=== PATIENT | male | born 1955 | race Caucasian/White ===

== ENCOUNTER 2021-06-07 10:30 | Emergency (ER) | payer MEDICARE, OTHER ==
[~2021-06-07] VITALS: Ht 162 cm; Wt 101.0 kg
--- NOTE | 2021-06-07 10:53 | ED Cough/URI ---
General Chief Complaint: COVID19 Suspect/Confirmed Stated Complaint: DIZZINESS; HEADACHE; NO SMELL/TASTE Nursing Triage Note: SHAKY AND NO TASTE OR SMELL. Source: patient Exam Limitations: no limitations History of Present Illness Date Seen by Provider: Jun 07, 2021 Time Seen by Provider: 10:51 Initial Comments 66-year-old male with past medical history of hypertension coming in due to 4 days of cough and loss of taste and smell. The cough is mild, intermittent, nothing seems to make it better or worse. He has some mild shortness of breath which is not bad. He has had the COVID vaccines as well as the booster. Has not had COVID that he knows of. Has not had any fever, nausea, vomiting, diarrhea, weakness, numbness, chest pain, abdominal pain, or any other concerns. Allergies and Home Medications Allergies Coded Allergies: No Known Drug Allergies (Unverified , 06/07/21) Patient Home Medication List Home Medication List Reviewed: Yes Review of Systems Review of Systems Constitutional: No chills, No fever EENTM: No blurred vision Respiratory: cough, short of breath Cardiovascular: No chest pain Gastrointestinal: No abdominal pain Genitourinary: No decreased output Musculoskeletal: no symptoms reported Skin: no symptoms reported Psychiatric/Neurological: No Symptoms Reported Hematologic/Lymphatic: No Symptoms Reported Immunological/Allergic: no symptoms reported All Other Systems Reviewed Negative Unless Noted: Yes Past Jqlsekk-Ktjbmz-Eeahtp Hx Patient Social History Tobacco Use?: No Use of E-Cig and/or Vaping dev: No Substance use?: No Alcohol Use?: No Immunizations Up To Date Influenza Vaccine Up-to-Date: Yes; Up-to-Date First/Initial COVID19 Vaccinat: 2020 Second COVID19 Vaccination Hai: 2020 COVID19 Vaccine Commissary Helper: moderna Past Medical History Surgery/Hospitalization HX: HTN Surgeries: No Physical Exam Vital Signs - First Documented 06/07/21 10:34 Temp 36.5 Pulse 92 Resp 18 B/P (MAP) 145/62 (89) Pulse Ox 97 O2 Delivery Room Air Capillary Refill : Less Than 3 Seconds Height: '" Weight: lbs. oz. kg; 38.00 BMI Method: General Appearance: no apparent distress Eyes: Bilateral Eye Normal Inspection HEENT: PERRL/EOMI, normal ENT inspection, pharynx normal Neck: non-tender, full range of motion, supple, normal inspection Respiratory: chest non-tender, lungs clear, normal breath sounds, no respiratory distress, no accessory muscle use Cardiovascular: regular rate, rhythm, no edema, no murmur Gastrointestinal: normal bowel sounds, non tender, soft; No distended, No guarding, No rebound Extremities: normal range of motion, non-tender, normal inspection, no pedal edema, no calf tenderness, normal capillary refill Neurologic/Psychiatric: no motor/sensory deficits, alert, normal mood/affect Skin: normal color, warm/dry Lymphatic: no adenopathy Progress/Results/Core Measures Suspected Sepsis SIRS Temperature: Pulse: 92 Respiratory Rate: 18 Blood Pressure 145 /62 Mean: 89 Results/Orders Lab Results Laboratory Tests Test 06/07/21 10:39 Range/Units Influenza Type A Antigen NEGATIVE NEGATIVE Influenza Type B Antigen NEGATIVE NEGATIVE My Orders Orders - JOSÉ RAM MD Covid 19 Inhouse Test (06/07/21 10:39) Chest 1 View Ap/Pa Only (06/07/21 10:47) Influenza A & B Antigens (06/07/21 10:47) Vital Signs/I&O 06/07/21 10:34 Temp 36.5 Pulse 92 Resp 18 B/P (MAP) 145/62 (89) Pulse Ox 97 O2 Delivery Room Air Capillary Refill : Less Than 3 Seconds Blood Pressure Mean: 89 Progress Note : Progress Note 66-year-old male with above history coming in due to URI type symptoms. ABCs were intact and vitals were stable on presentation. Physical exam reassuring with no focal abnormalities. Flu test negative, Covid test was sent and is pending. Chest x-ray on my interpretation without any focal pneumonia, pneumothorax, or obvious abnormality otherwise. He continues to be stable even with ambulation around the room his oxygen saturation remains normal. I believe he is stable for discharge with outpatient follow-up. He was sent home with strict return precautions. Departure Impression Primary Impression: Person under investigation for COVID-19 Additional Impression: URI (upper respiratory infection) Qualified Codes: J06.9 - Acute upper respiratory infection, unspecified Disposition: 01 HOME, SELF-CARE Condition: Stable Departure-Patient Inst. Decision time for Depature: 11:31 Referrals: ANGIE FRY (PCP) Primary Care Physician NO,LOCAL PHYSICIAN (Family) Primary Care Physician Patient Instructions: COVID-19 ED, Viral Upper Respiratory Infection, Adult (DC) Add. Discharge Instructions: Your flu test was negative, and your Covid test is pending. Your chest x-ray looked clear. I would recommend buying a pulse oximeter to have at home so he can check with your oxygen is. If you get into the 80s and are unable to get it to go back up to at least 90, that is when I recommend you come back to the ER. Take medq-knz-[id number] cold and flu medicine for any type of cough or fever. Work/School Note: Work Release Form Date Seen in the Emergency Department: Jun 07, 2021 Return to Work: Jun 09, 2021 Restrictions: Return-No Fever (24hrs) JOSÉ RAM MD Jun 07, 2021 10:53
[2021-06-07 11:33] VITALS: BP 145/62
--- NOTE | 2021-06-07 11:41 | Diagnostic Imaging Report ---
EXAMINATION: Portable chest, one view at 11:09 a.m. INDICATION: Shortness of breath. COMPARISON: None. FINDINGS: The heart size is within normal limits. The lungs are clear. There is no evidence for failure, pneumonia or for a pleural effusion. The mediastinum is not widened. The osseous structures are intact. IMPRESSION: There is no evidence for active disease. Dictated by: Dictated on workstation # [id number]
== END 2021-06-07 11:34 | disposition home or self-care (01) ==
LOC: EDBD → ER FS 10:33
DX: J06.9 Acute upper respiratory infection, unspecified (principal); I10 Essential (primary) hypertension; Z20.822 Contact with and (suspected) exposure to COVID-19
CPT/HCPCS: 71045; 87635; 87636; 87804

== ENCOUNTER 2021-06-08 12:44 | Inpatient (IN) | payer MEDICARE, OTHER ==
[~2021-06-08] VITALS: Ht 162.6 cm; Wt 104.5 kg
[2021-06-08] MEDS ORDERED: NS IV 1000 ML 1,000 ML IV SCH (13:00)
[2021-06-08] MEDS ORDERED: ACETAMINOPHEN 325 MG TABLET PO ONE (13:00)
--- NOTE | 2021-06-08 13:01 | ED General ---
General Chief Complaint: Altered Mental Status Stated Complaint: AMS Source of Information: Patient, EMS, Old Records History of Present Illness Date Seen by Provider: Jun 08, 2021 Time Seen by Provider: 12:44 Initial Comments 66-year-old male presenting by EMS with complaints of feeling unsteady on his feet and altered mental status. He states he has been having difficulty with walking and feeling off balance. He has had difficulty trying to control his urine over the last several days. He has been having generalized headache as well. He denies any numbness or weakness in his arms or legs. He denies any change in his vision. He was seen in the emergency department yesterday and had mainly been complaining of loss of taste and smell. At that time he was tested for Covid and influenza. He had negative influenza test and a rapid test was negative for Covid. He has elevated blood pressure here in the emergency department and had reportedly been unresponsive at home. He had lost control of his bladder at home as well. He denies having any chest pain, abdominal pain, nausea, vomiting, diarrhea. He had 101.5 temp for EMS. He follows with the local [place] clinic and states he usually goes to [place] if he needs [place] services. He also states he has Medicare and could be admitted locally if needed medical care. Associated Systoms: No Chest Pain; Cough; No Diaphoresis, No Fever/Chills; Headaches; No Loss of Appetite; Malaise; No Nausea/Vomiting, No Rash, No Seizure, No Shortness of Air, No Syncope; Weakness (generalized) Allergies and Home Medications Allergies Coded Allergies: No Known Drug Allergies (Unverified , 06/07/21) Patient Home Medication List Home Medication List Reviewed: Yes Review of Systems Review of Systems Constitutional: No chills; dizziness; No fever; malaise, weakness (general) EENTM: nose congestion; No epistaxis Respiratory: cough; No short of breath, No stridor, No wheezing Cardiovascular: No chest pain, No palpitations Gastrointestinal: No abdominal pain, No constipation, No diarrhea, No nausea, No vomiting Genitourinary: No dysuria; incontinence Musculoskeletal: no symptoms reported Skin: No rash Psychiatric/Neurological: Headache (generalized), Weakness (general), Other (Unsteady gait and feels off balance. He has been confused today.) Hematologic/Lymphatic: Denies Blood Clots Past Gprnfkr-Ulusyh-Babyka Hx Patient Social History Tobacco Use?: No Immunizations Up To Date First/Initial COVID19 Vaccinat: 2020 Second COVID19 Vaccination Hai: 2020 Past Medical History Surgery/Hospitalization HX: HTN Surgeries: No Physical Exam Vital Signs Vital Signs - First Documented 06/08/21 06/08/21 12:45 15:35 Temp 37.8 Pulse 93 Resp 17 B/P (MAP) 197/94 (128) Pulse Ox 98 O2 Delivery Room Air Capillary Refill : Height, Weight, BMI Height: '" Weight: lbs. oz. kg; 38.00 BMI Method: General Appearance: No Apparent Distress, Obese, Other (disheveled and poor personal hygiene) HEENT: PERRL/EOMI, Normal ENT Inspection, Pharynx Normal Neck: Full Range of Motion, Normal Inspection, Non Tender, Supple; No Carotid Bruit Respiratory: Chest Non Tender, Lungs Clear, Normal Breath Sounds, No Accessory Muscle Use, No Respiratory Distress Cardiovascular: Regular Rate, Rhythm, Normal Peripheral Pulses, Extra Beats Gastrointestinal: Normal Bowel Sounds, No Pulsatile Mass, Non Tender, Soft Rectal: Deferred Back: No CVA Tenderness Extremity: Normal Capillary Refill, Normal Inspection, No Pedal Edema Neurologic/Psychiatric: Alert, Oriented x3, genetic engineer II-XII Norm as Tested Skin: Normal Color, Warm/Dry Focused Exam Lactate Level 06/08/21 12:50: Lactic Acid Level 2.77*H 06/08/21 15:12: Lactic Acid Level 1.24 Lactic Acid Level Laboratory Tests Test 06/08/21 12:50 06/08/21 15:12 Lactic Acid Level 2.77 MMOL/L (0.50-2.00) *H 1.24 MMOL/L (0.50-2.00) Progress/Results/Core Measures Suspected Sepsis SIRS Temperature: Pulse: Respiratory Rate: Laboratory Tests 06/08/21 12:50: White Blood Count 5.1 Blood Pressure / Mean: 06/08/21 12:50: Lactic Acid Level 2.77*H 06/08/21 15:12: Lactic Acid Level 1.24 Laboratory Tests 06/08/21 12:50: Creatinine 1.25, INR Comment 1.0, Platelet Count 196, Total Bilirubin 0.5 Results/Orders Lab Results Laboratory Tests Test 06/08/21 12:50 06/08/21 14:03 06/08/21 15:12 Range/Units White Blood Count 5.1 4.3-11.0 10^3/uL Red Blood Count 5.01 4.30-5.52 10^6/uL Hemoglobin 14.1 13.3-17.7 g/dL Hematocrit 43 40-54 % Mean Corpuscular Volume 85 80-99 fL Mean Corpuscular Hemoglobin 28 25-34 pg Mean Corpuscular Hemoglobin Concent 33 32-36 g/dL Red Cell Distribution Width 13.2 10.0-14.5 % Platelet Count 196 130-400 10^3/uL Mean Platelet Volume 9.7 9.0-12.2 fL Immature Granulocyte % (Auto) 1 % Neutrophils (%) (Auto) 67 42-75 % Lymphocytes (%) (Auto) 23 12-44 % Monocytes (%) (Auto) 9 0-12 % Eosinophils (%) (Auto) 0 0-10 % Basophils (%) (Auto) 1 0-10 % Neutrophils # (Auto) 3.4 1.8-7.8 X 10^3 Lymphocytes # (Auto) 1.2 1.0-4.0 X 10^3 Monocytes # (Auto) 0.4 0.0-1.0 X 10^3 Eosinophils # (Auto) 0.0 0.0-0.3 10^3/uL Basophils # (Auto) 0.1 0.0-0.1 10^3/uL Immature Granulocyte # (Auto) 0.0 0.0-0.1 10^3/uL Prothrombin Time 13.6 12.2-14.7 SEC INR Comment 1.0 0.8-1.4 Activated Partial Thromboplast Time 24 24-35 SEC Sodium Level 138 135-145 MMOL/L Potassium Level 3.8 3.6-5.0 MMOL/L Chloride Level 103 98-107 MMOL/L Carbon Dioxide Level 23 21-32 MMOL/L Anion Gap 12 5-14 MMOL/L Blood Urea Nitrogen 26 H 7-18 MG/DL Creatinine 1.25 0.60-1.30 MG/DL Estimat Glomerular Filtration Rate 58 BUN/Creatinine Ratio 21 Glucose Level 177 H 70-105 MG/DL Lactic Acid Level 2.77 *H 1.24 0.50-2.00 MMOL/L Calcium Level 8.1 L 8.5-10.1 MG/DL Corrected Calcium 8.3 L 8.5-10.1 MG/DL Magnesium Level 2.0 1.6-2.4 MG/DL Total Bilirubin 0.5 0.1-1.0 MG/DL Aspartate Amino Transf (AST/SGOT) 37 H 5-34 U/L Alanine Aminotransferase (ALT/SGPT) 53 0-55 U/L Alkaline Phosphatase 87 40-136 U/L Troponin I 0.33 *H <0.30 NG/ML C-Reactive Protein 6.68 H <0.50 MG/DL Total Protein 6.7 6.4-8.2 GM/DL Albumin 3.8 3.2-4.5 GM/DL Urine Color YELLOW Urine Clarity CLEAR Urine pH 6.5 5-9 Urine Specific [place] 1.015 L 1.016-1.022 Urine Protein NEGATIVE NEGATIVE Urine Glucose (UA) NEGATIVE NEGATIVE Urine Ketones NEGATIVE NEGATIVE Urine Nitrite NEGATIVE NEGATIVE Urine Bilirubin NEGATIVE NEGATIVE Urine Urobilinogen 1.0 < = 1.0 MG/DL Urine Leukocyte Esterase NEGATIVE NEGATIVE Urine RBC (Auto) TRACE-I H NEGATIVE Urine RBC 2-5 H /HPF Urine WBC RARE /HPF Urine Crystals NONE /LPF Urine Bacteria NEGATIVE /HPF Urine Casts NONE /LPF Urine Mucus SMALL H /LPF Urine Culture Indicated NO My Orders Orders - ANNA MARIE VILLA MD Monitor-Rhythm Ecg Trace Only (06/08/21 12:53) Ed Iv/Invasive Line Start (06/08/21 12:53) Cbc With Automated Diff (06/08/21 12:53) Comprehensive Metabolic Panel (06/08/21 12:53) Crp Fs (06/08/21 12:53) Troponin I Fs (06/08/21 12:53) Protime With Inr (06/08/21 12:53) Partial Thromboplastin Time (06/08/21 12:53) Ekg Tracing (06/08/21 12:53) Ns Iv 1000 Ml (Sodium Chloride 0.9%) (06/08/21 13:00) Acetaminophen Tablet/Caplet (Tylenol T (06/08/21 13:00) Blood Culture (06/08/21 12:53) Ua Culture If Indicated (06/08/21 12:53) Ct Head Wo (06/08/21 12:53) Chest 1 View Ap/Pa Only (06/08/21 12:53) Lactic Acid Analyzer (06/08/21 12:53) Magnesium (06/08/21 12:57) Labetalol Injection (Normodyne Injection (06/08/21 13:33) Ekg Tracing (06/08/21 13:51) Ceftriaxone 1 Gm Pre-Mix (Rocephin 1 Gm (06/08/21 13:51) Medications Given in ED Current Medications Medications Dose Ordered Sig/Lisseth Route Start Time Stop Time Status Last Admin Dose Admin Acetaminophen 650 mg ONCE ONCE PO 06/08/21 13:00 06/08/21 13:01 DC 06/08/21 13:01 650 MG Vital Signs/I&O 06/08/21 06/08/21 06/08/21 06/08/21 12:45 12:45 13:01 15:35 Temp 37.8 37.6 Pulse 93 79 Resp 17 17 B/P (MAP) 197/94 (128) 136/72 Pulse Ox 98 O2 Delivery Room Air Room Air Room Air 06/08/21 06/08/21 06/08/21 16:20 16:20 16:20 Temp 36.7 Pulse 84 Resp 16 B/P (MAP) 167/116 (133) Pulse Ox 94 94 94 O2 Delivery Room Air Room Air Room Air Capillary Refill : Progress Note #1: Progress Note Obtain basic labs and blood cultures with cardiac enzymes. Urinalysis to look for signs of infection with his loss of control of the bladder. CT scan of his head to look for signs of stroke, sinusitis, tumor, bleeding that could explain his headache and altered mental status as well as feeling unsteady on his feet. Chest x-ray to look for signs of infection or change from yesterday. Give IV fluids for hydration with his reported fever from EMS. Obtain blood cultures and lactic acid. Differential diagnosis includes Covid PUI, sepsis, pneumonia, stroke, sinusitis, UTI, hypertensive urgency, acute renal failure, dehydration Progress Note #2: Progress Note Labs shows that his CBC is stable without acute elevation white blood cell count. His initial lactic acid was elevated to 2.77. He has mild elevation of the creatinine to 1.25. His initial electrocardiogram showed sinus tachycardia. He was given a dose of labetalol which helps with his heart rate and blood pressure but then his heart rate looks more regular so a repeat electrocardiogram was obtained which showed atrial fibrillation. His CT scan was did not show any acute process but did show some old lacunar infarcts. He had no acute process on his chest x-ray. His urinalysis was clear and did not show any signs of infection either. His initial troponin was slightly elevated at 0.33 with a cutoff of 0.3. With him having new onset atrial fibrillation and mild elevation of his lactic acid as well as troponin will discuss with the hospitalist and stem maker about admission for serial cardiac enzymes and monitoring. Progress Note #3: Progress Note Discussed with Dr. Monroe for the hospitalist service and Dr. Rodriguez for Cardiology. Will admit and do serial troponin tests ECG Initial ECG Impression Date: Jun 08, 2021 Initial ECG Impression Time: 12:56 Initial ECG Rate: 100 Initial ECG Rhythm: Normal Sinus Initial ECG Comparisson: No Previous ECG Available Comment Sinus tachycardia with heart rate of 100 bpm. TN interval [address] elevation. Findings for LVH with secondary repolarization abnormalities. QT interval 354 ms with a QTc interval 457 ms. There is no prior tracing available for comparison. EKG : EKG Time: 14:03 Rhythm: A Fib/Flutter ECG Comparisson: Changed Comment Atrial fibrillation with a heart rate of 118 bpm. Repolarization changes suggesting ischemia in anterolateral leads. Prolonged QT interval of 370 ms and QTc interval 519 ms. This is changed from his initial tracing 1256. Diagnostic Imaging Diagonstic Imaging: Xray Plain Films/CT/US/NM/MRI: chest Comments [facility] [place], [place] NAME: PORFIRIO RAMIREZ [facility] REC#: [id number] PT STATUS: REG ER : 1955 PHYSICIAN: ANNA MARIE VILLA MD ADMIT DATE: 06/08/21/ER FS Signed Date of Exam:06/08/21 CHEST 1 VIEW AP/PA ONLY INDICATION: Hypertension Portable chest 1:13 PM Heart and mediastinum are normal. Lungs are clear. There are no effusions or pneumothoraces. IMPRESSION: Negative chest Dictated by: Dictated on workstation # [id number] Dict: 06/08/21 1319 Trans: 06/08/21 1441 CV [id number] Interpreted by: JAYDA DAWSON MD Electronically signed by: JAYDA DAWSON MD 06/08/21 1441 Reviewed: Reviewed by Me Diagonstic Imaging: CT Plain Films/CT/US/NM/MRI: head Comments [facility] [place] [place] NAME: PORFIRIO RAMIREZ [facility] REC#: [id number] PT STATUS: REG ER : 1955 PHYSICIAN: ANNA MARIE VILLA MD ADMIT DATE: 06/08/21/ER FS Signed Date of Exam:06/08/21 CT HEAD WO INDICATION: Altered mental status and headache and hypertension. TECHNIQUE: Multiple contiguous axial images were obtained through the brain without the use of intravenous contrast. Auto Exposure Controls were utilized during the CT exam to meet ALARA standards for radiation dose reduction. There is no previous study for comparison There are no extra-axial fluid collections. No intracranial hemorrhage. There is no mass effect or midline shift. The ventricles are normal in size and position. There are moderate low-density changes throughout the deep white matter compatible with chronic ischemic change. There is an old lacunar infarct in the right thalamus as well as an old lacunar infarct in the right caudate nucleus. Calvarial windows appear unremarkable. IMPRESSION: There are chronic ischemic changes in the deep white matter. There is no acute hemorrhage or mass effect. There are old lacunar infarcts in the right thalamus and right caudate nucleus. Dictated by: Dictated on workstation # [id number] Dict: 06/08/21 1319 Trans: 06/08/21 1410 CVB [id number] Interpreted by: ROCHELLE CRUZ MD Electronically signed by: ROCHELLE CRUZ MD 06/08/21 1410 Reviewed: Reviewed by Me Departure Communication (Admissions) Time/Spoke to Admitting Phy: 14:[address] Monroe for the hospitalist service as the patient follows with [facility]. Will place on Cardiac Stepdown and trend troponin. Consult Dr. Rodriguez with cardiology for the new onset atrial fibrillation. Time/Spoke to Consulting Phy: 14:50 Dr. Rodriguez with cardiology was made aware of the consult for the patient being admitted to the hospitalist service with new onset atrial fibrillation and mild elevation of the troponin Impression Primary Impression: New onset atrial fibrillation Additional Impressions: Lactic acidosis Elevated troponin I level Disposition: 30 STILL A PATIENT Condition: Stable Admissions Decision to Admit Reason: Admit from ER (General) Decision to Admit/Date: Jun 08, 2021 Time/Decision to Admit Time: 14:40 Departure-Patient Inst. Referrals: ANGIE FRY (PCP) Primary Care Physician NO,LOCAL PHYSICIAN (Family) Primary Care Physician ANNA MARIE VILLA MD Jun 08, 2021 13:00
--- NOTE | 2021-06-08 13:21 | Diagnostic Imaging Report ---
INDICATION: Hypertension Portable chest 1:13 PM Heart and mediastinum are normal. Lungs are clear. There are no effusions or pneumothoraces. IMPRESSION: Negative chest Dictated by: Dictated on workstation # [id number]
--- NOTE | 2021-06-08 13:22 | Diagnostic Imaging Report ---
INDICATION: Altered mental status and headache and hypertension. TECHNIQUE: Multiple contiguous axial images were obtained through the brain without the use of intravenous contrast. Auto Exposure Controls were utilized during the CT exam to meet ALARA standards for radiation dose reduction. There is no previous study for comparison There are no extra-axial fluid collections. No intracranial hemorrhage. There is no mass effect or midline shift. The ventricles are normal in size and position. There are moderate low-density changes throughout the deep white matter compatible with chronic ischemic change. There is an old lacunar infarct in the right thalamus as well as an old lacunar infarct in the right caudate nucleus. Calvarial windows appear unremarkable. IMPRESSION: There are chronic ischemic changes in the deep white matter. There is no acute hemorrhage or mass effect. There are old lacunar infarcts in the right thalamus and right caudate nucleus. Dictated by: Dictated on workstation # [id number]
[2021-06-08 13:25] LABS: PROTHROMBIN TIME PATIENT 13.6 SEC (12.2-14.7)
[2021-06-08 13:27] LABS: BASOPHILS # (AUTO) 0.1 10^3/uL (0.0-0.1); BASOPHILS % (AUTO) 1 % (0-10); EOSINOPHILS % (AUTO) 0 % (0-10); HEMATOCRIT 43 % (40-54); HEMOGLOBIN 14.1 g/dL (13.3-17.7); LYMPHOCYTES # (AUTO) 1.2 X 10^3 (1.0-4.0); LYMPHOCYTES % (AUTO) 23 % (12-44); MEAN CORPUSCULAR HEMOGLOBIN 28 pg (25-34); MEAN CORPUSCULAR HGB CONC 33 g/dL (32-36); MEAN CORPUSCULAR VOLUME 85 fL (80-99); MEAN PLATELET VOLUME 9.7 fL (9.0-12.2); MONOCYTES # (AUTO) 0.4 X 10^3 (0.0-1.0); MONOCYTES % (AUTO) 9 % (0-12); NEUTROPHILS # (AUTO) 3.4 X 10^3 (1.8-7.8); NEUTROPHILS % (AUTO) 67 % (42-75); PLATELET COUNT 196 10^3/uL (130-400); WHITE BLOOD COUNT 5.1 10^3/uL (4.3-11.0)
[2021-06-08] MEDS ORDERED: LABETALOL HCL 20 MG/4 ML VIAL IV STA (13:33)
[2021-06-08 13:45] LABS: CREATININE SERUM 1.25 MG/DL (0.60-1.30); POTASSIUM 3.8 MMOL/L (3.6-5.0)
[2021-06-08 13:46] LABS: ALBUMIN 3.8 GM/DL (3.2-4.5); BILIRUBIN,TOTAL 0.5 MG/DL (0.1-1.0); CALCIUM 8.1 MG/DL (8.5-10.1); TOTAL PROTEIN 6.7 GM/DL (6.4-8.2)
[2021-06-08] MEDS ORDERED: cefTRIAXone 1 GM PRE-MIX 50 ML IV STA (13:51)
[2021-06-08 14:14] LABS: BILIRUBIN,URINE NEGATIVE (NEGATIVE); CLARITY,URINE CLEAR; COLOR,URINE YELLOW; GLUCOSE, URINE (UA) NEGATIVE (NEGATIVE); KETONES,URINE NEGATIVE (NEGATIVE); LEUKOCYTE ESTERASE ,URINE NEGATIVE (NEGATIVE); NITRITE,URINE NEGATIVE (NEGATIVE); PH,URINE 6.5 (5-9); PROTEIN,URINE NEGATIVE (NEGATIVE)
[2021-06-08 14:18] LABS: BACTERIA,URINE NEGATIVE /HPF; WBC,URINE RARE /HPF
[2021-06-08 16:20] VITALS: BP 167/116
[2021-06-08] MEDS ORDERED: meTOprolol TARTRATE 25 MG (LOPRESSOR) TABLET PO NR (17:30)
[2021-06-08] MEDS ORDERED: lisINopril 40 MG (PRINIVIL) TABLET PO NR (17:30)
[2021-06-08] MEDS: NS IV 1000 ML 1,000 ML IV SCH (17:43)
[2021-06-08] MEDS: ENOXAPARIN 100 MG/1 ML (LOVENOX) SYR SC SCH (17:43)
[2021-06-08] MEDS ORDERED: CATHETER FLUSH 10 ML SYR IV PRN (17:45)
[2021-06-08] MEDS ORDERED: diphenhydrAMINE 25 MG TAB (BENADRYL) PO PRN (17:45)
[2021-06-08] MEDS ORDERED: ONDANSETRON 4 MG (ZOFRAN) ORAL DISSOLVE TAB PO PRN (17:45)
[2021-06-08] MEDS ORDERED: MELATONIN 3 MG TABLET PO PRN (17:45)
[2021-06-08] MEDS ORDERED: polyethylene glycoL POWDER 17 GM (MIRALAX) PACK PO PRN (17:45)
[2021-06-08] MEDS ORDERED: ONDANSETRON 4 MG/2 ML (SDV) Z0FRAN IV PRN (17:45)
[2021-06-08] MEDS ORDERED: ENOXAPARIN 100 MG/1 ML (LOVENOX) SYR SC SCH (17:45)
[2021-06-08] MEDS ORDERED: ANTACID SUSP 30 ML UDC (MYLANTA) PO PRN (17:45)
[2021-06-08 19:40] VITALS: BP 141/100
[2021-06-08 20:00] VITALS: BP 147/79
[2021-06-08] MEDS: DOCUSATE SODIUM 100 MG (COLACE) CAP PO SCH (20:15)
[2021-06-08] MEDS: SENNOSIDES 8.6 MG (SENOKOT) TAB PO SCH (20:15)
[2021-06-08] MEDS: meTOprolol TARTRATE 25 MG (LOPRESSOR) TABLET PO SCH (20:15)
[2021-06-09] VITALS (8 sets, daily range): BP systolic 147–198; BP diastolic 75–101
[2021-06-09] MEDS: ACETAMINOPHEN 325 MG TABLET PO PRN ×2 (01:27→19:49)
[2021-06-09] MEDS: NS IV 1000 ML 1,000 ML IV SCH ×3 (03:05→15:03)
[2021-06-09 05:36] LABS: POTASSIUM 3.5 MMOL/L (3.6-5.0)
[2021-06-09 05:37] LABS: CALCIUM 7.5 MG/DL (8.5-10.1)
[2021-06-09 05:41] LABS: CREATININE SERUM 1.37 MG/DL (0.60-1.30)
[2021-06-09] MEDS: ENOXAPARIN 100 MG/1 ML (LOVENOX) SYR SC SCH ×2 (06:27→17:02)
[2021-06-09] MEDS: lisINopril 40 MG (PRINIVIL) TABLET PO SCH (08:23)
[2021-06-09] MEDS: meTOprolol TARTRATE 25 MG (LOPRESSOR) TABLET PO SCH (08:23)
[2021-06-09] MEDS: DOCUSATE SODIUM 100 MG (COLACE) CAP PO SCH ×2 (08:24→19:50)
[2021-06-09] MEDS: SENNOSIDES 8.6 MG (SENOKOT) TAB PO SCH ×2 (08:24→19:50)
--- NOTE | 2021-06-09 09:36 | Diagnostic Imaging Report ---
INDICATION: Fever. TECHNIQUE/COMPARISON: A frontal chest was obtained at 9:10 AM and compared to 06/08/2021. FINDINGS: The heart and mediastinal silhouette are normal in appearance. The lungs appear clear. There is no pneumothorax or pleural fluid. IMPRESSION: Negative chest. Dictated by: Dictated on workstation # [id number]
[2021-06-09] MEDS ORDERED: amLODIPine 10 MG (NORVASC) TAB PO ONE (14:30)
[2021-06-09] MEDS ORDERED: CLN.1T PO (15:36)
[2021-06-09] MEDS ORDERED: HYDR25TA4 PO (15:36)
[2021-06-09] MEDS ORDERED: FAMO40TA6 PO (15:36)
[2021-06-09] MEDS ORDERED: ROSU20TA32 PO (15:36)
[2021-06-09] MEDS ORDERED: AMLO-251 PO (15:36)
[2021-06-09] MEDS ORDERED: LISI40TA9 PO (15:36)
--- NOTE | 2021-06-09 16:40 | Consultation-Cardiology ---
HPI-Cardiology Cardiology Consultation: Date of Consultation 06/09/2021 Date of Admission 06/08/2021 Attending Physician Enma Monroe MD Admitting Physician Katina Bell Consulting Physician ELDON KENNEDY JR, MD HPI: Time Seen by a Provider: 17:30 Chief Complaint: Reason for consultation: Atrial fibrillation and elevated troponin level. I had the pleasure of reviewing the records on Jorge L who is on the cardiac stepdown unit at [facility] in [place], [place] this afternoon. I did not see the patient due to his PUI for Covid status. When I came up to the floor, he had just severely dropped his oxygen saturations when he was trying to use the bedside commode. The nurse was not able to get a facemask for oxygen and called a CODE BLUE. However, the patient did not lose his pulse or consciousness. He had actually presented to the hospital yesterday with increasing shortness of breath. He was also found to be in atrial fibrillation and a cardiology consultation was requested. Certain portions of this document may have been dictated utilizing voice recognition technology. Inherent to this technology, typographical and grammatical errors may exist. As much as I am diligent to identify and correct these mistakes, some errors may remain in the document. Review of Systems-Cardiology Review of Systems Other comments Not obtained due to the patient's PUI for Covid status. QZT-Odribi-Sisksn Hx Patient Social History Smoking Status: Never a Smoker Have you traveled recently?: No Alcohol Use?: No Substance type: Caffeine Pt feels they are or have been: No Past Medical History PMH As described under Assessment. Family Medical History Family Medical History: Not obtained as above. Allergies and Home Medications Allergies Coded Allergies: No Known Drug Allergies (Unverified , 06/07/21) Patient Home Medication List Home Medication List Reviewed: Yes Amlodipine Besylate (Amlodipine Besylate) 10 Mg Tablet, 10 MG PO DAILY, (Reported) Entered as Reported by: SHELLEY OWENS on 06/09/211535 Last Action: Reviewed Clonidine HCl (Clonidine HCl) 0.1 Mg Tablet, 0.1 MG PO BID, (Reported) Entered as Reported by: SHELLEY OWENS on 06/09/211535 Last Action: Reviewed Famotidine (Famotidine) 40 Mg Tablet, 40 MG PO DAILY, (Reported) Entered as Reported by: SHELLEY OWENS on 06/09/211535 Last Action: Reviewed Hydrochlorothiazide (Hydrochlorothiazide) 25 Mg Tablet, 25 MG PO DAILY, (Repo rted) Entered as Reported by: SHELLEY OWENS on 06/09/211535 Last Action: Reviewed Lisinopril (Lisinopril) 40 Mg Tablet, 40 MG PO DAILY, (Reported) Entered as Reported by: SHELLEY OWENS on 06/09/211535 Last Action: Reviewed Rosuvastatin Calcium (Rosuvastatin Calcium) 20 Mg Tablet, 10 MG PO HS, (Reported) Entered as Reported by: SHELLEY OWENS on 06/09/211535 Last Action: Reviewed Exam Vital Signs Vital Signs Date Time Temp Pulse Resp B/P (MAP) Pulse Ox O2 Delivery O2 Flow Rate FiO2 06/09/21 16:40 112 44 98 100.00 06/09/21 16:00 38.6 190/86 (120) 06/09/21 11:24 Room Air Physical Exam I did not examine the patient due to his PUI for Covid status. Labs Laboratory Tests Test 06/08/21 18:16 06/09/21 04:45 06/09/21 08:50 06/09/21 16:55 Range/Units Troponin I 0.275 H <0.028 NG/ML Sodium Level 138 135-145 MMOL/L Potassium Level 3.5 L 3.6-5.0 MMOL/L Chloride Level 106 98-107 MMOL/L Carbon Dioxide Level 22 21-32 MMOL/L Anion Gap 10 5-14 MMOL/L Blood Urea Nitrogen 26 H 7-18 MG/DL Creatinine 1.37 H 0.60-1.30 MG/DL Estimat Glomerular Filtration Rate 52 BUN/Creatinine Ratio 19 Glucose Level 159 H 70-105 MG/DL Calcium Level 7.5 L 8.5-10.1 MG/DL Procalcitonin 0.28 H <0.10 NG/ML D-Dimer 1.93 H 0.00-0.49 UG/ML Blood Gas Puncture Site LFT BRACH Blood Gas Patient Temperature 38.6 Arterial Blood pH 7.15 *L 7.37-7.43 Arterial Blood Partial Pressure CO2 69 H 35-45 MMHG Arterial Blood Partial Pressure O2 28 *L 79-93 MMHG Arterial Blood HCO3 22 L 23-27 MMOL/L Arterial Blood Total CO2 24.2 21.0-31.0 MMOL/L Arterial Blood Oxygen Saturation 40 L 94-100 % Arterial Blood Base Excess -5.1 L -2.5-2.5 MMOL/L Tree Test POS Blood Gas Ventilator Setting NO Blood Gas Inspired Oxygen 100% Radiology ECHOCARDIOGRAM (06/09/2021): 1. Left ventricle: The cavity size is normal. There is moderate concentric hypertrophy. Systolic function is normal. The estimated ejection fraction is 55- 60%. There were no regional wall motion abnormalities identified. 2. Right ventricle: The right ventricle is mildly dilated measuring 3.6 cm midcavity. Systolic function is normal. TAPSE 2.2 cm. 3. Left atrium: The left atrium is mildly dilated with a volume index ranging from 28-43 mL/m. 4. Aortic valve: There is mild aortic valve sclerosis. 5. Pulmonary arteries: The pulmonary artery pressure cannot be estimated on this study due to inadequate tricuspid regurgitant envelope. ECG Impression ECG Comment Electrocardiogram obtained on 06/08/2021 shows atrial fibrillation with possible old dayana-myocardial infarction and lateral ST-T wave changes, possibly due to ischemia. Diagnosis/Problems Diagnosis/Problems (1) Paroxysmal atrial fibrillation Assessment & Plan: It appears as though atrial fibrillation may be a new finding in this patient. He was not on any oral electrocoagulation at home. He has not been in our hospital in the past so I do not have old records for review from this institution. His echocardiogram from today only shows mild left atrial dilatation which suggests that the atrial fibrillation could be something relatively new. He has been started on carvedilol. He was placed on therapeutic dose enoxaparin. I will change this over to apixaban. We will titrate up the beta-agustín as needed to control his heart rate. If we can get his heart rate under control with oral medication, I do not see any urgent need for cardioversion during this hospitalization. (2) Elevated troponin I level Status: Acute Assessment & Plan: He does have an elevated troponin level with an abnormal electrocardiogram. However, his main symptom was shortness of breath. I suspect this could be due to a type II non-ST elevation myocardial infarction related to supply/demand mismatch due to his acute pulmonary disease and tachycardia from the atrial fibrillation. Once he is clinically improved, we may want to consider an ischemic evaluation with a nuclear stress test. I do not see any urgent need for cardiac catheterization at this time. (3) Primary hypertension Assessment & Plan: He has now been started on carvedilol due to the atrial fibrillation. He is also back on lisinopril and amlodipine. I would recommend we stop hydrochlorothiazide due to his chronic kidney disease. (4) Mixed hyperlipidemia Assessment & Plan: I will resume rosuvastatin that he was taking at home and or madai a lipid panel for tomorrow morning. (5) Stage 3 chronic kidney disease Assessment & Plan: I do not have previous labs to know whether or not this is a new finding in this patient. As above, I recommend we stop hydrochlorothiazide. (6) Obesity Assessment & Plan: He needs to work on weight loss. ELDON KENNEDY JR, MD Jun 09, 2021 16:40
[2021-06-09 17:02] LABS: ABG BASE EXCESS -5.1 MMOL/L (-2.5-2.5); ABG OXYGEN SATURATION 40 % (94-100); ABG PCO2 69 MMHG (35-45); ABG TCO2 24.2 MMOL/L (21.0-31.0)
[2021-06-09] MEDS: hydrALAZINE (APESOLINE) 20 MG/ML VIAL IV PRN ×2 (17:02→21:00)
[2021-06-09 17:05] LABS: ABG PH 7.15 (7.37-7.43); ABG PO2 28 MMHG (79-93)
[2021-06-09 17:06] LABS: ALLENS TEST POS; INSPIRED O2 100%; PATIENT TEMP 38.6; VENTILATOR NO
[2021-06-09] MEDS ORDERED: IOHEXOL 350 MG/ML 150 ML (OMNIPAQUE 350) VIAL IV ONE (17:45)
[2021-06-09] MEDS ORDERED: NS 100 ML (IVPB) BAG IV ONE (17:45)
[2021-06-09] MEDS ORDERED: HOLD METFORMIN - RECEIVED CONTRAST 20 ML VIAL IV SCH (17:45)
--- NOTE | 2021-06-09 18:45 | Diagnostic Imaging Report ---
PROCEDURE: CT angiography of the chest with contrast. TECHNIQUE: Multiple contiguous axial images were obtained through the chest after uneventful bolus administration of intravenous contrast. 3D reconstructed CTA MIP acquisitions were also performed. Auto Exposure Controls were utilized during the CT exam to meet ALARA standards for radiation dose reduction. DATE: June 09, 2021. COMPARISON: Chest radiographs June 09, 2021. INDICATION: 66-year-old male, shortness of breath. Status post code. FINDINGS: There is multifocal patchy alveolar consolidation in the lungs bilaterally. There is dependent confluent airspace consolidation in the left lower lobe and additional confluent airspace consolidation in the right lower lobe. There is a small right pleural effusion and a small left pleural effusion. There is no identified pneumothorax. The central airways are patent. There is no identified pulmonary embolus. The main pulmonary artery diameter is within normal limits. The heart is not enlarged. There is no pericardial effusion. There is no evidence of acute aortic injury or aortic dissection. There is a right hilar lymph node on axial image 62 measuring 8 mm in short axis. There is a right peritracheal lymph node with fatty internal hilum measuring 13 mm in short axis. The imaged portions of the upper abdomen are grossly unremarkable. There are multilevel degenerative changes of the spine. There is no identified acute bony abnormality. IMPRESSION: CT CHEST. 1. Nonspecific multifocal patchy bilateral lung consolidation with more confluent opacification in the right and left lower lobes. Differential diagnostic considerations include multifocal pneumonia including atypical infectious etiologies such as COVID 19. Pneumonitis and additional alveolar consolidative processes such as edema and hemorrhage could also be considered. 2. Small bilateral pleural effusions. 3. No identified pulmonary embolus. 4. No evidence of acute aortic injury or aortic dissection. Dictated by: Dictated on workstation # [id number]
[2021-06-09] MEDS ORDERED: FUROSEMIDE 40 MG/4 ML INJ (LASIX) IVP ONE (19:15)
[2021-06-09] MEDS ORDERED: LABETALOL HCL 20 MG/4 ML VIAL IV PRN (19:30)
[2021-06-09 19:38] LABS: BASOPHILS # (AUTO) 0.1 10^3/uL (0.0-0.1); BASOPHILS % (AUTO) 1 % (0-10); EOSINOPHILS % (AUTO) 0 % (0-10); HEMATOCRIT 44 % (40-54); HEMOGLOBIN 14.7 g/dL (13.3-17.7); LYMPHOCYTES % (AUTO) 9 % (12-44); MEAN CORPUSCULAR HEMOGLOBIN 28 pg (25-34); MEAN CORPUSCULAR HGB CONC 34 g/dL (32-36); MEAN CORPUSCULAR VOLUME 84 fL (80-99); MEAN PLATELET VOLUME 10.7 fL (9.0-12.2); MONOCYTES # (AUTO) 0.3 10^3/uL (0.0-1.0); MONOCYTES % (AUTO) 3 % (0-12); NEUTROPHILS # (AUTO) 9.4 10^3/uL (1.8-7.8); NEUTROPHILS % (AUTO) 87 % (42-75); PLATELET COUNT 215 10^3/uL (130-400); WHITE BLOOD COUNT 10.7 10^3/uL (4.3-11.0)
--- NOTE | 2021-06-09 19:39 | Tele-ICU Consult ---
History of Present Illness History of Present Illness Date Seen by Provider: Jun 09, 2021 Time Seen by Provider: 19:33 Date of Admission Mr Garcia is a 66 y old man PUI COVID admitted on the cardiac stepdown unit at [facility] in [place], [place] this afternoon. Patient had just severely dropped his oxygen saturations when he was trying to use the bedside commode. The nurse was not able to get a facemask for oxygen and called a CODE BLUE. However, the patient did not lose his pulse or consciousness. He had actually presented to the hospital yesterday with increasing shortness of breath. The ABG reveled severe resp acidosis; pt is on BIPAP; ABG will be repeated. Allergies and Home Medications Allergies Coded Allergies: No Known Drug Allergies (Unverified , 06/07/21) Home Medications Amlodipine Besylate 10 Mg Tablet, 10 MG PO DAILY, (Reported) Clonidine HCl 0.1 Mg Tablet, 0.1 MG PO BID, (Reported) Famotidine 40 Mg Tablet, 40 MG PO DAILY, (Reported) Hydrochlorothiazide 25 Mg Tablet, 25 MG PO DAILY, (Reported) Lisinopril 40 Mg Tablet, 40 MG PO DAILY, (Reported) Rosuvastatin Calcium 20 Mg Tablet, 10 MG PO HS, (Reported) TAKES OF A 20MG TAB Past Medical/Social/Family Hx Patient Social History Tobacco Use?: No Smoking Status: Never a Smoker Smokeless Tobacco Frequency: Never a User E-Cig and/or Vaping Freq: Never a User Substance use?: Yes Substance type: Caffeine Substance frequency: Daily Alcohol Use?: No Pt stated abuse/neglect: No Immunizations Up To Date Influenza Vaccine Up-to-Date: Yes; Up-to-Date First/Initial COVID19 Vaccinat: UNKNOWN DATE Second COVID19 Vaccination Hai: UNKNOWN DATE Current Status Advance Directives: No Communicates: Verbally Primary Language: [place] Citizen Preferred Spoken Language: [place] Citizen Is interpretation needed?: No Sensory deficits: Hearing impairment Implanted or Applied Medical D: None Past Medical History A fib COPD STEPAN Review of Systems Constitutional: see HPI Focused Exam Lactate Level 06/08/21 12:50: Lactic Acid Level 2.77*H 06/08/21 15:12: Lactic Acid Level 1.24 Height, Weight, BMI Height: '" Weight: lbs. oz. kg; 36.87 BMI Method: Exam Exam Patient acknowledged, consented, and participated in this virtual visit which was conducted using real time audio/video Vital Signs Date Time Temp Pulse Resp B/P (MAP) Pulse Ox O2 Delivery O2 Flow Rate FiO2 06/09/21 18:40 NIV Bilevel 50.00 06/09/21 18:24 112 32 99 60.00 06/09/21 18:00 107 27 180/101 (127) NIV Bilevel 60.00 06/09/21 18:00 NIV Bilevel 50 06/09/21 16:40 112 44 98 100.00 06/09/21 16:00 38.6 76 24 190/86 (120) 06/09/21 13:01 63 06/09/21 11:24 36.8 57 18 155/82 (106) 95 Room Air 06/09/21 08:31 Room Air 06/09/21 08:00 37.6 65 22 161/82 (108) 94 Room Air 06/09/21 07:00 59 06/09/21 04:00 38.2 71 21 147/75 (117) 97 06/09/21 01:27 38.5 06/09/21 01:00 70 06/09/21 00:00 38.5 67 12 158/87 (110) 94 Room Air 06/08/21 20:31 72 06/08/21 20:00 98 Room Air 06/08/21 20:00 99 147/79 (101) 91 Room Air 06/08/21 19:40 37.6 92 18 141/100 (114) 97 Room Air I & O 06/09/21 07:00 Intake Total 3600 ml Balance 3600 ml Height & Weight Height: '" Weight: lbs. oz. kg; 36.87 BMI Method: General Appearance: No Apparent Distress, Obese, Other (disheveled and poor personal hygiene) HEENT: PERRL/EOMI, Normal ENT Inspection, Pharynx Normal Neck: Full Range of Motion, Normal Inspection, Non Tender, Supple; No Carotid Bruit Respiratory: Chest Non Tender, Lungs Clear, Normal Breath Sounds, No Accessory Muscle Use, No Respiratory Distress Cardiovascular: Regular Rate, Rhythm, Normal Peripheral Pulses, Extra Beats Capillary Refill: Less Than 3 Seconds Extremity: Normal Capillary Refill, Normal Inspection, No Pedal Edema Neurologic/Psychiatric: Alert, Oriented x3, transportation officer II-XII Norm as Tested Skin: Normal Color, Warm/Dry Results Lab Laboratory Tests 06/08/21 12:50 06/09/21 04:45 Assessment/Plan Assessment/Plan Acute hypoxemic hypercarbic resp failure -STEPAN/COPD -repeat ABG/ cxray -continue BIPAP and adjust settings based on ABG A fib managment per cardio pt was visualized/ labs and diagnostics were reviewed. -rate control with bb -apixaban for anticoag ID covid to b eruled out -procal is high hence bacterial coinfection is possible. -check lactic acid; -due to possible vascular congestion/ fluid overload I will not give the fluid challenge. -empiric abx/ repeat blood cultures HUSSAIN WEBBER MD Jun 09, 2021 19:39
[2021-06-09] MEDS ORDERED: FUROSEMIDE 40 MG/4 ML INJ (LASIX) ONE (19:43)
[2021-06-09] MEDS: ROSUVASTATIN 10 MG (CRESTOR) TABLET PO SCH (19:50)
[2021-06-09] MEDS: cloNIDine 0.1 MG (CATAPRES) TAB PO SCH (19:50)
[2021-06-09 20:00] LABS: CALCIUM 7.7 MG/DL (8.5-10.1); CREATININE SERUM 1.57 MG/DL (0.60-1.30); POTASSIUM 3.7 MMOL/L (3.6-5.0)
[2021-06-09] MEDS ORDERED: VANCOMYCIN INJECTION 1,000 MG in NS (IVPB) 250 ML IV ONE (20:00)
[2021-06-09 20:08] LABS: LYMPHOCYTES % (MANUAL) 7 %; MONOCYTES % (MANUAL) 1 %; NEUTROPHILS % (MANUAL) 92 %; RBC MORPH NORMAL
[2021-06-09] MEDS ORDERED: NS (IVPB) 50 ML ONE (20:42)
[2021-06-09] MEDS ORDERED: CEFEPIME 1 GM/10 ML (MAXIPIME) VIAL ONE (20:42)
[2021-06-09] MEDS ORDERED: VANCOMYCIN 1000 MG/VIAL ONE (20:42)
[2021-06-09] MEDS ORDERED: NS IV 500 ML 500 ML ONE (20:43)
[2021-06-09] MEDS ORDERED: NS (IVPB) 250 ML ONE (20:43)
--- NOTE | 2021-06-09 20:55 | History & Physical-Hospitalist ---
History of Present Illness HPI/Chief Complaint Jorge L Garcia is a 66 year old male with PMH HTN, HLD, GERD, obesity, who presented with lightheadedness and dizziness. He reports having headache. He denies neck stiffness. He denies vision changes. He denies shortness of breath and cough. He denies fever and chills. He has had sore throat. He reports loss of taste and smell. He denies nausea and vomiting. He has no abdominal pain. He denies dysuria. He denies rash. He tested negative for COVID and flu a couple days ago. I visited with him again in the evening after he developed respiratory failure and was transferred to the ICU. He says he developed shortness of breath. He has had fevers. He remains awake and alert. He is on BiPAP. Source: patient Exam Limitations: no limitations Date Seen 06/09/21 Time Seen by a Provider: 09:50 Attending Physician Enma Barbosa MD PCP Katina Bell Referring Physician Date of Admission Jun 08, 2021 at 16:25 Home Medications & Allergies Home Medications Reviewed patient Home Medication Reconciliation performed by pharmacy medication reconciliations x ray service technician and/or nursing. Patients Allergies have been reviewed. Allergies Allergies Coded Allergies No Known Drug Allergies (Unverified06/07/21) Past Opvuylw-Jzbthv-Sevggd Hx Patient Social History Tobacco Use?: No Smoking Status: Never a Smoker Smokeless Tobacco Frequency: Never a User Use of E-Cig and/or Vaping Kuldeep: Never a User Substance use?: Yes Substance type: Caffeine Substance frequency: Daily Alcohol Use?: No Pt feels they are or have been: No Immunizations Up To Date First/Initial COVID19 Vaccinat: UNKNOWN DATE Second COVID19 Vaccination Hai: UNKNOWN DATE Current Status Advance Directives: No Communicates: Verbally Primary Language: Japanese Preferred Spoken Language: Japanese Is interpretation needed?: No Sensory deficits: Hearing impairment Implanted or Applied Medical D: None Past Medical History High Cholesterol, Hypertension Gastroesophageal Reflux A fib COPD STEPAN Family Medical History No Pertinent Family Hx Review of Systems Constitutional: dizziness, fever, malaise EENTM: nose congestion, throat pain Respiratory: short of breath Cardiovascular: no symptoms reported Gastrointestinal: no symptoms reported Genitourinary: no symptoms reported Musculoskeletal: no symptoms reported Skin: no symptoms reported Psychiatric/Neurological: No Symptoms Reported Physical Exam Physical Exam Vital Signs Vital Signs - First Documented 06/08/21 06/08/21 06/09/21 06/09/21 12:45 15:35 16:40 18:00 Temp 37.8 Pulse 93 Resp 17 B/P (MAP) 197/94 (128) Pulse Ox 98 O2 Delivery Room Air O2 Flow Rate 100.00 FiO2 50 Capillary Refill : Less Than 3 Seconds Height, Weight, BMI Height: '" Weight: lbs. oz. kg; 36.87 BMI Method: General Appearance: No Apparent Distress, Obese HEENT: PERRL/EOMI, Pharynx Normal Neck: Normal Inspection, Supple Respiratory: Crackles, Decreased Breath Sounds, Respiratory Distress (tachypnea) Cardiovascular: Regular Rate, Rhythm, No Edema, No Murmur Gastrointestinal: Normal Bowel Sounds, Non Tender, Soft Extremity: Normal Inspection, Non Tender, No Pedal Edema Skin: Normal Color, Warm/Dry Lymphatic: No Adenopathy Results Results/Procedures Labs Laboratory Tests 06/08/21 12:50 06/09/21 04:45 06/09/21 19:30 Patient resulted labs reviewed. Imaging: Reviewed Imaging Films, Reviewed Imaging Report Assessment/Plan Admission Diagnosis Severe sepsis due to multifocal pneumonia Admission Status: Inpatient Order (span 2 midnights) Reason for Inpatient Admission: Respiratory failure Assessment and Plan Severe sepsis Multifocal pneumonia Acute respiratory failure with hypoxia Lactic acidosis Acute kidney injury NSTEMI Person under investigation for COVID-[address] with multifocal pneumonia Procal trending up Started on Vancomycin and Cefepime s/p IV fluids Lasix ordered TeleICU consulted Cardiology consulted BiPAP New onset AFib Cardiology following HTN HLD GERD Obesity DVT prophylaxis: Lovenox Critical Care Critically Ill Patient Diagnosis/Problems Diagnosis/Problems (1) Severe sepsis Status: Acute (2) Multifocal pneumonia Status: Acute (3) RAMYA (acute kidney injury) Status: Acute (4) Acute respiratory failure with hypoxia Status: Acute (5) NSTEMI (non-ST elevation myocardial infarction) Status: Acute (6) HTN (hypertension) Status: Chronic (7) HLD (hyperlipidemia) Status: Chronic (8) GERD (gastroesophageal reflux disease) Status: Chronic (9) Obesity (10) Person under investigation for COVID-19 Status: Acute (11) New onset atrial fibrillation Status: Acute (12) Lactic acidosis Status: Acute ENMA BARBOSA MD Jun 09, 2021 20:55
[2021-06-09 20:58] LABS: ABG BASE EXCESS 1.8 MMOL/L (-2.5-2.5); ABG OXYGEN SATURATION 86 % (94-100); ABG PCO2 33 MMHG (35-45); ABG PO2 53 MMHG (79-93); ABG TCO2 25.4 MMOL/L (21.0-31.0)
[2021-06-09] MEDS ORDERED: CEFEPIME INJECTION 1,000 MG in NS (IVPB) 50 ML IV SCH (21:00)
[2021-06-09 21:01] LABS: ALLENS TEST POSITIVE
[2021-06-09 21:02] LABS: INSPIRED O2 50% BIPAP; PATIENT TEMP 38.9; VENTILATOR NO
[2021-06-09] MEDS ORDERED: VANCOMYCIN INJECTION 1,000 MG in NS (IVPB) 250 ML IV SCH (22:15)
[2021-06-09] MEDS: CEFEPIME INJECTION 1,000 MG in NS (IVPB) 50 ML IV SCH (22:15)
[2021-06-10] MEDS: ACETAMINOPHEN 325 MG TABLET PO PRN (00:08)
[2021-06-10 02:39] VITALS: BP 115/68
[2021-06-10 03:20] VITALS: BP 120/69
[2021-06-10 04:45] LABS: BASOPHILS # (AUTO) 0.1 10^3/uL (0.0-0.1); BASOPHILS % (AUTO) 0 % (0-10); EOSINOPHILS % (AUTO) 0 % (0-10); HEMATOCRIT 40 % (40-54); HEMOGLOBIN 13.4 g/dL (13.3-17.7); LYMPHOCYTES # (AUTO) 1.9 10^3/uL (1.0-4.0); LYMPHOCYTES % (AUTO) 13 % (12-44); MEAN CORPUSCULAR HEMOGLOBIN 28 pg (25-34); MEAN CORPUSCULAR HGB CONC 34 g/dL (32-36); MEAN CORPUSCULAR VOLUME 83 fL (80-99); MEAN PLATELET VOLUME 11.2 fL (9.0-12.2); MONOCYTES # (AUTO) 0.5 10^3/uL (0.0-1.0); MONOCYTES % (AUTO) 3 % (0-12); NEUTROPHILS # (AUTO) 12.1 10^3/uL (1.8-7.8); NEUTROPHILS % (AUTO) 83 % (42-75); PLATELET COUNT 196 10^3/uL (130-400); WHITE BLOOD COUNT 14.6 10^3/uL (4.3-11.0)
[2021-06-10 05:06] LABS: POTASSIUM 3.3 MMOL/L (3.6-5.0)
[2021-06-10 05:07] LABS: CALCIUM 7.4 MG/DL (8.5-10.1)
[2021-06-10 05:11] LABS: CREATININE SERUM 1.65 MG/DL (0.60-1.30)
[2021-06-10 05:14] LABS: MAGNESIUM 1.9 MG/DL (1.6-2.4)
[2021-06-10] MEDS: MAGNESIUM 1 GM/100 ML IVPB 100 ML IV SCH (05:19)
[2021-06-10] MEDS: KCL 20 MEQ TAB (K-DUR) PO SCH (05:19)
[2021-06-10] MEDS: POTASSIUM CL 10MEQ/50ML IVPB 50 ML IV SCH (05:19)
[2021-06-10] MEDS ORDERED: VANCOMYCIN INJECTION 1,000 MG in NS (IVPB) 250 ML IV ONE (05:30)
[2021-06-10] MEDS: APIXABAN 5 MG (ELIQUIS) TABLET PO SCH ×2 (05:46→16:30)
[2021-06-10] MEDS: CEFEPIME INJECTION 1,000 MG in NS (IVPB) 50 ML IV SCH ×3 (05:47→22:24)
[2021-06-10 06:32] VITALS: BP 115/60
[2021-06-10] MEDS: cloNIDine 0.1 MG (CATAPRES) TAB PO SCH ×2 (08:54→20:09)
[2021-06-10] MEDS: lisINopril 40 MG (PRINIVIL) TABLET PO SCH (08:54)
[2021-06-10] MEDS: DOCUSATE SODIUM 100 MG (COLACE) CAP PO SCH ×2 (08:54→20:10)
[2021-06-10] MEDS: amLODIPine 10 MG (NORVASC) TAB PO SCH (08:54)
[2021-06-10] MEDS: SENNOSIDES 8.6 MG (SENOKOT) TAB PO SCH ×2 (08:55→20:10)
--- NOTE | 2021-06-10 09:26 | Cardiology Progress Note ---
Progress Note-Cardiology Events since last exam Date Seen by Provider: Jun 10, 2021 Time Seen by Provider: 09:25 Events since last exam I am following him due to atrial fibrillation and abnormal troponin level. He remains in the intensive care unit. He was transferred from cardiac stepdown to the intensive care unit yesterday due to decreased oxygen saturations. His follow-up Covid test is still pending. He has not been reporting chest discomfort or palpitations. I did not see the patient due to his Covid status. I did speak with his nurse of today. Certain portions of this document may have been dictated utilizing voice recognition technology. Inherent to this technology, typographical and gramm atical errors may exist. As much as I am diligent to identify and correct these mistakes, some errors may remain in the document. Vitals Last set of Vitals Signs Vital Signs 06/10/21 06/10/21 06/10/21 06/10/21 09:00 11:00 11:49 13:00 Temp 37.1 Pulse 56 Resp 19 B/P (MAP) 117/60 Pulse Ox 94 O2 Delivery High Flow N/C O2 Flow Rate 8.00 FiO2 4 Labs Labs Laboratory Tests 06/09/21 19:30 06/10/21 03:51 Exam Vital Signs Vital Signs Date Time Temp Pulse Resp B/P (MAP) Pulse Ox O2 Delivery O2 Flow Rate FiO2 06/10/21 13:00 56 06/10/21 13:00 94 High Flow N/C 8.00 06/10/21 11:49 37.1 06/10/21 11:00 19 117/60 06/10/21 09:00 4 Physical Exam I did not examine the patient due to his Covid status. Labs Laboratory Tests Test 06/09/21 16:55 06/09/21 19:20 06/09/21 19:30 06/09/21 20:15 Range/Units Blood Gas Puncture Site LFT BRACH Blood Gas Patient Temperature 38.6 Arterial Blood pH 7.15 *L 7.37-7.43 Arterial Blood Partial Pressure CO2 69 H 35-45 MMHG Arterial Blood Partial Pressure O2 28 *L 79-93 MMHG Arterial Blood HCO3 22 L 23-27 MMOL/L Arterial Blood Total CO2 24.2 21.0-31.0 MMOL/L Arterial Blood Oxygen Saturation 40 L 94-100 % Arterial Blood Base Excess -5.1 L -2.5-2.5 MMOL/L Tree Test POS Blood Gas Ventilator Setting NO Blood Gas Inspired Oxygen 100% B-Type Natriuretic Peptide 106.8 H <100.0 PG/ML White Blood Count 10.7 4.3-11.0 10^3/uL Red Blood Count 5.19 4.30-5.52 10^6/uL Hemoglobin 14.7 13.3-17.7 g/dL Hematocrit 44 40-54 % Mean Corpuscular Volume 84 80-99 fL Mean Corpuscular Hemoglobin 28 25-34 pg Mean Corpuscular Hemoglobin Concent 34 32-36 g/dL Red Cell Distribution Width 13.1 10.0-14.5 % Platelet Count 215 130-400 10^3/uL Mean Platelet Volume 10.7 9.0-12.2 fL Immature Granulocyte % (Auto) 0 % Neutrophils (%) (Auto) 87 H 42-75 % Lymphocytes (%) (Auto) 9 L 12-44 % Monocytes (%) (Auto) 3 0-12 % Eosinophils (%) (Auto) 0 0-10 % Basophils (%) (Auto) 1 0-10 % Neutrophils # (Auto) 9.4 H 1.8-7.8 10^3/uL Lymphocytes # (Auto) 1.0 1.0-4.0 10^3/uL Monocytes # (Auto) 0.3 0.0-1.0 10^3/uL Eosinophils # (Auto) 0.0 0.0-0.3 10^3/uL Basophils # (Auto) 0.1 0.0-0.1 10^3/uL Immature Granulocyte # (Auto) 0.0 0.0-0.1 10^3/uL Neutrophils % (Manual) 92 % Lymphocytes % (Manual) 7 % Monocytes % (Manual) 1 % Blood Morphology Comment NORMAL Sodium Level 138 135-145 MMOL/L Potassium Level 3.7 3.6-5.0 MMOL/L Chloride Level 106 98-107 MMOL/L Carbon Dioxide Level 21 21-32 MMOL/L Anion Gap 11 5-14 MMOL/L Blood Urea Nitrogen 27 H 7-18 MG/DL Creatinine 1.57 H 0.60-1.30 MG/DL Estimat Glomerular Filtration Rate 44 BUN/Creatinine Ratio 17 Glucose Level 193 H 70-105 MG/DL Calcium Level 7.7 L 8.5-10.1 MG/DL Troponin I 0.284 H <0.028 NG/ML Procalcitonin 1.86 H <0.10 NG/ML Thyroid Stimulating Hormone (TSH) 1.05 0.35-4.94 UIU/ML Lactic Acid Level 1.78 0.50-2.00 MMOL/L Test 06/09/21 20:49 06/10/21 03:51 06/10/21 08:50 Range/Units Blood Gas Puncture Site RIGHT RADIAL Blood Gas Patient Temperature 38.9 Arterial Blood pH 7.50 H 7.37-7.43 Arterial Blood Partial Pressure CO2 33 L 35-45 MMHG Arterial Blood Partial Pressure O2 53 L 79-93 MMHG Arterial Blood HCO3 25 23-27 MMOL/L Arterial Blood Total CO2 25.4 21.0-31.0 MMOL/L Arterial Blood Oxygen Saturation 86 L 94-100 % Arterial Blood Base Excess 1.8 -2.5-2.5 MMOL/L Tree Test POSITIVE Blood Gas Ventilator Setting NO Blood Gas Inspired Oxygen 50% BIPAP White Blood Count 14.6 H 4.3-11.0 10^3/uL Red Blood Count 4.75 4.30-5.52 10^6/uL Hemoglobin 13.4 13.3-17.7 g/dL Hematocrit 40 40-54 % Mean Corpuscular Volume 83 80-99 fL Mean Corpuscular Hemoglobin 28 25-34 pg Mean Corpuscular Hemoglobin Concent 34 32-36 g/dL Red Cell Distribution Width 13.0 10.0-14.5 % Platelet Count 196 130-400 10^3/uL Mean Platelet Volume 11.2 9.0-12.2 fL Immature Granulocyte % (Auto) 1 % Neutrophils (%) (Auto) 83 H 42-75 % Lymphocytes (%) (Auto) 13 12-44 % Monocytes (%) (Auto) 3 0-12 % Eosinophils (%) (Auto) 0 0-10 % Basophils (%) (Auto) 0 0-10 % Neutrophils # (Auto) 12.1 H 1.8-7.8 10^3/uL Lymphocytes # (Auto) 1.9 1.0-4.0 10^3/uL Monocytes # (Auto) 0.5 0.0-1.0 10^3/uL Eosinophils # (Auto) 0.0 0.0-0.3 10^3/uL Basophils # (Auto) 0.1 0.0-0.1 10^3/uL Immature Granulocyte # (Auto) 0.1 0.0-0.1 10^3/uL Sodium Level 139 135-145 MMOL/L Potassium Level 3.3 L 3.6-5.0 MMOL/L Chloride Level 106 98-107 MMOL/L Carbon Dioxide Level 21 21-32 MMOL/L Anion Gap 12 5-14 MMOL/L Blood Urea Nitrogen 32 H 7-18 MG/DL Creatinine 1.65 H 0.60-1.30 MG/DL Estimat Glomerular Filtration Rate 42 BUN/Creatinine Ratio 19 Glucose Level 257 H 70-105 MG/DL Calcium Level 7.4 L 8.5-10.1 MG/DL Magnesium Level 1.9 1.6-2.4 MG/DL SARS-CoV-2 RNA (RT-PCR) Negative Negative Diagnosis/Problems Diagnosis/Problems (1) Paroxysmal atrial fibrillation Assessment & Plan: It appears as though atrial fibrillation may be a new finding in this patient. He was not on any oral electrocoagulation at home. He has not been in our hospital in the past so I do not have old records for review from this institution. His echocardiogram from this admission only shows mild left atrial dilatation which suggests that the atrial fibrillation could be something relatively new. He has been started on carvedilol. He was initially placed on therapeutic dose enoxaparin. I have changed this over to apixaban. We will titrate up the beta-agustín as needed to control his heart rate. If we can get his heart rate under control with oral medication, I do not see any urgent need for cardioversion during this hospitalization. (2) Elevated troponin I level Status: Acute Assessment & Plan: He does have an elevated troponin level with an abnormal electrocardiogram. However, his main symptom was shortness of breath. I suspect this could be due to a type II non-ST elevation myocardial infarction related to supply/demand mismatch due to his acute pulmonary disease and tachycardia from the atrial fibrillation. Once he is clinically improved, we may want to consider an ischemic evaluation with a nuclear stress test. I do not see any urgent need for cardiac catheterization at this time. (3) Primary hypertension Assessment & Plan: He has been started on carvedilol due to the atrial fibrillation. He is back on lisinopril and amlodipine which he was taking at home. I would recommend we stop hydrochlorothiazide due to his chronic kidney disease. He has now also been ordered for clonidine twice daily. His blood p ressures are better. (4) Mixed hyperlipidemia Assessment & Plan: Continue rosuvastatin that he was taking at home. I ordered a lipid panel to be added to previous blood sample. (5) Stage 3 chronic kidney disease Assessment & Plan: I do not have previous labs to know whether or not this is a new finding in this patient. As above, I recommend we stop hydrochlorothiazide. (6) Obesity Assessment & Plan: He needs to work on weight loss. ELDON KENNEDY JR, MD Jun 10, 2021 09:26
[2021-06-10] MEDS ORDERED: KCL 20 MEQ TAB (K-DUR) PO NR (11:00)
--- NOTE | 2021-06-10 13:13 | Tele-ICU Progress Note ---
Subjective Time Seen by a Provider: 13:13 Sepsis Event Evaluation Height, Weight, BMI Height: '" Weight: lbs. oz. kg; 36.87 BMI Method: Focused Exam Lactate Level 06/08/21 12:50: Lactic Acid Level 2.77*H 06/08/21 15:12: Lactic Acid Level 1.24 06/09/21 20:15: Lactic Acid Level 1.78 Exam Exam Patient acknowledged, consented, and participated in this virtual visit which was conducted using real time audio/video Vital Signs Date Time Temp Pulse Resp B/P (MAP) Pulse Ox O2 Delivery O2 Flow Rate FiO2 06/10/21 11:49 37.1 06/10/21 11:08 High Flow N/C 8.00 06/10/21 11:00 57 19 117/60 95 High Flow N/C 10.00 06/10/21 10:50 95 High Flow N/C 8.00 06/10/21 10:00 65 23 124/67 96 High Flow N/C 10.00 06/10/21 09:00 96 High Flow N/C 10.00 4 06/10/21 09:00 67 18 124/67 96 High Flow N/C 10.00 06/10/21 09:00 High Flow N/C 10.00 06/10/21 08:00 37.4 06/10/21 08:00 60 18 123/65 96 NIV Bilevel 40.00 06/10/21 07:00 66 06/10/21 07:00 61 20 122/65 98 NIV Bilevel 40.00 06/10/21 06:32 64 23 97 40.00 06/10/21 06:00 61 20 115/60 95 NIV Bilevel 40.00 06/10/21 05:11 95 NIV Bilevel 40 06/10/21 05:00 61 20 100/63 95 NIV Bilevel 40.00 06/10/21 04:00 63 22 106/63 97 NIV Bilevel 40.00 06/10/21 03:33 36.5 NIV Bilevel 40.00 06/10/21 03:20 70 26 96 40.00 06/10/21 03:00 68 24 120/69 97 NIV Bilevel 40.00 06/10/21 02:39 66 21 97 40.00 06/10/21 02:00 69 24 112/68 99 NIV Bilevel 40.00 06/10/21 01:00 73 06/10/21 01:00 73 23 123/72 95 NIV Bilevel 40.00 06/10/21 00:51 38.2 NIV Bilevel 40.00 06/10/21 00:50 38.2 06/10/21 00:20 96 NIV Bilevel 50 06/10/21 00:12 39.0 NIV Bilevel 50.00 06/10/21 00:08 39.0 06/10/21 00:00 80 23 131/71 96 NIV Bilevel 60.00 06/09/21 23:12 38.9 NIV Bilevel 60.00 06/09/21 23:11 38.9 NIV Bilevel 60.00 06/09/21 23:00 93 23 158/87 97 NIV Bilevel 50.00 06/09/21 22:41 89 27 97 50.00 06/09/21 22:00 93 28 153/86 96 NIV Bilevel 50.00 06/09/21 21:30 104 33 140/92 94 NIV Bilevel 50.00 06/09/21 21:00 98 182/118 95 NIV Bilevel 50.00 06/09/21 20:58 38.0 06/09/21 20:00 94 NIV Bilevel 50 06/09/21 20:00 95 195/118 94 NIV Bilevel 50.00 06/09/21 20:00 38.6 06/09/21 19:49 38.6 06/09/21 19:15 96 190/100 91 NIV Bilevel 50.00 06/09/21 19:00 36.8 NIV Bilevel 50.00 06/09/21 19:00 38.6 NIV Bilevel 50.00 06/09/21 19:00 101 06/09/21 18:40 NIV Bilevel 50.00 06/09/21 18:24 112 32 99 60.00 06/09/21 18:00 107 27 180/101 (127) NIV Bilevel 60.00 06/09/21 18:00 NIV Bilevel 50 06/09/21 16:40 112 44 98 100.00 06/09/21 16:00 38.6 76 24 190/86 (120) I & O 06/10/21 07:00 Intake Total 740 ml Output Total 2775 ml Balance -2035 ml Height & Weight Height: '" Weight: lbs. oz. kg; 36.87 BMI Method: General Appearance: No Apparent Distress, Obese HEENT: PERRL/EOMI, Pharynx Normal Neck: Normal Inspection, Supple Respiratory: Crackles, Decreased Breath Sounds, Respiratory Distress (tachypnea) Cardiovascular: Regular Rate, Rhythm, No Edema, No Murmur Capillary Refill: Less Than 3 Seconds Extremity: Normal Inspection, Non Tender, No Pedal Edema Neurologic/Psychiatric: Alert, Oriented x3, data modeling architect II-XII Norm as Tested Skin: Normal Color, Warm/Dry Lymphatic: No Adenopathy Results Lab Laboratory Tests 06/09/21 04:45 06/09/21 19:30 06/10/21 03:51 Assessment/Plan Assessment/Plan (Tele-ICU Physician , Progress Note ) Available chart/ vitals / labs / Images reviewed Video assessment done using teleICU camera, rest of exam as per RN Discussed with RN , EXAM PER RN Events overnight : Afebrile FiO2 - I/O = Drips: Pressors: , hemodynamically stable Consultants: Hospital course: A/P Severe sepsis Multifocal pneumonia - by CT -on Vancomycin and Cefepime Acute respiratory failure with hypoxia - on BIPAP --> 8 L NC now RAMYA - improved NSTEMI - ECHO 06/09 - EF 55% Person under investigation for COVID-19 -COVID test pending New onset AFib =Cardiology following - AC with eliquis GERD Obesity Lines : (Central Line Necessity Reviewed) Stuart: OG: Nutrition: Analgesia: Anxiety/ delirium VTE Prophylaxis: NOAC Stress Ulcer Prophylaxis: po Glycemic Control: Plans in collaboration with bedside consultants and IM MDs. Discussed with RN to reach out if any questions or concerns A total of 33 minutes of critical care time was devoted to this patient today, required to treat and/or prevent further deterioration of critical care condition ( as above) . DEMETRIS CORONA MD Jun 10, 2021 13:13
[2021-06-10] MEDS ORDERED: NS (IVPB) 250 ML IV ONE ×2 (16:15→17:45)
[2021-06-10] MEDS ORDERED: PANTOPRAZOLE 40 MG (PROTONIX) TAB PO ONE (16:24)
[2021-06-10] MEDS ORDERED: NS (IVPB) 500 ML ONE (16:25)
[2021-06-10] MEDS: PANTOPRAZOLE 40 MG (PROTONIX) TAB PO SCH (16:30)
[2021-06-10 16:40] LABS: POTASSIUM 3.5 MMOL/L (3.6-5.0)
--- NOTE | 2021-06-10 16:40 | Progress Note - Hospitalist ---
Subjective HPI/CC On Admission Date Seen by Provider: Jun 10, 2021 Time Seen by Provider: 09:40 Jorge L Garcia is a 66 year old male with PMH HTN, HLD, GERD, obesity, who presented with lightheadedness and dizziness. He reports having headache. He denies neck stiffness. He denies vision changes. He denies shortness of breath and cough. He denies fever and chills. He has had sore throat. He reports loss of taste and smell. He denies nausea and vomiting. He has no abdominal pain. He denies dysuria. He denies rash. He tested negative for COVID and flu a couple days ago. I visited with him again in the evening after he developed respiratory failure and was transferred to the ICU. He says he developed shortness of breath. He has had fevers. He remains awake and alert. He is on BiPAP. Subjective/Events-last exam He denies shortness of breath and cough. He denies fevers. He denies pain. He does not remember moving to the ICU yesterday. Focused Exam Lactate Level 06/08/21 12:50: Lactic Acid Level 2.77*H 06/08/21 15:12: Lactic Acid Level 1.24 06/09/21 20:15: Lactic Acid Level 1.78 Objective Exam Vital Signs Vital Signs Date Time Temp Pulse Resp B/P (MAP) Pulse Ox O2 Delivery O2 Flow Rate FiO2 06/10/21 13:00 56 06/10/21 13:00 94 High Flow N/C 8.00 06/10/21 11:49 37.1 06/10/21 11:00 19 117/60 06/10/21 09:00 4 Capillary Refill : Less Than 3 Seconds General Appearance: No Apparent Distress, Obese Respiratory: No Respiratory Distress, Decreased Breath Sounds Cardiovascular: Regular Rate, Rhythm, No Murmur Gastrointestinal: Normal Bowel Sounds, Non Tender, Soft Extremity: Normal Inspection, Non Tender, No Pedal Edema Neurologic/Psychiatric: Alert, Disoriented, Other (flat affect) Skin: Normal Color, Warm/Dry Results/Procedures Lab Laboratory Tests 06/09/21 19:30 06/10/21 03:51 Patient resulted labs reviewed. Imaging: Reviewed Imaging Films, Reviewed Imaging Report Assessment/Plan Assessment and Plan Assess & Plan/Chief Complaint Severe sepsis Multifocal pneumonia Acute respiratory failure with hypoxia Lactic acidosis Acute kidney injury NSTEMI Person under investigation for COVID-19 COVID test negative x2 CT with multifocal pneumonia Procal trended up Continue Vancomycin and Cefepime TeleICU following Cardiology following Off BiPAP, nasal cannula as needed New onset AFib Cardiology following Eliquis HTN HLD GERD Obesity Critical Care Critically Ill Patient Diagnosis/Problems Diagnosis/Problems (1) Severe sepsis Status: Acute (2) Multifocal pneumonia Status: Acute (3) RAMYA (acute kidney injury) Status: Acute (4) Acute respiratory failure with hypoxia Status: Acute (5) NSTEMI (non-ST elevation myocardial infarction) Status: Acute (6) HTN (hypertension) Status: Chronic (7) HLD (hyperlipidemia) Status: Chronic (8) GERD (gastroesophageal reflux disease) Status: Chronic (9) Obesity (10) Person under investigation for COVID-19 Status: Acute (11) New onset atrial fibrillation Status: Acute (12) Lactic acidosis Status: Acute YURY BARBOSA MD Jun 10, 2021 16:40
[2021-06-10 16:41] LABS: CALCIUM 7.8 MG/DL (8.5-10.1)
[2021-06-10 16:43] LABS: TRIGLYCERIDES 253 MG/DL (<150); VLDL CHOLESTEROL 51 MG/DL (5-40)
[2021-06-10 16:46] LABS: CREATININE SERUM 1.72 MG/DL (0.60-1.30)
[2021-06-10 16:48] LABS: CHOLESTEROL 152 MG/DL (< 200); HDL CHOLESTEROL 17 MG/DL (40-60)
[2021-06-10] MEDS ORDERED: cloNIDine 0.1 MG (CATAPRES) TAB PO ONE (17:00)
[2021-06-10] MEDS ORDERED: NS IV 1000 ML 1,000 ML ONE (18:50)
[2021-06-10] MEDS: NS IV 1000 ML 1,000 ML IV SCH (18:53)
[2021-06-10] MEDS: VANCOMYCIN 1250 MG/NS 250 ML IVPB IV SCH ×2 (20:09)
[2021-06-10] MEDS: ROSUVASTATIN 10 MG (CRESTOR) TABLET PO SCH (20:09)
[2021-06-10 21:12] VITALS: BP 118/64
[2021-06-11 04:46] LABS: BASOPHILS # (AUTO) 0.1 10^3/uL (0.0-0.1); BASOPHILS % (AUTO) 1 % (0-10); EOSINOPHILS # (AUTO) 0.1 10^3/uL (0.0-0.3); EOSINOPHILS % (AUTO) 1 % (0-10); HEMATOCRIT 34 % (40-54); HEMOGLOBIN 11.5 g/dL (13.3-17.7); LYMPHOCYTES # (AUTO) 2.1 10^3/uL (1.0-4.0); LYMPHOCYTES % (AUTO) 22 % (12-44); MEAN CORPUSCULAR HEMOGLOBIN 29 pg (25-34); MEAN CORPUSCULAR HGB CONC 34 g/dL (32-36); MEAN CORPUSCULAR VOLUME 84 fL (80-99); MONOCYTES # (AUTO) 0.6 10^3/uL (0.0-1.0); MONOCYTES % (AUTO) 6 % (0-12); NEUTROPHILS # (AUTO) 6.5 10^3/uL (1.8-7.8); NEUTROPHILS % (AUTO) 69 % (42-75); PLATELET COUNT 207 10^3/uL (130-400); WHITE BLOOD COUNT 9.4 10^3/uL (4.3-11.0)
[2021-06-11 04:59] LABS: POTASSIUM 3.6 MMOL/L (3.6-5.0)
[2021-06-11 05:00] LABS: CALCIUM 7.4 MG/DL (8.5-10.1)
[2021-06-11 05:04] LABS: PHOSPHORUS 2.3 MG/DL (2.3-4.7)
[2021-06-11 05:05] LABS: CREATININE SERUM 1.43 MG/DL (0.60-1.30)
[2021-06-11] MEDS: MAGNESIUM 1 GM/100 ML IVPB 100 ML IV SCH (05:22)
[2021-06-11] MEDS: POTASSIUM CL 10MEQ/50ML IVPB 50 ML IV SCH (05:22)
[2021-06-11] MEDS: KCL 20 MEQ TAB (K-DUR) PO SCH (05:24)
[2021-06-11 06:05] LABS: ATYPICAL LYMPHOCYTES 4 %; EOSINOPHILS % (MANUAL) 3 %; LYMPHOCYTES % (MANUAL) 18 %; MONOCYTES % (MANUAL) 2 %; NEUTROPHILS % (MANUAL) 73 %
[2021-06-11 06:06] LABS: MICROCYTOSIS SLIGHT; POLYCHROMASIA SLIGHT
[2021-06-11] MEDS: NS IV 1000 ML 1,000 ML IV SCH (06:19)
[2021-06-11] MEDS: CEFEPIME INJECTION 1,000 MG in NS (IVPB) 50 ML IV SCH ×3 (06:19→22:17)
[2021-06-11] MEDS: APIXABAN 5 MG (ELIQUIS) TABLET PO SCH ×2 (06:19→17:40)
[2021-06-11] MEDS ORDERED: KCL 20 MEQ TAB (K-DUR) PO ONE (08:00)
[2021-06-11] MEDS: DOCUSATE SODIUM 100 MG (COLACE) CAP PO SCH ×2 (08:09→22:18)
[2021-06-11] MEDS: SENNOSIDES 8.6 MG (SENOKOT) TAB PO SCH ×2 (08:09→22:17)
[2021-06-11] MEDS: amLODIPine 10 MG (NORVASC) TAB PO SCH (08:09)
[2021-06-11] MEDS: cloNIDine 0.1 MG (CATAPRES) TAB PO SCH ×2 (08:09→22:18)
[2021-06-11] MEDS: PANTOPRAZOLE 40 MG (PROTONIX) TAB PO SCH (08:09)
[2021-06-11] MEDS: lisINopril 40 MG (PRINIVIL) TABLET PO SCH (08:09)
--- NOTE | 2021-06-11 09:50 | Physical Therapy Evaluation ---
PT Evaluation-General Medical Diagnosis Admission Date Jun 09, 2021 at 20:44 Medical Diagnosis: Shortness of breath, lightheadedness, dizziness Onset Date: Jun 08, 2021 Therapy Diagnosis Therapy Diagnosis: Gait deficit, strenght deficit Precautions Precautions/Isolations: Fall Prevention, Standard Precautions Referral Physician: Dr. Monroe Reason for Referral: Evaluation/Treatment Medical History Reviewed History: Yes Social History Home: Single Level Current Living Status: Spouse Entry Into Home: Stairs With Railing PT Steps Into Home: 5 PT Steps Inside Home: 0 Prior Prior Level of Function SCALE: Activities may be completed with or without assistive devices. 5-Axmmiwpfva-skiqtth completes the activity by him/herself with no assistance from a helper. 5-Set-up or Clean-up Assistance-helper sets up or cleans up; patient completes activity. [place] assists only prior to or following the activity. 4-Supervision or Touching Assistance-helper provides verbal cues and/or touching/steadying and/or contact guard assistance as patient completes activity. Assistance may be provided throughout the activity or intermittently. 3-Partial/Moderate Assistance-helper does LESS THAN HALF the effort. [place] lifts, holds or supports trunk or limbs, but provides less than half the effort. 2-Substantial/Maximal Assistance-helper does MORE THAN HALF the effort. [place] lifts or holds trunk or limbs and provides more than half the effort. 1-Jaeytqztm-kwdowz does ALL the effort. Patient does none of the effort to complete the activity. Or, the assistance of 2 or more helpers is required for the patient to complete the activity. If activity was not attempted, code reason: 7-Patient Refused. 9-Not Applicable-not attempted and the patient did not perform the activity before the current illness, exacerbation or injury. 10-Not Attempted due to Environmental Limitations-(lack of equipment, weather restraints, etc.). 88-Not Attempted due to Medical Conditions or Safety Concerns. Bed Mobility: 6 Transfers (B,C,W/C): 6 Gait: 6 Stairs: 6 Indoor Mobility (Ambulation): Independent Stairs: Independent Prior Devices Use: None PT Evaluation-Current Subjective Patient reports 0/10 pain. Lying supine in bed upon PT arrival, agreeable to treatment. Objective Patient Orientation: Person, Place, Time, Situation ROM/Strength ROM Lower Extremities WFLs bilaterally all planes Strength Lower Extremities 4-/5 bilaterally all hip, knee and ankle planes Sensory Vision: Functional Hearing: Functional Sensation Right Lower Extremit: Intact Sensation Left Lower Extremity: Intact Transfers Roll Left to Right (QC): 3 (Min) Sit to Lying (QC): 3 (Min) Lying to Sitting/Side of Bed(Q: 3 (Min) Sit to Stand (QC): 3 (mod) Chair/Cal-is-Tahke Xfer(QC): 3 (mod) Gait Does the Patient Walk?: Yes Mode of Locomotion: Walk Anticipated Mode of Locomotion: Walk Distance: 5 feet Gait Assistive Device: None Comments/Gait Description Patient would benefit from use of FWW until strength and balance improve Balance Sitting Static: Fair Sitting Dynamic: Poor Standing Static: Poor Standing Dynamic: Poor Assessment/Needs Patient requires min A for all bed mobility and mod A for all transfers. Upon sitting at the edge of the bed, patient tends to lean posteriorly and left. Initially he is unable to correct this, however after 2-3 minutes of sitting he is able to sit with SBA, using BUEs to help maintain core control. Patient requires mod A for sit to stand and ambulation to the chair. Initially does not feel that he needs a FWW because he has never used one, but patient would benefit from use of FWW until balance and LE strength have improved. Patient performs LE therapeutic exercise of AP x 20, LAQ's, Hamstring curls, Marching, Hip abd/adduction all x 10 reps each LE. Patient in chair post treatment with all needs met, nursing notified, call light in hand. Rehab Potential: Fair Equipment Needs FWW PT Carroting Machine Offbearer Goals Carroting Machine Offbearer Goals PT Senior Care Goals Time Frame: Jul 02, 2021 Roll Left & Right (QC): 6 Sit to Lying (QC): 6 Lying-Sitting on Side/Bed(QC): 6 Sit to Stand (QC): 5 Chair/Phs-ti-Qieth Xfer(QC): 5 Toilet Transfer (QC): 5 Does the Patient Walk: Yes Walk 10 feet (QC): 4 Walk 50ft with 2 Turns (QC): 4 Walk 150 ft (QC): 4 1 Step (curb) (QC): 4 4 Steps (QC): 4 PT Plan Problem List Problem List: Activity Tolerance, Functional Strength, Safety, Balance, Gait, Transfer, Bed Mobility, ROM Treatment/Plan Treatment Plan: Continue Plan of Care Treatment Plan: Bed Mobility, Education, Functional Activity Shauna, Functional Strength, Gait, Safety, Therapeutic Exercise, Transfers Treatment Duration: Jul 02, 2021 Frequency: 6 times per week Estimated Hrs Per Day: .25 hour per day Safety Risks/Education Patient Education: Gait Training, Transfer Techniques, Safety Issues Teaching Recipient: Patient Teaching Methods: Demonstration, Discussion Response to Teaching: Reinforcement Needed Time/GCodes Time In: 851 Time Out: 931 Total Billed Treatment Time: 40 Total Billed Treatment Visit, RYAN Chiu, DIANNE Garces PT Jun 11, 2021 09:50
--- NOTE | 2021-06-11 11:52 | Cardiology Progress Note ---
Progress Note-Cardiology Events since last exam Date Seen by Provider: Jun 11, 2021 Time Seen by Provider: 11:44 Events since last exam I am following him due to atrial fibrillation and abnormal troponin level. He remains in the intensive care unit but may be transferred to the medical floor later today. His follow-up Covid test came back negative. He denies chest discomfort, dyspnea at rest, palpitations, syncope, or ankle edema. Certain portions of this document may have been dictated utilizing voice r ecognition technology. Inherent to this technology, typographical and grammatical errors may exist. As much as I am diligent to identify and correct these mistakes, some errors may remain in the document. Vitals Last set of Vitals Signs Vital Signs 06/11/21 06/11/21 06/11/21 01:00 11:00 11:38 Temp 37.6 Pulse 73 Resp 26 B/P (MAP) 137/109 Pulse Ox 93 O2 Delivery High Flow N/C O2 Flow Rate 6.00 FiO2 40 Labs Labs Laboratory Tests 06/10/21 16:20 06/11/21 04:22 Exam Vital Signs Vital Signs Date Time Temp Pulse Resp B/P (MAP) Pulse Ox O2 Delivery O2 Flow Rate FiO2 06/11/21 11:38 37.6 06/11/21 11:00 73 26 137/109 93 High Flow N/C 6.00 06/11/21 01:00 40 Physical Exam General: Alert. No acute distress. He is obese. Eye: No xanthelasma. HENT: Normocephalic. Neck: Jugular venous pressure does not appear elevated. Respiratory: Lungs are clear to auscultation. Respirations are non-labored. Breath sounds are equal. Symmetrical chest wall expansion. Cardiovascular: Normal rate. Regular rhythm. No murmur. No gallop. No edema. Gastrointestinal: Soft. Normal bowel sounds. Skin: Warm. Dry. Neurologic: Alert and oriented to person, place, time. Cranial nerves 3-11 grossly intact. Psychiatric: Cooperative. Appropriate mood & affect. Labs Laboratory Tests Test 06/10/21 16:20 06/11/21 04:22 Range/Units Sodium Level 136 134 L 135-145 MMOL/L Potassium Level 3.5 L 3.6 3.6-5.0 MMOL/L Chloride Level 103 105 98-107 MMOL/L Carbon Dioxide Level 24 21 21-32 MMOL/L Anion Gap 9 8 5-14 MMOL/L Blood Urea Nitrogen 41 H 35 H 7-18 MG/DL Creatinine 1.72 H 1.43 H 0.60-1.30 MG/DL Estimat Glomerular Filtration Rate 40 49 BUN/Creatinine Ratio 24 24 Glucose Level 144 H 145 H 70-105 MG/DL Calcium Level 7.8 L 7.4 L 8.5-10.1 MG/DL Triglycerides Level 253 H <150 MG/DL Cholesterol Level 152 < 200 MG/DL LDL Cholesterol Direct 98 1-129 MG/DL VLDL Cholesterol 51 H 5-40 MG/DL HDL Cholesterol 17 L 40-60 MG/DL White Blood Count 9.4 4.3-11.0 10^3/uL Red Blood Count 4.04 L 4.30-5.52 10^6/uL Hemoglobin 11.5 L 13.3-17.7 g/dL Hematocrit 34 L 40-54 % Mean Corpuscular Volume 84 80-99 fL Mean Corpuscular Hemoglobin 29 25-34 pg Mean Corpuscular Hemoglobin Concent 34 32-36 g/dL Red Cell Distribution Width 13.3 10.0-14.5 % Platelet Count 207 130-400 10^3/uL Mean Platelet Volume 11.0 9.0-12.2 fL Immature Granulocyte % (Auto) 0 % Neutrophils (%) (Auto) 69 42-75 % Lymphocytes (%) (Auto) 22 12-44 % Monocytes (%) (Auto) 6 0-12 % Eosinophils (%) (Auto) 1 0-10 % Basophils (%) (Auto) 1 0-10 % Neutrophils # (Auto) 6.5 1.8-7.8 10^3/uL Lymphocytes # (Auto) 2.1 1.0-4.0 10^3/uL Monocytes # (Auto) 0.6 0.0-1.0 10^3/uL Eosinophils # (Auto) 0.1 0.0-0.3 10^3/uL Basophils # (Auto) 0.1 0.0-0.1 10^3/uL Immature Granulocyte # (Auto) 0.0 0.0-0.1 10^3/uL Neutrophils % (Manual) 73 % Lymphocytes % (Manual) 18 % Monocytes % (Manual) 2 % Eosinophils % (Manual) 3 % Atypical Lymphocytes 4 % Smudge Cells SLIGHT Polychromasia SLIGHT Microcytosis SLIGHT Phosphorus Level 2.3 2.3-4.7 MG/DL Magnesium Level 2.0 1.6-2.4 MG/DL Diagnosis/Problems Diagnosis/Problems (1) Paroxysmal atrial fibrillation Assessment & Plan: It appears as though atrial fibrillation may be a new findi ng in this patient. He was not on any oral electrocoagulation at home. He has not been in our hospital in the past so I do not have old records for review from this institution. His echocardiogram from this admission only shows mild left atrial dilatation which suggests that the atrial fibrillation could be something relatively new. He has been started on carvedilol. He was initially placed on therapeutic dose enoxaparin. I have changed this over to apixaban. He is now back in sinus rhythm. This may have all been brought on by pneumonia. He may not necessarily need long-term anticoagulation. I will plan to follow this after discharge. (2) Elevated troponin I level Status: Acute Assessment & Plan: He does have an elevated troponin level with an abnormal electrocardiogram. However, his main symptom was shortness of breath. I suspect this could be due to a type II non-ST elevation myocardial infarction related to supply/demand mismatch due to his acute pulmonary disease and tachycardia from the atrial fibrillation. Now that he is improving, I will have him undergo a pharmacological stress test tomorrow. (3) Primary hypertension Assessment & Plan: He has been started on carvedilol due to the atrial fibrillation. He is back on lisinopril and amlodipine which he was taking at home. I stopped hydrochlorothiazide due to his chronic kidney disease. He has now also been ordered for clonidine twice daily. His blood pressures are better but diastolic is elevated at times. If this persists, we could increase his carvedilol. (4) Mixed hyperlipidemia Assessment & Plan: Continue rosuvastatin that he was taking at home. (5) Stage 3 chronic kidney disease Assessment & Plan: I do not have previous labs to know whether or not this is a new finding in this patient. As above, I recommend we stop hydrochlorothiazide. His renal function seems to be improving. (6) Obesity Assessment & Plan: He needs to work on weight loss. ELDON KENNEDY JR, MD Jun 11, 2021 11:52
[2021-06-11] MEDS ORDERED: REGADENOSON 0.4 MG/5 ML SYR (LEXISCAN) IV ONE (12:00)
--- NOTE | 2021-06-11 12:46 | Tele-ICU Progress Note ---
Subjective Date Seen by a Provider: Jun 11, 2021 Time Seen by a Provider: 09:22 Sepsis Event Evaluation Height, Weight, BMI Height: '" Weight: lbs. oz. kg; 36.87 BMI Method: Focused Exam Lactate Level 06/08/21 12:50: Lactic Acid Level 2.77*H 06/08/21 15:12: Lactic Acid Level 1.24 06/09/21 20:15: Lactic Acid Level 1.78 Exam Exam Patient acknowledged, consented, and participated in this virtual visit which was conducted using real time audio/video Vital Signs Date Time Temp Pulse Resp B/P (MAP) Pulse Ox O2 Delivery O2 Flow Rate FiO2 06/11/21 12:38 67 06/11/21 11:38 37.6 06/11/21 11:00 73 26 137/109 93 High Flow N/C 6.00 06/11/21 10:00 67 19 104/94 94 High Flow N/C 6.00 06/11/21 09:00 71 15 133/94 91 High Flow N/C 6.00 06/11/21 08:35 96 High Flow N/C 6.00 06/11/21 08:00 64 20 146/76 92 High Flow N/C 6.00 06/11/21 07:54 37.5 06/11/21 07:54 90 High Flow N/C 6.00 06/11/21 07:00 66 06/11/21 07:00 64 22 141/77 90 High Flow N/C 6.00 06/11/21 06:00 63 17 139/73 93 High Flow N/C 6.00 06/11/21 05:00 58 21 134/77 93 High Flow N/C 6.00 06/11/21 05:00 96 High Flow N/C 6.00 06/11/21 04:00 62 22 132/73 93 High Flow N/C 6.00 06/11/21 04:00 37.2 High Flow N/C 6.00 06/11/21 03:00 65 26 130/77 91 High Flow N/C 6.00 06/11/21 02:00 58 20 126/65 95 NIV Bilevel 40.00 06/11/21 01:00 57 19 120/64 94 NIV Bilevel 40.00 06/11/21 01:00 60 06/11/21 01:00 96 NIV Bilevel 40 06/11/21 00:00 67 21 122/67 95 NIV Bilevel 40.00 06/11/21 00:00 37.0 06/10/21 23:00 59 21 117/61 96 NIV Bilevel 40.00 06/10/21 22:00 56 19 116/61 93 NIV Bilevel 40.00 06/10/21 21:20 NIV Bilevel 40.00 06/10/21 21:12 58 20 93 40.00 06/10/21 21:00 64 21 118/64 93 High Flow N/C 6.00 06/10/21 20:50 96 High Flow N/C 6.00 06/10/21 20:00 37.4 06/10/21 20:00 62 18 112/61 89 High Flow N/C 6.00 06/10/21 19:00 66 20 111/67 94 High Flow N/C 6.00 06/10/21 19:00 70 06/10/21 19:00 36.2 High Flow N/C 6.00 06/10/21 18:00 59 19 119/82 93 High Flow N/C 6.00 06/10/21 17:00 94 High Flow N/C 60.00 06/10/21 17:00 60 18 114/63 94 High Flow N/C 6.00 06/10/21 16:27 High Flow N/C 6.00 06/10/21 16:00 65 22 118/79 92 High Flow N/C 8.00 06/10/21 16:00 35.8 06/10/21 15:00 58 23 124/68 93 High Flow N/C 8.00 06/10/21 14:00 61 28 112/78 95 High Flow N/C 8.00 06/10/21 13:00 55 20 114/67 94 High Flow N/C 8.00 06/10/21 13:00 56 06/10/21 13:00 94 High Flow N/C 8.00 I & O 06/11/21 07:00 Intake Total 3000 ml Output Total 1250 ml Balance 1750 ml Height & Weight Height: '" Weight: lbs. oz. kg; 36.87 BMI Method: General Appearance: No Apparent Distress, Obese HEENT: PERRL/EOMI, Pharynx Normal Neck: Normal Inspection, Supple Respiratory: No Respiratory Distress, Decreased Breath Sounds Cardiovascular: Regular Rate, Rhythm, No Murmur Capillary Refill: Less Than 3 Seconds Extremity: Normal Inspection, Non Tender, No Pedal Edema Neurologic/Psychiatric: Alert, Disoriented, Other (flat affect) Skin: Normal Color, Warm/Dry Lymphatic: No Adenopathy Results Lab Laboratory Tests 06/09/21 19:30 06/10/21 03:51 06/10/21 16:20 06/11/21 04:22 Assessment/Plan Assessment/Plan (Tele-ICU Physician , Progress Note ) Available chart/ vitals / labs / Images reviewed Video assessment done using teleICU camera, rest of exam as per RN Discussed with RN , EXAM PER RN Events overnight : 17/01 overming Afebrile FiO2 - 6L I/O = Drips: 83ns Pressors: , hemodynamically stable Consultants: A/P Severe sepsis Multifocal pneumonia - by CT -on Vancomycin and Cefepime Acute respiratory failure imprived , 6 L NC now RAMYA - improved NSTEMI - ECHO 06/09 - EF 55% Person under investigation for COVID-19 -COVID neg New onset AFib =Cardiology following - AC with eliquis GERD Obesity Lines : (Central Line Necessity Reviewed) Stuart: + OG: Nutrition: Analgesia: Anxiety/ delirium VTE Prophylaxis: NOAC Stress Ulcer Prophylaxis: po Glycemic Control: Plans in collaboration with bedside consultants and IM MDs. Discussed with RN to reach out if any questions or concerns A total of 33 minutes of critical care time was devoted to this patient today, required to treat and/or prevent further deterioration of critical care condition ( as above) . DEMETRIS CORONA MD Jun 11, 2021 12:46
--- NOTE | 2021-06-11 14:08 | Occupational Therapy Eval ---
OT Evaluation-General/PLF Medical Diagnosis Admission Date Jun 09, 2021 at 20:44 Medical Diagnosis: Shortness of breath, lightheadedness, dizziness Onset Date: Jun 08, 2021 Therapy Diagnosis Therapy Diagnosis: decreased ADL status. Precautions Precautions/Isolations: Fall Prevention, Standard Precautions Referral Physician: Dr. Monroe Referral Reason: Evaluation/Treatment Medical History Additional Medical History HTN, HLD, GERD, obesity Social History Home: Single Level Current Living Status: Alone Entry Into Home: Stairs With Railing Steps Into Home: 5 Steps Inside Home: 0 ADL-Prior Level of Function SCALE: Activities may be completed with or without assistive devices. 2-Mapzolmjwj-klvshzr completes the activity by him/herself with no assistance from a helper. 5-Set-up or Clean-up Assistance-helper sets up or cleans up; patient completes activity. [place] assists only prior to or following the activity. 4-Supervision or Touching Assistance-helper provides verbal cues and/or touching/steadying and/or contact guard assistance as patient completes activity. Assistance may be provided throughout the activity or intermittently. 3-Partial/Moderate Assistance-helper does LESS THAN HALF the effort. [place] lifts, holds or supports trunk or limbs, but provides less than half the effort. 2-Substantial/Maximal Assistance-helper does MORE THAN HALF the effort. [place] lifts or holds trunk or limbs and provides more than half the effort. 0-Bdpevampp-gtjgcu does ALL the effort. Patient does none of the effort to complete the activity. Or, the assistance of 2 or more helpers is required for the patient to complete the activity. If activity was not attempted, code reason: 7-Patient Refused. 9-Not Applicable-not attempted and the patient did not perform the activity before the current illness, exacerbation or injury. 10-Not Attempted due to Environmental Limitations-(lack of equipment, weather restraints, etc.). 88-Not Attempted due to Medical Conditions or Safety Concerns. ADL PLOF Comments Pt reports IND with ADLs and functional mobility at PLOF, no AD. Self Care: Independent Functional Cognition: Independent DME/Equipment: Bath Chair, Shower OT Current Status Subjective Pt in bed, agreeable to OT tx. Pt declined all OOB activities. Mental Status/Objective Patient Orientation: Person, Place, Situation Attachments: [place] Catheter, Oxygen (HF NC) Current Hand Dominance: Right Upper Extremity ROM WFL, BUE shoulder flexion to approx 140 degrees Upper Extremity Coordination WFL Upper Extremity Strength grossly 3+/5 ADL-Treatment Eating (QC): 6 (Pt IND with lunch.) Oral Hygiene (QC): 4 (SBA, pt required 1 verbal cue for sequencing.) Other Treatments Pt in bed, declined all OOB activities. Pt agreeable to OT Tx with focus on grooming tasks. OT placed shower cap on pt's head, after instruction, pt used BUEs to scrub his hair. After cap was removed, OT handed pt a comb, pt refused to comb his hair, asking this therapist to do it for him. OT encouraged pt to complete himself, but continued to refuse. Total assist to comb hair due to pt refusal. Pt then washed his face with set up assistance, and brushed his teeth with 1 verbal cue for sequencing. Pt's lunch arrived, tray placed in front of pt. OT asked pt if he needed assistance with cutting his food, he replied "It might help". OT encouraged pt to attempt himself prior to assistance being provided, pt able to eat independently without any assistance. Post tx, pt in bed, HOB elevated, call light in reach and all needs met. Education OT Patient Education: Correct positioning, Energy conservation, Exercise program, Modified ADL techniques, Progress toward Goal/Update tx plan, Purpose of tx/functional activities, Rehab process, Safety issues, Transfer techniques Teaching Recipient: Patient Teaching Methods: Discussion Response to Teaching: Verbalize Understanding OT Windlace Machine Operator Goals Windlace Machine Operator Goals Time Frame: Jun 19, 2021 Eating (QC): 6 Oral Hygiene (QC): 6 Toileting Hygiene (QC): 4 Shower/Bathe Self (QC): 5 Upper Body Dressing (QC): 5 Lower Body Dressing (QC): 4 On/Off Footwear (QC): 4 Additional Goals: 1-Demonstrate ADL Tasks, 2-Verbalize Understanding, 3- ImproveStrength/Shauna 1=Demonstrate adherence to instructed precautions during ADL tasks. 2=Patient will verbalize/demonstrate understanding of assistive devices/modifications for ADL. 3=Patient will improve strength/tolerance for activity to enable patient to perform ADL's. OT Education/Plan Problem List/Assessment Assessment: Decreased Activ Tolerance, Decreased UE Strength, Impaired Funct Balance, Impaired I ADL's, Impaired Self-Care Skills Discharge Recommendations Plan/Recommendations: Continue POC Treatment Plan/Plan of Care Patient would benefit from OT for education, treatment and training to promote independence in ADL's, mobility, safety and/or upper extremity function for ADL's. Plan of Care: ADL Retraining, Functional Mobility, UE Funct Exercise/Act Treatment Duration: Jun 19, 2021 Frequency: 3 times per week (3-5 times per week) Rehab Potential: Fair Time/GCodes Start Time: 13:35 Stop Time: 13:55 Total Time Billed (hr/min): 20 Billed Treatment Time 1, TUTU JENSEN OT Jun 11, 2021 14:08
--- NOTE | 2021-06-11 16:51 | Progress Note - Hospitalist ---
Subjective HPI/CC On Admission Date Seen by Provider: Jun 11, 2021 Time Seen by Provider: 09:50 Jorge L Garcia is a 66 year old male with PMH HTN, HLD, GERD, obesity, who presented with lightheadedness and dizziness. He reports having headache. He denies neck stiffness. He denies vision changes. He denies shortness of breath and cough. He denies fever and chills. He has had sore throat. He reports loss of taste and smell. He denies nausea and vomiting. He has no abdominal pain. He denies dysuria. He denies rash. He tested negative for COVID and flu a couple days ago. I visited with him again in the evening after he developed respiratory failure and was transferred to the ICU. He says he developed shortness of breath. He has had fevers. He remains awake and alert. He is on BiPAP. Subjective/Events-last exam He is feeling better. He denies shortness of breath. His cough is better. He denies nausea and vomiting. He denies pain. Focused Exam Lactate Level 06/09/21 20:15: Lactic Acid Level 1.78 Objective Exam Vital Signs Vital Signs Date Time Temp Pulse Resp B/P (MAP) Pulse Ox O2 Delivery O2 Flow Rate FiO2 06/11/21 16:00 73 17 123/68 90 High Flow N/C 6.00 06/11/21 11:38 37.6 06/11/21 01:00 40 Capillary Refill : Less Than 3 Seconds General Appearance: No Apparent Distress, Obese Respiratory: Lungs Clear, Normal Breath Sounds, No Respiratory Distress Cardiovascular: Regular Rate, Rhythm, No Edema, No Murmur Gastrointestinal: Normal Bowel Sounds, Non Tender, Soft Extremity: Normal Inspection, Non Tender, Pedal Edema Neurologic/Psychiatric: Alert, No Motor/Sensory Deficits Skin: Normal Color, Warm/Dry Results/Procedures Lab Laboratory Tests 06/11/21 04:22 Patient resulted labs reviewed. Imaging: Reviewed Imaging Films, Reviewed Imaging Report Assessment/Plan Assessment and Plan Assess & Plan/Chief Complaint Severe sepsis Multifocal pneumonia Acute respiratory failure with hypoxia Lactic acidosis Acute kidney injury COVID test negative x2 CT with multifocal pneumonia Continue Vancomycin and Cefepime TeleICU following Cardiology following Supplemental oxygen via nasal cannula New onset AFib NSTEMI Cardiology following Eliquis Planning for stress test tomorrow HTN HLD GERD Obesity Diagnosis/Problems Diagnosis/Problems (1) Severe sepsis Status: Acute (2) Multifocal pneumonia Status: Acute (3) RAMYA (acute kidney injury) Status: Acute (4) Acute respiratory failure with hypoxia Status: Acute (5) NSTEMI (non-ST elevation myocardial infarction) Status: Acute (6) HTN (hypertension) Status: Chronic (7) HLD (hyperlipidemia) Status: Chronic (8) GERD (gastroesophageal reflux disease) Status: Chronic (9) Obesity (10) Person under investigation for COVID-19 Status: Acute (11) New onset atrial fibrillation Status: Acute (12) Lactic acidosis Status: Acute YURY BARBOSA MD Jun 11, 2021 16:51
[2021-06-11 17:40] VITALS: BP 141/78
[2021-06-11 20:20] VITALS: BP 159/76
[2021-06-11] MEDS ORDERED: TROUGH ORDER-PHARMACY XX NR (21:00)
[2021-06-11] MEDS ORDERED: NS (IVPB) 250 ML ONE (21:29)
[2021-06-11] MEDS: ROSUVASTATIN 10 MG (CRESTOR) TABLET PO SCH (22:25)
[2021-06-11] MEDS: VANCOMYCIN 1250 MG/NS 250 ML IVPB IV SCH ×2 (22:36)
[2021-06-12] VITALS (8 sets, daily range): BP systolic 129–161; BP diastolic 67–82
[2021-06-12 06:24] LABS: POTASSIUM 3.7 MMOL/L (3.6-5.0)
[2021-06-12 06:26] LABS: CALCIUM 7.6 MG/DL (8.5-10.1)
[2021-06-12 06:30] LABS: CREATININE SERUM 1.14 MG/DL (0.60-1.30)
[2021-06-12 06:57] LABS: NEUTROPHILS % (MANUAL) 68 %
[2021-06-12 06:58] LABS: EOSINOPHILS % (MANUAL) 2 %; LYMPHOCYTES % (MANUAL) 24 %; MONOCYTES % (MANUAL) 6 %; RBC MORPH NORMAL
[2021-06-12] MEDS: APIXABAN 5 MG (ELIQUIS) TABLET PO SCH ×2 (07:39→17:58)
[2021-06-12] MEDS: CEFEPIME INJECTION 1,000 MG in NS (IVPB) 50 ML IV SCH ×3 (07:39→23:05)
[2021-06-12] MEDS ORDERED: DOXYCYCLINE 100 MG (VIBRAMYCIN) TABLET PO ONE (08:00)
[2021-06-12 08:10] LABS: HEMATOCRIT 33 % (40-54); MEAN CORPUSCULAR HEMOGLOBIN 29 pg (25-34); MEAN CORPUSCULAR HGB CONC 34 g/dL (32-36); MEAN CORPUSCULAR VOLUME 85 fL (80-99); MEAN PLATELET VOLUME 11.1 fL (9.0-12.2); PLATELET COUNT 244 10^3/uL (130-400); WHITE BLOOD COUNT 6.9 10^3/uL (4.3-11.0)
[2021-06-12] MEDS ORDERED: REGADENOSON 0.4 MG/5 ML SYR (LEXISCAN) IV ONE (08:39)
--- NOTE | 2021-06-12 09:15 | Cardiology Progress Note ---
Progress Note-Cardiology Events since last exam Date Seen by Provider: Jun 12, 2021 Time Seen by Provider: 09:11 Events since last exam I am following him due to atrial fibrillation and abnormal troponin level. On 06/11 he was transferred from the ICU down to the medical floor. This morning I saw him in the stress lab. He feels as though his breathing is about the same. He denies chest discomfort, palpitations, syncope, or ankle edema. Certain portions of this document may have been dictated utilizing voice recognition technology. Inherent to this technology, typographical and grammatical errors may exist. As much as I am diligent to identify and correct these mistakes, some errors may remain in the document. Vitals Last set of Vitals Signs Vital Signs 06/11/21 06/12/21 06/12/21 01:00 08:00 08:58 Temp 36.1 Pulse 62 Resp 24 B/P (MAP) 141/82 (101) Pulse Ox 98 O2 Delivery High Flow N/C O2 Flow Rate 10.00 FiO2 40 Labs Labs Laboratory Tests 06/12/21 06:03 Exam Vital Signs Vital Signs Date Time Temp Pulse Resp B/P (MAP) Pulse Ox O2 Delivery O2 Flow Rate FiO2 06/12/21 08:58 62 141/82 (101) 06/12/21 08:00 36.1 24 98 High Flow N/C 10.00 06/11/21 01:00 40 Physical Exam General: Alert. No acute distress. He is obese. Eye: No xanthelasma. HENT: Normocephalic. Neck: Jugular venous pressure does not appear elevated. Respiratory: Lungs are clear to auscultation. Respirations are non-labored. [place] th sounds are equal. Symmetrical chest wall expansion. Cardiovascular: Normal rate. Regular rhythm. No murmur. No gallop. No edema. Gastrointestinal: Soft. Normal bowel sounds. Skin: Warm. Dry. Neurologic: Alert and oriented to person, place, time. Cranial nerves 3-11 grossly intact. Psychiatric: Cooperative. Appropriate mood & affect. Labs Laboratory Tests Test 06/11/21 20:51 06/12/21 06:03 Range/Units Vancomycin Level Trough 7.6 L 10.0-20.0 UG/ML White Blood Count 6.9 4.3-11.0 10^3/uL Red Blood Count 3.86 L 4.30-5.52 10^6/uL Hemoglobin 11.0 L 13.3-17.7 g/dL Hematocrit 33 L 40-54 % Mean Corpuscular Volume 85 80-99 fL Mean Corpuscular Hemoglobin 29 25-34 pg Mean Corpuscular Hemoglobin Concent 34 32-36 g/dL Red Cell Distribution Width 13.2 10.0-14.5 % Platelet Count 244 130-400 10^3/uL Mean Platelet Volume 11.1 9.0-12.2 fL Neutrophils % (Manual) 68 % Lymphocytes % (Manual) 24 % Monocytes % (Manual) 6 % Eosinophils % (Manual) 2 % Blood Morphology Comment NORMAL Sodium Level 135 135-145 MMOL/L Potassium Level 3.7 3.6-5.0 MMOL/L Chloride Level 107 98-107 MMOL/L Carbon Dioxide Level 19 L 21-32 MMOL/L Anion Gap 9 5-14 MMOL/L Blood Urea Nitrogen 26 H 7-18 MG/DL Creatinine 1.14 0.60-1.30 MG/DL Estimat Glomerular Filtration Rate 64 BUN/Creatinine Ratio 23 Glucose Level 168 H 70-105 MG/DL Calcium Level 7.6 L 8.5-10.1 MG/DL Procalcitonin 3.43 H <0.10 NG/ML Diagnosis/Problems Diagnosis/Problems (1) Paroxysmal atrial fibrillation Assessment & Plan: It appears as though atrial fibrillation may be a new finding in this patient. He was not on any oral anticoagulation at home. He has not been in our hospital in the past so I do not have old records for review from this institution. His echocardiogram from this admission only shows mild left atrial dilatation which suggests that the atrial fibrillation could be something relatively new. He has been started on carvedilol. He was initially placed on therapeutic dose enoxaparin. I have changed this over to apixaban. He is now back in sinus rhythm. This may have all been brought on by pneumonia. He may not necessarily need long-term anticoagulation. I will plan to follow this after discharge. (2) Elevated troponin I level Status: Acute Assessment & Plan: He does have an elevated troponin level with an abnormal electrocardiogram. However, his main symptom was shortness of breath. I suspect this could be due to a type II non-ST elevation myocardial infarction related to supply/demand mismatch due to his acute pulmonary disease and tachycardia from the atrial fibrillation. He underwent a stress test this morning. (3) Primary hypertension Assessment & Plan: He has been started on carvedilol due to the atrial fibrillation. He is back on lisinopril and amlodipine which he was taking at home. I stopped hydrochlorothiazide due to his chronic kidney disease. He has now also been ordered for clonidine twice daily. His blood pressures are better but diastolic is elevated at times. If this persists, we could increase his carvedilol. (4) Mixed hyperlipidemia Assessment & Plan: Continue rosuvastatin that he was taking at home. (5) Stage 3 chronic kidney disease Assessment & Plan: I do not have previous labs to know whether or not this is a new finding in this patient. As above, I recommend we stop hydrochlorothiazide. His renal function continues to improve. (6) Obesity Assessment & Plan: He needs to work on weight loss. ELDON KENNEDY JR, MD Jun 12, 2021 09:15
--- NOTE | 2021-06-12 09:35 | Physical Therapy Daily Note ---
PT Daily Note-Current Subjective Patient in bed. Getting ready for stress test. Mental Status Patient Orientation: Person, Time, Situation Attachments: Oxygen, Stuart Catheter, IV Transfers SCALE: Activities may be completed with or without assistive devices. 0-Rkwodlocvx-evlxmvp completes the activity by him/herself with no assistance from a helper. 5-Set-up or Clean-up Assistance-helper sets up or cleans up; patient completes activity. [place] assists only prior to or following the activity. 4-Supervision or Touching Assistance-helper provides verbal cues and/or touching/steadying and/or contact guard assistance as patient completes activity. Assistance may be provided throughout the activity or intermittently. 3-Partial/Moderate Assistance-helper does LESS THAN HALF the effort. [place] lifts, holds or supports trunk or limbs, but provides less than half the effort. 2-Substantial/Maximal Assistance-helper does MORE THAN HALF the effort. [place] lifts or holds trunk or limbs and provides more than half the effort. 4-Zlgrhoclt-mtcghz does ALL the effort. Patient does none of the effort to complete the activity. Or, the assistance of 2 or more helpers is required for the patient to complete the activity. If activity was not attempted, code reason: 7-Patient Refused. 9-Not Applicable-not attempted and the patient did not perform the activity before the current illness, exacerbation or injury. 10-Not Attempted due to Environmental Limitations-(lack of equipment, weather restraints, etc.). 88-Not Attempted due to Medical Conditions or Safety Concerns. Lying to Sitting/Side of Bed(Q: 2 Sit to Stand (QC): 2 Chair/Fpd-vr-Qgtrn Xfer(QC): 2 Gait Training Does the Patient Walk?: No and Walking Goal IS indicated Distance: 5 steps will utilize FWW for distance/PT assist on this date Exercises Seated Therapy Exercises: Ankle pumps, Long arc quads Seated Reps: 15 Assessment Patient has increase SOA with minimal activity. PT to increase activity as tolerated by patient. PT Microsoft Office Instructor Goals Microsoft Office Instructor Goals PT Microsoft Office Instructor Goals Time Frame: Jul 02, 2021 Roll Left & Right (QC): 6 Sit to Lying (QC): 6 Lying-Sitting on Side/Bed(QC): 6 Sit to Stand (QC): 5 Chair/Uoo-bw-Rpynv Xfer(QC): 5 Toilet Transfer (QC): 5 Does the Patient Walk: Yes Walk 10 feet (QC): 4 Walk 50ft with 2 Turns (QC): 4 Walk 150 ft (QC): 4 1 Step (curb) (QC): 4 4 Steps (QC): 4 PT Plan Treatment/Plan Treatment Plan: Continue Plan of Care Treatment Plan: Bed Mobility, Education, Functional Activity Shauna, Functional Strength, Gait, Safety, Therapeutic Exercise, Transfers Treatment Duration: Jul 02, 2021 Frequency: 6 times per week Estimated Hrs Per Day: .25 hour per day Time/GCodes Time In: 800 Time Out: 810 Total Billed Treatment Time: 10 Total Billed Treatment 1 visit FA 10min LUAN BOGGS PT Jun 12, 2021 09:35
[2021-06-12] MEDS: DOCUSATE SODIUM 100 MG (COLACE) CAP PO SCH ×2 (10:11→20:32)
[2021-06-12] MEDS: lisINopril 40 MG (PRINIVIL) TABLET PO SCH (10:11)
[2021-06-12] MEDS: cloNIDine 0.1 MG (CATAPRES) TAB PO SCH ×2 (10:11→20:31)
[2021-06-12] MEDS: SENNOSIDES 8.6 MG (SENOKOT) TAB PO SCH ×2 (10:12→20:32)
[2021-06-12] MEDS: PANTOPRAZOLE 40 MG (PROTONIX) TAB PO SCH (10:12)
[2021-06-12] MEDS: amLODIPine 10 MG (NORVASC) TAB PO SCH (10:12)
--- NOTE | 2021-06-12 10:13 | Diagnostic Imaging Report ---
INDICATION: Follow-up pneumonia. EXAMINATION: Chest 2 views 06/12/2021. COMPARISON: 06/09/2021 FINDINGS: The heart is stable. Pulmonary vasculature is congested. There is infiltrate in the right lung base medially. Infrahilar infiltrates noted on the left as well. There is a vague infiltrate in the right midlung. There are no effusions. There is no pneumothorax. Osseous structures intact. IMPRESSION: 1. Scattered bilateral infiltrates with pulmonary vascular congestion. Dictated by: Dictated on workstation # [id number]
--- NOTE | 2021-06-12 10:41 | NUCLEAR STRESS TEST ---
REGADENOSON NUCLEAR STRESS Date of procedure: 06/12/2021. Primary care provider: Katina Meraz APRN Admitting physician: Enma Monroe MD. INDICATION: Abnormal troponin level. BASELINE ELECTROCARDIOGRAM: Sinus rhythm with possible old septal myocardial infarction and lateral T wave inversion. STRESS TEST PROCEDURE: The patient was administered 0.4 mg of intravenous Regadenoson. The resting heart rate was 62 bpm and the peak heart rate was 86 bpm. The resting blood pressure was 141/82 mmHg and the minimum blood pressure was 126/71 mmHg. This represents a [] heart rate and a [] blood pressure response to Regadenoson. The test was stopped due to the protocol. There was no chest discomfort during the test. There were no arrhythmias during the test. There were no significant stress induced electrocardiogram changes. NUCLEAR PROCEDURE: The patient was administered 11 mCi of intravenous technetium 99m Tetrofosmin at rest for the rest images. The patient was subsequently administered 30.5 mCi of intravenous technetium 99m Tetrofosmin at peak stress for the stress images. Following an appropriate wait after each injection, imaging was obtained. The images were subsequently processed and reformatted in the usual views. Gated imaging was obtained. The image quality was adequate with a moderate degree of gastrointestinal attenuation artifact. CT attenuation correction was used as a adjunct to standard imaging. Both the corrected and uncorrected images were reviewed for interpretation. NUCLEAR RESULTS: There was normal myocardial perfusion in all segments without evidence of infarction or ischemia. There was normal left ventricular chamber size with an end-diastolic volume of 92 mL and an end-systolic volume of 34 mL. There was no evidence of transient ischemic dilatation. The TID ratio was 1.09. There was normal wall motion in all segments with a calculated ejection fraction of 63%. IMPRESSION: 1. Normal heart rate and blood pressure response to regadenoson. 2. There was no chest discomfort, arrhythmias, or electrocardiogram changes during the test. 3. There was normal myocardial perfusion in all segments without evidence of infarction or ischemia. 4. There was normal wall motion in all segments with a calculated ejection fra ction of 63%. Certain portions of this document may have been dictated utilizing voice recognition technology. Inherent to this technology, typographical and grammatical errors may exist. As much as I am diligent to identify and correct these mistakes, some errors may remain in the document. ELDON KENNEDY JR, MD Jun 12, 2021 10:41
--- NOTE | 2021-06-12 12:29 | Progress Note - Hospitalist ---
Subjective HPI/CC On Admission Date Seen by Provider: Jun 12, 2021 Time Seen by Provider: 10:25 Jorge L Garcia is a 66 year old male with PMH HTN, HLD, GERD, obesity, who presented with lightheadedness and dizziness. He reports having headache. He denies neck stiffness. He denies vision changes. He denies shortness of breath and cough. He denies fever and chills. He has had sore throat. He reports loss of taste and smell. He denies nausea and vomiting. He has no abdominal pain. He denies dysuria. He denies rash. He tested negative for COVID and flu a couple days ago. I visited with him again in the evening after he developed respiratory failure and was transferred to the ICU. He says he developed shortness of breath. He has had fevers. He remains awake and alert. He is on BiPAP. Subjective/Events-last exam He is feeling better. He denies fevers. He is not short of breath. He denies chest pain. Focused Exam Lactate Level 06/09/21 20:15: Lactic Acid Level 1.78 Objective Exam Vital Signs Vital Signs Date Time Temp Pulse Resp B/P (MAP) Pulse Ox O2 Delivery O2 Flow Rate FiO2 06/12/21 11:53 37.4 61 24 151/77 (101) 94 High Flow N/C 2.00 06/11/21 01:00 40 Capillary Refill : Less Than 3 Seconds General Appearance: No Apparent Distress, WD/WN Respiratory: Lungs Clear, Normal Breath Sounds, No Respiratory Distress Cardiovascular: Regular Rate, Rhythm, No Edema, No Murmur Gastrointestinal: Normal Bowel Sounds, Non Tender, Soft Extremity: Normal Inspection, Non Tender, No Pedal Edema Neurologic/Psychiatric: Alert, Oriented x3, No Motor/Sensory Deficits, Normal Mood/Affect Skin: Normal Color, Warm/Dry Results/Procedures Lab Laboratory Tests 06/12/21 06:03 Patient resulted labs reviewed. Imaging: Reviewed Imaging Films, Reviewed Imaging Report Assessment/Plan Assessment and Plan Assess & Plan/Chief Complaint Severe sepsis Multifocal pneumonia Acute respiratory failure with hypoxia Lactic acidosis Acute kidney injury COVID test negative x2 CT with multifocal pneumonia Continue Cefepime Add tick panel Begin Doxycycline Supplemental oxygen via nasal cannula, 2 L currently New onset AFib NSTEMI Cardiology following Eliquis Stress test today HTN HLD GERD Obesity Diagnosis/Problems Diagnosis/Problems (1) Severe sepsis Status: Acute (2) Multifocal pneumonia Status: Acute (3) RAMYA (acute kidney injury) Status: Acute (4) Acute respiratory failure with hypoxia Status: Acute (5) NSTEMI (non-ST elevation myocardial infarction) Status: Acute (6) HTN (hypertension) Status: Chronic (7) HLD (hyperlipidemia) Status: Chronic (8) GERD (gastroesophageal reflux disease) Status: Chronic (9) Obesity (10) Person under investigation for COVID-19 Status: Acute (11) New onset atrial fibrillation Status: Acute (12) Lactic acidosis Status: Acute YURY BARBOSA MD Jun 12, 2021 12:29
--- NOTE | 2021-06-12 13:57 | Occ Therapy Progress Note ---
Therapy Progress Note Pt laying in bed, OT attempted tx this afternoon. Pt politely requests OT to hold off on tx today as he is very tired from various tests and tasks he has done today. OT provided education on purpose and benefit of OT, but pt continued to refuse, requesting OT to attempt again another day. OT will attempt tx next available date. 1, refusal 1345 TUTU PRESSLEY OT Jun 12, 2021 13:57
[2021-06-12] MEDS ORDERED: ACETAMINOPHEN 325 MG TABLET PO ONE (17:00)
[2021-06-12] MEDS ORDERED: ACETAMINOPHEN 325 MG TABLET PO PRN (17:00)
[2021-06-12] MEDS: DOXYCYCLINE 100 MG (VIBRAMYCIN) TABLET PO SCH (17:58)
[2021-06-12] MEDS: ROSUVASTATIN 10 MG (CRESTOR) TABLET PO SCH (20:31)
[2021-06-12] MEDS ORDERED: RT-ALBUTEROL SULF 2.5 MG/3 ML PRE-MIX VIAL INH PRN (23:15)
[2021-06-13 03:49] VITALS: BP 165/80
[2021-06-13 06:06] LABS: POTASSIUM 3.9 MMOL/L (3.6-5.0)
[2021-06-13 06:12] LABS: CREATININE SERUM 1.01 MG/DL (0.60-1.30)
[2021-06-13] MEDS: DOXYCYCLINE 100 MG (VIBRAMYCIN) TABLET PO SCH (06:14)
[2021-06-13] MEDS: CEFEPIME INJECTION 1,000 MG in NS (IVPB) 50 ML IV SCH (06:14)
[2021-06-13] MEDS: APIXABAN 5 MG (ELIQUIS) TABLET PO SCH (06:14)
[2021-06-13] MEDS ORDERED: RT-ALBUTEROL SULF 2.5 MG/3 ML PRE-MIX VIAL INH SCH (07:00)
[2021-06-13] MEDS: amLODIPine 10 MG (NORVASC) TAB PO SCH (09:40)
[2021-06-13] MEDS: cloNIDine 0.1 MG (CATAPRES) TAB PO SCH (09:40)
[2021-06-13] MEDS: DOCUSATE SODIUM 100 MG (COLACE) CAP PO SCH (09:40)
[2021-06-13] MEDS: PANTOPRAZOLE 40 MG (PROTONIX) TAB PO SCH (09:40)
[2021-06-13] MEDS: lisINopril 40 MG (PRINIVIL) TABLET PO SCH (09:41)
[2021-06-13] MEDS: SENNOSIDES 8.6 MG (SENOKOT) TAB PO SCH (09:41)
== END 2021-06-13 10:48 | DRG 871 ==
LOC: EDUNIT# 12:44 → EDBD 12:46 → ER FS 12:46 → CSD 16:25 → ICU 06-09 17:35 → OBSVTOIN 06-09 20:44 → 4TH 06-11 16:30
PROVIDERS: ADMIT Internal Medicine; ATTEND Internal Medicine
PROC: 5A09357 Assistance with Respiratory Ventilation, Less than 24 Consecutive Hours, Continuous Positive Airway Pressure (ICD-10-PCS; principal; 2021-06-09)
DX: A41.9 Sepsis, unspecified organism (principal); J96.01 Acute respiratory failure with hypoxia; I21.4 Non-ST elevation (NSTEMI) myocardial infarction; J96.02 Acute respiratory failure with hypercapnia; J18.9 Pneumonia, unspecified organism; I21.A1 Myocardial infarction type 2; E87.2 Acidosis; J44.0 Chronic obstructive pulmonary disease with (acute) lower respiratory infection; R65.20 Severe sepsis without septic shock; G47.33 Obstructive sleep apnea (adult) (pediatric); Z20.822 Contact with and (suspected) exposure to COVID-19; N18.9 Chronic kidney disease, unspecified; K21.9 Gastro-esophageal reflux disease without esophagitis; E66.9 Obesity, unspecified; I48.0 Paroxysmal atrial fibrillation; N18.30 Chronic kidney disease, stage 3 unspecified; E78.2 Mixed hyperlipidemia; I12.9 Hypertensive chronic kidney disease with stage 1 through stage 4 chronic kidney disease, or unspecified chronic kidney disease; Z68.39 Body mass index [BMI] 39.0-39.9, adult
CPT/HCPCS: 36415; 36600; 70450; 71045; 71046; 71275; 78452; 80048; 80053; 80061; 80202; 81000; 82805; 83036; 83605; 83615; 83735; 83880; 84100; 84145; 84443; 84484; 85007; 85025; 85027; 85379; 85610; 85652; 85730; 86038; 86039; 86141; 86235; 86618; 86666; 86668; 86757; 87040; 87635; 87636; 93005; 93017; 93041; 93306; 94640; 94660; 94760; 96374; 96375

== ENCOUNTER 2021-06-13 10:52 | Inpatient (IN) | payer MEDICARE, OTHER ==
[~2021-06-13] VITALS: Ht 165.1 cm; Wt 101.9 kg
[~2021-06-13 10:52] MED LIST: ACETAMINOPHEN 325 MG TABLET PO PRN; ALPRAZolam 0.25 MG (XANAX) TAB PO PRN; AMLO-251 PO; BISACODYL 10 MG SUPP (DULCOLAX) PR PRN; CALCIUM CARBONATE 500 MG (TUMS) TAB.CHEW PO PRN; CLN.1T PO; DOCUSATE SODIUM 100 MG (COLACE) CAP PO PRN; DOCUSATE SODIUM 100 MG (COLACE) CAP PO SCH; FAMO40TA6 PO; FLEET ENEMA ADULT 1 EA BTL PR PRN; HYDR25TA4 PO; LACTULOSE SYRUP 10GM/15ML (ENULOSE) 30ML UDC PO PRN; LISI40TA9 PO; LOPERAMIDE 2 MG (IMODIUM) TABLET PO PRN; MELATONIN 3 MG TABLET PO PRN; ONDANSETRON 4 MG (ZOFRAN) ORAL DISSOLVE TAB PO PRN; ROSU20TA32 PO; diphenhydrAMINE 25 MG TAB (BENADRYL) PO PRN; guaiFENesin/CODEINE (ROBITUSSIN AC) 10ML UDC PO PRN
--- OUTSIDE RECORDS SUMMARY | 2021-06-13 11:02 | XMS REPORT | Clinical Summary ---
Author Author [facility] Organization [facility] Address Unknown Phone Unavailable Care Team Providers Care Dumping Machine Operator Name Role Phone No Pcp, Na PCP Unavailable Source Comments Some departments are not documenting in the electronic medical record. If you d o not see the information that you expected, contact Release of Information in [facility] Information Management department at [phone] for further assistan ce in locating additional records.[facility] Allergies Not on File Medications Not on file Active Problems Not on file Social History Date Tobacco Use Types Packs/Day Years Used Never Assessed Sex Assigned at Date Recorded Not on file Last Filed Vital Signs Not on file Plan of Treatment Health Maintenance Due Date Last Done Comments DTAP/TDAP VACCINES (1 - 1972 Tdap) HEPATITIS C SCREENING 1972 PHYSICAL (COMPREHENSIVE) 1972 EXAM COLORECTAL CANCER 2004 SCREENING SHINGLES RECOMBINANT 2004 VACCINE (1 of 2) PNEUMONIA (PPSV23) 2019 VACCINE (1 of 1 - PPSV23) INFLUENZA VACCINE 01/04/2021 Results Not on filefrom Last 3 Months Insurance Type Payer Benefit Subscriber ID Effective Phone Address Plan / Dates Group Medicare [place] [id number] 2017- [phone] [facility] Present OF (RAYA/CAITLIN DURAN) CARE [address] [address] [place] [address] [phone] [facility] [place], [place] [phone] Advance Directives Patient Optical Dispenser Explanation Type Date Recorded Advance 08/26/2017 9:33 AM Directive/DPOA Care Teams Start Date End Date Dumping Machine Operator Relationship Specialty 08/26/17 No Pcp, Na PCP - General
[2021-06-13 11:06] VITALS: BP 159/76
[2021-06-13] MEDS: SENNA W/DOCUSATE (SENOKOT S) TABLET PO SCH ×2 (11:25→20:24)
[2021-06-13] MEDS: polyethylene glycoL POWDER 17 GM (MIRALAX) PACK PO SCH ×2 (11:25→20:42)
--- NOTE | 2021-06-13 11:35 | Occupational Therapy Eval ---
OT Evaluation-General/PLF Medical Diagnosis Admission Date Jun 13, 2021 at 10:52 Medical Diagnosis: Sepsis/Resp failure Onset Date: Jun 08, 2021 Therapy Diagnosis Therapy Diagnosis: Weakness, Decreased ADL skills Precautions Precautions/Isolations: Fall Prevention, Standard Precautions Weight Bear Status Weight Bearing Restriction: Weight Bearing/Tolerated Referral Physician: Dr. Mackey Referral Reason: Activity Tolerance, Self Care, Evaluation/Treatment, Strengthening/ROM Medical History Pertinent Medical History: GERD, HTN Additional Medical History HLD, NSTEMI Reviewed History: Yes Social History Home: Single Level Current Living Status: Alone Entry Into Home: Stairs With Railing Steps Into Home: 5 When pt. gets out of rehab, he will go to live with his S.O. in [place]. ADL-Prior Level of Function SCALE: Activities may be completed with or without assistive devices. 5-Forndkgsui-uzzlmud completes the activity by him/herself with no assistance from a helper. 5-Set-up or Clean-up Assistance-helper sets up or cleans up; patient completes activity. [place] assists only prior to or following the activity. 4-Supervision or Touching Assistance-helper provides verbal cues and/or touching/steadying and/or contact guard assistance as patient completes activity. Assistance may be provided throughout the activity or intermittently. 3-Partial/Moderate Assistance-helper does LESS THAN HALF the effort. [place] lifts, holds or supports trunk or limbs, but provides less than half the effort. 2-Substantial/Maximal Assistance-helper does MORE THAN HALF the effort. [place] lifts or holds trunk or limbs and provides more than half the effort. 5-Umrmjqvhn-zishuu does ALL the effort. Patient does none of the effort to complete the activity. Or, the assistance of 2 or more helpers is required for the patient to complete the activity. If activity was not attempted, code reason: 7-Patient Refused. 9-Not Applicable-not attempted and the patient did not perform the activity before the current illness, exacerbation or injury. 10-Not Attempted due to Environmental Limitations-(lack of equipment, weather restraints, etc.). 88-Not Attempted due to Medical Conditions or Safety Concerns. ADL PLOF Comments Pt. was fully independent with daily skills prior to hospitalization. Self Care: Independent Functional Cognition: Independent DME/Equipment: Bath Chair, Shower Drive Self: Yes OT Current Status Subjective No pain reported. Mental Status/Objective Patient Orientation: Person Attachments: Oxygen, Telemetry Current Upper Extremity ROM WFL ADL-Treatment Eating (QC): 4 Oral Hygiene (QC): 88 Shower/Bathe Self (QC): 10 Upper Body Dressing (QC): 88 Lower Body Dressing (QC): 88 On/Off Footwear (QC): 2 Toileting Hygiene (QC): 2 Other Treatments Pt. seen this date for Occupational therapy evaluation. Pt. in bed when OT entered room. He agrees to transfer supine-sit to get into wheelchair, but has difficulty initiating the movement. He is concerned about his things, and keeps asking his significant other if she has everything. She gently encourages him to participate, and he says he is. Max cues provided at first to "walk" feet to side of bed. Once they were to the side, pt. requires mod assist for supine- sit, and mod assist to scoot to EOB. Min assist to stand at bedside with walker and take several steps toward wheelchair. Pt. taken to rehab and both him and S.O. educated about therapy goals, rehab goals, and asked questions. Noted pt's gown soiled from sweat and some slight incontinence. OT assisted with changing gown. Pt. stood again from wheelchair with min assist, and transferred to bed with effort. Min assist for sit-supine. All needs met. Education OT Patient Education: Correct positioning, Modified ADL techniques, Progress toward Goal/Update tx plan, Purpose of tx/functional activities, Reviewed precautions, Rehab process, Transfer techniques Teaching Recipient: Patient, Significant Other Teaching Methods: Demonstration, Discussion Response to Teaching: Verbalize Understanding, Return Demonstration OT Short Term Goals Short Term Goals Time Frame: Jun 20, 2021 Eatin Oral hygiene: 5 Toileting hygiene: 4 Shower/bathe self: 4 Upper body dressin Lower body dressin Putting on/taking off footwear: 4 OT Warp Dresser Goals Assisted Goals Time Frame: Jul 04, 2021 Eating (QC): 6 Oral Hygiene (QC): 6 Toileting Hygiene (QC): 6 Shower/Bathe Self (QC): 5 Upper Body Dressing (QC): 6 Lower Body Dressing (QC): 6 On/Off Footwear (QC): 6 Additional Goals: 1-Demonstrate ADL Tasks, 2-Verbalize Understanding, 3- ImproveStrength/Shauna 1=Demonstrate adherence to instructed precautions during ADL tasks. 2=Patient will verbalize/demonstrate understanding of assistive devices/mod ifications for ADL. 3=Patient will improve strength/tolerance for activity to enable patient to perform ADL's. OT Education/Plan Problem List/Assessment Assessment: Decreased Activ Tolerance, Dependent Transfers, Impaired Bed Mobility, Impaired Cognition, Impaired I ADL's, Impaired Self-Care Skills Discharge Recommendations Plan/Recommendations: Continue POC Therapy Discharge Recommendati: Home & Family, Post Acute OT Comment Equipment needs to be determined. Treatment Plan/Plan of Care Treatment,Training & Education: Yes Patient would benefit from OT for education, treatment and training to promote independence in ADL's, mobility, safety and/or upper extremity function for ADL's. Plan of Care: ADL Retraining, Functional Mobility, UE Funct Exercise/Act Treatment Duration: Jul 04, 2021 Frequency: At least 5 of 7 days/Wk (IRF) Estimated Hrs Per Day: 1.5 hours per day Agreement: Yes Rehab Potential: Good Time/GCodes Start Time: 10:40 Stop Time: 11:10 Total Time Billed (hr/min): 30 Billed Treatment Time 1, EVM x 15minutes, ADL x 15minutes GIO CALLEJAS OT Jun 13, 2021 11:35
--- NOTE | 2021-06-13 12:01 | Physical Therapy Evaluation ---
PT Evaluation-General Medical Diagnosis Admission Date Jun 13, 2021 at 10:52 Medical Diagnosis: Sepsis/Resp failure Onset Date: Jun 08, 2021 Therapy Diagnosis Therapy Diagnosis: difficulty walking Precautions Precautions/Isolations: Fall Prevention, Standard Precautions Weight Bear Status Right Lower Extremity: Right Left Lower Extremity: Left Referral Physician: Dr. Mackey Reason for Referral: Evaluation/Treatment Medical History Pertinent Medical History: GERD, HTN Reviewed History: Yes Social History Home: Single Level Current Living Status: Alone Entry Into Home: Stairs With Railing PT Steps Into Home: 5 Prior Prior Level of Function SCALE: Activities may be completed with or without assistive devices. 5-Gdjihddzvc-pshoadb completes the activity by him/herself with no assistance from a helper. 5-Set-up or Clean-up Assistance-helper sets up or cleans up; patient completes activity. [place] assists only prior to or following the activity. 4-Supervision or Touching Assistance-helper provides verbal cues and/or touching/steadying and/or contact guard assistance as patient completes activity. Assistance may be provided throughout the activity or intermittently. 3-Partial/Moderate Assistance-helper does LESS THAN HALF the effort. [place] lifts, holds or supports trunk or limbs, but provides less than half the effort. 2-Substantial/Maximal Assistance-helper does MORE THAN HALF the effort. [place] lifts or holds trunk or limbs and provides more than half the effort. 7-Enltvpryz-brkchd does ALL the effort. Patient does none of the effort to complete the activity. Or, the assistance of 2 or more helpers is required for the patient to complete the activity. If activity was not attempted, code reason: 7-Patient Refused. 9-Not Applicable-not attempted and the patient did not perform the activity be fore the current illness, exacerbation or injury. 10-Not Attempted due to Environmental Limitations-(lack of equipment, weather restraints, etc.). 88-Not Attempted due to Medical Conditions or Safety Concerns. Bed Mobility: 6 Transfers (B,C,W/C): 6 Gait: 6 Stairs: 6 Indoor Mobility (Ambulation): Independent Stairs: Independent Prior Devices Use: None PT Evaluation-Current Subjective States that he is feeling okay today. Pain Numeric Pain Scale: 0-No Pain ROM/Strength ROM Upper Extremities WFL ROM Lower Extremities WFL Strength Lower Extremities 4/5 in (B) hips Transfers Roll Left & Right (QC): 4 Sit to Lying (QC): 4 Lying to Sitting/Side of Bed(Q: 4 Sit to Stand (QC): 5 Chair/Tjn-ja-Ovcoz Xfer(QC): 4 Toilet Transfer (QC): 88 Car Transfer (QC): 88 Gait Walk 10 feet (QC): 5 Walk 50 ft with 2 Turns(QC): 88 Walk 150 ft (QC): 88 Walking 10ft/uneven surface-QC: 88 Distance: 10' Gait Assistive Device: FWW Wheelchair Training Does the Pt Use a Wheelchair?: No Wheel 50 ft with 2 turns (QC): 9 Wheel 150 ft (QC): 9 Stairs 1 Step (curb) (QC): 88 4 Steps (QC): 88 12 Steps (QC): 88 Balance Sitting Static: Fair Sitting Dynamic: Poor Standing Static: Poor Standing Dynamic: Poor Picking up an Object (QC): 88 Assessment/Needs 66 y.o. male admitted for skilled rehab on the IRF. The patient has balance limitations and gait abnormalities. He should do well with skilled therapy. Rehab Potential: Good PT Short Term Goals Short Term Goals Time Frame: Jun 20, 2021 Roll Left & Right: 5 Sit to lyin Lying to sitting on side of be: 5 Sit to stand: 5 Chair/bbk-op-bcdxx transfer: 5 Toilet transfer: 5 Car transfer: 5 Walk 10 feet: 5 Walk 50 feet with two turns: 5 Walk 150 feet: 5 Walking 10ft on uneven surface: 5 1 step (curb): 5 4 steps: 5 12 steps: 5 Picking up objects: 5 Does pt use a wc or scooter: No PT Prison Goals Prison Goals PT Outside Medical Sales Representative Goals Time Frame: Jun 27, 2021 Roll Left & Right (QC): 6 Sit to Lying (QC): 6 Lying-Sitting on Side/Bed(QC): 6 Sit to Stand (QC): 6 Chair/Jbh-fq-Lhjlk Xfer(QC): 6 Toilet Transfer (QC): 6 Car Transfer (QC): 6 Does the Patient Walk: Yes Walk 10 feet (QC): 6 Walk 50ft with 2 Turns (QC): 6 Walk 150 ft (QC): 6 Walking 10ft on Uneven Surface: 6 1 Step (curb) (QC): 6 4 Steps (QC): 6 12 Steps (QC): 6 Picking up an Object (QC): 6 Does the Pt use WC or Scooter?: No Wheel 50 feet with 2 turns (QC: 9 Type: N/A Wheel 150 feet: 9 Type: N/A PT Plan Problem List Problem List: Activity Tolerance, Functional Strength, Safety, Balance, Gait, Transfer, Bed Mobility, ROM Treatment/Plan Treatment Plan: Continue Plan of Care Treatment Plan: Bed Mobility, Functional Activity Shauna, Functional Strength, Group Therapy, Gait, Safety, Therapeutic Exercise, Transfers Treatment Duration: Jun 27, 2021 Frequency: 11 times per week Estimated Hrs Per Day: 1.5 hours per day Time/GCodes Time In: 1125 Time Out: 1145 Total Billed Treatment Time: 20 Total Billed Treatment 1, EV Low Complexity x 20' ROSINA MENEZES PT Jun 13, 2021 12:01
--- NOTE | 2021-06-13 12:55 | PM&R Post Admission Assessment ---
PM&R HP Date of Visit: Jun 13, 2021 Time of Visit: 14:00 History of Present Illness CC: COPD myopathy HPI: Prior HPI from H&P Dr Monroe: Jorge L Garcia is a 66 year old male with PMH HTN, HLD, GERD, obesity, who presented with lightheadedness and dizziness. He reports having headache. He denies neck stiffness. He denies vision changes. He denies shortness of breath and cough. He denies fever and chills. He has had sore throat. He reports loss of taste and smell. He denies nausea and vomiting. He has no abdominal pain. He denies dysuria. He denies rash. He tested negative for COVID and flu a couple days ago. I visited with him again in the evening after he developed respiratory failure and was transferred to the ICU. He says he developed shortness of breath. He has had fevers. He remains awake and alert. He is on BiPAP. Today he presents to the IR[facility] in need of aggressive therapy in order to regain enough function to return home versus JAIL. Patient will ask his to bring in his CPAP machine but will have RT maintain biPAP until that is received. Cheek cath will be DC and will monitor closely for urinary retention. BM+ per patient. Cognition is decreased so hopefully this will resolve with time. Checked meds and labs. Past Msvmwtc-Ziveql-Ksoiau Hx Past Med/Social Hx: Reviewed Nursing Past Med/Soc Hx, Reviewed and Corrections made Patient Social History Marrital Status: Employed/Student: retired Alcohol Use: Denies Use Smoking Status: Former Smoker Immunizations Up To Date Date of Influenza Vaccine: Mar 06, 2021 Past Medical History Respiratory: Sleep Apnea Currently Using CPAP: Yes Currently Using BIPAP: No Cardiac: Atrial Fibrillation, Coronary Artery Disease, High Cholesterol, Hypertension Neurological: Dementia, Neuropathy Genitourinary: Benign Prostatic Hyperpl Gastrointestinal: Gastroesophageal Reflux Musculoskeletal: Chronic Back Pain Family History No Pertinent Family Hx Prior Level of Function Bed Mobility: 6 Transfers: 6 Gait: 6 Stairs: 6 Indoor Mobility (Ambulation): Independent Stairs: Independent Prior Devices Use: None Self Care: Independent Functional Cognition: Independent Drive Self: Yes Current Level of Fuctioning Roll Left to Right: 4 Sit to Lyin Lying to Sitting/Side of Bed: 4 Sit to Stand: 5 Chair/Gne-uv-Qfwhi Xfer: 4 Car Transfer: 88 Walk 10 feet: 5 Walk 50 ft with 2 Turns: 88 Walk 150 ft: 88 Walking 10ft on uneven surface: 88 Gait Assistive Device: FWW Does the Pt Use a Wheelchair: No Wheel 50 ft with 2 turns: 9 Wheel 150 ft: 9 1 Step (curb): 88 4 Steps: 88 12 Steps: 88 Picking up an Object: 88 Eatin Oral Hygiene: 88 Shower/Bathe Self: 10 Upper Body Dressin Lower Body Dressin On/Off Footwear: 2 Toileting Hygiene: 2 PM&R Allergy/Meds/Data Review Allergies Coded Allergies: No Known Drug Allergies (Unverified , 06/07/21) Home Medications Scheduled Amlodipine Besylate (Amlodipine Besylate), 10 MG PO DAILY, (Reported) Clonidine HCl (Clonidine HCl), 0.1 MG PO BID, (Reported) Famotidine (Famotidine), 40 MG PO DAILY, (Reported) Hydrochlorothiazide (Hydrochlorothiazide), 25 MG PO DAILY, (Reported) Lisinopril (Lisinopril), 40 MG PO DAILY, (Reported) Rosuvastatin Calcium (Rosuvastatin Calcium), 10 MG PO HS, (Reported) Current Medications Current Medications Reviewed Review of Systems ROS-Unable to Obtain: lethargy Constitutional: see HPI, malaise, weakness EENTM: no symptoms reported Respiratory: dyspnea on exertion Cardiovascular: no symptoms reported Gastrointestinal: no symptoms reported Genitourinary: other (cheek to be DC) Musculoskeletal: back pain, joint pain Skin: no symptoms reported Psychiatric/Neurological: Weakness All Other Systems Reviewed Negative Unless Noted: Yes Physical Exam Physical Exam Vital Signs Vital Signs - First Documented 06/13/21 11:06 Temp 37.6 Pulse 72 Resp 20 B/P (MAP) 159/76 (103) Pulse Ox 94 O2 Delivery Nasal Cannula O2 Flow Rate 2.00 Capillary Refill : Height, Weight, BMI Height: '" Weight: lbs. oz. kg; 38.88 BMI Method: General Appearance: No Apparent Distress, WD/WN, Chronically ill, Obese Eyes: Bilateral Eye Normal Inspection, Bilateral Eye PERRL HEENT: PERRL/EOMI, Normal ENT Inspection, Pharynx Normal Neck: Full Range of Motion, Normal Inspection, Non Tender, Supple, Carotid Bruit Respiratory: Chest Non Tender, No Accessory Muscle Use, No Respiratory Distress, Crackles, Decreased Breath Sounds Cardiovascular: No Edema, No Gallop, No JVD, No Murmur, Normal Peripheral Pulses, Irregularly Irregular Gastrointestinal: Normal Bowel Sounds, No Organomegaly, No Pulsatile Mass, Non Tender, Soft Back: Normal Inspection, No CVA Tenderness, No Vertebral Tenderness Extremity: Normal Capillary Refill, Normal Inspection, Normal Range of Motion, Non Tender, No Calf Tenderness, No Pedal Edema Neurologic/Psychiatric: Alert, Oriented x3, it desktop support specialist II-XII Norm as Tested, Abnormal Gait, Depressed Affect, Motor Weakness Skin: Normal Color, Warm/Dry Lymphatic: No Adenopathy PM&R Medical Assessment & Plan REHAB/MEDICAL ASSESSMENT AND PLAN: 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 The comorbidities that impact the patients function and/or functional outcome by: advanced age, obesity BMI 39, acute on chronic respiratory failure, STEPAN on CPAP REHAB PLAN: The patient is being admitted to our comprehensive inpatient rehabilitation facility and can tolerate the intensity of service consisting of at least: 180 minutes of therapy a day, 5 out of 7 days a week Rehab treatment will consist of: PT OT will focus on regaining function with aggressive therapy with use of AD and monitoring use of AD in order to return to independent living The patient/family has a good understanding of our discharge process and will benefit from an interdisciplinary inpatient rehabilitation program. The patient has potential to make improvement and is in need of at least two of the following multidisciplinary therapies including but not limited to physical, occupational, speech, and prosthetics and orthotics. Additionally the patient will need services from respiratory, nutritional services, wound care, psychology, etc. (Customize this to each patient). Given the patients complex condition and risk of further medical complications, rehabilitation services cannot be safely or effectively provided at a lower level of care such as a fpc facility. BARRIERS TO DISCHARGE: Cognitive deficit ESTIMATED LOS: 10 days DISPOSITION: Home versus JAIL RELEVANT CHANGES SINCE PREADMISSION SCREENING: I have compared the patients medical and functional status at the time of the preadmission screening and there are: no changes PROGNOSIS: Guarded REHABILITATION GOALS: 1.PT OT will focus on regaining function with aggressive therapy with use of AD and monitoring use of AD in order to return to independent living All the above goals were reviewed with the patient and he/she is in agreement. By signing this document, I acknowledge that I have personally performed a full physical examination on this patient within 24 hours of admission to this inpatient rehabilitation facility and have determined the patient to be able to tolerate the above course of treatment at an intensive level for a reasonable period of time. I will be completing a detailed individualized Plan of Care for this patient by day #4 of the patients stay based upon the Preadmission Screen, the Post-Admission Evaluation, and the therapy evaluations. Admission Dx/Comorbidities: (1) Myopathy ICD Codes: G72.9 - Myopathy, unspecified (2) STEPAN on CPAP ICD Codes: G47.33 - Obstructive sleep apnea (adult) (pediatric); Z99.89 - Dependence on other enabling machines and devices (3) Cognitive deficits ICD Codes: R41.89 - Other symptoms and signs involving cognitive functions and awareness (4) Cheek catheter in place ICD Codes: Z97.8 - Presence of other specified devices (5) Elevated troponin I level Status: Acute ICD Codes: R77.8 - Other specified abnormalities of plasma proteins (6) New onset atrial fibrillation Status: Acute ICD Codes: I48.91 - Unspecified atrial fibrillation (7) Multifocal pneumonia Status: Acute ICD Codes: J18.9 - Pneumonia, unspecified organism (8) Acute respiratory failure with hypoxia Status: Acute ICD Codes: J96.01 - Acute respiratory failure with hypoxia (9) RAMYA (acute kidney injury) Status: Acute ICD Codes: N17.9 - Acute kidney failure, unspecified (10) NSTEMI (non-ST elevation myocardial infarction) Status: Acute ICD Codes: I21.4 - Non-ST elevation (NSTEMI) myocardial infarction (11) HLD (hyperlipidemia) Status: Chronic ICD Codes: E78.5 - Hyperlipidemia, unspecified (12) HTN (hypertension) Status: Chronic ICD Codes: I10 - Essential (primary) hypertension (13) GERD (gastroesophageal reflux disease) Status: Chronic ICD Codes: K21.9 - Gastro-esophageal reflux disease without esophagitis (14) Stage 3 chronic kidney disease ICD Codes: N18.30 - Chronic kidney disease, stage 3 unspecified (15) Primary hypertension ICD Codes: I10 - Essential (primary) hypertension (16) Obesity ICD Codes: E66.9 - Obesity, unspecified (17) Mixed hyperlipidemia ICD Codes: E78.2 - Mixed hyperlipidemia Assessment/Plan Assessment and Plan Assess & Plan/Chief Complaint Assessment: COPD myopathy s/p severe sepsis Multifocal pneumonia on abx Acute respiratory failure with hypoxia Lactic acidosis Acute kidney injury COVID test negative x2 CT with multifocal pneumonia Continue Cefepime Add tick panel Begin Doxycycline Supplemental oxygen via nasal cannula, 2 L currently New onset AFib NSTEMI Cardiology following Eliquis maintained Stress test performed HTN HLD GERD Obesity STEPAN on CPAP Cheek cath-DC today Cognitive deficit Plan: Home CPAP machine DC cheek Home meds Cardiology appreciated TARI AUGUSTIN DO Jun 13, 2021 12:55
[2021-06-13] MEDS ORDERED: polyethylene glycoL POWDER 17 GM (MIRALAX) PACK PO PRN (13:00)
[2021-06-13] MEDS ORDERED: diphenhydrAMINE 25 MG TAB (BENADRYL) PO PRN (13:00)
[2021-06-13] MEDS ORDERED: ONDANSETRON 4 MG/2 ML (SDV) Z0FRAN IV PRN (13:00)
[2021-06-13] MEDS ORDERED: ONDANSETRON 4 MG (ZOFRAN) ORAL DISSOLVE TAB PO PRN (13:00)
[2021-06-13] MEDS ORDERED: CATHETER FLUSH 10 ML SYR IV PRN (13:00)
[2021-06-13] MEDS ORDERED: ANTACID SUSP 30 ML UDC (MYLANTA) PO PRN (13:00)
[2021-06-13] MEDS ORDERED: RT-ALBUTEROL SULF 2.5 MG/3 ML PRE-MIX VIAL INH PRN (13:00)
[2021-06-13] MEDS ORDERED: MELATONIN 3 MG TABLET PO PRN (13:00)
[2021-06-13] MEDS: CEFEPIME INJECTION 1,000 MG in NS (IVPB) 50 ML IV SCH ×2 (14:34→20:06)
[2021-06-13] MEDS: DOXYCYCLINE 100 MG (VIBRAMYCIN) TABLET PO SCH (17:01)
[2021-06-13] MEDS: APIXABAN 5 MG (ELIQUIS) TABLET PO SCH (17:01)
[2021-06-13] MEDS: RT-ALBUTEROL SULF 2.5 MG/3 ML PRE-MIX VIAL INH SCH (18:58)
[2021-06-13] MEDS: cloNIDine 0.1 MG (CATAPRES) TAB PO SCH (19:58)
[2021-06-13] MEDS: ROSUVASTATIN 10 MG (CRESTOR) TABLET PO SCH (19:58)
[2021-06-13 20:03] VITALS: BP 195/91
[2021-06-13] MEDS: ACETAMINOPHEN 325 MG TABLET PO PRN (20:05)
[2021-06-13 20:11] VITALS: BP 182/88
[2021-06-13] MEDS ORDERED: cloNIDine 0.1 MG (CATAPRES) TAB PO PRN (20:15)
[2021-06-13] MEDS ORDERED: MEROPENEM 1,000 MG in NS (IVPB) 100 ML IV SCH (20:15)
[2021-06-13] MEDS ORDERED: MEROPENEM 1000 MG (MERREM) VIAL IV ONE (20:17)
[2021-06-13] MEDS ORDERED: NS (IVPB) 100 ML ONE (20:17)
[2021-06-13] MEDS: DOCUSATE SODIUM 100 MG (COLACE) CAP PO SCH (20:25)
[2021-06-13] MEDS: SENNOSIDES 8.6 MG (SENOKOT) TAB PO SCH (20:27)
--- NOTE | 2021-06-13 20:32 | Diagnostic Imaging Report ---
INDICATION: Cough, pneumonia. COMPARISON: 06/09/2021. EXAMINATION: Single view of the chest. FINDINGS: New moderate bilateral pulmonary infiltrates. The heart is prominent. There is no pneumothorax or effusion. Osseous structures are normal. IMPRESSION: New moderate bilateral pulmonary infiltrates. Dictated by: Dictated on workstation # [id number]
[2021-06-13 20:38] LABS: BASOPHILS # (AUTO) 0.1 10^3/uL (0.0-0.1); BASOPHILS % (AUTO) 1 % (0-10); EOSINOPHILS # (AUTO) 0.2 10^3/uL (0.0-0.3); EOSINOPHILS % (AUTO) 2 % (0-10); HEMATOCRIT 36 % (40-54); HEMOGLOBIN 12.1 g/dL (13.3-17.7); LYMPHOCYTES # (AUTO) 2.9 10^3/uL (1.0-4.0); LYMPHOCYTES % (AUTO) 28 % (12-44); MEAN CORPUSCULAR HEMOGLOBIN 28 pg (25-34); MEAN CORPUSCULAR HGB CONC 34 g/dL (32-36); MEAN CORPUSCULAR VOLUME 84 fL (80-99); MEAN PLATELET VOLUME 10.3 fL (9.0-12.2); MONOCYTES # (AUTO) 0.6 10^3/uL (0.0-1.0); MONOCYTES % (AUTO) 5 % (0-12); NEUTROPHILS # (AUTO) 6.5 10^3/uL (1.8-7.8); NEUTROPHILS % (AUTO) 62 % (42-75); PLATELET COUNT 353 10^3/uL (130-400); WHITE BLOOD COUNT 10.4 10^3/uL (4.3-11.0)
[2021-06-13 21:03] LABS: ALBUMIN 3.1 GM/DL (3.2-4.5); BILIRUBIN,TOTAL 0.5 MG/DL (0.1-1.0); CREATININE SERUM 1.11 MG/DL (0.60-1.30); POTASSIUM 3.8 MMOL/L (3.6-5.0); TOTAL PROTEIN 6.1 GM/DL (6.4-8.2)
[2021-06-13 21:10] LABS: ABG BASE EXCESS -0.8 MMOL/L (-2.5-2.5); ABG OXYGEN SATURATION 95 % (94-100); ABG PCO2 34 MMHG (35-45); ABG PH 7.45 (7.37-7.43); ABG PO2 74 MMHG (79-93); ABG TCO2 23.9 MMOL/L (21.0-31.0); ALLENS TEST YES-POS; INSPIRED O2 4L; PATIENT TEMP 36.6; VENTILATOR NO
[2021-06-13] MEDS ORDERED: NS (IVPB) 250 ML ONE (21:10)
[2021-06-13 21:18] LABS: BILIRUBIN,URINE NEGATIVE (NEGATIVE); CLARITY,URINE CLEAR; COLOR,URINE YELLOW; GLUCOSE, URINE (UA) NEGATIVE (NEGATIVE); KETONES,URINE NEGATIVE (NEGATIVE); LEUKOCYTE ESTERASE ,URINE NEGATIVE (NEGATIVE); NITRITE,URINE NEGATIVE (NEGATIVE); PROTEIN,URINE TRACE (NEGATIVE)
[2021-06-13] MEDS: VANCOMYCIN INJECTION 1,000 MG in NS (IVPB) 250 ML IV SCH (21:19)
[2021-06-13 21:25] LABS: BACTERIA,URINE NEGATIVE /HPF; RBC,URINE 0-2 /HPF; WBC,URINE 0-2 /HPF
[2021-06-13 21:36] VITALS: BP 130/69
[2021-06-13] MEDS: MEROPENEM 500 MG/NS 100 ML IVPB IV SCH ×4 (21:58→22:00)
[2021-06-14] MEDS ORDERED: CATHETER FLUSH 10 ML SYR IV PRN (00:15)
[2021-06-14 00:45] VITALS: BP 154/80
[2021-06-14] MEDS: MEROPENEM 500 MG/NS 100 ML IVPB IV SCH ×8 (03:24→22:27)
[2021-06-14] MEDS: CATHETER FLUSH 10 ML SYR IV SCH ×3 (05:18→22:34)
[2021-06-14 06:10] LABS: BASOPHILS # (AUTO) 0.1 10^3/uL (0.0-0.1); BASOPHILS % (AUTO) 1 % (0-10); EOSINOPHILS # (AUTO) 0.3 10^3/uL (0.0-0.3); EOSINOPHILS % (AUTO) 2 % (0-10); HEMATOCRIT 38 % (40-54); HEMOGLOBIN 12.7 g/dL (13.3-17.7); LYMPHOCYTES # (AUTO) 2.9 10^3/uL (1.0-4.0); LYMPHOCYTES % (AUTO) 27 % (12-44); MEAN CORPUSCULAR HEMOGLOBIN 28 pg (25-34); MEAN CORPUSCULAR HGB CONC 34 g/dL (32-36); MEAN CORPUSCULAR VOLUME 84 fL (80-99); MEAN PLATELET VOLUME 9.9 fL (9.0-12.2); MONOCYTES # (AUTO) 0.6 10^3/uL (0.0-1.0); MONOCYTES % (AUTO) 6 % (0-12); NEUTROPHILS # (AUTO) 6.9 10^3/uL (1.8-7.8); NEUTROPHILS % (AUTO) 62 % (42-75); PLATELET COUNT 366 10^3/uL (130-400)
[2021-06-14] MEDS: DOXYCYCLINE 100 MG (VIBRAMYCIN) TABLET PO SCH ×2 (06:28→17:58)
[2021-06-14] MEDS: APIXABAN 5 MG (ELIQUIS) TABLET PO SCH ×2 (06:28→17:59)
[2021-06-14 06:35] LABS: POTASSIUM 3.9 MMOL/L (3.6-5.0)
[2021-06-14 06:37] LABS: CALCIUM 8.1 MG/DL (8.5-10.1)
[2021-06-14 06:38] LABS: TOTAL PROTEIN 6.1 GM/DL (6.4-8.2)
[2021-06-14 06:40] LABS: BILIRUBIN,TOTAL 0.5 MG/DL (0.1-1.0)
[2021-06-14 06:41] LABS: CREATININE SERUM 1.09 MG/DL (0.60-1.30)
[2021-06-14] MEDS: RT-ALBUTEROL SULF 2.5 MG/3 ML PRE-MIX VIAL INH SCH ×4 (07:39→19:45)
[2021-06-14 08:00] VITALS: BP 150/74
--- NOTE | 2021-06-14 08:40 | Individualized Plan of Care ---
Individualized Plan of Care Rehab Nursing IPOC Order Admission Date Jun 13, 2021 at 10:52 Current Orders Orders Admission Order(Inpt,Obs,Sdc) (06/13/21 07:40) Vital Signs: Per Unit Policy ( 08,16,00 (06/13/21 07:40) Luther Pichardo 09,21 (06/13/21 07:40) Sequential Compression Device (06/13/21 07:40) Shower Attendant-Inpt Rehab Con (06/13/21 07:40) Rehab Nursing Orders-Ipoc (06/13/21 07:40) Physical Therapy Rehab Orders (06/13/21 07:40) Occupational Therapy Rehab Ord (06/13/21 07:40) Speech Therapy Rehab Orders (06/13/21 07:40) Cbc With Automated Diff (06/14/21 06:00) Comprehensive Metabolic Panel (06/14/21 06:00) Precautions (Aru) (06/13/21 07:40) Weekly Weight WEEK (06/13/21 07:40) Rehab-Intensity Of Therapy (06/13/21 07:40) Initiate Admission Nursing Pro .admission (06/13/21 07:40) Alprazolam Tablet (Xanax Tablet) (06/13/21 07:45) Calcium Carbonate Chew Tablet (Antacid C (06/13/21 07:45) Diphenhydramine Tablet (Benadryl Tablet) (06/13/21 07:45) Docusate Sodium Capsule (Colace Capsule) (06/13/21 09:00) Docusate Sodium Capsule (Colace Capsule) (06/13/21 07:45) Bisacodyl Suppository (Dulcolax Supposit (06/13/21 07:45) Lactulose Oral Solution (Enulose Oral So (06/13/21 07:45) Na Phos/Na Biphos Enema (Fleet Enema Chidi (06/13/21 07:45) Guaifenesin/Codeine Syrup (Robitussin Ac (06/13/21 07:45) Loperamide Tablet (Imodium Tablet) (06/13/21 07:45) Melatonin Tablet (Melatonin Tablet) (06/13/21 07:45) Polyethylene Glycol Powder Pkt (Miralax (06/13/21 09:00) Ondansetron Oral Dissolve Tab (Zofran (06/13/21 07:45) Senna S Tablet (Senokot S Tablet) (06/13/21 09:00) Acetaminophen Tablet/Caplet (Tylenol T (06/13/21 07:45) Code/Resuscitation (06/13/21 07:40) Sequential Compression Device ONCE (06/13/21 07:40) Initiate Admission Nursing Pro .admission (06/13/21 07:40) Admission Arrival Bed Request (06/13/21 10:52) Patient Visit (06/13/21 ) Pt Eval Low Complexity (06/13/21 ) Heart Healthy (06/13/21 Lunch) Code/Resuscitation (06/13/21 12:48) Acetaminophen Tablet/Caplet (Tylenol T (06/13/21 13:00) Albuterol Pre-Mix Nebs (Rt) (Proventil (06/13/21 13:00) Apixaban Tablet (Eliquis Tablet) (06/13/21 18:00) Diphenhydramine Tablet (Benadryl Tablet) (06/13/21 13:00) Cefepime Injection (Maxipime Injection) (06/13/21 13:00) Docusate Sodium Capsule (Colace Capsule) (06/13/21 21:00) Doxycycline Hyclate Tablet (Vibramycin T (06/13/21 17:00) Melatonin Tablet (Melatonin Tablet) (06/13/21 13:00) Polyethylene Glycol Powder Pkt (Miralax (06/13/21 13:00) Antacid Suspension (Mylanta Suspension (06/13/21 13:00) Pantoprazole Tablet (Protonix Tablet) (06/14/21 09:00) Rosuvastatin Tablet (Crestor Tablet) (06/13/21 21:00) Sennosides Tablet (Senokot Tablet) (06/13/21 21:00) Sodium Chloride Flush (Catheter Flush Sy (06/13/21 13:00) Ondansetron Injection (Zofran Injectio (06/13/21 13:00) Ondansetron Oral Dissolve Tab (Zofran (06/13/21 13:00) Amlodipine Tablet (Norvasc Tablet) (06/14/21 09:00) Carvedilol Tablet (Coreg Tablet) (06/13/21 21:00) Clonidine Tablet (Catapres Tablet) (06/13/21 21:00) Lisinopril Tablet (Zestril Tablet) (06/14/21 09:00) Oxycodone Immediate Rel Tablet (Oxyir Ta (06/13/21 13:00) Bipap (Bilevel) Set Up (06/13/21 12:48) Consult Cardiology (06/13/21 12:48) Mat Initiate Protocol (06/13/21 12:48) Svn Small Volume Nebulizer (06/13/21 12:48) Svn Small Volume Nebulizer (06/13/21 12:48) Catheter(Urinary) Discontinue (06/13/21 13:36) Albuterol Pre-Mix Nebs (Rt) (Proventil (06/13/21 15:00) Svn Small Volume Nebulizer (06/13/21 14:59) Incentive Spirometry Initial (06/13/21 14:59) Communication For Respiratory (06/13/21 14:59) Incentive Spirometry (Nursing) Q2H (06/13/21 14:59) Bipap (Bilevel) Set Up (06/13/21 17:55) Cbc With Automated Diff (06/13/21 20:05) Comprehensive Metabolic Panel (06/13/21 20:05) Procalcitonin (Pct) (06/13/21 20:05) Lactic Acid Analyzer (06/13/21 20:05) Blood Culture (06/13/21 20:05) Mrsa Screen Physician Request (06/13/21 20:06) Mrsa Nursing Screening/Treatme .admit (06/13/21 20:06) Meropenem (Merrem 1000 Mg) (06/13/21 20:15) Vancomycin Injection (Vancomycin Injecti (06/13/21 20:15) Clonidine Tablet (Catapres Tablet) (06/13/21 20:15) Arterial Blood Gas (06/13/21 20:06) Arterial Blood Draw - Obtain (06/13/21 20:06) Chest 1 View, Ap/Pa Only (06/13/21 20:06) Meropenem (Merrem 1000 Mg) (06/13/21 20:17) Ns (Ivpb) (Sodium Chloride 0.9% Ivpb Bag (06/13/21 20:17) Covid 19 Inhouse Test (06/13/21 20:21) Influenza A And B By Pcr (06/13/21 20:21) Urinalysis (06/13/21 21:10) Straight Cath (Urinary) (06/13/21 20:42) Ns (Ivpb) (Sodium Chloride 0.9%) (06/13/21 21:10) Meropenem (Merrem 500 Mg) (06/13/21 22:00) Sodium Chloride Flush (Catheter Flush Sy (06/14/21 00:15) Sodium Chloride Flush (Catheter Flush Sy (06/14/21 06:00) Bisacodyl Suppository (Dulcolax Supposit (06/14/21 14:15) Soap Suds Enema Until Clear (06/14/21 14:04) Cbc With Automated Diff (06/15/21 05:01) Comprehensive Metabolic Panel (06/15/21 05:01) Rehab Nursing Orders: Ongoing Assess. of Cognitive Status, Ongoing Assess. of Function Status, Bladder Management, Bladder Scan, Bladder Training, Bowel Management, Bowel Training, Disease Management & Educaiton, DVT Prophylaxis, Fall Prevention, Fluid/Electrolyte/Nutrition Mgmt, Infection Prevention, Medication Management & Education, Management of Risks & Complications, Management of Skin Intergrity, Nutrition Management, Pain Management, Patient/Family Support, Safety Management Intensity of Therapy to be met Patient to be seen: Min.3h per day/5 of 7d PT IPOC Problem List: Activity Tolerance, Functional Strength, Safety, Balance, Gait, Transfer, Bed Mobility, ROM Treatment Plan: Continue Plan of Care Bed Mobility, Functional Activity Shauna, Functional Strength, Group Therapy, Gait, Safety, Therapeutic Exercise, Transfers Treatment Duration: Jun 27, 2021 Frequency: 11 times per week Estimated Hrs Per Day: 1.5 hours per day OT IPOC Problems: Decreased Activ Tolerance, Dependent Transfers, Impaired Bed Mobility, Impaired Cognition, Impaired I ADL's, Impaired Self-Care Skills OT Treatment, Training and Edu: Yes Plan of Care: ADL Retraining, Functional Mobility, UE Funct Exercise/Act Treatment Duration: Jul 04, 2021 Frequency: At least 5 of 7 days/Wk (IRF) Estimated Hrs Per Day: 1.5 hours per day [facility] Speech Therapy Treatment Plan: Continue Plan of Care Treatment Duration: Jun 15, 2021 Frequency: 3 times per week Estimated Hrs Per Day: .5 hour per day Shower Attendant/Case Mgmt Shower Attendant/Case Managemen: Discharge Planning Dietitian/Solar Installation Helper Dietitian/Solar Installation Helper to monitor nutritional status and make changes and/or recommendations as needed and work with speech pathology on dietary upgrades as the occur. Physician [facility] Medical Issues being managed closely and that require the 24 hour availability of a physician: Recent critical illness with now cognitive deficit will require close monitoring for decompensation Medical Issues: Bowel/Bladder Function, DVT Prophylaxis, Falls Precautions, Fluid/Electrolyte/Nutrition Balance, Infection Protection, Pain Management Brief Synthesis of Preadmission Screen, Post-Admission Evaluation, and Therapy Evaluations: PT and OT will focus on regaining function with ambulatory devices to increase independence in ADLs in order to return back to independent living Medical Prognosis: Guarded Anticipated Length of Stay: 10 days TARI AUGUSTIN DO Jun 14, 2021 08:40
--- NOTE | 2021-06-14 08:40 | PM&R Progress Note ---
Subjective HPI/CC On Admission Date Seen by Provider: Jun 14, 2021 Time Seen by Provider: 14:00 Subjective/Events-last exam 06/14/2021: Patient doing well Flat affect Voiding well Labs good No more fever IV antibiotics maintained Using CPAP brought in from home Review of Systems General: Fatigue, Malaise Pulmonary: Dyspnea Focused Exam Lactate Level 06/13/21 20:20: Lactic Acid Level 0.83 Objective Exam Vital Signs Vital Signs Date Time Temp Pulse Resp B/P (MAP) Pulse Ox O2 Delivery O2 Flow Rate FiO2 06/14/21 21:00 High Flow N/C 4.00 06/14/21 20:29 37.5 72 20 147/87 (107) 89 Capillary Refill : General Appearance: No Apparent Distress, WD/WN, Chronically ill, Obese HEENT: PERRL/EOMI, Normal ENT Inspection, Pharynx Normal Neck: Full Range of Motion, Normal Inspection, Non Tender, Supple, Carotid Bruit Respiratory: Chest Non Tender, No Accessory Muscle Use, No Respiratory Distress, Crackles, Decreased Breath Sounds Cardiovascular: No Edema, No Gallop, No JVD, No Murmur, Normal Peripheral Pulses, Irregularly Irregular Gastrointestinal: Normal Bowel Sounds, No Organomegaly, No Pulsatile Mass, Non Tender, Soft Back: Normal Inspection, No CVA Tenderness, No Vertebral Tenderness Extremity: Normal Capillary Refill, Normal Inspection, Normal Range of Motion, Non Tender, No Calf Tenderness, No Pedal Edema Neurologic/Psychiatric: Alert, Oriented x3, stock supervisor II-XII Norm as Tested, Abnormal Gait, Depressed Affect, Motor Weakness Skin: Normal Color, Warm/Dry Lymphatic: No Adenopathy Results/Procedures Lab Laboratory Tests 06/14/21 05:55 Patient resulted labs reviewed. FIM Transfers Therapy Code Descriptions/Definitions Functional [place] Measure: 0=Not Assessed/NA 4=Minimal Assistance 1=Total Assistance 5=Supervision or Setup 2=Maximal Assistance 6=Modified [place] 3=Moderate Assistance 7=Complete IndependenceSCALE: Activities may be completed with or without assistive devices. 5-Prghtwjekt-zlyzpgz completes the activity by him/herself with no assistance from a helper. 5-Set-up or Clean-up Assistance-helper sets up or cleans up; patient completes activity. [place] assists only prior to or following the activity. 4-Supervision or Touching Assistance-helper provides verbal cues and/or touching/steadying and/or contact guard assistance as patient completes activity. Assistance may be provided throughout the activity or intermittently. 3-Partial/Moderate Assistance-helper does LESS THAN HALF the effort. [place] lifts, holds or supports trunk or limbs, but provides less than half the effort. 2-Substantial/Maximal Assistance-helper does MORE THAN HALF the effort. [place] lifts or holds trunk or limbs and provides more than half the effort. 8-Vhtctpvuu-pcwfwg does ALL the effort. Patient does none of the effort to complete the activity. Or, the assistance of 2 or more helpers is required for the patient to complete the activity. If activity was not attempted, code reason: 7-Patient Refused. 9-Not Applicable-not attempted and the patient did not perform the activity before the current illness, exacerbation or injury. 10-Not Attempted due to Environmental Limitations-(lack of equipment, weather restraints, etc.). 88-Not Attempted due to Medical Conditions or Safety Concerns. Roll Left to Right (QC): 4 Sit to Lying (QC): 4 Sit to Stand (QC): 5 Chair/Kmg-pt-Mwwpn Xfer(QC): 4 Car Transfer (QC): 88 Gait Training Walk 10 feet (QC): 5 Walk 50 ft with 2 Turns(QC): 88 Walk 150 ft (QC): 88 Walking 10ft/uneven surface-QC: 88 Gait Assistive Device: FWW Wheelchair Training Does the Pt Use a Wheelchair?: No Wheel 50 ft with 2 turns (QC): 9 Wheel 150 ft (QC): 9 Stair Training 1 Step (curb) (QC): 88 4 Steps (QC): 88 12 Steps (QC): 88 Balance Picking up an Object (QC): 88 ADL-Treatment Eating (QC): 4 Oral Hygiene (QC): 88 Shower/Bathe Self (QC): 10 Upper Body Dressing (QC): 88 Lower Body Dressing (QC): 88 On/Off Footwear (QC): 2 Toileting Hygiene (QC): 2 Assessment/Plan Assessment and Plan Assess & Plan/Chief Complaint Assessment: COPD myopathy s/p severe sepsis Multifocal pneumonia on abx Acute respiratory failure with hypoxia Lactic acidosis Acute kidney injury COVID test negative x2 CT with multifocal pneumonia Continue Cefepime Add tick panel Begin Doxycycline Supplemental oxygen via nasal cannula, 2 L currently New onset AFib NSTEMI Cardiology following Eliquis maintained Stress test performed HTN HLD GERD Obesity STEPAN on CPAP Cheek cath-DC today Cognitive deficit Plan: Home CPAP machine DC cheek Home meds Cardiology appreciated 06/14/2021: Use home CPAP IV antibiotics Monitor closely High risk for decompensation (1) Myopathy (2) STEPAN on CPAP (3) Cognitive deficits (4) Cheek catheter in place (5) Elevated troponin I level Status: Acute (6) New onset atrial fibrillation Status: Acute (7) Multifocal pneumonia Status: Acute (8) Acute respiratory failure with hypoxia Status: Acute (9) RAMYA (acute kidney injury) Status: Acute (10) NSTEMI (non-ST elevation myocardial infarction) Status: Acute (11) HLD (hyperlipidemia) Status: Chronic (12) HTN (hypertension) Status: Chronic (13) GERD (gastroesophageal reflux disease) Status: Chronic (14) Stage 3 chronic kidney disease (15) Primary hypertension (16) Obesity (17) Mixed hyperlipidemia TARI AUGUSTIN DO Jun 14, 2021 08:40
[2021-06-14] MEDS: DOCUSATE SODIUM 100 MG (COLACE) CAP PO SCH ×2 (09:15→20:23)
[2021-06-14] MEDS: cloNIDine 0.1 MG (CATAPRES) TAB PO SCH ×2 (09:15→20:24)
[2021-06-14] MEDS: SENNA W/DOCUSATE (SENOKOT S) TABLET PO SCH ×2 (09:15→20:24)
[2021-06-14] MEDS: PANTOPRAZOLE 40 MG (PROTONIX) TAB PO SCH (09:15)
[2021-06-14] MEDS: lisINopril 40 MG (PRINIVIL) TABLET PO SCH (09:15)
[2021-06-14] MEDS: amLODIPine 10 MG (NORVASC) TAB PO SCH (09:16)
[2021-06-14] MEDS: VANCOMYCIN INJECTION 1,000 MG in NS (IVPB) 250 ML IV SCH ×2 (09:39→20:15)
[2021-06-14] MEDS: polyethylene glycoL POWDER 17 GM (MIRALAX) PACK PO SCH ×2 (09:54→21:00)
[2021-06-14] MEDS: SENNOSIDES 8.6 MG (SENOKOT) TAB PO SCH ×2 (10:14→21:00)
[2021-06-14] MEDS: ACETAMINOPHEN 325 MG TABLET PO PRN ×2 (12:48→22:27)
[2021-06-14] MEDS ORDERED: BISACODYL 10 MG SUPP (DULCOLAX) PR ONE (14:15)
[2021-06-14] MEDS: ROSUVASTATIN 10 MG (CRESTOR) TABLET PO SCH (20:24)
[2021-06-14 20:29] VITALS: BP 147/87
[2021-06-15] MEDS: MEROPENEM 500 MG/NS 100 ML IVPB IV SCH ×8 (04:23→21:49)
[2021-06-15] MEDS: CATHETER FLUSH 10 ML SYR IV SCH ×3 (06:57→21:49)
[2021-06-15] MEDS: APIXABAN 5 MG (ELIQUIS) TABLET PO SCH ×2 (06:57→17:43)
[2021-06-15] MEDS: DOXYCYCLINE 100 MG (VIBRAMYCIN) TABLET PO SCH ×2 (06:57→17:27)
[2021-06-15 07:17] LABS: BASOPHILS # (AUTO) 0.1 10^3/uL (0.0-0.1); BASOPHILS % (AUTO) 1 % (0-10); EOSINOPHILS # (AUTO) 0.3 10^3/uL (0.0-0.3); EOSINOPHILS % (AUTO) 3 % (0-10); HEMATOCRIT 35 % (40-54); HEMOGLOBIN 11.8 g/dL (13.3-17.7); LYMPHOCYTES # (AUTO) 2.7 10^3/uL (1.0-4.0); LYMPHOCYTES % (AUTO) 28 % (12-44); MEAN CORPUSCULAR HEMOGLOBIN 28 pg (25-34); MEAN CORPUSCULAR HGB CONC 34 g/dL (32-36); MEAN CORPUSCULAR VOLUME 83 fL (80-99); MEAN PLATELET VOLUME 9.9 fL (9.0-12.2); MONOCYTES # (AUTO) 0.6 10^3/uL (0.0-1.0); MONOCYTES % (AUTO) 6 % (0-12); NEUTROPHILS # (AUTO) 5.8 10^3/uL (1.8-7.8); NEUTROPHILS % (AUTO) 61 % (42-75); PLATELET COUNT 407 10^3/uL (130-400); WHITE BLOOD COUNT 9.6 10^3/uL (4.3-11.0)
[2021-06-15] MEDS: RT-ALBUTEROL SULF 2.5 MG/3 ML PRE-MIX VIAL INH SCH ×2 (07:23→21:06)
[2021-06-15 07:39] LABS: ALBUMIN 2.9 GM/DL (3.2-4.5)
[2021-06-15 07:41] LABS: CALCIUM 7.9 MG/DL (8.5-10.1)
[2021-06-15 07:42] LABS: TOTAL PROTEIN 5.9 GM/DL (6.4-8.2)
[2021-06-15 07:44] LABS: BILIRUBIN,TOTAL 0.5 MG/DL (0.1-1.0)
[2021-06-15 07:46] LABS: CREATININE SERUM 0.92 MG/DL (0.60-1.30)
[2021-06-15 07:56] LABS: ATYPICAL LYMPHOCYTES 2 %; EOSINOPHILS % (MANUAL) 3 %; LYMPHOCYTES % (MANUAL) 27 %; MONOCYTES % (MANUAL) 3 %; NEUTROPHILS % (MANUAL) 65 %
[2021-06-15 07:57] LABS: MICROCYTOSIS SLIGHT; POLYCHROMASIA SLIGHT
[2021-06-15 08:00] VITALS: BP 168/76
[2021-06-15] MEDS: VANCOMYCIN INJECTION 1,000 MG in NS (IVPB) 250 ML IV SCH ×2 (08:27→20:23)
--- NOTE | 2021-06-15 08:39 | PM&R Progress Note ---
Subjective HPI/CC On Admission Date Seen by Provider: Jun 15, 2021 Time Seen by Provider: 09:00 Subjective/Events-last exam 06/15/21: Pt is doing much better Pt is using CPAP at night Oxygen at 3.5 L Shallow breathing overall Still on broad spectrum antibiotics 06/14/2021: Patient doing well Flat affect Voiding well Labs good No more fever IV antibiotics maintained Using CPAP brought in from home Review of Systems General: Fatigue, Malaise Pulmonary: Dyspnea Focused Exam Lactate Level 06/13/21 20:20: Lactic Acid Level 0.83 Objective Exam Vital Signs Vital Signs Date Time Temp Pulse Resp B/P (MAP) Pulse Ox O2 Delivery O2 Flow Rate FiO2 06/15/21 21:10 37.8 06/15/21 21:07 93 Nasal Cannula 2.00 06/15/21 20:00 80 20 166/80 (108) 06/15/21 07:24 3 Capillary Refill : General Appearance: No Apparent Distress, WD/WN, Chronically ill, Obese HEENT: PERRL/EOMI, Normal ENT Inspection, Pharynx Normal Neck: Full Range of Motion, Normal Inspection, Non Tender, Supple, Carotid Bruit Respiratory: Chest Non Tender, No Accessory Muscle Use, No Respiratory Distress, Crackles, Decreased Breath Sounds Cardiovascular: No Edema, No Gallop, No JVD, No Murmur, Normal Peripheral Pulses, Irregularly Irregular Gastrointestinal: Normal Bowel Sounds, No Organomegaly, No Pulsatile Mass, Non Tender, Soft Back: Normal Inspection, No CVA Tenderness, No Vertebral Tenderness Extremity: Normal Capillary Refill, Normal Inspection, Normal Range of Motion, Non Tender, No Calf Tenderness, No Pedal Edema Neurologic/Psychiatric: Alert, Oriented x3, veneer matcher II-XII Norm as Tested, Abnormal Gait, Depressed Affect, Motor Weakness Skin: Normal Color, Warm/Dry Lymphatic: No Adenopathy Results/Procedures Lab Laboratory Tests 06/15/21 06:50 Patient resulted labs reviewed. FIM Transfers Therapy Code Descriptions/Definitions Functional [place] Measure: 0=Not Assessed/NA 4=Minimal Assistance 1=Total Assistance 5=Supervision or Setup 2=Maximal Assistance 6=Modified [place] 3=Moderate Assistance 7=Complete IndependenceSCALE: Activities may be completed with or without assistive devices. 2-Zpxdsqkzbx-rtbgqwm completes the activity by him/herself with no assistance from a helper. 5-Set-up or Clean-up Assistance-helper sets up or cleans up; patient completes activity. [place] assists only prior to or following the activity. 4-Supervision or Touching Assistance-helper provides verbal cues and/or touching/steadying and/or contact guard assistance as patient completes activity. Assistance may be provided throughout the activity or intermittently. 3-Partial/Moderate Assistance-helper does LESS THAN HALF the effort. [place] lif ts, holds or supports trunk or limbs, but provides less than half the effort. 2-Substantial/Maximal Assistance-helper does MORE THAN HALF the effort. [place] lifts or holds trunk or limbs and provides more than half the effort. 9-Ndwyrjqyb-qwkzvx does ALL the effort. Patient does none of the effort to complete the activity. Or, the assistance of 2 or more helpers is required for the patient to complete the activity. If activity was not attempted, code reason: 7-Patient Refused. 9-Not Applicable-not attempted and the patient did not perform the activity before the current illness, exacerbation or injury. 10-Not Attempted due to Environmental Limitations-(lack of equipment, weather restraints, etc.). 88-Not Attempted due to Medical Conditions or Safety Concerns. Roll Left to Right (QC): 4 Sit to Lying (QC): 4 Sit to Stand (QC): 5 Chair/Zbj-qv-Bqxke Xfer(QC): 4 Car Transfer (QC): 88 Gait Training Walk 10 feet (QC): 5 Walk 50 ft with 2 Turns(QC): 88 Walk 150 ft (QC): 88 Walking 10ft/uneven surface-QC: 88 Gait Assistive Device: FWW Wheelchair Training Does the Pt Use a Wheelchair?: No Wheel 50 ft with 2 turns (QC): 9 Wheel 150 ft (QC): 9 Stair Training 1 Step (curb) (QC): 88 4 Steps (QC): 88 12 Steps (QC): 88 Balance Picking up an Object (QC): 88 ADL-Treatment Eating (QC): 4 Oral Hygiene (QC): 88 Shower/Bathe Self (QC): 10 Upper Body Dressing (QC): 88 Lower Body Dressing (QC): 88 On/Off Footwear (QC): 2 Toileting Hygiene (QC): 2 Assessment/Plan Assessment and Plan Assess & Plan/Chief Complaint Assessment: COPD myopathy s/p severe sepsis Multifocal pneumonia on abx Acute respiratory failure with hypoxia Lactic acidosis Acute kidney injury COVID test negative x2 CT with multifocal pneumonia Continue Meropenem after failed Cefepime Added tick panel s/p Doxycycline Supplemental oxygen via nasal cannula, 2 L currently New onset AFib NSTEMI Cardiology following Eliquis maintained Stress test performed HTN HLD GERD Obesity STEPAN on CPAP Cheek cath-DC Cognitive deficit Plan: Home CPAP machine DC cheek Home meds Cardiology appreciated 06/14/2021: Use home CPAP IV antibiotics Monitor closely High risk for decompensation 06/15/21: Monitor oxygen status CPAP at night Abx DC Vanc (1) Myopathy (2) STEPAN on CPAP (3) Cognitive deficits (4) Cheek catheter in place (5) Elevated troponin I level Status: Acute (6) New onset atrial fibrillation Status: Acute (7) Multifocal pneumonia Status: Acute (8) Acute respiratory failure with hypoxia Status: Acute (9) RAMYA (acute kidney injury) Status: Acute (10) NSTEMI (non-ST elevation myocardial infarction) Status: Acute (11) HLD (hyperlipidemia) Status: Chronic (12) HTN (hypertension) Status: Chronic (13) GERD (gastroesophageal reflux disease) Status: Chronic (14) Stage 3 chronic kidney disease (15) Primary hypertension (16) Obesity (17) Mixed hyperlipidemia TARI AUGUSTIN DO Jun 15, 2021 08:39
[2021-06-15] MEDS: polyethylene glycoL POWDER 17 GM (MIRALAX) PACK PO SCH ×2 (08:42→20:14)
[2021-06-15] MEDS: SENNA W/DOCUSATE (SENOKOT S) TABLET PO SCH ×2 (08:43→20:31)
[2021-06-15] MEDS: DOCUSATE SODIUM 100 MG (COLACE) CAP PO SCH ×2 (08:43→20:13)
[2021-06-15] MEDS: PANTOPRAZOLE 40 MG (PROTONIX) TAB PO SCH (08:44)
[2021-06-15] MEDS: cloNIDine 0.1 MG (CATAPRES) TAB PO SCH ×2 (08:44→20:12)
[2021-06-15] MEDS: amLODIPine 10 MG (NORVASC) TAB PO SCH (08:44)
[2021-06-15] MEDS: lisINopril 40 MG (PRINIVIL) TABLET PO SCH (08:44)
[2021-06-15] MEDS: SENNOSIDES 8.6 MG (SENOKOT) TAB PO SCH ×2 (08:44→20:13)
--- NOTE | 2021-06-15 09:38 | Occupational Ther Daily Note ---
OT Current Status-Daily Note Subjective Pt alert, lying in bed. Pt agrees to therapy. Pt takes increased time to complete all tasks due to slow moving and impaired activity tolerance. No c/o pain only dizziness, nrsg aware. Mental Status/Objective Patient Orientation: Person, Place, Time, Situation Attachments: IV ADL-Treatment Pt agrees to shower. Min A for supine to EOB due to fatigue and dizziness. CGA for SPT from EOB to w/c then w/c <--> shower bench. Pt able to complete all areas except feet, leans side to side to wash buttocks. Due to time constraints, assist given thread clothing over feet then pt able to hike over hips. Max A for donning socks. Using clinical judgment for upper body dressing due to IV, pt would be min A to don/doff shirt due to decreased activity tolerance. Using clinical judgment, pt able to complete oral care sitting at sink by self. Therapy Code Descriptions/Definitions Functional [place] Measure: 0=Not Assessed/NA 4=Minimal Assistance 1=Total Assistance 5=Supervision or Setup 2=Maximal Assistance 6=Modified [place] 3=Moderate Assistance 7=Complete IndependenceSCALE: Activities may be completed with or without assistive devices. 8-Yqpggidsqy-jkcvuxh completes the activity by him/herself with no assistance from a helper. 5-Set-up or Clean-up Assistance-helper sets up or cleans up; patient completes activity. [place] assists only prior to or following the activity. 4-Supervision or Touching Assistance-helper provides verbal cues and/or touching/steadying and/or contact guard assistance as patient completes activity. Assistance may be provided throughout the activity or intermittently. 3-Partial/Moderate Assistance-helper does LESS THAN HALF the effort. [place] lifts, holds or supports trunk or limbs, but provides less than half the effort. 2-Substantial/Maximal Assistance-helper does MORE THAN HALF the effort. [place] lifts or holds trunk or limbs and provides more than half the effort. 9-Bjtnedjiq-taghel does ALL the effort. Patient does none of the effort to complete the activity. Or, the assistance of 2 or more helpers is required for the patient to complete the activity. If activity was not attempted, code reason: 7-Patient Refused. 9-Not Applicable-not attempted and the patient did not perform the activity before the current illness, exacerbation or injury. 10-Not Attempted due to Environmental Limitations-(lack of equipment, weather restraints, etc.). 88-Not Attempted due to Medical Conditions or Safety Concerns. Eating (QC): 5 Oral Hygiene (QC): 6 Shower/Bathe Self (QC): 3 (mod A) Upper Body Dressing (QC): 3 (min A) Lower Body Dressing (QC): 3 (mod A) On/Off Footwear: 2 Co-treat with PT ([id number]), skills of 2 clinicians required due to impaired activity tolerance and increased time for pt to recover. PT focusing on ambulation and transfers while OT focusing on ADLs and functional mobility. OT Short Term Goals Short Term Goals Time Frame: Jun 20, 2021 Eatin Oral hygiene: 5 Toileting hygiene: 4 Shower/bathe self: 4 Upper body dressin Lower body dressin Putting on/taking off footwear: 4 OT Television Actor Goals Prison Goals Time Frame: Jul 04, 2021 Eating (QC): 6 Oral Hygiene (QC): 6 Toileting Hygiene (QC): 6 Shower/Bathe Self (QC): 5 Upper Body Dressing (QC): 6 Lower Body Dressing (QC): 6 On/Off Footwear (QC): 6 Additional Goals: 1-Demonstrate ADL Tasks, 2-Verbalize Understanding, 3- ImproveStrength/Shauna 1=Demonstrate adherence to instructed precautions during ADL tasks. 2=Patient will verbalize/demonstrate understanding of assistive devices/mo difications for ADL. 3=Patient will improve strength/tolerance for activity to enable patient to perform ADL's. OT Education/Plan Problem List/Assessment Assessment: Decreased Activ Tolerance, Impaired Bed Mobility, Impaired Self- Care Skills Discharge Recommendations Plan/Recommendations: Continue POC Treatment Plan/Plan of Care Patient would benefit from OT for education, treatment and training to promote independence in ADL's, mobility, safety and/or upper extremity function for ADL's. Plan of Care: ADL Retraining, Functional Mobility, UE Funct Exercise/Act Treatment Duration: Jul 04, 2021 Frequency: At least 5 of 7 days/Wk (IRF) Estimated Hrs Per Day: 1.5 hours per day Agreement: Yes Rehab Potential: Good Time/GCodes Start Time: 08:30 Stop Time: 09:30 Total Time Billed (hr/min): 60 Billed Treatment Time 1 visit-ADL 3 (40 min) FA 1 (20 min) co-treat with PT [id number], individual [id number] CAMERON ANG Jun 15, 2021 09:38
--- NOTE | 2021-06-15 09:59 | Physical Therapy Daily Note ---
PT Daily Note-Current Subjective Patient in shower pre tx, agrees to PT, voices no complaints of pain. Will be co-treating with OT for part of tx due to poor patient mobility, strength, endurance, severe debility, coordinate UE and LE during activity, safety and reduce risk of falls. Appearance Patient in recliner post tx with nurse call, phone, tray, all needs met. Mental Status Patient Orientation: Person, Place, Situation Attachments: Oxygen, IV Transfers SCALE: Activities may be completed with or without assistive devices. 7-Zjqsznnwzr-qcaodhz completes the activity by him/herself with no assistance from a helper. 5-Set-up or Clean-up Assistance-helper sets up or cleans up; patient completes activity. [place] assists only prior to or following the activity. 4-Supervision or Touching Assistance-helper provides verbal cues and/or touching/steadying and/or contact guard assistance as patient completes activity. Assistance may be provided throughout the activity or intermittently. 3-Partial/Moderate Assistance-helper does LESS THAN HALF the effort. [place] lifts, holds or supports trunk or limbs, but provides less than half the effort. 2-Substantial/Maximal Assistance-helper does MORE THAN HALF the effort. [place] lifts or holds trunk or limbs and provides more than half the effort. 7-Lssyfsblm-ofevea does ALL the effort. Patient does none of the effort to c omplete the activity. Or, the assistance of 2 or more helpers is required for the patient to complete the activity. If activity was not attempted, code reason: 7-Patient Refused. 9-Not Applicable-not attempted and the patient did not perform the activity before the current illness, exacerbation or injury. 10-Not Attempted due to Environmental Limitations-(lack of equipment, weather restraints, etc.). 88-Not Attempted due to Medical Conditions or Safety Concerns. Sit to Stand (QC): 4 Chair/Dij-nl-Jfelj Xfer(QC): 4 Patient in shower at the beginning of tx, he finishes up quickly and PT assists with standing and transfers for dressing. After getting back to his room from the therapy gym patient states he needs to urinate, ambulates to the restroom and stands to urinate but he cannot, he tries to back up out of the restroom, very unsteady, cued to turn around and ambulate. Weight Bearing Right Lower Extremity: Right Left Lower Extremity: Left Gait Training Distance: 20', 15' Walk 10 feet (QC): 4 Gait Persons Needed: 1 Gait Assistive Device: FWW WC follow, very slow Wheelchair Training Does the Pt Use a Wheelchair?: Yes Wheel 50 ft with 2 turns (QC): 3 Type of Wheelchair: Manual very, very slow, needs constant cues to stay on task Exercises NuStep Minutes: 10 NuStep Workload: 5 Treatments PT performed transfers, ambulation, functional strengthening, standing and positioning during dressing, OT performed dressing, ADL's, UE positioning and safety during activity. Assessment Current Status: Fair Progress Patient seems to have some slow processing, needs constant cues to stay on task, gets distracted easily PT Short Term Goals Short Term Goals Time Frame: Jun 20, 2021 Roll Left & Right: 5 Sit to lyin Lying to sitting on side of be: 5 Sit to stand: 5 Chair/but-bq-irtcv transfer: 5 Toilet transfer: 5 Car transfer: 5 Walk 10 feet: 5 Walk 50 feet with two turns: 5 Walk 150 feet: 5 Walking 10ft on uneven surface: 5 1 step (curb): 5 4 steps: 5 12 steps: 5 Picking up objects: 5 Does pt use a wc or scooter: No PT Skilled Nursing Goals Light Cleaner Goals PT Light Cleaner Goals Time Frame: Jun 27, 2021 Roll Left & Right (QC): 6 Sit to Lying (QC): 6 Lying-Sitting on Side/Bed(QC): 6 Sit to Stand (QC): 6 Chair/Ybu-hv-Oozub Xfer(QC): 6 Toilet Transfer (QC): 6 Car Transfer (QC): 6 Does the Patient Walk: Yes Walk 10 feet (QC): 6 Walk 50ft with 2 Turns (QC): 6 Walk 150 ft (QC): 6 Walking 10ft on Uneven Surface: 6 1 Step (curb) (QC): 6 4 Steps (QC): 6 12 Steps (QC): 6 Picking up an Object (QC): 6 Does the Pt use WC or Scooter?: No Wheel 50 feet with 2 turns (QC: 9 Type: N/A Wheel 150 feet: 9 Type: N/A PT Plan Problem List Problem List: Activity Tolerance, Functional Strength, Safety, Balance, Gait, Transfer, Bed Mobility, ROM Treatment/Plan Treatment Plan: Continue Plan of Care Treatment Plan: Bed Mobility, Functional Activity Shauna, Functional Strength, Group Therapy, Gait, Safety, Therapeutic Exercise, Transfers Treatment Duration: Jun 27, 2021 Frequency: 11 times per week Estimated Hrs Per Day: 1.5 hours per day Safety Risks/Education Patient Education: Gait Training, Transfer Techniques, Correct Positioning, W/C Management, Safety Issues Teaching Recipient: Patient Teaching Methods: Demonstration, Discussion Response to Teaching: Reinforcement Needed Time/GCodes Time In: 899 Time Out: 1000 Total Billed Treatment Time: 60 Total Billed Treatment 1 visit EX 10' FA 50' co-treated with OT from [id number] HARVEY CLEMENTS PT Jun 15, 2021 09:59
--- NOTE | 2021-06-15 14:32 | Therapy Group Daily Note ---
Therapy Daily Group Note Patient Education Topic Other List Below (memory, ARU description/expectations) Exercises LE Seated Exercise, UE Exercise Session Ratio (pt:therapist): 3:1 Goal of Session: Education on ARU Expectations, Memory Strategies, UE/LE Strengthing Goal Met for this Session: Yes Pt Benefit of Group: Contributions to Others, F/U Use of Strategies @Home, Increased Functional Safety, Increased Functional Strength, Improved Cognition, Recognition of Peers, Socialization Other/Notes [facility]. Group consisted introductions (name, place living, coldest remembered winter), socialization, B UE/LE seated exercises, educational topics ARU description/expectations and memory (strategies, exercises and activity). Pt introduced self appropriately and actively listened to peers. Pt able to complete B UE/LE exercises. Pt acknowledged understanding of educational topics by verbalizing own strategies and nodding head affirmatively. Pt participated in memory activity. After therapy, pt lying in bed with call light/phone in reach. All needs met in room. Start Time: 13:00 Stop Time: 14:00 Total Billed Treatment Time: 60 Total Billed Treatment 1 visit-GRP CAMERON ANG Jun 15, 2021 14:32
[2021-06-15] MEDS ORDERED: TROUGH ORDER-PHARMACY XX ONE (19:00)
[2021-06-15 20:00] VITALS: BP 166/80
[2021-06-15] MEDS: ROSUVASTATIN 10 MG (CRESTOR) TABLET PO SCH (20:13)
[2021-06-15] MEDS: ACETAMINOPHEN 325 MG TABLET PO PRN (20:14)
[2021-06-16] MEDS: MEROPENEM 500 MG/NS 100 ML IVPB IV SCH ×8 (04:14→22:11)
[2021-06-16] MEDS: CATHETER FLUSH 10 ML SYR IV SCH ×3 (04:15→22:11)
--- NOTE | 2021-06-16 05:47 | PM&R Progress Note ---
Subjective HPI/CC On Admission Date Seen by Provider: Jun 16, 2021 Time Seen by Provider: 09:00 Subjective/Events-last exam 06/16/21: Pt doing really well MRSA was negative so we will d/c Vanc Maintain on Meropenem Fever of 101 was isolated Off CPAP a lot at night Checking Ammonia level 06/15/21: Pt is doing much better Pt is using CPAP at night Oxygen at 3.5 L Shallow breathing overall Still on broad spectrum antibiotics 06/14/2021: Patient doing well Flat affect Voiding well Labs good No more fever IV antibiotics maintained Using CPAP brought in from home Review of Systems General: Fatigue, Malaise Focused Exam Lactate Level Objective Exam Vital Signs Vital Signs Date Time Temp Pulse Resp B/P (MAP) Pulse Ox O2 Delivery O2 Flow Rate FiO2 06/16/21 21:23 93 High Flow N/C 3.50 06/16/21 20:22 36.4 06/16/21 20:00 84 18 165/91 (115) 06/15/21 07:24 3 Capillary Refill : General Appearance: No Apparent Distress, WD/WN, Chronically ill, Obese HEENT: PERRL/EOMI, Normal ENT Inspection, Pharynx Normal Neck: Full Range of Motion, Normal Inspection, Non Tender, Supple, Carotid Bruit Respiratory: Chest Non Tender, No Accessory Muscle Use, No Respiratory Distress, Crackles, Decreased Breath Sounds Cardiovascular: No Edema, No Gallop, No JVD, No Murmur, Normal Peripheral Pulses, Irregularly Irregular Gastrointestinal: Normal Bowel Sounds, No Organomegaly, No Pulsatile Mass, Non Tender, Soft Back: Normal Inspection, No CVA Tenderness, No Vertebral Tenderness Extremity: Normal Capillary Refill, Normal Inspection, Normal Range of Motion, Non Tender, No Calf Tenderness, No Pedal Edema Neurologic/Psychiatric: Alert, Oriented x3, book canvasser II-XII Norm as Tested, Abnormal Gait, Depressed Affect, Motor Weakness Skin: Normal Color, Warm/Dry Lymphatic: No Adenopathy Results/Procedures Lab Laboratory Tests 06/16/21 05:58 Patient resulted labs reviewed. FIM Transfers Therapy Code Descriptions/Definitions Functional [place] Measure: 0=Not Assessed/NA 4=Minimal Assistance 1=Total Assistance 5=Supervision or Setup 2=Maximal Assistance 6=Modified [place] 3=Moderate Assistance 7=Complete IndependenceSCALE: Activities may be completed with or without assistive devices. 1-Vgryogylwe-eakjrdb completes the activity by him/herself with no assistance from a helper. 5-Set-up or Clean-up Assistance-helper sets up or cleans up; patient completes activity. [place] assists only prior to or following the activity. 4-Supervision or Touching Assistance-helper provides verbal cues and/or touching/steadying and/or contact guard assistance as patient completes activity. Assistance may be provided throughout the activity or intermittently. 3-Partial/Moderate Assistance-helper does LESS THAN HALF the effort. [place] lifts, holds or supports trunk or limbs, but provides less than half the effort. 2-Substantial/Maximal Assistance-helper does MORE THAN HALF the effort. [place] lifts or holds trunk or limbs and provides more than half the effort. 2-Mefiktsdu-jhmtjv does ALL the effort. Patient does none of the effort to complete the activity. Or, the assistance of 2 or more helpers is required for the patient to complete the activity. If activity was not attempted, code reason: 7-Patient Refused. 9-Not Applicable-not attempted and the patient did not perform the activity before the current illness, exacerbation or injury. 10-Not Attempted due to Environmental Limitations-(lack of equipment, weather restraints, etc.). 88-Not Attempted due to Medical Conditions or Safety Concerns. Roll Left to Right (QC): 4 Sit to Lying (QC): 4 Sit to Stand (QC): 4 Chair/Pfg-ir-Bznqy Xfer(QC): 4 Car Transfer (QC): 88 Gait Training Distance: 20', 15' Walk 10 feet (QC): 4 Walk 50 ft with 2 Turns(QC): 88 Walk 150 ft (QC): 88 Walking 10ft/uneven surface-QC: 88 Gait Persons Needed: 1 Gait Assistive Device: FWW Wheelchair Training Does the Pt Use a Wheelchair?: Yes Wheel 50 ft with 2 turns (QC): 3 Wheel 150 ft (QC): 9 Type of Wheelchair: Manual Stair Training 1 Step (curb) (QC): 88 4 Steps (QC): 88 12 Steps (QC): 88 Balance Picking up an Object (QC): 88 ADL-Treatment Eating (QC): 5 Oral Hygiene (QC): 6 Shower/Bathe Self (QC): 3 (mod A) Upper Body Dressing (QC): 3 (min A) Lower Body Dressing (QC): 3 (mod A) On/Off Footwear (QC): 2 Toileting Hygiene (QC): 2 Assessment/Plan Assessment and Plan Assess & Plan/Chief Complaint Assessment: COPD myopathy s/p severe sepsis Multifocal pneumonia on abx Acute respiratory failure with hypoxia Lactic acidosis Acute kidney injury COVID test negative x2 CT with multifocal pneumonia Continue Meropenem after failed Cefepime Added tick panel s/p Doxycycline Supplemental oxygen via nasal cannula, 2 L currently New onset AFib NSTEMI Cardiology following Eliquis maintained Stress test performed HTN HLD GERD Obesity STEPAN on CPAP Cheek cath-DC Cognitive deficit Plan: Home CPAP machine DC cheek Home meds Cardiology appreciated 06/14/2021: Use home CPAP IV antibiotics Monitor closely High risk for decompensation 06/15/21: Monitor oxygen status CPAP at night Abx DC Vanc 06/16/21: Monitor fever Aggressive PT OT (1) Myopathy (2) STEPAN on CPAP (3) Cognitive deficits (4) Cheek catheter in place (5) Elevated troponin I level Status: Acute (6) New onset atrial fibrillation Status: Acute (7) Multifocal pneumonia Status: Acute (8) Acute respiratory failure with hypoxia Status: Acute (9) RAMYA (acute kidney injury) Status: Acute (10) NSTEMI (non-ST elevation myocardial infarction) Status: Acute (11) HLD (hyperlipidemia) Status: Chronic (12) HTN (hypertension) Status: Chronic (13) GERD (gastroesophageal reflux disease) Status: Chronic (14) Stage 3 chronic kidney disease (15) Primary hypertension (16) Obesity (17) Mixed hyperlipidemia TARI AUGUSTIN DO Jun 16, 2021 05:47
[2021-06-16 06:09] LABS: BASOPHILS # (AUTO) 0.1 10^3/uL (0.0-0.1); BASOPHILS % (AUTO) 1 % (0-10); EOSINOPHILS # (AUTO) 0.2 10^3/uL (0.0-0.3); EOSINOPHILS % (AUTO) 2 % (0-10); HEMATOCRIT 37 % (40-54); HEMOGLOBIN 12.5 g/dL (13.3-17.7); LYMPHOCYTES # (AUTO) 3.2 10^3/uL (1.0-4.0); LYMPHOCYTES % (AUTO) 29 % (12-44); MEAN CORPUSCULAR HEMOGLOBIN 28 pg (25-34); MEAN CORPUSCULAR HGB CONC 34 g/dL (32-36); MEAN CORPUSCULAR VOLUME 84 fL (80-99); MEAN PLATELET VOLUME 9.6 fL (9.0-12.2); MONOCYTES # (AUTO) 0.6 10^3/uL (0.0-1.0); MONOCYTES % (AUTO) 6 % (0-12); NEUTROPHILS # (AUTO) 6.7 10^3/uL (1.8-7.8); NEUTROPHILS % (AUTO) 61 % (42-75); PLATELET COUNT 432 10^3/uL (130-400); WHITE BLOOD COUNT 10.9 10^3/uL (4.3-11.0)
[2021-06-16 06:24] LABS: POTASSIUM 4.1 MMOL/L (3.6-5.0)
[2021-06-16] MEDS: DOXYCYCLINE 100 MG (VIBRAMYCIN) TABLET PO SCH ×2 (06:24→16:11)
[2021-06-16] MEDS: APIXABAN 5 MG (ELIQUIS) TABLET PO SCH ×2 (06:24→17:25)
[2021-06-16 06:27] LABS: TOTAL PROTEIN 6.1 GM/DL (6.4-8.2)
[2021-06-16 06:28] LABS: BILIRUBIN,TOTAL 0.5 MG/DL (0.1-1.0)
[2021-06-16 06:30] LABS: CREATININE SERUM 0.98 MG/DL (0.60-1.30)
[2021-06-16] MEDS: RT-ALBUTEROL SULF 2.5 MG/3 ML PRE-MIX VIAL INH SCH ×2 (07:17→21:00)
[2021-06-16 07:35] VITALS: BP 165/79
[2021-06-16] MEDS: amLODIPine 10 MG (NORVASC) TAB PO SCH (07:47)
[2021-06-16] MEDS: polyethylene glycoL POWDER 17 GM (MIRALAX) PACK PO SCH ×2 (07:47→20:22)
[2021-06-16] MEDS: lisINopril 40 MG (PRINIVIL) TABLET PO SCH (07:47)
[2021-06-16] MEDS: SENNA W/DOCUSATE (SENOKOT S) TABLET PO SCH ×2 (07:47→20:22)
[2021-06-16] MEDS: PANTOPRAZOLE 40 MG (PROTONIX) TAB PO SCH (07:47)
[2021-06-16] MEDS: DOCUSATE SODIUM 100 MG (COLACE) CAP PO SCH ×2 (07:47→20:22)
[2021-06-16] MEDS: cloNIDine 0.1 MG (CATAPRES) TAB PO SCH ×2 (07:47→20:22)
[2021-06-16] MEDS: SENNOSIDES 8.6 MG (SENOKOT) TAB PO SCH ×2 (07:47→20:22)
--- NOTE | 2021-06-16 10:04 | Occupational Ther Daily Note ---
OT Current Status-Daily Note Subjective Pt dozing, sitting in recliner woke easily to name. Pt agrees to therapy. No c/o pain. Pt states that he did not sleep well last night and that he had a slight fever. Pt also states that he feels that his thinking is more foggy today. Reported to nrsg and physician. Mental Status/Objective Patient Orientation: Person, Place, Time, Situation Attachments: IV, Oxygen (3L) ADL-Treatment Pt declines shower. Pt educated on using sock aide to don socks, after sock is placed on sock aide pt requires assistance to thread foot into sock aide, pt pulls sock onto foot then assist to pull sock aide out of sock. Pt ambulates to toilet with min A due to LOB 3x's. Assist to manipulate clothing and to cleanse buttocks, pt able to cleanse jose miguel area. Sitting at sink, pt completes upper body bathing with verbal cues to initiate and to turn on water. Pt able to complete oral care independently. Pt is having difficulty with most motoric tasks requiring one step directions and cues to stay focused on task. Assist to thread feet into briefs. Therapy Code Descriptions/Definitions Functional [place] Measure: 0=Not Assessed/NA 4=Minimal Assistance 1=Total Assistance 5=Supervision or Setup 2=Maximal Assistance 6=Modified [place] 3=Moderate Assistance 7=Complete IndependenceSCALE: Activities may be completed with or without assistive devices. 7-Vwxnpiwrkl-mrbzqns completes the activity by him/herself with no assistance from a helper. 5-Set-up or Clean-up Assistance-helper sets up or cleans up; patient completes activity. [place] assists only prior to or following the activity. 4-Supervision or Touching Assistance-helper provides verbal cues and/or touching/steadying and/or contact guard assistance as patient completes activity. Assistance may be provided throughout the activity or intermittently. 3-Partial/Moderate Assistance-helper does LESS THAN HALF the effort. [place] lifts, holds or supports trunk or limbs, but provides less than half the effort. 2-Substantial/Maximal Assistance-helper does MORE THAN HALF the effort. [place] lifts or holds trunk or limbs and provides more than half the effort. 1-Jmrogfmwb-gyvmsj does ALL the effort. Patient does none of the effort to complete the activity. Or, the assistance of 2 or more helpers is required for the patient to complete the activity. If activity was not attempted, code reason: 7-Patient Refused. 9-Not Applicable-not attempted and the patient did not perform the activity before the current illness, exacerbation or injury. 10-Not Attempted due to Environmental Limitations-(lack of equipment, weather restraints, etc.). 88-Not Attempted due to Medical Conditions or Safety Concerns. Oral Hygiene (QC): 6 On/Off Footwear: 3 Toileting Hygiene (QC): 2 Toilet Transfer (QC): 4 Other Treatment Working on w/c mobility. Pt is able to grasp and slowly propel w/c, assist to steer and cues to stay focused on task. After therapy, pt sitting in recliner with call light/phone in reach. OT Short Term Goals Short Term Goals Time Frame: Jun 20, 2021 Eatin Oral hygiene: 5 Toileting hygiene: 4 Shower/bathe self: 4 Upper body dressin Lower body dressin Putting on/taking off footwear: 4 OT Bindery Machine Setter/Set Up Operator Goals Bindery Machine Setter/Set Up Operator Goals Time Frame: Jul 04, 2021 Eating (QC): 6 Oral Hygiene (QC): 6 Toileting Hygiene (QC): 6 Shower/Bathe Self (QC): 5 Upper Body Dressing (QC): 6 Lower Body Dressing (QC): 6 On/Off Footwear (QC): 6 Additional Goals: 1-Demonstrate ADL Tasks, 2-Verbalize Understanding, 3- ImproveStrength/Shauna 1=Demonstrate adherence to instructed precautions during ADL tasks. 2=Patient will verbalize/demonstrate understanding of assistive devices/modifications for ADL. 3=Patient will improve strength/tolerance for activity to enable patient to perform ADL's. OT Education/Plan Problem List/Assessment Assessment: Decreased Activ Tolerance, Decreased Safety Aware, Impaired Cognition, Impaired Funct Balance, Impaired Self-Care Skills Discharge Recommendations Plan/Recommendations: Continue POC Treatment Plan/Plan of Care Patient would benefit from OT for education, treatment and training to promote independence in ADL's, mobility, safety and/or upper extremity function for ADL's. Plan of Care: ADL Retraining, Functional Mobility, UE Funct Exercise/Act Treatment Duration: Jul 04, 2021 Frequency: At least 5 of 7 days/Wk (IRF) Estimated Hrs Per Day: 1.5 hours per day Agreement: Yes Rehab Potential: Good Time/GCodes Start Time: 08:30 Stop Time: 08:45 Total Time Billed (hr/min): 75 Billed Treatment Time 1 visit-ADL 4 (55 min) FA 1 (20 min) CAMERON ANG Jun 16, 2021 10:04
--- NOTE | 2021-06-16 11:11 | Physical Therapy Daily Note ---
PT Daily Note-Current Subjective Patient in recliner pre tx, agrees to PT, has no complaints of pain. Appearance Patient in bed post tx, has to stop tx short because healthcare workers are here to give him a midline. Mental Status Patient Orientation: Person, Confused, Mumbles Attachments: Oxygen, IV Transfers SCALE: Activities may be completed with or without assistive devices. 6-Qvybatxizf-npzgmkt completes the activity by him/herself with no assistance from a helper. 5-Set-up or Clean-up Assistance-helper sets up or cleans up; patient completes activity. [place] assists only prior to or following the activity. 4-Supervision or Touching Assistance-helper provides verbal cues and/or touching/steadying and/or contact guard assistance as patient completes activity. Assistance may be provided throughout the activity or intermittently. 3-Partial/Moderate Assistance-helper does LESS THAN HALF the effort. [place] lifts, holds or supports trunk or limbs, but provides less than half the effort. 2-Substantial/Maximal Assistance-helper does MORE THAN HALF the effort. [place] lifts or holds trunk or limbs and provides more than half the effort. 1-Oxohzinnt-npurrs does ALL the effort. Patient does none of the effort to complete the activity. Or, the assistance of 2 or more helpers is required for the patient to complete the activity. If activity was not attempted, code reason: 7-Patient Refused. 9-Not Applicable-not attempted and the patient did not perform the activity before the current illness, exacerbation or injury. 10-Not Attempted due to Environmental Limitations-(lack of equipment, weather restraints, etc.). 88-Not Attempted due to Medical Conditions or Safety Concerns. Roll Left & Right (QC): 4 Sit to Lying (QC): 4 Sit to Stand (QC): 4 Chair/Eye-kl-Esmdy Xfer(QC): 4 Weight Bearing Right Lower Extremity: Right Left Lower Extremity: Left Gait Training Distance: 20', 100', 80' Walk 10 feet (QC): 4 Walk 50 ft with 2 Turns(QC): 4 Gait Persons Needed: 1 Gait Assistive Device: FWW slow but steady ambulation, needs cues for direction, has a wandering path, WC follow Wheelchair Training Does the Pt Use a Wheelchair?: Yes Wheel 50 ft with 2 turns (QC): 3 Wheel 150 ft (QC): 3 Type of Wheelchair: Manual very slow, needs cues to stay on task Treatments bed mobility and transfers, ambulation, WC mobillity Assessment Current Status: Fair Progress improving endurance PT Short Term Goals Short Term Goals Time Frame: Jun 20, 2021 Roll Left & Right: 5 Sit to lyin Lying to sitting on side of be: 5 Sit to stand: 5 Chair/tvd-mx-loqzh transfer: 5 Toilet transfer: 5 Car transfer: 5 Walk 10 feet: 5 Walk 50 feet with two turns: 5 Walk 150 feet: 5 Walking 10ft on uneven surface: 5 1 step (curb): 5 4 steps: 5 12 steps: 5 Picking up objects: 5 Does pt use a wc or scooter: No PT News Copy Editor Goals Residential Goals PT Residential Goals Time Frame: Jun 27, 2021 Roll Left & Right (QC): 6 Sit to Lying (QC): 6 Lying-Sitting on Side/Bed(QC): 6 Sit to Stand (QC): 6 Chair/Pma-dj-Oyedw Xfer(QC): 6 Toilet Transfer (QC): 6 Car Transfer (QC): 6 Does the Patient Walk: Yes Walk 10 feet (QC): 6 Walk 50ft with 2 Turns (QC): 6 Walk 150 ft (QC): 6 Walking 10ft on Uneven Surface: 6 1 Step (curb) (QC): 6 4 Steps (QC): 6 12 Steps (QC): 6 Picking up an Object (QC): 6 Does the Pt use WC or Scooter?: No Wheel 50 feet with 2 turns (QC: 9 Type: N/A Wheel 150 feet: 9 Type: N/A PT Plan Problem List Problem List: Activity Tolerance, Functional Strength, Safety, Balance, Gait, Transfer, Bed Mobility, ROM Treatment/Plan Treatment Plan: Continue Plan of Care Treatment Plan: Bed Mobility, Functional Activity Shauna, Functional Strength, Group Therapy, Gait, Safety, Therapeutic Exercise, Transfers Treatment Duration: Jun 27, 2021 Frequency: 11 times per week Estimated Hrs Per Day: 1.5 hours per day Safety Risks/Education Patient Education: Gait Training, Transfer Techniques, Correct Positioning, W/C Management, Safety Issues Teaching Recipient: Patient Teaching Methods: Demonstration, Discussion Response to Teaching: Reinforcement Needed Time/GCodes Time In: 1030 Time Out: 1100 Total Billed Treatment Time: 30 Total Billed Treatment 1 visit FA 30' KRTEK,HARVEY PT Jun 16, 2021 11:11
--- NOTE | 2021-06-16 12:57 | ST Cognitive Linguistic Eval ---
Speech Evaluation-General Medical Diagnosis Sepsis/Resp failure Onset Date: Jun 08, 2021 Medical History Pertinent Medical History: GERD, HTN Reviewed History: Yes Social History Current Living Status: Alone Speech PLF-Current Status Subjective The pt was sitting up in chair. Cooperative for evaluation. Pt states he feels "foggy" and "takes more to concentrate". He denies any swallowing difficulty. Language Eval: Auditory Comprehends Simple Yes/No Ques: Functional Indent/Objects Multiple [place]: Functional Ident/Pics in Multiple [place]: Functional Language Eval: Verbal Language Completes Spontaneous Greeting: Functional Produces Auto, Serial Info: Functional Imitates Simple Words/Phrases: Functional Word Finding: Functional Requests Basic Needs: Functional States Basic Personal Info: Functional Language Evaluation: Reading Comprehends Single Nouns: Functional Objective Formal/Standardized Tests [facility] Mental Status Examination ([facility]) completed. Oral Motor/Speech Production No dysarthria observed. Normal oral [facility]. Impression SLUMS assessment results are 18/30 indicating a severe cognitive deficit. The pt demonstrated difficulties in the areas of delayed recall, problem solving and executive functioning. Speech Patient Assess Expression of Ideas/Wants: Expression (4) (Expresses complex messages) Understanding Verbal Content: Understands (4) (Clear comprehension without) Brief Interview-Mental Status: Yes Repetition of Three Words: Three (3) Temporal Orientation: Year: Correct (3) Temporal Orientation: Month: Accurate within 5 days(2) Temporal Orientation: Day: Correct (1) Recall : Wear to say "Sock": Yes, no cue required (2) Recall : Color: Yes, after cueing (1) Recall : Bed: Yes,after cueing (1) Memory/Recall Ability: Current season, That he or she is in a hsp/hsp unit Speech Short Term Goals Short Term Goals Short Term Goals 1. The patient will demonstrate 80% accy with memory exercises. 2. The patient will demonstrate 80% accy with problem solving exercises. 3. The pt will demonstrate 80% accy with attention tasks. Speech Senior Care Goals Senior Care Goals 1. The patient will demonstrate increased cognitive function for daily tasks. Speech-Plan Treatment Plan Speech Therapy Treatment Plan: Continue Plan of Care Treatment Duration: Jun 15, 2021 Frequency: 4 times per week Estimated Hrs Per Day: .5 hour per day Rehab Potential: Good Pt/Family Agrees to Plan: Yes Time Speech Therapy Time In: 09:45 Speech Therapy Time Out: 10:15 Billed Treatment Time 30 mins, 1, COGN TEST RAVI MACHADO Jun 16, 2021 12:57
--- NOTE | 2021-06-16 13:49 | Physical Therapy Daily Note ---
PT Daily Note-Current Subjective Patient in bed pre tx, agrees to PT, has no complaints of pain Appearance Patient in bed post tx with nurse call, phone, tray, all needs met. Mental Status Patient Orientation: Person, Place, Situation Attachments: Oxygen Transfers SCALE: Activities may be completed with or without assistive devices. 7-Lgoyjzmvdj-himphnc completes the activity by him/herself with no assistance from a helper. 5-Set-up or Clean-up Assistance-helper sets up or cleans up; patient completes activity. [place] assists only prior to or following the activity. 4-Supervision or Touching Assistance-helper provides verbal cues and/or touching/steadying and/or contact guard assistance as patient completes activity. Assistance may be provided throughout the activity or intermittently. 3-Partial/Moderate Assistance-helper does LESS THAN HALF the effort. [place] lifts, holds or supports trunk or limbs, but provides less than half the effort. 2-Substantial/Maximal Assistance-helper does MORE THAN HALF the effort. [place] lifts or holds trunk or limbs and provides more than half the effort. 1-Ywvhobhnb-pngiin does ALL the effort. Patient does none of the effort to complete the activity. Or, the assistance of 2 or more helpers is required for the patient to complete the activity. If activity was not attempted, code reason: 7-Patient Refused. 9-Not Applicable-not attempted and the patient did not perform the activity before the current illness, exacerbation or injury. 10-Not Attempted due to Environmental Limitations-(lack of equipment, weather restraints, etc.). 88-Not Attempted due to Medical Conditions or Safety Concerns. Roll Left & Right (QC): 6 Sit to Lying (QC): 3 Lying to Sitting/Side of Bed(Q: 3 Sit to Stand (QC): 4 Chair/Jub-ag-Nlpka Xfer(QC): 4 Weight Bearing Right Lower Extremity: Right Left Lower Extremity: Left Wheelchair Training Does the Pt Use a Wheelchair?: Yes Wheel 50 ft with 2 turns (QC): 3 Type of Wheelchair: Manual 120'x2, min assist, constant cues to stay on task, very slow Exercises NuStep Minutes: 15 NuStep Workload: 5 Treatments bed mobility and transfers, WC mobility, functional strengthening Assessment Current Status: Fair Progress patient needs frequent rest breaks due to fatigue and slight SOB PT Short Term Goals Short Term Goals Time Frame: Jun 20, 2021 Roll Left & Right: 5 Sit to lyin Lying to sitting on side of be: 5 Sit to stand: 5 Chair/ark-do-uvely transfer: 5 Toilet transfer: 5 Car transfer: 5 Walk 10 feet: 5 Walk 50 feet with two turns: 5 Walk 150 feet: 5 Walking 10ft on uneven surface: 5 1 step (curb): 5 4 steps: 5 12 steps: 5 Picking up objects: 5 Does pt use a wc or scooter: No PT Bounty Trapper Goals Care Home Goals PT Bounty Trapper Goals Time Frame: Jun 27, 2021 Roll Left & Right (QC): 6 Sit to Lying (QC): 6 Lying-Sitting on Side/Bed(QC): 6 Sit to Stand (QC): 6 Chair/Vds-en-Fuerd Xfer(QC): 6 Toilet Transfer (QC): 6 Car Transfer (QC): 6 Does the Patient Walk: Yes Walk 10 feet (QC): 6 Walk 50ft with 2 Turns (QC): 6 Walk 150 ft (QC): 6 Walking 10ft on Uneven Surface: 6 1 Step (curb) (QC): 6 4 Steps (QC): 6 12 Steps (QC): 6 Picking up an Object (QC): 6 Does the Pt use WC or Scooter?: No Wheel 50 feet with 2 turns (QC: 9 Type: N/A Wheel 150 feet: 9 Type: N/A PT Plan Problem List Problem List: Activity Tolerance, Functional Strength, Safety, Balance, Gait, Transfer, Bed Mobility, ROM Treatment/Plan Treatment Plan: Continue Plan of Care Treatment Plan: Bed Mobility, Functional Activity Shauna, Functional Strength, Group Therapy, Gait, Safety, Therapeutic Exercise, Transfers Treatment Duration: Jun 27, 2021 Frequency: 11 times per week Estimated Hrs Per Day: 1.5 hours per day Patient and/or Family Agrees t: Yes Safety Risks/Education Patient Education: Transfer Techniques, Correct Positioning, Safety Issues Teaching Recipient: Patient Teaching Methods: Demonstration, Discussion Response to Teaching: Reinforcement Needed Time/GCodes Time In: 1305 Time Out: 1350 Total Billed Treatment Time: 45 Total Billed Treatment 1 visit EX 15' FA 30' HARVEY CLEMENTS PT Jun 16, 2021 13:49
--- NOTE | 2021-06-16 14:17 | CONSULTATION REPORT ---
DATE OF SERVICE: 06/16/2021 ATTENDING PHYSICIAN: Dr. Mackey. SUMMARY: After reviewing the patient's record and interviewing him, this is a 66-year-old patient admitted for rehabilitation, was found to have some urinary retention. The patient admits to have an enlarged prostate who was told to him by the [facility] who are those doing his annual prostate check and PSA and told that there was all normal except for the size. He apparently had a previous cystoscopy by them confirming the enlarged prostate. He just wants to get better and able to void better and then follow up with the [facility]. IMPRESSION: Urinary retention, benign prostatic hyperplasia. PLAN: 1. Continue the Flomax, it was started today. 2. Avoid Urecholine because of his COPD. 3. Bladder scan, postvoid residual b.i.d. and p.r.n. and straight cath if over 300 mL and manage accordingly. 4. Future followup again with the [facility]. Job ID: [id number] DocumentID: [id number] Dictated Date: 06/16/2021 11:39:39 Microbiology Quality Control Technician Date: 06/16/2021 14:17:32 Dictated By: CAM GUTIERREZ MD
[2021-06-16] MEDS: TAMSULOSIN 0.4 MG (FLOMAX) CAP PO SCH (17:25)
[2021-06-16] MEDS: ACETAMINOPHEN 325 MG TABLET PO PRN (19:30)
[2021-06-16 20:00] VITALS: BP 165/91
[2021-06-16] MEDS: ROSUVASTATIN 10 MG (CRESTOR) TABLET PO SCH (20:22)
[2021-06-17] MEDS: MEROPENEM 500 MG/NS 100 ML IVPB IV SCH ×8 (03:23→22:08)
[2021-06-17] MEDS: CATHETER FLUSH 10 ML SYR IV SCH ×3 (03:24→22:08)
[2021-06-17] MEDS: APIXABAN 5 MG (ELIQUIS) TABLET PO SCH ×2 (06:17→17:16)
[2021-06-17] MEDS: DOXYCYCLINE 100 MG (VIBRAMYCIN) TABLET PO SCH ×2 (06:17→17:16)
--- NOTE | 2021-06-17 07:05 | PM&R Progress Note ---
Subjective HPI/CC On Admission Date Seen by Provider: Jun 17, 2021 Time Seen by Provider: 12:00 Subjective/Events-last exam 06/17/21: Pt had a midline placed Bladder scanning and doing pretty well More alert today and less confused Checked meds and labs Maintain on IV antibiotics 06/16/21: Pt doing really well MRSA was negative so we will d/c Vanc Maintain on Meropenem Fever of 101 was isolated Off CPAP a lot at night Checking Ammonia level 06/15/21: Pt is doing much better Pt is using CPAP at night Oxygen at 3.5 L Shallow breathing overall Still on broad spectrum antibiotics 06/14/2021: Patient doing well Flat affect Voiding well Labs good No more fever IV antibiotics maintained Using CPAP brought in from home Review of Systems General: Fatigue, Malaise Objective Exam Vital Signs Vital Signs Date Time Temp Pulse Resp B/P (MAP) Pulse Ox O2 Delivery O2 Flow Rate FiO2 06/17/21 21:30 93 High Flow N/C 3.00 06/17/21 20:15 37.7 75 21 150/79 (102) 06/15/21 07:24 3 Capillary Refill : General Appearance: No Apparent Distress, WD/WN, Chronically ill, Obese HEENT: PERRL/EOMI, Normal ENT Inspection, Pharynx Normal Neck: Full Range of Motion, Normal Inspection, Non Tender, Supple, Carotid Bruit Respiratory: Chest Non Tender, No Accessory Muscle Use, No Respiratory Distress, Crackles, Decreased Breath Sounds Cardiovascular: No Edema, No Gallop, No JVD, No Murmur, Normal Peripheral Pulses, Irregularly Irregular Gastrointestinal: Normal Bowel Sounds, No Organomegaly, No Pulsatile Mass, Non Tender, Soft Back: Normal Inspection, No CVA Tenderness, No Vertebral Tenderness Extremity: Normal Capillary Refill, Normal Inspection, Normal Range of Motion, Non Tender, No Calf Tenderness, No Pedal Edema Neurologic/Psychiatric: Alert, Oriented x3, bolt threader II-XII Norm as Tested, Abnormal Gait, Depressed Affect, Motor Weakness Skin: Normal Color, Warm/Dry Lymphatic: No Adenopathy Results/Procedures Lab Patient resulted labs reviewed. FIM Transfers Therapy Code Descriptions/Definitions Functional [place] Measure: 0=Not Assessed/NA 4=Minimal Assistance 1=Total Assistance 5=Supervision or Setup 2=Maximal Assistance 6=Modified [place] 3=Moderate Assistance 7=Complete IndependenceSCALE: Activities may be completed with or without assistive devices. 1-Srstcwyibj-arpjuko completes the activity by him/herself with no assistance from a helper. 5-Set-up or Clean-up Assistance-helper sets up or cleans up; patient completes activity. [place] assists only prior to or following the activity. 4-Supervision or Touching Assistance-helper provides verbal cues and/or touching /steadying and/or contact guard assistance as patient completes activity. Assistance may be provided throughout the activity or intermittently. 3-Partial/Moderate Assistance-helper does LESS THAN HALF the effort. [place] lifts, holds or supports trunk or limbs, but provides less than half the effort. 2-Substantial/Maximal Assistance-helper does MORE THAN HALF the effort. [place] lifts or holds trunk or limbs and provides more than half the effort. 2-Rtptxofan-asuwat does ALL the effort. Patient does none of the effort to complete the activity. Or, the assistance of 2 or more helpers is required for the patient to complete the activity. If activity was not attempted, code reason: 7-Patient Refused. 9-Not Applicable-not attempted and the patient did not perform the activity before the current illness, exacerbation or injury. 10-Not Attempted due to Environmental Limitations-(lack of equipment, weather restraints, etc.). 88-Not Attempted due to Medical Conditions or Safety Concerns. Roll Left to Right (QC): 6 Sit to Lying (QC): 3 Sit to Stand (QC): 4 Chair/Ifl-vy-Yhkce Xfer(QC): 4 Car Transfer (QC): 88 Gait Training Does the Patient Walk?: Yes Distance: 20', 100', 80' Walk 10 feet (QC): 4 Walk 50 ft with 2 Turns(QC): 4 Walk 150 ft (QC): 88 Walking 10ft/uneven surface-QC: 88 Gait Persons Needed: 1 Gait Assistive Device: FWW Wheelchair Training Does the Pt Use a Wheelchair?: Yes Wheel 50 ft with 2 turns (QC): 3 Wheel 150 ft (QC): 3 Type of Wheelchair: Manual Stair Training 1 Step (curb) (QC): 88 4 Steps (QC): 88 12 Steps (QC): 88 Balance Picking up an Object (QC): 88 ADL-Treatment Eating (QC): 5 Oral Hygiene (QC): 6 Shower/Bathe Self (QC): 3 (mod A) Upper Body Dressing (QC): 3 (min A) Lower Body Dressing (QC): 3 (mod A) On/Off Footwear (QC): 3 Toileting Hygiene (QC): 2 Toilet Transfer (QC): 4 Assessment/Plan Assessment and Plan Assess & Plan/Chief Complaint Assessment: COPD myopathy s/p severe sepsis Multifocal pneumonia on abx Acute respiratory failure with hypoxia Lactic acidosis Acute kidney injury COVID test negative x2 CT with multifocal pneumonia Continue Meropenem after failed Cefepime Added tick panel s/p Doxycycline Supplemental oxygen via nasal cannula, 2 L currently New onset AFib NSTEMI Cardiology following Eliquis maintained Stress test performed HTN HLD GERD Obesity STEPAN on CPAP Cheek cath-DC Cognitive deficit Plan: Home CPAP machine DC cheek Home meds Cardiology appreciated 06/14/2021: Use home CPAP IV antibiotics Monitor closely High risk for decompensation 06/15/21: Monitor oxygen status CPAP at night Abx DC Vanc 06/16/21: Monitor fever Aggressive PT OT 06/17/21: Complete abx tomorrow (1) Myopathy (2) STEPAN on CPAP (3) Cognitive deficits (4) Cheek catheter in place (5) Elevated troponin I level Status: Acute (6) New onset atrial fibrillation Status: Acute (7) Multifocal pneumonia Status: Acute (8) Acute respiratory failure with hypoxia Status: Acute (9) RAMYA (acute kidney injury) Status: Acute (10) NSTEMI (non-ST elevation myocardial infarction) Status: Acute (11) HLD (hyperlipidemia) Status: Chronic (12) HTN (hypertension) Status: Chronic (13) GERD (gastroesophageal reflux disease) Status: Chronic (14) Stage 3 chronic kidney disease (15) Primary hypertension (16) Obesity (17) Mixed hyperlipidemia TARI AUGUSTIN DO Jun 17, 2021 07:05
[2021-06-17 07:53] VITALS: BP 152/74
[2021-06-17] MEDS: RT-ALBUTEROL SULF 2.5 MG/3 ML PRE-MIX VIAL INH SCH ×2 (08:10→20:11)
--- NOTE | 2021-06-17 09:11 | Progress Note - Urology ---
Progress Note-Urology Progress Notes/Assess & Plan Progress/Assessment & Plan VOIDING ON OWN, NO PVR DOCUMENTED BY NURSES Final Diagnosis RETENTION CAM GUTIERREZ MD Jun 17, 2021 09:11
--- NOTE | 2021-06-17 09:58 | Occupational Ther Daily Note ---
OT Current Status-Daily Note Subjective Pt alert, lying in bed. Pt agrees to therapy. No c/o pain. Pt states that he is less foggy today and pt appears more alert. Mental Status/Objective Patient Orientation: Person, Place, Time, Situation Attachments: IV (PICC), Oxygen (3L) ADL-Treatment Pt agrees to shower today. Min A for supine to EOB. Ambulated to bathroom using FWW, CGA. Sitting on shower bench, pt cleansed all areas except buttocks then stood with CGA while pt cleansed jose miguel area/buttocks. After set up, pt siobhan ed/doff upper body clothing. Pt able to thread brief over feet then CGA to hike over hips. Educated pt on sock aide then pt able to place sock on sock aide and don socks, pt used dressing stick to doff socks. Sitting at sink, pt completed grooming and oral care independently. CGA for toileting and transfer. After session, pt sitting in recliner with call light/phone in reach. All needs met in room. Therapy Code Descriptions/Definitions Functional [place] Measure: 0=Not Assessed/NA 4=Minimal Assistance 1=Total Assistance 5=Supervision or Setup 2=Maximal Assistance 6=Modified [place] 3=Moderate Assistance 7=Complete IndependenceSCALE: Activities may be completed with or without assistive devices. 6-Bwdwjodnbb-ffqlinr completes the activity by him/herself with no assistance from a helper. 5-Set-up or Clean-up Assistance-helper sets up or cleans up; patient completes activity. [place] assists only prior to or following the activity. 4-Supervision or Touching Assistance-helper provides verbal cues and/or touching/steadying and/or contact guard assistance as patient completes activity. Assistance may be provided throughout the activity or intermittently. 3-Partial/Moderate Assistance-helper does LESS THAN HALF the effort. [place] lifts, holds or supports trunk or limbs, but provides less than half the effort. 2-Substantial/Maximal Assistance-helper does MORE THAN HALF the effort. [place] lifts or holds trunk or limbs and provides more than half the effort. 1-Ipfxolwmk-psmqwx does ALL the effort. Patient does none of the effort to complete the activity. Or, the assistance of 2 or more helpers is required for the patient to complete the activity. If activity was not attempted, code reason: 7-Patient Refused. 9-Not Applicable-not attempted and the patient did not perform the activity before the current illness, exacerbation or injury. 10-Not Attempted due to Environmental Limitations-(lack of equipment, weather restraints, etc.). 88-Not Attempted due to Medical Conditions or Safety Concerns. Eating (QC): 6 Oral Hygiene (QC): 6 Shower/Bathe Self (QC): 4 Upper Body Dressing (QC): 5 Lower Body Dressing (QC): 4 On/Off Footwear: 5 Toileting Hygiene (QC): 4 Toilet Transfer (QC): 4 Pt is able to process information and complete task after set up and 1 verbal cue. Still completes tasks slowly. OT Short Term Goals Short Term Goals Time Frame: Jun 20, 2021 Eatin Oral hygiene: 5 Toileting hygiene: 4 Shower/bathe self: 4 Upper body dressin Lower body dressin Putting on/taking off footwear: 4 OT [facility] Goals Cat Sitter Goals Time Frame: Jul 04, 2021 Eating (QC): 6 Oral Hygiene (QC): 6 Toileting Hygiene (QC): 6 Shower/Bathe Self (QC): 5 Upper Body Dressing (QC): 6 Lower Body Dressing (QC): 6 On/Off Footwear (QC): 6 Additional Goals: 1-Demonstrate ADL Tasks, 2-Verbalize Understanding, 3- ImproveStrength/Shauna 1=Demonstrate adherence to instructed precautions during ADL tasks. 2=Patient will verbalize/demonstrate understanding of assistive devices/modifications for ADL. 3=Patient will improve strength/tolerance for activity to enable patient to perform ADL's. OT Education/Plan Problem List/Assessment Assessment: Decreased Activ Tolerance, Impaired Self-Care Skills Discharge Recommendations Plan/Recommendations: Continue POC Treatment Plan/Plan of Care Patient would benefit from OT for education, treatment and training to promote independence in ADL's, mobility, safety and/or upper extremity function for ADL's. Plan of Care: ADL Retraining, Functional Mobility, UE Funct Exercise/Act Treatment Duration: Jul 04, 2021 Frequency: At least 5 of 7 days/Wk (IRF) Estimated Hrs Per Day: 1.5 hours per day Agreement: Yes Rehab Potential: Good Time/GCodes Start Time: 08:15 Stop Time: 09:45 Total Time Billed (hr/min): 90 Billed Treatment Time 1 visit-ADL 6 (90 min) CAMERON ANG Jun 17, 2021 09:58
[2021-06-17] MEDS: DOCUSATE SODIUM 100 MG (COLACE) CAP PO SCH ×2 (09:59→21:32)
[2021-06-17] MEDS: lisINopril 40 MG (PRINIVIL) TABLET PO SCH (09:59)
[2021-06-17] MEDS: amLODIPine 10 MG (NORVASC) TAB PO SCH (09:59)
[2021-06-17] MEDS: PANTOPRAZOLE 40 MG (PROTONIX) TAB PO SCH (09:59)
[2021-06-17] MEDS: SENNOSIDES 8.6 MG (SENOKOT) TAB PO SCH ×2 (09:59→21:33)
[2021-06-17] MEDS: SENNA W/DOCUSATE (SENOKOT S) TABLET PO SCH ×2 (09:59→21:32)
[2021-06-17] MEDS: cloNIDine 0.1 MG (CATAPRES) TAB PO SCH ×2 (09:59→21:27)
[2021-06-17] MEDS: polyethylene glycoL POWDER 17 GM (MIRALAX) PACK PO SCH ×2 (10:00→21:32)
--- NOTE | 2021-06-17 11:07 | Physical Therapy Daily Note ---
PT Daily Note-Current Subjective Pt sitting in recliner upon arrival. Pt agrees to PT. Pain Location: No Pain Reported Mental Status Patient Orientation: Person, Place, Time, Situation Attachments: Oxygen (3L) Transfers SCALE: Activities may be completed with or without assistive devices. 1-Jmawlbovce-ttleyjt completes the activity by him/herself with no assistance from a helper. 5-Set-up or Clean-up Assistance-helper sets up or cleans up; patient completes activity. [place] assists only prior to or following the activity. 4-Supervision or Touching Assistance-helper provides verbal cues and/or touching/steadying and/or contact guard assistance as patient completes activity. Assistance may be provided throughout the activity or intermittently. 3-Partial/Moderate Assistance-helper does LESS THAN HALF the effort. [place] lifts, holds or supports trunk or limbs, but provides less than half the effort. 2-Substantial/Maximal Assistance-helper does MORE THAN HALF the effort. [place] lifts or holds trunk or limbs and provides more than half the effort. 0-Jrgtfozon-psdiks does ALL the effort. Patient does none of the effort to complete the activity. Or, the assistance of 2 or more helpers is required for the patient to complete the activity. If activity was not attempted, code reason: 7-Patient Refused. 9-Not Applicable-not attempted and the patient did not perform the activity before the current illness, exacerbation or injury. 10-Not Attempted due to Environmental Limitations-(lack of equipment, weather restraints, etc.). 88-Not Attempted due to Medical Conditions or Safety Concerns. Sit to Stand (QC): 4 Weight Bearing Right Lower Extremity: Right Left Lower Extremity: Left Gait Training Does the Patient Walk?: Yes Distance: 125' x2 Walk 10 feet (QC): 5 Walk 50 ft with 2 Turns(QC): 5 Walk 150 ft (QC): 5 Gait Persons Needed: 1 Gait Assistive Device: FWW Exercises Seated Therapy Exercises: Ankle pumps, Long arc quads, Hip flexion, Glut set Seated Reps: 15 NuStep Minutes: 15 NuStep Workload: 5 Treatments Pt finishes taking morning medications. TF to standing and amb. in hallway. Pt uses NuStep for 15m at WL 5, taking a couple RB. Pt completes Seated Ex. Pt amb. in hallway returning to room. Pt declines need for BR and rests in recliner, all needs met & call light in hand. Assessment Current Status: Good Progress Pt gets distracted a times and needs VC to stay on task. PT Short Term Goals Short Term Goals Time Frame: Jun 20, 2021 Roll Left & Right: 5 Sit to lyin Lying to sitting on side of be: 5 Sit to stand: 5 Chair/nca-ex-jvkdw transfer: 5 Toilet transfer: 5 Car transfer: 5 Walk 10 feet: 5 Walk 50 feet with two turns: 5 Walk 150 feet: 5 Walking 10ft on uneven surface: 5 1 step (curb): 5 4 steps: 5 12 steps: 5 Picking up objects: 5 Does pt use a wc or scooter: No PT Cancer Registry Manager Goals Cancer Registry Manager Goals PT Intermediate Goals Time Frame: Jun 27, 2021 Roll Left & Right (QC): 6 Sit to Lying (QC): 6 Lying-Sitting on Side/Bed(QC): 6 Sit to Stand (QC): 6 Chair/Szp-co-Ezcyj Xfer(QC): 6 Toilet Transfer (QC): 6 Car Transfer (QC): 6 Does the Patient Walk: Yes Walk 10 feet (QC): 6 Walk 50ft with 2 Turns (QC): 6 Walk 150 ft (QC): 6 Walking 10ft on Uneven Surface: 6 1 Step (curb) (QC): 6 4 Steps (QC): 6 12 Steps (QC): 6 Picking up an Object (QC): 6 Does the Pt use WC or Scooter?: No Wheel 50 feet with 2 turns (QC: 9 Type: N/A Wheel 150 feet: 9 Type: N/A PT Plan Problem List Problem List: Activity Tolerance Treatment/Plan Treatment Plan: Continue Plan of Care Treatment Plan: Bed Mobility, Functional Activity Shauna, Functional Strength, Group Therapy, Gait, Safety, Therapeutic Exercise, Transfers Treatment Duration: Jun 27, 2021 Frequency: 11 times per week Estimated Hrs Per Day: 1.5 hours per day Patient and/or Family Agrees t: Yes Safety Risks/Education Patient Education: Gait Training, Transfer Techniques, Correct Positioning, Safety Issues Teaching Recipient: Patient Teaching Methods: Discussion Response to Teaching: Verbalize Understanding Time/GCodes Time In: 1000 Time Out: 1100 Total Billed Treatment Time: 60 Total Billed Treatment 1, GT (15m), EX x2 (30m) & FA (15m) TREIBER,SHANDA WELDING MACHINE OPERATOR [employer] Jun 17, 2021 11:06
--- NOTE | 2021-06-17 13:25 | Physical Therapy Daily Note ---
PT Daily Note-Current Subjective Pt sitting in recliner upon arrival. Pt agrees to PT. Pain Location: No Pain Reported Mental Status Patient Orientation: Person, Place, Situation Transfers SCALE: Activities may be completed with or without assistive devices. 6-Bbnxdrkjfi-wszshwt completes the activity by him/herself with no assistance from a helper. 5-Set-up or Clean-up Assistance-helper sets up or cleans up; patient completes activity. [place] assists only prior to or following the activity. 4-Supervision or Touching Assistance-helper provides verbal cues and/or touching/steadying and/or contact guard assistance as patient completes activity. Assistance may be provided throughout the activity or intermittently. 3-Partial/Moderate Assistance-helper does LESS THAN HALF the effort. [place] lifts, holds or supports trunk or limbs, but provides less than half the effort. 2-Substantial/Maximal Assistance-helper does MORE THAN HALF the effort. [place] lifts or holds trunk or limbs and provides more than half the effort. 4-Iylcfxwxw-zzphoz does ALL the effort. Patient does none of the effort to complete the activity. Or, the assistance of 2 or more helpers is required for the patient to complete the activity. If activity was not attempted, code reason: 7-Patient Refused. 9-Not Applicable-not attempted and the patient did not perform the activity before the current illness, exacerbation or injury. 10-Not Attempted due to Environmental Limitations-(lack of equipment, weather restraints, etc.). 88-Not Attempted due to Medical Conditions or Safety Concerns. Weight Bearing Right Lower Extremity: Right Left Lower Extremity: Left Exercises Supine Ex: Ankle pumps, Quad Set, Heel Slides, Short Arc Quads, Straight leg raise, Hip abd/add Supine Reps: 15 Seated Therapy Exercises: Ankle pumps, Long arc quads, Hip flexion, Glut set Seated Reps: 15 Treatments [employer] issues and reviews written HEP for Supine & Seated Ex. Pt resting in recliner at end of tx with all needs met, call light in hand. Assessment Current Status: Good Progress Pt tolerates Ex well. PT Short Term Goals Short Term Goals Time Frame: Jun 20, 2021 Roll Left & Right: 5 Sit to lyin Lying to sitting on side of be: 5 Sit to stand: 5 Chair/cgw-aw-iwexm transfer: 5 Toilet transfer: 5 Car transfer: 5 Walk 10 feet: 5 Walk 50 feet with two turns: 5 Walk 150 feet: 5 Walking 10ft on uneven surface: 5 1 step (curb): 5 4 steps: 5 12 steps: 5 Picking up objects: 5 Does pt use a wc or scooter: No PT Malted Milk Masher Goals Malted Milk Masher Goals PT Malted Milk Masher Goals Time Frame: Jun 27, 2021 Roll Left & Right (QC): 6 Sit to Lying (QC): 6 Lying-Sitting on Side/Bed(QC): 6 Sit to Stand (QC): 6 Chair/Kfe-al-Kafbg Xfer(QC): 6 Toilet Transfer (QC): 6 Car Transfer (QC): 6 Does the Patient Walk: Yes Walk 10 feet (QC): 6 Walk 50ft with 2 Turns (QC): 6 Walk 150 ft (QC): 6 Walking 10ft on Uneven Surface: 6 1 Step (curb) (QC): 6 4 Steps (QC): 6 12 Steps (QC): 6 Picking up an Object (QC): 6 Does the Pt use WC or Scooter?: No Wheel 50 feet with 2 turns (QC: 9 Type: N/A Wheel 150 feet: 9 Type: N/A PT Plan Problem List Problem List: Activity Tolerance, Functional Strength Treatment/Plan Treatment Plan: Continue Plan of Care Treatment Plan: Bed Mobility, Functional Activity Shauna, Functional Strength, Group Therapy, Gait, Safety, Therapeutic Exercise, Transfers Treatment Duration: Jun 27, 2021 Frequency: 11 times per week Estimated Hrs Per Day: 1.5 hours per day Patient and/or Family Agrees t: Yes Safety Risks/Education Patient Education: Issued Written HEP Teaching Recipient: Patient Teaching Methods: Demonstration, Discussion Response to Teaching: Verbalize Understanding, Return Demonstration Time/GCodes Time In: 1130 Time Out: 1200 Total Billed Treatment Time: 30 Total Billed Treatment 1, Ex (30m) SHANDA BABB PTA Jun 17, 2021 13:25
--- NOTE | 2021-06-17 13:59 | Diagnostic Imaging Report ---
INDICATION: Shortness of breath. Comparison made with prior examination of 06/12/2021. FINDINGS: The heart size is normal. There are bibasilar infiltrates. There appears to be a small left pleural effusion. No pneumothorax. Mild venous congestion. The mediastinum is unremarkable. IMPRESSION: Bibasilar infiltrates and small left pleural effusion with some mild central pulmonary venous congestion. Dictated by: Dictated on workstation # [id number]
[2021-06-17] MEDS: TAMSULOSIN 0.4 MG (FLOMAX) CAP PO SCH (17:16)
[2021-06-17 20:15] VITALS: BP 150/79
[2021-06-17] MEDS: ROSUVASTATIN 10 MG (CRESTOR) TABLET PO SCH (21:28)
[2021-06-18] MEDS: CATHETER FLUSH 10 ML SYR IV SCH ×3 (04:16→21:42)
[2021-06-18] MEDS: MEROPENEM 500 MG/NS 100 ML IVPB IV SCH ×2 (04:17)
--- NOTE | 2021-06-18 06:12 | PM&R Progress Note ---
Subjective HPI/CC On Admission Date Seen by Provider: Jun 18, 2021 Time Seen by Provider: 10:00 Subjective/Events-last exam 06/18/21: Pt off antibiotics Pt doing very well More lucid Bowels are moving 06/17/21: Pt had a midline placed Bladder scanning and doing pretty well More alert today and less confused Checked meds and labs Maintain on IV antibiotics 06/16/21: Pt doing really well MRSA was negative so we will d/c Vanc Maintain on Meropenem Fever of 101 was isolated Off CPAP a lot at night Checking Ammonia level 06/15/21: Pt is doing much better Pt is using CPAP at night Oxygen at 3.5 L Shallow breathing overall Still on broad spectrum antibiotics 06/14/2021: Patient doing well Flat affect Voiding well Labs good No more fever IV antibiotics maintained Using CPAP brought in from home Review of Systems General: Fatigue, Malaise Objective Exam Vital Signs Vital Signs Date Time Temp Pulse Resp B/P (MAP) Pulse Ox O2 Delivery O2 Flow Rate FiO2 06/18/21 21:42 94 High Flow N/C 3.00 06/18/21 20:39 36.4 71 20 159/83 (108) 06/15/21 07:24 3 Capillary Refill : General Appearance: No Apparent Distress, WD/WN, Chronically ill, Obese HEENT: PERRL/EOMI, Normal ENT Inspection, Pharynx Normal Neck: Full Range of Motion, Normal Inspection, Non Tender, Supple, Carotid Bruit Respiratory: Chest Non Tender, No Accessory Muscle Use, No Respiratory Distress, Crackles, Decreased Breath Sounds Cardiovascular: No Edema, No Gallop, No JVD, No Murmur, Normal Peripheral Pulses, Irregularly Irregular Gastrointestinal: Normal Bowel Sounds, No Organomegaly, No Pulsatile Mass, Non Tender, Soft Back: Normal Inspection, No CVA Tenderness, No Vertebral Tenderness Extremity: Normal Capillary Refill, Normal Inspection, Normal Range of Motion, Non Tender, No Calf Tenderness, No Pedal Edema Neurologic/Psychiatric: Alert, Oriented x3, edging supervisor II-XII Norm as Tested, Abnormal Gait, Depressed Affect, Motor Weakness Skin: Normal Color, Warm/Dry Lymphatic: No Adenopathy Results/Procedures Lab Patient resulted labs reviewed. FIM Transfers Therapy Code Descriptions/Definitions Functional [place] Measure: 0=Not Assessed/NA 4=Minimal Assistance 1=Total Assistance 5=Supervision or Setup 2=Maximal Assistance 6=Modified [place] 3=Moderate Assistance 7=Complete IndependenceSCALE: Activities may be completed with or without assistive devices. 6-Ltzankwuxc-xozvbed completes the activity by him/herself with no assistance from a helper. 5-Set-up or Clean-up Assistance-helper sets up or cleans up; patient completes activity. [place] assists only prior to or following the activity. 4-Supervision or Touching Assistance-helper provides verbal cues and/or touching/steadying and/or contact guard assistance as patient completes activity. Assistance may be provided throughout the activity or intermittently. 3-Partial/Moderate Assistance-helper does LESS THAN HALF the effort. [place] lifts, holds or supports trunk or limbs, but provides less than half the effort. 2-Substantial/Maximal Assistance-helper does MORE THAN HALF the effort. [place] lifts or holds trunk or limbs and provides more than half the effort. 3-Fvsrdafna-apdfdl does ALL the effort. Patient does none of the effort to complete the activity. Or, the assistance of 2 or more helpers is required for the patient to complete the activity. If activity was not attempted, code reason: 7-Patient Refused. 9-Not Applicable-not attempted and the patient did not perform the activity before the current illness, exacerbation or injury. 10-Not Attempted due to Environmental Limitations-(lack of equipment, weather restraints, etc.). 88-Not Attempted due to Medical Conditions or Safety Concerns. Roll Left to Right (QC): 6 Sit to Lying (QC): 3 Sit to Stand (QC): 4 Chair/Lqz-my-Sigbq Xfer(QC): 4 Car Transfer (QC): 88 Gait Training Does the Patient Walk?: Yes Distance: 125' x2 Walk 10 feet (QC): 5 Walk 50 ft with 2 Turns(QC): 5 Walk 150 ft (QC): 5 Walking 10ft/uneven surface-QC: 88 Gait Persons Needed: 1 Gait Assistive Device: FWW Wheelchair Training Does the Pt Use a Wheelchair?: Yes Wheel 50 ft with 2 turns (QC): 3 Wheel 150 ft (QC): 3 Type of Wheelchair: Manual Stair Training 1 Step (curb) (QC): 88 4 Steps (QC): 88 12 Steps (QC): 88 Balance Picking up an Object (QC): 88 ADL-Treatment Eating (QC): 6 Oral Hygiene (QC): 6 Shower/Bathe Self (QC): 4 Upper Body Dressing (QC): 5 Lower Body Dressing (QC): 4 On/Off Footwear (QC): 5 Toileting Hygiene (QC): 4 Toilet Transfer (QC): 4 Assessment/Plan Assessment and Plan Assess & Plan/Chief Complaint Assessment: COPD myopathy s/p severe sepsis Multifocal pneumonia on abx Acute respiratory failure with hypoxia Lactic acidosis Acute kidney injury COVID test negative x2 CT with multifocal pneumonia Continue Meropenem after failed Cefepime Added tick panel s/p Doxycycline Supplemental oxygen via nasal cannula, 2 L currently New onset AFib NSTEMI Cardiology following Eliquis maintained Stress test performed HTN HLD GERD Obesity STEPAN on CPAP Cheek cath-DC Cognitive deficit Plan: Home CPAP machine DC cheek Home meds Cardiology appreciated 06/14/2021: Use home CPAP IV antibiotics Monitor closely High risk for decompensation 06/15/21: Monitor oxygen status CPAP at night Abx DC Vanc 06/16/21: Monitor fever Aggressive PT OT 06/17/21: Complete abx tomorrow 06/18/21: Monitor closely (1) Myopathy (2) STEPAN on CPAP (3) Cognitive deficits (4) Cheek catheter in place (5) Elevated troponin I level Status: Acute (6) New onset atrial fibrillation Status: Acute (7) Multifocal pneumonia Status: Acute (8) Acute respiratory failure with hypoxia Status: Acute (9) RAMYA (acute kidney injury) Status: Acute (10) NSTEMI (non-ST elevation myocardial infarction) Status: Acute (11) HLD (hyperlipidemia) Status: Chronic (12) HTN (hypertension) Status: Chronic (13) GERD (gastroesophageal reflux disease) Status: Chronic (14) Stage 3 chronic kidney disease (15) Primary hypertension (16) Obesity (17) Mixed hyperlipidemia TARI AUGUSTIN DO Jun 18, 2021 06:12
[2021-06-18] MEDS: DOXYCYCLINE 100 MG (VIBRAMYCIN) TABLET PO SCH ×2 (06:26→17:27)
[2021-06-18] MEDS: APIXABAN 5 MG (ELIQUIS) TABLET PO SCH ×2 (06:26→17:27)
[2021-06-18 07:16] VITALS: BP 147/98
[2021-06-18] MEDS: lisINopril 40 MG (PRINIVIL) TABLET PO SCH (07:26)
[2021-06-18] MEDS: amLODIPine 10 MG (NORVASC) TAB PO SCH (07:27)
[2021-06-18] MEDS: cloNIDine 0.1 MG (CATAPRES) TAB PO SCH ×2 (07:27→20:27)
[2021-06-18] MEDS: SENNOSIDES 8.6 MG (SENOKOT) TAB PO SCH ×3 (07:27→20:36)
[2021-06-18] MEDS: PANTOPRAZOLE 40 MG (PROTONIX) TAB PO SCH (07:27)
[2021-06-18] MEDS: SENNA W/DOCUSATE (SENOKOT S) TABLET PO SCH ×3 (07:51→20:36)
[2021-06-18] MEDS: DOCUSATE SODIUM 100 MG (COLACE) CAP PO SCH ×3 (07:51→20:36)
[2021-06-18] MEDS: polyethylene glycoL POWDER 17 GM (MIRALAX) PACK PO SCH ×2 (07:51→20:36)
[2021-06-18] MEDS: RT-ALBUTEROL SULF 2.5 MG/3 ML PRE-MIX VIAL INH SCH ×2 (09:16→21:41)
--- NOTE | 2021-06-18 10:22 | Occupational Ther Daily Note ---
OT Current Status-Daily Note Subjective Pt drowsy sitting in recliner. Pt states that he did not sleep well last night. Pt c/o lower back pain, reported to nrsg, nrsg brought pain meds. Pt agrees to therapy. Pt states that he does feel a bit foggy today. Mental Status/Objective Patient Orientation: Person, Place, Time, Situation Attachments: IV (PICC) ADL-Treatment Pt declines shower, sponge bath, toileting or oral care. Pt takes increased time to complete all tasks, unsure if pt is procrastinating tasks or is too leo y to quickly progress steps of tasks. Pt able to complete all dressing by self after set with verbal cues to focus on task and to continue to complete tasks. Pt used dressing stick to thread feet into pant legs, doff socks and used sock aide to don socks. After therapy, pt sitting in recliner with call light/phone in reach. All needs met in room. Therapy Code Descriptions/Definitions Functional [place] Measure: 0=Not Assessed/NA 4=Minimal Assistance 1=Total Assistance 5=Supervision or Setup 2=Maximal Assistance 6=Modified [place] 3=Moderate Assistance 7=Complete IndependenceSCALE: Activities may be completed with or without assistive devices. 4-Elnhzrotyu-xcungkg completes the activity by him/herself with no assistance from a helper. 5-Set-up or Clean-up Assistance-helper sets up or cleans up; patient completes activity. [place] assists only prior to or following the activity. 4-Supervision or Touching Assistance-helper provides verbal cues and/or touching/steadying and/or contact guard assistance as patient completes activity. Assistance may be provided throughout the activity or intermittently. 3-Partial/Moderate Assistance-helper does LESS THAN HALF the effort. [place] lifts, holds or supports trunk or limbs, but provides less than half the effort. 2-Substantial/Maximal Assistance-helper does MORE THAN HALF the effort. [place] lifts or holds trunk or limbs and provides more than half the effort. 9-Butbtkzex-vcaafb does ALL the effort. Patient does none of the effort to complete the activity. Or, the assistance of 2 or more helpers is required for the patient to complete the activity. If activity was not attempted, code reason: 7-Patient Refused. 9-Not Applicable-not attempted and the patient did not perform the activity before the current illness, exacerbation or injury. 10-Not Attempted due to Environmental Limitations-(lack of equipment, weather restraints, etc.). 88-Not Attempted due to Medical Conditions or Safety Concerns. Upper Body Dressing (QC): 4 (vc to stay on task) Lower Body Dressing (QC): 4 (vc to stay on task) On/Off Footwear: 4 (vc to stay on task) OT Short Term Goals Short Term Goals Time Frame: Jun 20, 2021 Eatin Oral hygiene: 5 Toileting hygiene: 4 Shower/bathe self: 4 Upper body dressin Lower body dressin Putting on/taking off footwear: 4 OT Fish Hatchery Supervisor Goals Fish Hatchery Supervisor Goals Time Frame: Jul 04, 2021 Eating (QC): 6 Oral Hygiene (QC): 6 Toileting Hygiene (QC): 6 Shower/Bathe Self (QC): 5 Upper Body Dressing (QC): 6 Lower Body Dressing (QC): 6 On/Off Footwear (QC): 6 Additional Goals: 1-Demonstrate ADL Tasks, 2-Verbalize Understanding, 3- ImproveStrength/Shauna 1=Demonstrate adherence to instructed precautions during ADL tasks. 2=Patient will verbalize/demonstrate understanding of assistive devices/modifications for ADL. 3=Patient will improve strength/tolerance for activity to enable patient to perform ADL's. OT Education/Plan Problem List/Assessment Assessment: Decreased Activ Tolerance, Impaired Cognition, Impaired Self-Care Skills Discharge Recommendations Plan/Recommendations: Continue POC Treatment Plan/Plan of Care Patient would benefit from OT for education, treatment and training to promote independence in ADL's, mobility, safety and/or upper extremity function for ADL's. Plan of Care: ADL Retraining, Functional Mobility, UE Funct Exercise/Act Treatment Duration: Jul 04, 2021 Frequency: At least 5 of 7 days/Wk (IRF) Estimated Hrs Per Day: 1.5 hours per day Agreement: Yes Rehab Potential: Good Time/GCodes Start Time: 10:00 Stop Time: 11:30 Total Time Billed (hr/min): 90 Billed Treatment Time 1 visit-ADL 6 (90 min) CAMERON ANG Jun 18, 2021 10:22
--- NOTE | 2021-06-18 12:08 | Physical Therapy Daily Note ---
PT Daily Note-Current Subjective Pt sitting in recliner upon arrival. Pt agrees to PT. Mental Status Patient Orientation: Person, Place, Situation Attachments: Oxygen Transfers SCALE: Activities may be completed with or without assistive devices. 0-Pbvvshmjvw-ibyjsfk completes the activity by him/herself with no assistance from a helper. 5-Set-up or Clean-up Assistance-helper sets up or cleans up; patient completes activity. [place] assists only prior to or following the activity. 4-Supervision or Touching Assistance-helper provides verbal cues and/or touching/steadying and/or contact guard assistance as patient completes activity. Assistance may be provided throughout the activity or intermittently. 3-Partial/Moderate Assistance-helper does LESS THAN HALF the effort. [place] lifts, holds or supports trunk or limbs, but provides less than half the effort. 2-Substantial/Maximal Assistance-helper does MORE THAN HALF the effort. [place] lifts or holds trunk or limbs and provides more than half the effort. 2-Elfckbtbi-dsefch does ALL the effort. Patient does none of the effort to complete the activity. Or, the assistance of 2 or more helpers is required for the patient to complete the activity. If activity was not attempted, code reason: 7-Patient Refused. 9-Not Applicable-not attempted and the patient did not perform the activity before the current illness, exacerbation or injury. 10-Not Attempted due to Environmental Limitations-(lack of equipment, weather restraints, etc.). 88-Not Attempted due to Medical Conditions or Safety Concerns. Sit to Lying (QC): 4 Lying to Sitting/Side of Bed(Q: 4 Sit to Stand (QC): 4 Chair/Ifu-lw-Uiwji Xfer(QC): 4 Toilet Transfer (QC): 4 Weight Bearing Right Lower Extremity: Right Left Lower Extremity: Left Gait Training Does the Patient Walk?: Yes Distance: 125' x2 Walk 10 feet (QC): 5 Walk 50 ft with 2 Turns(QC): 4 Walk 150 ft (QC): 4 Gait Persons Needed: 1 Gait Assistive Device: FWW Exercises Supine Ex: Ankle pumps, Quad Set, Glut sets, Heel Slides, Straight leg raise, Hip abd/add Supine Reps: 15 NuStep Minutes: 8 NuStep Workload: 5 Treatments (800-900) Pt completes Supine EX then TF to standing. Pt amb to BR, needing assist for pericare. Pt amb in hallway resting in Therapy Gym. Pt uses NuStep for 8m at WL 5 but needs VC to stay on task as pt gets easily distracted. Pt amb. in hallway and returns to room to rest in recliner at end of tx. All needs met, call light in hand. ([id number]) Pt attempts using urinal w/ZOOLOGY TECHNICAL OFFICER assistance then transfers to bed. Pt's lunch arrives and pt transfers back to recliner. All needs met, call light in hand. Assessment Current Status: Fair Progress Pt gets easily distracted and needs VC to stay on task. PT Short Term Goals Short Term Goals Time Frame: Jun 20, 2021 Roll Left & Right: 5 Sit to lyin Lying to sitting on side of be: 5 Sit to stand: 5 Chair/znz-zl-xfpqt transfer: 5 Toilet transfer: 5 Car transfer: 5 Walk 10 feet: 5 Walk 50 feet with two turns: 5 Walk 150 feet: 5 Walking 10ft on uneven surface: 5 1 step (curb): 5 4 steps: 5 12 steps: 5 Picking up objects: 5 Does pt use a wc or scooter: No PT Mcc Goals Mcc Goals PT Personnel Security Assistant Goals Time Frame: Jun 27, 2021 Roll Left & Right (QC): 6 Sit to Lying (QC): 6 Lying-Sitting on Side/Bed(QC): 6 Sit to Stand (QC): 6 Chair/Exn-zf-Urzpk Xfer(QC): 6 Toilet Transfer (QC): 6 Car Transfer (QC): 6 Does the Patient Walk: Yes Walk 10 feet (QC): 6 Walk 50ft with 2 Turns (QC): 6 Walk 150 ft (QC): 6 Walking 10ft on Uneven Surface: 6 1 Step (curb) (QC): 6 4 Steps (QC): 6 12 Steps (QC): 6 Picking up an Object (QC): 6 Does the Pt use WC or Scooter?: No Wheel 50 feet with 2 turns (QC: 9 Type: N/A Wheel 150 feet: 9 Type: N/A PT Plan Problem List Problem List: Activity Tolerance, Functional Strength Treatment/Plan Treatment Plan: Continue Plan of Care Treatment Plan: Bed Mobility, Functional Activity Shauna, Functional Strength, Group Therapy, Gait, Safety, Therapeutic Exercise, Transfers Treatment Duration: Jun 27, 2021 Frequency: 11 times per week Estimated Hrs Per Day: 1.5 hours per day Patient and/or Family Agrees t: Yes Safety Risks/Education Patient Education: Correct Positioning Teaching Recipient: Patient Teaching Methods: Discussion Response to Teaching: Verbalize Understanding Time/GCodes Time In: 800 Time Out: 900 Total Billed Treatment Time: 60 Total Billed Treatment (800-900) 1, FA x2 (25m), GT (15m) & EX (20m) ([id number]) 1, FA x2 (30m) SHANDA BABB ZOOLOGY TECHNICAL OFFICER Jun 18, 2021 12:08
--- NOTE | 2021-06-18 12:46 | Progress Note - Urology ---
Progress Note-Urology Progress Notes/Assess & Plan Progress/Assessment & Plan VOIDING WITHOUT STRAIGHT CATH Final Diagnosis RETENTION CAM GUTIERREZ MD Jun 18, 2021 12:46
--- NOTE | 2021-06-18 13:09 | Cardiology Progress Note ---
Progress Note-Cardiology Events since last exam Date Seen by Provider: Jun 18, 2021 Time Seen by Provider: 13:06 Events since last exam I am following him due to atrial fibrillation and abnormal troponin level as well as probable mild degree of heart failure. He has been on inpatient rehab for about the past week. This morning I saw him in the stress lab. He feels as though his breathing is gradually improving. He denies chest discomfort, palpitations, syncope, or ankle edema. Plans are in the works for possible discharge to home next week. He has a home in [place] and will plan to move there permanently once he is discharged. Certain portions of this document may have been dictated utilizing voice recognition technology. Inherent to this technology, typographical and grammatical errors may exist. As much as I am diligent to identify and correct these mistakes, some errors may remain in the document. Vitals Last set of Vitals Signs Vital Signs 06/15/21 06/18/21 06/18/21 07:24 07:16 09:16 Temp 36.4 Pulse 66 Resp 22 B/P (MAP) 147/98 (114) Pulse Ox 94 O2 Delivery High Flow N/C O2 Flow Rate 3.00 FiO2 3 Exam Vital Signs Vital Signs Date Time Temp Pulse Resp B/P (MAP) Pulse Ox O2 Delivery O2 Flow Rate FiO2 06/18/21 09:16 94 High Flow N/C 3.00 06/18/21 07:16 36.4 66 22 147/98 (114) 06/15/21 07:24 3 Physical Exam General: Alert. No acute distress. He is obese. Eye: No xanthelasma. HENT: Normocephalic. Neck: Jugular venous pressure does not appear elevated. Respiratory: Lungs are clear to auscultation but with decreased breath sounds at the bases bilaterally. Respirations are non-labored. Breath sounds are equal. Symmetrical chest wall expansion. Cardiovascular: Normal rate. Regular rhythm. No murmur. No gallop. Trace bilateral pretibial edema. Gastrointestinal: Soft. Normal bowel sounds. Skin: Warm. Dry. Neurologic: Alert and oriented to person, place, time. Cranial nerves 3-11 g rossly intact. Psychiatric: Cooperative. Appropriate mood & affect. Diagnosis/Problems Diagnosis/Problems (1) Paroxysmal atrial fibrillation Assessment & Plan: His electrocardiogram from 06/10 showed sinus rhythm. He has been on apixaban for stroke prophylaxis. This will need to be followed up after discharge. As above, he tells me he plans to move to [place] and will find a java sql developer in [place] when he makes his final move after being discharged. (2) Elevated troponin I level Status: Acute Assessment & Plan: He had borderline elevation of the troponin levels at the time of admission. However, he was not having any overt angina. I had him undergo a nuclear stress test and this was normal. As such, I do not see any indication for cardiac catheterization. He is on beta-agustín, IRAIS inhibitor, and statin medication. Since he is taking apixaban for atrial fibrillation, I do not have him on aspirin. (3) Acute on chronic heart failure with preserved ejection fraction (HFpEF) Assessment & Plan: He does appear to have some degree heart failure. His ejection fraction was normal on his stress test. His chest x-rays have shown some degree of pulmonary congestion. He received intermittent diuretic. I will obtain a follow up chest x-ray tomorrow. (4) Primary hypertension Assessment & Plan: Blood pressures are intermittently elevated. His antihypertensive medication has been adjusted. (5) Mixed hyperlipidemia Assessment & Plan: Continue statin. ELDON KENNEDY JR, MD Jun 18, 2021 13:09
[2021-06-18] MEDS: TAMSULOSIN 0.4 MG (FLOMAX) CAP PO SCH (17:27)
[2021-06-18] MEDS: ROSUVASTATIN 10 MG (CRESTOR) TABLET PO SCH (20:27)
[2021-06-18 20:39] VITALS: BP 159/83
--- NOTE | 2021-06-19 05:50 | PM&R Progress Note ---
Subjective HPI/CC On Admission Date Seen by Provider: Jun 19, 2021 Time Seen by Provider: 10:00 Subjective/Events-last exam 06/19/2021: Patient doing very well Clearance of delirium noted Visitors today with his brother and his No pain reported Checked meds and labs 06/18/21: Pt off antibiotics Pt doing very well More lucid Bowels are moving 06/17/21: Pt had a midline placed Bladder scanning and doing pretty well More alert today and less confused Checked meds and labs Maintain on IV antibiotics 06/16/21: Pt doing really well MRSA was negative so we will d/c Vanc Maintain on Meropenem Fever of 101 was isolated Off CPAP a lot at night Checking Ammonia level 06/15/21: Pt is doing much better Pt is using CPAP at night Oxygen at 3.5 L Shallow breathing overall Still on broad spectrum antibiotics 06/14/2021: Patient doing well Flat affect Voiding well Labs good No more fever IV antibiotics maintained Using CPAP brought in from home Review of Systems General: Fatigue, Malaise Objective Exam Vital Signs Vital Signs Date Time Temp Pulse Resp B/P (MAP) Pulse Ox O2 Delivery O2 Flow Rate FiO2 06/19/21 21:00 High Flow N/C 3.00 06/19/21 20:00 36.8 67 20 158/81 (106) 97 06/15/21 07:24 3 Capillary Refill : General Appearance: No Apparent Distress, WD/WN, Chronically ill, Obese HEENT: PERRL/EOMI, Normal ENT Inspection, Pharynx Normal Neck: Full Range of Motion, Normal Inspection, Non Tender, Supple, Carotid Bruit Respiratory: Chest Non Tender, No Accessory Muscle Use, No Respiratory Distress, Crackles, Decreased Breath Sounds Cardiovascular: No Edema, No Gallop, No JVD, No Murmur, Normal Peripheral Pulses, Irregularly Irregular Gastrointestinal: Normal Bowel Sounds, No Organomegaly, No Pulsatile Mass, Non Tender, Soft Back: Normal Inspection, No CVA Tenderness, No Vertebral Tenderness Extremity: Normal Capillary Refill, Normal Inspection, Normal Range of Motion, Non Tender, No Calf Tenderness, No Pedal Edema Neurologic/Psychiatric: Alert, Oriented x3, jigmaker II-XII Norm as Tested, Abnormal Gait, Depressed Affect, Motor Weakness Skin: Normal Color, Warm/Dry Lymphatic: No Adenopathy Results/Procedures Lab Patient resulted labs reviewed. FIM Transfers Therapy Code Descriptions/Definitions Functional [place] Measure: 0=Not Assessed/NA 4=Minimal Assistance 1=Total Assistance 5=Supervision or Setup 2=Maximal Assistance 6=Modified [place] 3=Moderate Assistance 7=Complete IndependenceSCALE: Activities may be completed with or without assistive devices. 4-Wjzmnanduu-vupuwam completes the activity by him/herself with no assistance from a helper. 5-Set-up or Clean-up Assistance-helper sets up or cleans up; patient completes activity. [place] assists only prior to or following the activity. 4-Supervision or Touching Assistance-helper provides verbal cues and/or touching/steadying and/or contact guard assistance as patient completes activity. Assistance may be provided throughout the activity or intermittently. 3-Partial/Moderate Assistance-helper does LESS THAN HALF the effort. [place] lifts, holds or supports trunk or limbs, but provides less than half the effort. 2-Substantial/Maximal Assistance-helper does MORE THAN HALF the effort. [place] lifts or holds trunk or limbs and provides more than half the effort. 8-Gleosznox-kstzwe does ALL the effort. Patient does none of the effort to complete the activity. Or, the assistance of 2 or more helpers is required for the patient to complete the activity. If activity was not attempted, code reason: 7-Patient Refused. 9-Not Applicable-not attempted and the patient did not perform the activity b efore the current illness, exacerbation or injury. 10-Not Attempted due to Environmental Limitations-(lack of equipment, weather restraints, etc.). 88-Not Attempted due to Medical Conditions or Safety Concerns. Roll Left to Right (QC): 6 Sit to Lying (QC): 4 Sit to Stand (QC): 4 Chair/Otn-wd-Nuzvs Xfer(QC): 4 Car Transfer (QC): 88 Gait Training Does the Patient Walk?: Yes Distance: 125' x2 Walk 10 feet (QC): 5 Walk 50 ft with 2 Turns(QC): 4 Walk 150 ft (QC): 4 Walking 10ft/uneven surface-QC: 88 Gait Persons Needed: 1 Gait Assistive Device: FWW Wheelchair Training Does the Pt Use a Wheelchair?: Yes Wheel 50 ft with 2 turns (QC): 3 Wheel 150 ft (QC): 3 Type of Wheelchair: Manual Stair Training 1 Step (curb) (QC): 88 4 Steps (QC): 88 12 Steps (QC): 88 Balance Picking up an Object (QC): 88 ADL-Treatment Eating (QC): 6 Oral Hygiene (QC): 6 Shower/Bathe Self (QC): 4 Upper Body Dressing (QC): 4 (vc to stay on task) Lower Body Dressing (QC): 4 (vc to stay on task) On/Off Footwear (QC): 4 (vc to stay on task) Toileting Hygiene (QC): 4 Toilet Transfer (QC): 4 Assessment/Plan Assessment and Plan Assess & Plan/Chief Complaint Assessment: COPD myopathy s/p severe sepsis Multifocal pneumonia on abx Acute respiratory failure with hypoxia Lactic acidosis Acute kidney injury COVID test negative x2 CT with multifocal pneumonia Continue Meropenem after failed Cefepime Added tick panel s/p Doxycycline Supplemental oxygen via nasal cannula, 2 L currently New onset AFib NSTEMI Cardiology following Eliquis maintained Stress test performed HTN HLD GERD Obesity STEPAN on CPAP Cheek cath-DC Cognitive deficit Plan: Home CPAP machine DC cheek Home meds Cardiology appreciated 06/14/2021: Use home CPAP IV antibiotics Monitor closely High risk for decompensation 06/15/21: Monitor oxygen status CPAP at night Abx DC Vanc 06/16/21: Monitor fever Aggressive PT OT 06/17/21: Complete abx tomorrow 06/18/21: Monitor closely 06/19/2021: Dramatic improvement Supportive care will continue (1) Paroxysmal atrial fibrillation Assessment & Plan: His electrocardiogram from 06/10 showed sinus rhythm. He has been on apixaban for stroke prophylaxis. This will need to be followed up after discharge. As above, he tells me he plans to move to [place] and will find a waste reduction coordinator in [place] when he makes his final move after being discharged. (2) Elevated troponin I level Status: Acute Assessment & Plan: He had borderline elevation of the troponin levels at the time of admission. However, he was not having any overt angina. I had him undergo a nuclear stress test and this was normal. As such, I do not see any indication for cardiac catheterization. He is on beta-agustín, IRAIS inhibitor, and statin medication. Since he is taking apixaban for atrial fibrillation, I do not have him on aspirin. (3) Acute on chronic heart failure with preserved ejection fraction (HFpEF) Assessment & Plan: He does appear to have some degree heart failure. His ejection fraction was normal on his stress test. His chest x-rays have shown some degree of pulmonary congestion. He received intermittent diuretic. I will obtain a follow up chest x-ray tomorrow. (4) Primary hypertension Assessment & Plan: Blood pressures are intermittently elevated. His antihypertensive medication has been adjusted. (5) Mixed hyperlipidemia Assessment & Plan: Continue statin. TARI AUGUSTIN DO Jun 19, 2021 05:50
[2021-06-19] MEDS: CATHETER FLUSH 10 ML SYR IV SCH ×3 (06:31→21:37)
[2021-06-19] MEDS: DOXYCYCLINE 100 MG (VIBRAMYCIN) TABLET PO SCH ×2 (06:31→18:09)
[2021-06-19] MEDS: APIXABAN 5 MG (ELIQUIS) TABLET PO SCH ×2 (06:31→18:08)
[2021-06-19 07:27] VITALS: BP 143/71
[2021-06-19] MEDS: cloNIDine 0.1 MG (CATAPRES) TAB PO SCH ×2 (07:49→21:35)
[2021-06-19] MEDS: lisINopril 40 MG (PRINIVIL) TABLET PO SCH (07:49)
[2021-06-19] MEDS: amLODIPine 10 MG (NORVASC) TAB PO SCH (07:49)
[2021-06-19] MEDS: PANTOPRAZOLE 40 MG (PROTONIX) TAB PO SCH (07:50)
--- NOTE | 2021-06-19 08:37 | Progress Note - Urology ---
Progress Note-Urology Progress Notes/Assess & Plan Progress/Assessment & Plan VOIDING WELL WITH MINIMAL RESIDUAL. FOLLOW UP WITH [facility] (PATIENT WISH). KEEP ON MEDICINES. WE WILL SEE HIM PRN Final Diagnosis RETENTION CAM GUTIERREZ MD Jun 19, 2021 08:37
--- NOTE | 2021-06-19 10:26 | Physical Therapy Daily Note ---
PT Daily Note-Current Subjective Pt in recliner upon arrival and agrees to PT. Pt had just been up and going to the BR. Pain Numeric Pain Scale: 3 Location Body Site: Back Mental Status Patient Orientation: Person, Place, Situation Attachments: Oxygen Transfers SCALE: Activities may be completed with or without assistive devices. 5-Lgehzzdcay-wgnemhn completes the activity by him/herself with no assistance from a helper. 5-Set-up or Clean-up Assistance-helper sets up or cleans up; patient completes activity. [place] assists only prior to or following the activity. 4-Supervision or Touching Assistance-helper provides verbal cues and/or touching/steadying and/or contact guard assistance as patient completes activity. Assistance may be provided throughout the activity or intermittently. 3-Partial/Moderate Assistance-helper does LESS THAN HALF the effort. [place] lifts, holds or supports trunk or limbs, but provides less than half the effort. 2-Substantial/Maximal Assistance-helper does MORE THAN HALF the effort. [place] lifts or holds trunk or limbs and provides more than half the effort. 6-Yrtnseydq-yvqldb does ALL the effort. Patient does none of the effort to complete the activity. Or, the assistance of 2 or more helpers is required for the patient to complete the activity. If activity was not attempted, code reason: 7-Patient Refused. 9-Not Applicable-not attempted and the patient did not perform the activity before the current illness, exacerbation or injury. 10-Not Attempted due to Environmental Limitations-(lack of equipment, weather restraints, etc.). 88-Not Attempted due to Medical Conditions or Safety Concerns. Sit to Stand (QC): 4 Weight Bearing Right Lower Extremity: Right Left Lower Extremity: Left Gait Training Does the Patient Walk?: Yes Distance: 200' x 1, 100' x 1 Walk 10 feet (QC): 5 Walk 50 ft with 2 Turns(QC): 4 Walk 150 ft (QC): 4 Gait Persons Needed: 1 Gait Assistive Device: FWW Exercises Seated Therapy Exercises: Ankle pumps, Long arc quads Seated Reps: 30 Standing: Heel/toe raises, 3 way Ex=Flex, Abd, Ext, Mini squats, Sit to Stand, Side steps Standing Reps: 15 NuStep Minutes: 10 NuStep Workload: 5 Treatments Pt in recliner upon arrival then pt performs sit to stand TF and amb 100' to therapy gym. Pt TFs to nustep. Pt then performs sit to stand TF and amb to // bars and performs standing exs. Requires rest breaks between exs. Pt then rest in chair and then performs sit to stand TF and amb 200' back to room. Pt in recliner upon departure w/ all needs met and call light nearby. Assessment Current Status: Good Progress Pt requires skilled verbal cues about hand and foot placement while performing TFs. Requires frequent cues in order to stay on task. Requires CGA/SBA w/ all TFs. PT Short Term Goals Short Term Goals Time Frame: Jun 20, 2021 Roll Left & Right: 5 Sit to lyin Lying to sitting on side of be: 5 Sit to stand: 5 Chair/qdh-wb-lfomw transfer: 5 Toilet transfer: 5 Car transfer: 5 Walk 10 feet: 5 Walk 50 feet with two turns: 5 Walk 150 feet: 5 Walking 10ft on uneven surface: 5 1 step (curb): 5 4 steps: 5 12 steps: 5 Picking up objects: 5 Does pt use a wc or scooter: No PT Help Desk Support Goals [facility] Goals PT [facility] Goals Time Frame: Jun 27, 2021 Roll Left & Right (QC): 6 Sit to Lying (QC): 6 Lying-Sitting on Side/Bed(QC): 6 Sit to Stand (QC): 6 Chair/Kyq-rh-Xwksc Xfer(QC): 6 Toilet Transfer (QC): 6 Car Transfer (QC): 6 Does the Patient Walk: Yes Walk 10 feet (QC): 6 Walk 50ft with 2 Turns (QC): 6 Walk 150 ft (QC): 6 Walking 10ft on Uneven Surface: 6 1 Step (curb) (QC): 6 4 Steps (QC): 6 12 Steps (QC): 6 Picking up an Object (QC): 6 Does the Pt use WC or Scooter?: No Wheel 50 feet with 2 turns (QC: 9 Type: N/A Wheel 150 feet: 9 Type: N/A PT Plan Problem List Problem List: Activity Tolerance, Functional Strength Treatment/Plan Treatment Plan: Continue Plan of Care Treatment Plan: Bed Mobility, Functional Activity Shauna, Functional Strength, Group Therapy, Gait, Safety, Therapeutic Exercise, Transfers Treatment Duration: Jun 27, 2021 Frequency: 11 times per week Estimated Hrs Per Day: 1.5 hours per day Patient and/or Family Agrees t: Yes Safety Risks/Education Patient Education: Transfer Techniques, Correct Positioning Teaching Recipient: Patient Teaching Methods: Discussion Response to Teaching: Return Demonstration Time/GCodes Time In: 920 Time Out: 1020 Total Billed Treatment Time: 60 Total Billed Treatment 1, EX x 2 (40 min), GT x 2 (20 min) LENA VARGAS PROPELLANT CHARGE LOADER Jun 19, 2021 10:26
[2021-06-19] MEDS: RT-ALBUTEROL SULF 2.5 MG/3 ML PRE-MIX VIAL INH SCH ×2 (10:31→19:07)
[2021-06-19] MEDS: SENNOSIDES 8.6 MG (SENOKOT) TAB PO SCH ×2 (11:08→21:35)
[2021-06-19] MEDS: SENNA W/DOCUSATE (SENOKOT S) TABLET PO SCH ×2 (11:08→21:35)
[2021-06-19] MEDS: polyethylene glycoL POWDER 17 GM (MIRALAX) PACK PO SCH ×2 (11:08→21:35)
[2021-06-19] MEDS: DOCUSATE SODIUM 100 MG (COLACE) CAP PO SCH ×2 (11:08→21:35)
--- NOTE | 2021-06-19 11:49 | Occupational Ther Daily Note ---
OT Current Status-Daily Note Subjective Pt alert, sitting in recliner. Pt just finished up with PT. Pt c/o fatigue, no pain. Agrees to therapy. Mental Status/Objective Patient Orientation: Person, Place, Time, Situation Attachments: IV, Oxygen (2L) ADL-Treatment Pt declines bathing, grooming/oral care or dressing. Pt is able to stand at toilet to urinate with supervision for safety. After therapy, pt sitting in recliner with call light/phone in reach. All needs met in room. Therapy Code Descriptions/Definitions Functional [place] Measure: 0=Not Assessed/NA 4=Minimal Assistance 1=Total Assistance 5=Supervision or Setup 2=Maximal Assistance 6=Modified [place] 3=Moderate Assistance 7=Complete IndependenceSCALE: Activities may be completed with or without assistive devices. 4-Xjvrkgsruj-yxqybdw completes the activity by him/herself with no assistance from a helper. 5-Set-up or Clean-up Assistance-helper sets up or cleans up; patient completes activity. [place] assists only prior to or following the activity. 4-Supervision or Touching Assistance-helper provides verbal cues and/or touching/steadying and/or contact guard assistance as patient completes activity. Assistance may be provided throughout the activity or intermittently. 3-Partial/Moderate Assistance-helper does LESS THAN HALF the effort. [place] lifts, holds or supports trunk or limbs, but provides less than half the effort. 2-Substantial/Maximal Assistance-helper does MORE THAN HALF the effort. [place] lifts or holds trunk or limbs and provides more than half the effort. 6-Aklsnkowh-yrxoai does ALL the effort. Patient does none of the effort to complete the activity. Or, the assistance of 2 or more helpers is required for the patient to complete the activity. If activity was not attempted, code reason: 7-Patient Refused. 9-Not Applicable-not attempted and the patient did not perform the activity before the current illness, exacerbation or injury. 10-Not Attempted due to Environmental Limitations-(lack of equipment, weather restraints, etc.). 88-Not Attempted due to Medical Conditions or Safety Concerns. Toileting Hygiene (QC): 4 Other Treatment Pt working on B UE strengthening and cognition (multiple step directions) while propelling w/c to first floor (gift shop, cafeteria, chapel). Pt was able to propel w/c for short distances then fatigues quickly requiring lengthy recovery break. Pt able to follow 2-3 step directions to get to certain destination. Pt was able to find room from 1st floor without difficulty. Pt takes increased time completing any tasks due to slow movements, slow processing task and lengthy recovery breaks. Pt is SBA for transfers and ambulation with FWW. After session, pt sitting in recliner with call light/phone in reach. All needs met in room. OT Short Term Goals Short Term Goals Time Frame: Jun 20, 2021 Eatin Oral hygiene: 5 Toileting hygiene: 4 Shower/bathe self: 4 Upper body dressin Lower body dressin Putting on/taking off footwear: 4 OT Supervisor [employer] Goals Care Home Goals Time Frame: Jul 04, 2021 Eating (QC): 6 Oral Hygiene (QC): 6 Toileting Hygiene (QC): 6 Shower/Bathe Self (QC): 5 Upper Body Dressing (QC): 6 Lower Body Dressing (QC): 6 On/Off Footwear (QC): 6 Additional Goals: 1-Demonstrate ADL Tasks, 2-Verbalize Understanding, 3- ImproveStrength/Shauna 1=Demonstrate adherence to instructed precautions during ADL tasks. 2=Patient will verbalize/demonstrate understanding of assistive devices/modifications for ADL. 3=Patient will improve strength/tolerance for activity to enable patient to perform ADL's. OT Education/Plan Problem List/Assessment Assessment: Decreased Activ Tolerance, Impaired Cognition, Impaired Self-Care Skills Discharge Recommendations Plan/Recommendations: Continue POC Treatment Plan/Plan of Care Patient would benefit from OT for education, treatment and training to promote independence in ADL's, mobility, safety and/or upper extremity function for ADL's. Plan of Care: ADL Retraining, Functional Mobility, UE Funct Exercise/Act Treatment Duration: Jul 04, 2021 Frequency: At least 5 of 7 days/Wk (IRF) Estimated Hrs Per Day: 1.5 hours per day Agreement: Yes Rehab Potential: Good Time/GCodes Start Time: 10:15 Stop Time: 11:45 Total Time Billed (hr/min): 90 Billed Treatment Time 1 visit-ADL 2 (30 min) EX 4 (60 min) CAMERON ANG Jun 19, 2021 11:49
--- NOTE | 2021-06-19 12:41 | Cardiology Progress Note ---
Progress Note-Cardiology Events since last exam Date Seen by Provider: Jun 19, 2021 Time Seen by Provider: 11:35 Events since last exam I am following him due to atrial fibrillation and abnormal troponin level. His breathing and peripheral edema continue to improve. Once he is ready for discha [facility], he plans to move to his home in [place]. He denies chest discomfort, palpitations, or syncope. Certain portions of this document may have been dictated utilizing voice recognition technology. Inherent to this technology, typographical and grammatical errors may exist. As much as I am diligent to identify and correct these mistakes, some errors may remain in the document. Vitals Last set of Vitals Signs Vital Signs 06/15/21 06/19/21 06/19/21 07:24 07:27 10:31 Temp 36.7 Pulse 64 Resp 20 B/P (MAP) 143/71 (95) Pulse Ox 94 O2 Delivery Nasal Cannula O2 Flow Rate 2.00 FiO2 3 Exam Vital Signs Vital Signs Date Time Temp Pulse Resp B/P (MAP) Pulse Ox O2 Delivery O2 Flow Rate FiO2 06/19/21 10:31 94 Nasal Cannula 2.00 06/19/21 07:27 36.7 64 20 143/71 (95) 06/15/21 07:24 3 Physical Exam General: Alert. No acute distress. He is obese. Eye: No xanthelasma. HENT: Normocephalic. Neck: Jugular venous pressure does not appear elevated. Respiratory: Lungs are clear to auscultation but with decreased breath sounds at the bases bilaterally. Respirations are non-labored. Breath sounds are equal. Symmetrical chest wall expansion. Cardiovascular: Normal rate. Regular rhythm. No murmur. No gallop. Trace bilateral pretibial edema. Gastrointestinal: Soft. Normal bowel sounds. Skin: Warm. Dry. Neurologic: Alert and oriented to person, place, time. Cranial nerves 3-11 grossly intact. Psychiatric: Cooperative. Appropriate mood & affect. Diagnosis/Problems Diagnosis/Problems (1) Paroxysmal atrial fibrillation Assessment & Plan: His electrocardiogram from 06/10 showed sinus rhythm. He has been on apixaban for stroke prophylaxis. This will need to be followed up after discharge. 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 (2) Acute on chronic heart failure with preserved ejection fraction (HFpEF) Assessment & Plan: He does appear to have some degree heart failure. His ejection fraction was normal on his stress test. His chest x-rays have shown some degree of pulmonary congestion. He received intermittent diuretic. Chest x-ray from today is pending. (3) Elevated troponin I level Status: Acute Assessment & Plan: He had borderline elevation of the troponin levels at the time of admission. However, he was not having any overt angina. I had him undergo a nuclear stress test and this was normal. As such, I do not see any indication for cardiac catheterization. He is on beta-agustín, IRAIS inhibitor, and statin medication. Since he is taking apixaban for atrial fibrillation, I do not have him on aspirin. (4) Primary hypertension Assessment & Plan: Blood pressures are intermittently elevated. His antihypertensive medication has been adjusted. (5) Mixed hyperlipidemia Assessment & Plan: Continue statin. ELDON KENNEDY JR, MD Jun 19, 2021 12:41
--- NOTE | 2021-06-19 13:35 | Physical Therapy Daily Note ---
PT Daily Note-Current Subjective Pt. reluctant to participate as he had visitors. Thet encouraged pt greatly and he did agree to gait and ex Pain Location: No Pain Reported Mental Status Patient Orientation: Normal For Age Attachments: Oxygen (2L) Transfers SCALE: Activities may be completed with or without assistive devices. 2-Baqchbqtvg-xcchidq completes the activity by him/herself with no assistance from a helper. 5-Set-up or Clean-up Assistance-helper sets up or cleans up; patient completes activity. [place] assists only prior to or following the activity. 4-Supervision or Touching Assistance-helper provides verbal cues and/or touching/steadying and/or contact guard assistance as patient completes activity. Assistance may be provided throughout the activity or intermittently. 3-Partial/Moderate Assistance-helper does LESS THAN HALF the effort. [place] lifts, holds or supports trunk or limbs, but provides less than half the effort. 2-Substantial/Maximal Assistance-helper does MORE THAN HALF the effort. [place] lifts or holds trunk or limbs and provides more than half the effort. 2-Vgtkyzsnw-glnonu does ALL the effort. Patient does none of the effort to complete the activity. Or, the assistance of 2 or more helpers is required for the patient to complete the activity. If activity was not attempted, code reason: 7-Patient Refused. 9-Not Applicable-not attempted and the patient did not perform the activity before the current illness, exacerbation or injury. 10-Not Attempted due to Environmental Limitations-(lack of equipment, weather restraints, etc.). 88-Not Attempted due to Medical Conditions or Safety Concerns. sit to stand with cues for hand use only, in out bed CGA to SBA Weight Bearing Right Lower Extremity: Right Left Lower Extremity: Left Gait Training Does the Patient Walk?: Yes Gait Assistive Device: FWW 175ft x 2 FWW slow, SBA to CGA ad assist for O2 Exercises Seated Therapy Exercises: Ankle pumps, Sit to stand, Long arc quads, Hip flexion, Hip abd/add Seated Reps: 15 Assessment Current Status: Good Progress sats > 90% throughout Tx PT Short Term Goals Short Term Goals Time Frame: Jun 20, 2021 Roll Left & Right: 5 Sit to lyin Lying to sitting on side of be: 5 Sit to stand: 5 Chair/tmt-sb-vyzal transfer: 5 Toilet transfer: 5 Car transfer: 5 Walk 10 feet: 5 Walk 50 feet with two turns: 5 Walk 150 feet: 5 Walking 10ft on uneven surface: 5 1 step (curb): 5 4 steps: 5 12 steps: 5 Picking up objects: 5 Does pt use a wc or scooter: No PT Mcc Goals Mcc Goals PT Mcc Goals Time Frame: Jun 27, 2021 Roll Left & Right (QC): 6 Sit to Lying (QC): 6 Lying-Sitting on Side/Bed(QC): 6 Sit to Stand (QC): 6 Chair/Pkn-rc-Bpqjr Xfer(QC): 6 Toilet Transfer (QC): 6 Car Transfer (QC): 6 Does the Patient Walk: Yes Walk 10 feet (QC): 6 Walk 50ft with 2 Turns (QC): 6 Walk 150 ft (QC): 6 Walking 10ft on Uneven Surface: 6 1 Step (curb) (QC): 6 4 Steps (QC): 6 12 Steps (QC): 6 Picking up an Object (QC): 6 Does the Pt use WC or Scooter?: No Wheel 50 feet with 2 turns (QC: 9 Type: N/A Wheel 150 feet: 9 Type: N/A PT Plan Treatment/Plan Treatment Plan: Continue Plan of Care Treatment Plan: Bed Mobility, Functional Activity Shauna, Functional Strength, Group Therapy, Gait, Safety, Therapeutic Exercise, Transfers Treatment Duration: Jun 27, 2021 Frequency: 11 times per week Estimated Hrs Per Day: 1.5 hours per day Patient and/or Family Agrees t: Yes Safety Risks/Education Patient Education: Gait Training, Transfer Techniques, Correct Positioning, Disease Process, Safety Issues Teaching Recipient: Patient Teaching Methods: Demonstration, Discussion Response to Teaching: Verbalize Understanding, Return Demonstration, Reinforcem ent Needed Time/GCodes Time In: 1300 Time Out: 1330 Total Billed Treatment Time: 30 Total Billed Treatment 1,GT15m,EX1m SARA RAMIREZ JOURNEYMAN MILLWRIGHT Jun 19, 2021 13:35
--- NOTE | 2021-06-19 14:02 | Diagnostic Imaging Report ---
EXAMINATION: Chest 2 view HISTORY: Dyspnea. Shortness of breath. COMPARISON: 06/17/2021. FINDINGS: Lung volumes are decreased. There is persistent prominent central pulmonary vasculature with stable cardiac silhouette. Stable prominent interstitial markings are seen throughout the lungs. Unchanged small left pleural effusion. No pneumothorax. IMPRESSION: 1. Findings suggestive of interstitial edema, not significantly changed since the prior exam. 2. Decreased lung volumes. Dictated by: Dictated on workstation # [id number]
[2021-06-19] MEDS: TAMSULOSIN 0.4 MG (FLOMAX) CAP PO SCH (18:08)
[2021-06-19 20:00] VITALS: BP 158/81
[2021-06-19] MEDS: ROSUVASTATIN 10 MG (CRESTOR) TABLET PO SCH (21:35)
--- NOTE | 2021-06-20 06:07 | PM&R Progress Note ---
Subjective HPI/CC On Admission Date Seen by Provider: Jun 20, 2021 Time Seen by Provider: 12:15 Subjective/Events-last exam 06/20/2021: Patient much improved Family at bedside More lucid delirium has resolved 1 L of oxygen maintained Postvoid residual is 26 cc Bowels are moving 06/19/2021: Patient doing very well Clearance of delirium noted Visitors today with his brother and his No pain reported Checked meds and labs 06/18/21: Pt off antibiotics Pt doing very well More lucid Bowels are moving 06/17/21: Pt had a midline placed Bladder scanning and doing pretty well More alert today and less confused Checked meds and labs Maintain on IV antibiotics 06/16/21: Pt doing really well MRSA was negative so we will d/c Vanc Maintain on Meropenem Fever of 101 was isolated Off CPAP a lot at night Checking Ammonia level 06/15/21: Pt is doing much better Pt is using CPAP at night Oxygen at 3.5 L Shallow breathing overall Still on broad spectrum antibiotics 06/14/2021: Patient doing well Flat affect Voiding well Labs good No more fever IV antibiotics maintained Using CPAP brought in from home Review of Systems General: Fatigue, Malaise Objective Exam Vital Signs Vital Signs Date Time Temp Pulse Resp B/P (MAP) Pulse Ox O2 Delivery O2 Flow Rate FiO2 06/20/21 21:03 High Flow N/C 1.00 06/20/21 20:00 37.2 65 16 148/75 (99) 93 06/15/21 07:24 3 Capillary Refill : General Appearance: No Apparent Distress, WD/WN, Chronically ill, Obese HEENT: PERRL/EOMI, Normal ENT Inspection, Pharynx Normal Neck: Full Range of Motion, Normal Inspection, Non Tender, Supple, Carotid Bruit Respiratory: Chest Non Tender, No Accessory Muscle Use, No Respiratory Distress, Crackles, Decreased Breath Sounds Cardiovascular: No Edema, No Gallop, No JVD, No Murmur, Normal Peripheral Pulses, Irregularly Irregular Gastrointestinal: Normal Bowel Sounds, No Organomegaly, No Pulsatile Mass, Non Tender, Soft Back: Normal Inspection, No CVA Tenderness, No Vertebral Tenderness Extremity: Normal Capillary Refill, Normal Inspection, Normal Range of Motion, Non Tender, No Calf Tenderness, No Pedal Edema Neurologic/Psychiatric: Alert, Oriented x3, outside sales representative II-XII Norm as Tested, Abnormal Gait, Depressed Affect, Motor Weakness Skin: Normal Color, Warm/Dry Lymphatic: No Adenopathy Results/Procedures Lab Patient resulted labs reviewed. FIM Transfers Therapy Code Descriptions/Definitions Functional [place] Measure: 0=Not Assessed/NA 4=Minimal Assistance 1=Total Assistance 5=Supervision or Setup 2=Maximal Assistance 6=Modified [place] 3=Moderate Assistance 7=Complete IndependenceSCALE: Activities may be completed with or without assistive devices. 7-Hdxskdlyhu-askltxj completes the activity by him/herself with no assistance from a helper. 5-Set-up or Clean-up Assistance-helper sets up or cleans up; patient completes activity. [place] assists only prior to or following the activity. 4-Supervision or Touching Assistance-helper provides verbal cues and/or touching /steadying and/or contact guard assistance as patient completes activity. Assistance may be provided throughout the activity or intermittently. 3-Partial/Moderate Assistance-helper does LESS THAN HALF the effort. [place] lifts, holds or supports trunk or limbs, but provides less than half the effort. 2-Substantial/Maximal Assistance-helper does MORE THAN HALF the effort. [place] lifts or holds trunk or limbs and provides more than half the effort. 9-Mzkkizwwo-imywwk does ALL the effort. Patient does none of the effort to complete the activity. Or, the assistance of 2 or more helpers is required for the patient to complete the activity. If activity was not attempted, code reason: 7-Patient Refused. 9-Not Applicable-not attempted and the patient did not perform the activity before the current illness, exacerbation or injury. 10-Not Attempted due to Environmental Limitations-(lack of equipment, weather restraints, etc.). 88-Not Attempted due to Medical Conditions or Safety Concerns. Roll Left to Right (QC): 6 Sit to Lying (QC): 4 Sit to Stand (QC): 4 Chair/Rae-sz-Anytd Xfer(QC): 4 Car Transfer (QC): 88 Gait Training Does the Patient Walk?: Yes Distance: 200' x 1, 100' x 1 Walk 10 feet (QC): 5 Walk 50 ft with 2 Turns(QC): 4 Walk 150 ft (QC): 4 Walking 10ft/uneven surface-QC: 88 Gait Persons Needed: 1 Gait Assistive Device: FWW Wheelchair Training Does the Pt Use a Wheelchair?: Yes Wheel 50 ft with 2 turns (QC): 3 Wheel 150 ft (QC): 3 Type of Wheelchair: Manual Stair Training 1 Step (curb) (QC): 88 4 Steps (QC): 88 12 Steps (QC): 88 Balance Picking up an Object (QC): 88 ADL-Treatment Eating (QC): 6 Oral Hygiene (QC): 6 Shower/Bathe Self (QC): 4 Upper Body Dressing (QC): 4 (vc to stay on task) Lower Body Dressing (QC): 4 (vc to stay on task) On/Off Footwear (QC): 4 (vc to stay on task) Toileting Hygiene (QC): 4 Toilet Transfer (QC): 4 Assessment/Plan Assessment and Plan Assess & Plan/Chief Complaint Assessment: COPD myopathy s/p severe sepsis Multifocal pneumonia on abx Acute respiratory failure with hypoxia Lactic acidosis Acute kidney injury COVID test negative x2 CT with multifocal pneumonia Continue Meropenem after failed Cefepime Added tick panel s/p Doxycycline Supplemental oxygen via nasal cannula, 2 L currently New onset AFib NSTEMI Cardiology following Eliquis maintained Stress test performed HTN HLD GERD Obesity STEPAN on CPAP Cheek cath-DC Cognitive deficit Plan: Home CPAP machine DC cheek Home meds Cardiology appreciated 06/14/2021: Use home CPAP IV antibiotics Monitor closely High risk for decompensation 06/15/21: Monitor oxygen status CPAP at night Abx DC Vanc 06/16/21: Monitor fever Aggressive PT OT 06/17/21: Complete abx tomorrow 06/18/21: Monitor closely 06/19/2021: Dramatic improvement Supportive care will continue 06/20/2021: Supportive care Dramatic improvement (1) Paroxysmal atrial fibrillation Assessment & Plan: His electrocardiogram from 06/10 showed sinus rhythm. He has been on apixaban for stroke prophylaxis. This will need to be followed up after discharge. 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 (2) Acute on chronic heart failure with preserved ejection fraction (HFpEF) Assessment & Plan: He does appear to have some degree heart failure. His ejection fraction was normal on his stress test. His chest x-rays have shown some degree of pulmonary congestion. He received intermittent diuretic. Chest x-ray from today is pending. (3) Elevated troponin I level Status: Acute Assessment & Plan: He had borderline elevation of the troponin levels at the time of admission. However, he was not having any overt angina. I had him undergo a nuclear stress test and this was normal. As such, I do not see any indication for cardiac catheterization. He is on beta-agustín, IRAIS inhibitor, and statin medication. Since he is taking apixaban for atrial fibrillation, I do not have him on aspirin. (4) Primary hypertension Assessment & Plan: Blood pressures are intermittently elevated. His antihypertensive medication has been adjusted. (5) Mixed hyperlipidemia Assessment & Plan: Continue statin. TARI AUGUSTIN DO Jun 20, 2021 06:07
[2021-06-20] MEDS: DOXYCYCLINE 100 MG (VIBRAMYCIN) TABLET PO SCH ×2 (06:34→16:21)
[2021-06-20] MEDS: APIXABAN 5 MG (ELIQUIS) TABLET PO SCH ×2 (06:34→16:21)
[2021-06-20] MEDS: CATHETER FLUSH 10 ML SYR IV SCH ×3 (06:35→21:17)
[2021-06-20 07:51] VITALS: BP 141/81
[2021-06-20] MEDS: amLODIPine 10 MG (NORVASC) TAB PO SCH (08:18)
[2021-06-20] MEDS: lisINopril 40 MG (PRINIVIL) TABLET PO SCH (08:18)
[2021-06-20] MEDS: cloNIDine 0.1 MG (CATAPRES) TAB PO SCH ×2 (08:19→20:55)
[2021-06-20] MEDS: PANTOPRAZOLE 40 MG (PROTONIX) TAB PO SCH (08:19)
[2021-06-20] MEDS: RT-ALBUTEROL SULF 2.5 MG/3 ML PRE-MIX VIAL INH SCH ×2 (08:20→19:45)
[2021-06-20] MEDS: SENNA W/DOCUSATE (SENOKOT S) TABLET PO SCH ×2 (08:42→20:56)
[2021-06-20] MEDS: DOCUSATE SODIUM 100 MG (COLACE) CAP PO SCH ×2 (08:42→20:56)
[2021-06-20] MEDS: polyethylene glycoL POWDER 17 GM (MIRALAX) PACK PO SCH ×2 (08:42→20:56)
[2021-06-20] MEDS: SENNOSIDES 8.6 MG (SENOKOT) TAB PO SCH ×2 (08:42→20:56)
--- NOTE | 2021-06-20 10:31 | Physical Therapy Daily Note ---
PT Daily Note-Current Subjective Pt up in chair, denies pain. Agreeable to treatment. Pain Numeric Pain Scale: 0-No Pain Mental Status Patient Orientation: Person, Place, Situation Attachments: Oxygen 2L/min Transfers SCALE: Activities may be completed with or without assistive devices. 4-Vcfjnmxreg-uprerlt completes the activity by him/herself with no assistance from a helper. 5-Set-up or Clean-up Assistance-helper sets up or cleans up; patient completes activity. [place] assists only prior to or following the activity. 4-Supervision or Touching Assistance-helper provides verbal cues and/or touching/steadying and/or contact guard assistance as patient completes activity. Assistance may be provided throughout the activity or intermittently. 3-Partial/Moderate Assistance-helper does LESS THAN HALF the effort. [place] lifts, holds or supports trunk or limbs, but provides less than half the effort. 2-Substantial/Maximal Assistance-helper does MORE THAN HALF the effort. [place] lifts or holds trunk or limbs and provides more than half the effort. 8-Nnhrbpjjf-mfoxdb does ALL the effort. Patient does none of the effort to complete the activity. Or, the assistance of 2 or more helpers is required for the patient to complete the activity. If activity was not attempted, code reason: 7-Patient Refused. 9-Not Applicable-not attempted and the patient did not perform the activity before the current illness, exacerbation or injury. 10-Not Attempted due to Environmental Limitations-(lack of equipment, weather restraints, etc.). 88-Not Attempted due to Medical Conditions or Safety Concerns. SBA sit to stand transfers Weight Bearing Right Lower Extremity: Right Left Lower Extremity: Left Gait Training Gait Assistive Device: FWW Pt amb with FWW and CGA, f/u portable O2 x 200ft. Pt amb steady speed, conversing throughout. Exercises Seated Therapy Exercises: Ankle pumps, Long arc quads, Hip flexion Seated Reps: 15 Assessment Current Status: Good Progress Pt jason well. Pt showed good endurance conversing throughout the treatment. Pt back to recliner with call light and all needs met. O2 per nasal canula 1.5L/min. Nurse aid present. PT Short Term Goals Short Term Goals Time Frame: Jun 20, 2021 Roll Left & Right: 5 Sit to lyin Lying to sitting on side of be: 5 Sit to stand: 5 Chair/rmr-jf-jyyli transfer: 5 Toilet transfer: 5 Car transfer: 5 Walk 10 feet: 5 Walk 50 feet with two turns: 5 Walk 150 feet: 5 Walking 10ft on uneven surface: 5 1 step (curb): 5 4 steps: 5 12 steps: 5 Picking up objects: 5 Does pt use a wc or scooter: No PT [employer] Supervisor Goals [employer] Supervisor Goals PT Senior Living Goals Time Frame: Jun 27, 2021 Roll Left & Right (QC): 6 Sit to Lying (QC): 6 Lying-Sitting on Side/Bed(QC): 6 Sit to Stand (QC): 6 Chair/Vtt-zg-Igarj Xfer(QC): 6 Toilet Transfer (QC): 6 Car Transfer (QC): 6 Does the Patient Walk: Yes Walk 10 feet (QC): 6 Walk 50ft with 2 Turns (QC): 6 Walk 150 ft (QC): 6 Walking 10ft on Uneven Surface: 6 1 Step (curb) (QC): 6 4 Steps (QC): 6 12 Steps (QC): 6 Picking up an Object (QC): 6 Does the Pt use WC or Scooter?: No Wheel 50 feet with 2 turns (QC: 9 Type: N/A Wheel 150 feet: 9 Type: N/A PT Plan Treatment/Plan Treatment Plan: Continue Plan of Care Treatment Plan: Bed Mobility, Functional Activity Shauna, Functional Strength, Group Therapy, Gait, Safety, Therapeutic Exercise, Transfers Treatment Duration: Jun 27, 2021 Frequency: 11 times per week Estimated Hrs Per Day: 1.5 hours per day Patient and/or Family Agrees t: Yes Time/GCodes Time In: 800 Time Out: 818 Total Billed Treatment Time: 18 Total Billed Treatment 1, FA x 18' SILVIA JEFFERSON CPTAleksandr Jun 20, 2021 10:31
[2021-06-20] MEDS: TAMSULOSIN 0.4 MG (FLOMAX) CAP PO SCH (16:21)
[2021-06-20 20:00] VITALS: BP 148/75
[2021-06-20] MEDS: ROSUVASTATIN 10 MG (CRESTOR) TABLET PO SCH (20:55)
[2021-06-21] MEDS: CATHETER FLUSH 10 ML SYR IV SCH ×3 (05:24→22:36)
[2021-06-21] MEDS: APIXABAN 5 MG (ELIQUIS) TABLET PO SCH ×2 (05:25→17:14)
--- NOTE | 2021-06-21 06:26 | PM&R Progress Note ---
Subjective HPI/CC On Admission Date Seen by Provider: Jun 21, 2021 Time Seen by Provider: 12:45 Subjective/Events-last exam 06/21/2021: Patient doing well Delirium has cleared Slept better Using CPAP at night Doing much better 06/20/2021: Patient much improved Family at bedside More lucid delirium has resolved 1 L of oxygen maintained Postvoid residual is 26 cc Bowels are moving 06/19/2021: Patient doing very well Clearance of delirium noted Visitors today with his brother and his No pain reported Checked meds and labs 06/18/21: Pt off antibiotics Pt doing very well More lucid Bowels are moving 06/17/21: Pt had a midline placed Bladder scanning and doing pretty well More alert today and less confused Checked meds and labs Maintain on IV antibiotics 06/16/21: Pt doing really well MRSA was negative so we will d/c Vanc Maintain on Meropenem Fever of 101 was isolated Off CPAP a lot at night Checking Ammonia level 06/15/21: Pt is doing much better Pt is using CPAP at night Oxygen at 3.5 L Shallow breathing overall Still on broad spectrum antibiotics 06/14/2021: Patient doing well Flat affect Voiding well Labs good No more fever IV antibiotics maintained Using CPAP brought in from home Review of Systems General: Fatigue, Malaise Objective Exam Vital Signs Vital Signs Date Time Temp Pulse Resp B/P (MAP) Pulse Ox O2 Delivery O2 Flow Rate FiO2 06/22/21 04:00 91 Room Air 06/21/21 19:39 36.4 66 16 153/82 (105) 06/21/21 10:53 1.00 Capillary Refill : General Appearance: No Apparent Distress, WD/WN, Chronically ill, Obese HEENT: PERRL/EOMI, Normal ENT Inspection, Pharynx Normal Neck: Full Range of Motion, Normal Inspection, Non Tender, Supple, Carotid Bruit Respiratory: Chest Non Tender, No Accessory Muscle Use, No Respiratory Distress, Crackles, Decreased Breath Sounds Cardiovascular: No Edema, No Gallop, No JVD, No Murmur, Normal Peripheral Pu lses, Irregularly Irregular Gastrointestinal: Normal Bowel Sounds, No Organomegaly, No Pulsatile Mass, Non Tender, Soft Back: Normal Inspection, No CVA Tenderness, No Vertebral Tenderness Extremity: Normal Capillary Refill, Normal Inspection, Normal Range of Motion, Non Tender, No Calf Tenderness, No Pedal Edema Neurologic/Psychiatric: Alert, Oriented x3, mule tender II-XII Norm as Tested, Abnormal Gait, Depressed Affect, Motor Weakness Skin: Normal Color, Warm/Dry Lymphatic: No Adenopathy Results/Procedures Lab Laboratory Tests 06/22/21 04:15 Patient resulted labs reviewed. FIM Transfers Therapy Code Descriptions/Definitions Functional [place] Measure: 0=Not Assessed/NA 4=Minimal Assistance 1=Total Assistance 5=Supervision or Setup 2=Maximal Assistance 6=Modified [place] 3=Moderate Assistance 7=Complete IndependenceSCALE: Activities may be completed with or without assistive devices. 4-Xzpcujotge-bnvwipf completes the activity by him/herself with no assistance from a helper. 5-Set-up or Clean-up Assistance-helper sets up or cleans up; patient completes activity. [place] assists only prior to or following the activity. 4-Supervision or Touching Assistance-helper provides verbal cues and/or touching/steadying and/or contact guard assistance as patient completes activity. Assistance may be provided throughout the activity or intermittently. 3-Partial/Moderate Assistance-helper does LESS THAN HALF the effort. [place] lifts, holds or supports trunk or limbs, but provides less than half the effort. 2-Substantial/Maximal Assistance-helper does MORE THAN HALF the effort. [place] lifts or holds trunk or limbs and provides more than half the effort. 1-Xdnupbdmi-ytvenr does ALL the effort. Patient does none of the effort to complete the activity. Or, the assistance of 2 or more helpers is required for the patient to complete the activity. If activity was not attempted, code reason: 7-Patient Refused. 9-Not Applicable-not attempted and the patient did not perform the activity before the current illness, exacerbation or injury. 10-Not Attempted due to Environmental Limitations-(lack of equipment, weather restraints, etc.). 88-Not Attempted due to Medical Conditions or Safety Concerns. Roll Left to Right (QC): 6 Sit to Lying (QC): 4 Sit to Stand (QC): 4 Chair/Yme-bl-Rukvc Xfer(QC): 4 Car Transfer (QC): 88 Gait Training Does the Patient Walk?: Yes Distance: 200' x 1, 100' x 1 Walk 10 feet (QC): 5 Walk 50 ft with 2 Turns(QC): 4 Walk 150 ft (QC): 4 Walking 10ft/uneven surface-QC: 88 Gait Persons Needed: 1 Gait Assistive Device: FWW Wheelchair Training Does the Pt Use a Wheelchair?: Yes Wheel 50 ft with 2 turns (QC): 3 Wheel 150 ft (QC): 3 Type of Wheelchair: Manual Stair Training 1 Step (curb) (QC): 88 4 Steps (QC): 88 12 Steps (QC): 88 Balance Picking up an Object (QC): 88 ADL-Treatment Eating (QC): 6 Oral Hygiene (QC): 6 Shower/Bathe Self (QC): 4 Upper Body Dressing (QC): 4 (vc to stay on task) Lower Body Dressing (QC): 4 (vc to stay on task) On/Off Footwear (QC): 4 (vc to stay on task) Toileting Hygiene (QC): 4 Toilet Transfer (QC): 4 Assessment/Plan Assessment and Plan Assess & Plan/Chief Complaint Assessment: COPD myopathy s/p severe sepsis Multifocal pneumonia on abx Acute respiratory failure with hypoxia Lactic acidosis Acute kidney injury COVID test negative x2 CT with multifocal pneumonia Continue Meropenem after failed Cefepime Added tick panel s/p Doxycycline Supplemental oxygen via nasal cannula, 2 L currently New onset AFib NSTEMI Cardiology following Eliquis maintained Stress test performed HTN HLD GERD Obesity STEPAN on CPAP [place] cath-DC Cognitive deficit Plan: Home CPAP machine DC [place] Home meds Cardiology appreciated 06/14/2021: Use home CPAP IV antibiotics Monitor closely High risk for decompensation 06/15/21: Monitor oxygen status CPAP at night Abx DC Vanc 06/16/21: Monitor fever Aggressive PT OT 06/17/21: Complete abx tomorrow 06/18/21: Monitor closely 06/19/2021: Dramatic improvement Supportive care will continue 06/20/2021: Supportive care Dramatic improvement 06/21/2021: Doing much better Clearing delirium (1) Paroxysmal atrial fibrillation Assessment & Plan: His electrocardiogram from 06/10 showed sinus rhythm. He has been on apixaban for stroke prophylaxis. This will need to be followed up after discharge. As above, he tells me he plans to move to [place] and will find a molder offbearer in [place] when he makes his final move after being discharged. (2) Acute on chronic heart failure with preserved ejection fraction (HFpEF) Assessment & Plan: He does appear to have some degree heart failure. His ejection fraction was normal on his stress test. His chest x-rays have shown some degree of pulmonary congestion. He received intermittent diuretic. Chest x -ray from today is pending. (3) Elevated troponin I level Status: Acute Assessment & Plan: He had borderline elevation of the troponin levels at the time of admission. However, he was not having any overt angina. I had him undergo a nuclear stress test and this was normal. As such, I do not see any indication for cardiac catheterization. He is on beta-agustín, IRAIS inhibitor, and statin medication. Since he is taking apixaban for atrial fibrillation, I do not have him on aspirin. (4) Primary hypertension Assessment & Plan: Blood pressures are intermittently elevated. His antihyper tensive medication has been adjusted. (5) Mixed hyperlipidemia Assessment & Plan: Continue statin. TARI AUGUSTIN DO Jun 21, 2021 06:26
[2021-06-21] MEDS: DOXYCYCLINE 100 MG (VIBRAMYCIN) TABLET PO SCH ×2 (06:42→17:14)
[2021-06-21 07:30] VITALS: BP 145/70
[2021-06-21] MEDS: PANTOPRAZOLE 40 MG (PROTONIX) TAB PO SCH (08:24)
[2021-06-21] MEDS: amLODIPine 10 MG (NORVASC) TAB PO SCH (08:25)
[2021-06-21] MEDS: cloNIDine 0.1 MG (CATAPRES) TAB PO SCH ×2 (08:25→20:02)
[2021-06-21] MEDS: lisINopril 40 MG (PRINIVIL) TABLET PO SCH (08:25)
[2021-06-21] MEDS: SENNA W/DOCUSATE (SENOKOT S) TABLET PO SCH ×2 (08:30→20:03)
[2021-06-21] MEDS: SENNOSIDES 8.6 MG (SENOKOT) TAB PO SCH ×2 (08:30→20:03)
[2021-06-21] MEDS: DOCUSATE SODIUM 100 MG (COLACE) CAP PO SCH ×2 (08:31→20:02)
[2021-06-21] MEDS: polyethylene glycoL POWDER 17 GM (MIRALAX) PACK PO SCH ×2 (08:31→20:03)
[2021-06-21] MEDS: RT-ALBUTEROL SULF 2.5 MG/3 ML PRE-MIX VIAL INH SCH ×2 (10:52→21:16)
[2021-06-21] MEDS: TAMSULOSIN 0.4 MG (FLOMAX) CAP PO SCH (17:14)
[2021-06-21 19:39] VITALS: BP 153/82
[2021-06-21] MEDS: ROSUVASTATIN 10 MG (CRESTOR) TABLET PO SCH (20:01)
[2021-06-22 04:23] LABS: BASOPHILS # (AUTO) 0.1 10^3/uL (0.0-0.1); BASOPHILS % (AUTO) 1 % (0-10); EOSINOPHILS # (AUTO) 0.2 10^3/uL (0.0-0.3); EOSINOPHILS % (AUTO) 3 % (0-10); HEMATOCRIT 35 % (40-54); HEMOGLOBIN 11.8 g/dL (13.3-17.7); LYMPHOCYTES # (AUTO) 3.5 10^3/uL (1.0-4.0); LYMPHOCYTES % (AUTO) 45 % (12-44); MEAN CORPUSCULAR HEMOGLOBIN 28 pg (25-34); MEAN CORPUSCULAR HGB CONC 34 g/dL (32-36); MEAN CORPUSCULAR VOLUME 84 fL (80-99); MEAN PLATELET VOLUME 9.1 fL (9.0-12.2); MONOCYTES # (AUTO) 0.6 10^3/uL (0.0-1.0); MONOCYTES % (AUTO) 7 % (0-12); NEUTROPHILS # (AUTO) 3.5 10^3/uL (1.8-7.8); NEUTROPHILS % (AUTO) 44 % (42-75); PLATELET COUNT 410 10^3/uL (130-400)
[2021-06-22 04:31] LABS: ALBUMIN 3.1 GM/DL (3.2-4.5); POTASSIUM 4.2 MMOL/L (3.6-5.0)
[2021-06-22 04:33] LABS: CALCIUM 8.2 MG/DL (8.5-10.1)
[2021-06-22 04:34] LABS: TOTAL PROTEIN 6.1 GM/DL (6.4-8.2)
[2021-06-22 04:35] LABS: BILIRUBIN,TOTAL 0.5 MG/DL (0.1-1.0)
[2021-06-22 04:37] LABS: CREATININE SERUM 1.13 MG/DL (0.60-1.30)
[2021-06-22] MEDS: APIXABAN 5 MG (ELIQUIS) TABLET PO SCH ×2 (06:27→17:35)
[2021-06-22] MEDS: DOXYCYCLINE 100 MG (VIBRAMYCIN) TABLET PO SCH ×2 (06:27→17:35)
[2021-06-22] MEDS: CATHETER FLUSH 10 ML SYR IV SCH ×3 (06:28→20:43)
[2021-06-22] MEDS: cloNIDine 0.1 MG (CATAPRES) TAB PO SCH ×2 (07:17→20:27)
[2021-06-22] MEDS: lisINopril 40 MG (PRINIVIL) TABLET PO SCH (07:17)
[2021-06-22] MEDS: PANTOPRAZOLE 40 MG (PROTONIX) TAB PO SCH (07:17)
[2021-06-22] MEDS: amLODIPine 10 MG (NORVASC) TAB PO SCH (07:17)
[2021-06-22 07:29] VITALS: BP 151/74
[2021-06-22] MEDS: polyethylene glycoL POWDER 17 GM (MIRALAX) PACK PO SCH ×2 (08:30→20:31)
[2021-06-22] MEDS: DOCUSATE SODIUM 100 MG (COLACE) CAP PO SCH ×2 (08:30→20:31)
[2021-06-22] MEDS: SENNA W/DOCUSATE (SENOKOT S) TABLET PO SCH ×2 (08:30→20:31)
[2021-06-22] MEDS: SENNOSIDES 8.6 MG (SENOKOT) TAB PO SCH ×2 (08:30→20:34)
--- NOTE | 2021-06-22 08:55 | Occupational Ther Daily Note ---
OT Current Status-Daily Note Subjective Pt alert, sitting in recliner. Pt agrees to therapy. No c/o pain. Pt thinking clearly today. Mental Status/Objective Patient Orientation: Person, Place, Time, Situation Attachments: IV (midline) ADL-Treatment Pt agrees to shower. Pt completed eating independently. Pt ambulated to bathroom and complete toileting and toilet transfer independent. Completed shower independently using shower bench, grabbar and hand held shower. Pt able to complete dressing by self after set up without AE. Pt stood at sink and completed oral care and grooming independently. Therapy Code Descriptions/Definitions Functional [place] Measure: 0=Not Assessed/NA 4=Minimal Assistance 1=Total Assistance 5=Supervision or Setup 2=Maximal Assistance 6=Modified [place] 3=Moderate Assistance 7=Complete IndependenceSCALE: Activities may be completed with or without assistive devices. 7-Xpqjaiujki-cihyrhk completes the activity by him/herself with no assistance from a helper. 5-Set-up or Clean-up Assistance-helper sets up or cleans up; patient completes activity. [place] assists only prior to or following the activity. 4-Supervision or Touching Assistance-helper provides verbal cues and/or touching/steadying and/or contact guard assistance as patient completes activity. Assistance may be provided throughout the activity or intermittently. 3-Partial/Moderate Assistance-helper does LESS THAN HALF the effort. [place] lifts, holds or supports trunk or limbs, but provides less than half the effort. 2-Substantial/Maximal Assistance-helper does MORE THAN HALF the effort. [place] lifts or holds trunk or limbs and provides more than half the effort. 3-Vqnehntnv-qsvkgu does ALL the effort. Patient does none of the effort to complete the activity. Or, the assistance of 2 or more helpers is required for the patient to complete the activity. If activity was not attempted, code reason: 7-Patient Refused. 9-Not Applicable-not attempted and the patient did not perform the activity before the current illness, exacerbation or injury. 10-Not Attempted due to Environmental Limitations-(lack of equipment, weather restraints, etc.). 88-Not Attempted due to Medical Conditions or Safety Concerns. Eating (QC): 6 Oral Hygiene (QC): 6 Shower/Bathe Self (QC): 6 Upper Body Dressing (QC): 5 Lower Body Dressing (QC): 5 On/Off Footwear: 5 Toileting Hygiene (QC): 6 Toilet Transfer (QC): 6 Other Treatment Pt given medium resistance theraband for use in room. Skilled instruction for correct technique required. Pt required only verbal and gestural cues to complete 3 B UE exercises 1 set 15 reps. After session, pt sitting in recliner with call light/phone in reach. All needs met in room. Education OT Patient Education: Exercise program Teaching Recipient: Patient Teaching Methods: Demonstration, Discussion Response to Teaching: Verbalize Understanding, Return Demonstration, Reinforcement Needed OT Short Term Goals Short Term Goals Time Frame: Jun 20, 2021 Eatin Oral hygiene: 5 Toileting hygiene: 4 Shower/bathe self: 4 Upper body dressin Lower body dressin Putting on/taking off footwear: 4 OT Computational Theory Scientist Goals Computational Theory Scientist Goals Time Frame: Jul 04, 2021 Eating (QC): 6 Oral Hygiene (QC): 6 Toileting Hygiene (QC): 6 Shower/Bathe Self (QC): 5 Upper Body Dressing (QC): 6 Lower Body Dressing (QC): 6 On/Off Footwear (QC): 6 Additional Goals: 1-Demonstrate ADL Tasks, 2-Verbalize Understanding, 3- ImproveStrength/[place] 1=Demonstrate adherence to instructed precautions during ADL tasks. 2=Patient will verbalize/demonstrate understanding of assistive devices/modifications for ADL. 3=Patient will improve strength/tolerance for activity to enable patient to perform ADL's. OT Education/Plan Problem List/Assessment Assessment: Impaired Self-Care Skills Discharge Recommendations Plan/Recommendations: Continue POC Treatment Plan/Plan of Care Patient would benefit from OT for education, treatment and training to promote independence in ADL's, mobility, safety and/or upper extremity function for ADL's. Plan of Care: ADL Retraining, Functional Mobility, UE Funct Exercise/Act Treatment Duration: Jul 04, 2021 Frequency: At least 5 of 7 days/Wk (IRF) Estimated Hrs Per Day: 1.5 hours per day Agreement: Yes Rehab Potential: Good Time/GCodes Start Time: 07:30 Stop Time: 09:00 Total Time Billed (hr/min): 90 Billed Treatment Time 1 visit-ADL 5 (70 min) EX 1 (20 min) CAMERON ANG Jun 22, 2021 08:55
--- NOTE | 2021-06-22 10:18 | PM&R Progress Note ---
Subjective HPI/CC On Admission Date Seen by Provider: Jun 22, 2021 Time Seen by Provider: 10:00 Subjective/Events-last exam 06/22/2021: Patient dramatically improved No confusion Uses CPAP at night Weaned off O2 Bowels moved this weekend 06/21/2021: Patient doing well Delirium has cleared Slept better Using CPAP at night Doing much better 06/20/2021: Patient much improved Family at bedside More lucid delirium has resolved 1 L of oxygen maintained Postvoid residual is 26 cc Bowels are moving 06/19/2021: Patient doing very well Clearance of delirium noted Visitors today with his brother and his No pain reported Checked meds and labs 06/18/21: Pt off antibiotics Pt doing very well More lucid Bowels are moving 06/17/21: Pt had a midline placed Bladder scanning and doing pretty well More alert today and less confused Checked meds and labs Maintain on IV antibiotics 06/16/21: Pt doing really well MRSA was negative so we will d/c Vanc Maintain on Meropenem Fever of 101 was isolated Off CPAP a lot at night Checking Ammonia level 06/15/21: Pt is doing much better Pt is using CPAP at night Oxygen at 3.5 L Shallow breathing overall Still on broad spectrum antibiotics 06/14/2021: Patient doing well Flat affect Voiding well Labs good No more fever IV antibiotics maintained Using CPAP brought in from home Review of Systems General: Fatigue, Malaise Objective Exam Vital Signs Vital Signs Date Time Temp Pulse Resp B/P (MAP) Pulse Ox O2 Delivery O2 Flow Rate FiO2 06/22/21 20:45 Room Air 92 06/22/21 20:00 36.4 63 18 122/57 (78) 92 06/22/21 07:28 0.00 Capillary Refill : General Appearance: No Apparent Distress, WD/WN, Chronically ill, Obese HEENT: PERRL/EOMI, Normal ENT Inspection, Pharynx Normal Neck: Full Range of Motion, Normal Inspection, Non Tender, Supple, Carotid Bruit Respiratory: Chest Non Tender, No Accessory Muscle Use, No Respiratory Di stress, Crackles, Decreased Breath Sounds Cardiovascular: No Edema, No Gallop, No JVD, No Murmur, Normal Peripheral Pulses, Irregularly Irregular Gastrointestinal: Normal Bowel Sounds, No Organomegaly, No Pulsatile Mass, Non Tender, Soft Back: Normal Inspection, No CVA Tenderness, No Vertebral Tenderness Extremity: Normal Capillary Refill, Normal Inspection, Normal Range of Motion, Non Tender, No Calf Tenderness, No Pedal Edema Neurologic/Psychiatric: Alert, Oriented x3, hide washer II-XII Norm as Tested, Abnormal Gait, Depressed Affect, Motor Weakness Skin: Normal Color, Warm/Dry Lymphatic: No Adenopathy Results/Procedures Lab Patient resulted labs reviewed. FIM Transfers Therapy Code Descriptions/Definitions Functional [place] Measure: 0=Not Assessed/NA 4=Minimal Assistance 1=Total Assistance 5=Supervision or Setup 2=Maximal Assistance 6=Modified [place] 3=Moderate Assistance 7=Complete IndependenceSCALE: Activities may be completed with or without assistive devices. 6-Vjgxmmbyfw-hqmmaew completes the activity by him/herself with no assistance from a helper. 5-Set-up or Clean-up Assistance-helper sets up or cleans up; patient completes activity. [place] assists only prior to or following the activity. 4-Supervision or Touching Assistance-helper provides verbal cues and/or touching/steadying and/or contact guard assistance as patient completes activity. Assistance may be provided throughout the activity or intermittently. 3-Partial/Moderate Assistance-helper does LESS THAN HALF the effort. [place] lifts, holds or supports trunk or limbs, but provides less than half the effort. 2-Substantial/Maximal Assistance-helper does MORE THAN HALF the effort. [place] lifts or holds trunk or limbs and provides more than half the effort. 9-Lgksmwxfz-uctikh does ALL the effort. Patient does none of the effort to complete the activity. Or, the assistance of 2 or more helpers is required for the patient to complete the activity. If activity was not attempted, code reason: 7-Patient Refused. 9-Not Applicable-not attempted and the patient did not perform the activity before the current illness, exacerbation or injury. 10-Not Attempted due to Environmental Limitations-(lack of equipment, weather restraints, etc.). 88-Not Attempted due to Medical Conditions or Safety Concerns. Roll Left to Right (QC): 6 Sit to Lying (QC): 4 Sit to Stand (QC): 4 Chair/Eid-eq-Kucqt Xfer(QC): 4 Car Transfer (QC): 88 Gait Training Does the Patient Walk?: Yes Distance: 200' x 1, 100' x 1 Walk 10 feet (QC): 5 Walk 50 ft with 2 Turns(QC): 4 Walk 150 ft (QC): 4 Walking 10ft/uneven surface-QC: 88 Gait Persons Needed: 1 Gait Assistive Device: FWW Wheelchair Training Does the Pt Use a Wheelchair?: Yes Wheel 50 ft with 2 turns (QC): 3 Wheel 150 ft (QC): 3 Type of Wheelchair: Manual Stair Training 1 Step (curb) (QC): 88 4 Steps (QC): 88 12 Steps (QC): 88 Balance Picking up an Object (QC): 88 ADL-Treatment Eating (QC): 6 Oral Hygiene (QC): 6 Shower/Bathe Self (QC): 6 Upper Body Dressing (QC): 5 Lower Body Dressing (QC): 5 On/Off Footwear (QC): 5 Toileting Hygiene (QC): 6 Toilet Transfer (QC): 6 Assessment/Plan Assessment and Plan Assess & Plan/Chief Complaint Assessment: COPD myopathy s/p severe sepsis Multifocal pneumonia on abx Acute respiratory failure with hypoxia Lactic acidosis Acute kidney injury COVID test negative x2 CT with multifocal pneumonia Continue Meropenem after failed Cefepime Added tick panel s/p Doxycycline Supplemental oxygen via nasal cannula, 2 L currently New onset AFib NSTEMI Cardiology following Eliquis maintained Stress test performed HTN HLD GERD Obesity STEPAN on CPAP [place] cath-DC Cognitive deficit Plan: Home CPAP machine DC cheek Home meds Cardiology appreciated 06/14/2021: Use home CPAP IV antibiotics Monitor closely High risk for decompensation 06/15/21: Monitor oxygen status CPAP at night Abx DC Vanc 06/16/21: Monitor fever Aggressive PT OT 06/17/21: Complete abx tomorrow 06/18/21: Monitor closely 06/19/2021: Dramatic improvement Supportive care will continue 06/20/2021: Supportive care Dramatic improvement 06/21/2021: Doing much better Clearing delirium 06/22/2021: Dramatic improvement Delirium has resolved (1) Paroxysmal atrial fibrillation Assessment & Plan: His electrocardiogram from 06/10 showed sinus rhythm. He has been on apixaban for stroke prophylaxis. This will need to be followed up after discharge. As above, he tells me he plans to move to [place] and will find a technical training coordinator in [place] when he makes his final move after being discharged. (2) Acute on chronic heart failure with preserved ejection fraction (HFpEF) Assessment & Plan: He does appear to have some degree heart failure. His ejection fraction was normal on his stress test. His chest x-rays have shown some degree of pulmonary congestion. He received intermittent diuretic. Chest x-ray from today is pending. (3) Elevated troponin I level Status: Acute Assessment & Plan: He had borderline elevation of the troponin levels at the time of admission. However, he was not having any overt angina. I had him undergo a nuclear stress test and this was normal. As such, I do not see any indication for cardiac catheterization. He is on beta-agustín, IRAIS inhibitor, and statin medication. Since he is taking apixaban for atrial fibrillation, I do not have him on aspirin. (4) Primary hypertension Assessment & Plan: Blood pressures are intermittently elevated. His antihypertensive medication has been adjusted. (5) Mixed hyperlipidemia Assessment & Plan: Continue statin. TARI AUGUSTIN DO Jun 22, 2021 10:18
--- NOTE | 2021-06-22 10:55 | Physical Therapy Daily Note ---
PT Daily Note-Current Subjective Pt. up in recliner and states he is feeling well. Wondering when he can go home. No c/o pain or SOB. Pain Location: No Pain Reported Mental Status Patient Orientation: Normal For Age Attachments: Other-See Comments (mask while out of room) Transfers SCALE: Activities may be completed with or without assistive devices. 1-Gtkevyphlq-jbhmgsh completes the activity by him/herself with no assistance from a helper. 5-Set-up or Clean-up Assistance-helper sets up or cleans up; patient completes activity. [place] assists only prior to or following the activity. 4-Supervision or Touching Assistance-helper provides verbal cues and/or touching/steadying and/or contact guard assistance as patient completes activity. Assistance may be provided throughout the activity or intermittently. 3-Partial/Moderate Assistance-helper does LESS THAN HALF the effort. [place] lifts, holds or supports trunk or limbs, but provides less than half the effort. 2-Substantial/Maximal Assistance-helper does MORE THAN HALF the effort. [place] lifts or holds trunk or limbs and provides more than half the effort. 1-Wgeqmvrkl-kcjlwx does ALL the effort. Patient does none of the effort to complete the activity. Or, the assistance of 2 or more helpers is required for the patient to complete the activity. If activity was not attempted, code reason: 7-Patient Refused. 9-Not Applicable-not attempted and the patient did not perform the activity before the current illness, exacerbation or injury. 10-Not Attempted due to Environmental Limitations-(lack of equipment, weather restraints, etc.). 88-Not Attempted due to Medical Conditions or Safety Concerns. Roll Left & Right (QC): 6 Sit to Lying (QC): 6 Lying to Sitting/Side of Bed(Q: 6 Sit to Stand (QC): 6 Chair/Vmh-mm-Nopub Xfer(QC): 6 Toilet Transfer (QC): 6 Car Transfer (QC): 6 Weight Bearing Right Lower Extremity: Right Left Lower Extremity: Left Gait Training Does the Patient Walk?: Yes Walk 10 feet (QC): 6 Walk 50 ft with 2 Turns(QC): 6 Walk 150 ft (QC): 6 Walking 10ft/uneven surface-QC: 6 Gait Persons Needed: 1 Gait Assistive Device: FWW pt. doing well with gait , will test for balance and possibly advance to no AD and or up ad kathryn status in PM Tx Stair Training Stair Training: Handrails/: 2 handrails #of Steps: 8 1 Step (curb) (QC): 5 4 Steps (QC): 5 Stairs: Pattern: Reciprocal Exercises Supine Ex: Bridging, Ankle pumps, Quad Set, Rolling, Glut sets, Heel Slides, Short Arc Quads, Scooting, Straight leg raise, Hip abd/add (sidelying) Supine Reps: 20 NuStep Minutes: 10 NuStep Workload: 4 Treatments leg presses on Nustep x12 Assessment Current Status: Good Progress marked progress, no SOB, O2 sats steady >90% PT Short Term Goals Short Term Goals Time Frame: Jun 20, 2021 Roll Left & Right: 5 Sit to lyin Lying to sitting on side of be: 5 Sit to stand: 5 Chair/ydx-rd-crrii transfer: 5 Toilet transfer: 5 Car transfer: 5 Walk 10 feet: 5 Walk 50 feet with two turns: 5 Walk 150 feet: 5 Walking 10ft on uneven surface: 5 1 step (curb): 5 4 steps: 5 12 steps: 5 Picking up objects: 5 Does pt use a wc or scooter: No PT Senior Living Goals Forest Fire Warden Goals PT Senior Living Goals Time Frame: Jun 27, 2021 Roll Left & Right (QC): 6 Sit to Lying (QC): 6 Lying-Sitting on Side/Bed(QC): 6 Sit to Stand (QC): 6 Chair/Afv-fe-Nftol Xfer(QC): 6 Toilet Transfer (QC): 6 Car Transfer (QC): 6 Does the Patient Walk: Yes Walk 10 feet (QC): 6 Walk 50ft with 2 Turns (QC): 6 Walk 150 ft (QC): 6 Walking 10ft on Uneven Surface: 6 1 Step (curb) (QC): 6 4 Steps (QC): 6 12 Steps (QC): 6 Picking up an Object (QC): 6 Does the Pt use WC or Scooter?: No Wheel 50 feet with 2 turns (QC: 9 Type: N/A Wheel 150 feet: 9 Type: N/A PT Plan Treatment/Plan Treatment Plan: Continue Plan of Care Treatment Plan: Bed Mobility, Functional Activity Shauna, Functional Strength, Group Therapy, Gait, Safety, Therapeutic Exercise, Transfers Treatment Duration: Jun 27, 2021 Frequency: 11 times per week Estimated Hrs Per Day: 1.5 hours per day Patient and/or Family Agrees t: Yes Safety Risks/Education Patient Education: Gait Training, Transfer Techniques, Steps, Correct Positioning, Disease Process, Safety Issues Teaching Recipient: Patient Teaching Methods: Demonstration, Discussion Response to Teaching: Verbalize Understanding, Return Demonstration Time/GCodes Time In: 1000 Time Out: 1100 Total Billed Treatment Time: 60 Total Billed Treatment 1,EX30m,GT15m,FA15m SARA RAMIREZ WELT BUTTER HAND Jun 22, 2021 10:55
--- NOTE | 2021-06-22 14:29 | Physical Therapy Daily Note ---
PT Daily Note-Current Subjective Pt. agrees to Rx. Wants to try to walk without FWW Pain Location: No Pain Reported Mental Status Patient Orientation: Normal For Age Transfers SCALE: Activities may be completed with or without assistive devices. 4-Cxrchmolip-dkumteo completes the activity by him/herself with no assistance from a helper. 5-Set-up or Clean-up Assistance-helper sets up or cleans up; patient completes activity. [place] assists only prior to or following the activity. 4-Supervision or Touching Assistance-helper provides verbal cues and/or touching/steadying and/or contact guard assistance as patient completes activity. Assistance may be provided throughout the activity or intermittently. 3-Partial/Moderate Assistance-helper does LESS THAN HALF the effort. [place] lifts, holds or supports trunk or limbs, but provides less than half the effort. 2-Substantial/Maximal Assistance-helper does MORE THAN HALF the effort. [place] lifts or holds trunk or limbs and provides more than half the effort. 1-Jvkucihfo-dzdbbv does ALL the effort. Patient does none of the effort to complete the activity. Or, the assistance of 2 or more helpers is required for the patient to complete the activity. If activity was not attempted, code reason: 7-Patient Refused. 9-Not Applicable-not attempted and the patient did not perform the activity before the current illness, exacerbation or injury. 10-Not Attempted due to Environmental Limitations-(lack of equipment, weather restraints, etc.). 88-Not Attempted due to Medical Conditions or Safety Concerns. all TRFs Mod I Weight Bearing Right Lower Extremity: Right Left Lower Extremity: Left Gait Training Does the Patient Walk?: Yes Gait Assistive Device: None 25ft and 150 ft no AD no LOB, even step length, good arm swing etc Neuromuscular components of KELLOGG tested this date: SPT TRF without using hands, SLS for 8 seconds, narrow base stance, standing reciprocation at steps, heel toe long step , eyes closed stance all with no LOB Assessment Current Status: Good Progress up graded to no AD, will cont to use AD while with nursing and perhaps up grade to up ad kathryn PT Short Term Goals Short Term Goals Time Frame: Jun 20, 2021 Roll Left & Right: 5 Sit to lyin Lying to sitting on side of be: 5 Sit to stand: 5 Chair/fsk-mi-wswev transfer: 5 Toilet transfer: 5 Car transfer: 5 Walk 10 feet: 5 Walk 50 feet with two turns: 5 Walk 150 feet: 5 Walking 10ft on uneven surface: 5 1 step (curb): 5 4 steps: 5 12 steps: 5 Picking up objects: 5 Does pt use a wc or scooter: No PT Fpc Goals Gastroenterology Professor Goals PT Gastroenterology Professor Goals Time Frame: Jun 27, 2021 Roll Left & Right (QC): 6 Sit to Lying (QC): 6 Lying-Sitting on Side/Bed(QC): 6 Sit to Stand (QC): 6 Chair/Tjo-lg-Njtdw Xfer(QC): 6 Toilet Transfer (QC): 6 Car Transfer (QC): 6 Does the Patient Walk: Yes Walk 10 feet (QC): 6 Walk 50ft with 2 Turns (QC): 6 Walk 150 ft (QC): 6 Walking 10ft on Uneven Surface: 6 1 Step (curb) (QC): 6 4 Steps (QC): 6 12 Steps (QC): 6 Picking up an Object (QC): 6 Does the Pt use WC or Scooter?: No Wheel 50 feet with 2 turns (QC: 9 Type: N/A Wheel 150 feet: 9 Type: N/A PT Plan Treatment/Plan Treatment Plan: Continue Plan of Care Treatment Plan: Bed Mobility, Functional Activity Shauna, Functional Strength, Group Therapy, Gait, Safety, Therapeutic Exercise, Transfers Treatment Duration: Jun 27, 2021 Frequency: 11 times per week Estimated Hrs Per Day: 1.5 hours per day Patient and/or Family Agrees t: Yes Safety Risks/Education Patient Education: Gait Training, Safety Issues Teaching Recipient: Patient Teaching Methods: Demonstration, Discussion Response to Teaching: Verbalize Understanding, Return Demonstration, Reinforcement Needed Time/GCodes Time In: 1345 Time Out: 1415 Total Billed Treatment Time: 30 Total Billed Treatment 1,NM15m,GT15m SARA RAMIREZ CUFF TURNER MACHINE OPERATOR Jun 22, 2021 14:29
[2021-06-22] MEDS: TAMSULOSIN 0.4 MG (FLOMAX) CAP PO SCH (17:35)
[2021-06-22 20:00] VITALS: BP 122/57
[2021-06-22] MEDS: ROSUVASTATIN 10 MG (CRESTOR) TABLET PO SCH (20:27)
[2021-06-23] MEDS: APIXABAN 5 MG (ELIQUIS) TABLET PO SCH ×2 (06:17→17:33)
[2021-06-23] MEDS: CATHETER FLUSH 10 ML SYR IV SCH ×3 (06:17→21:45)
[2021-06-23] MEDS: DOXYCYCLINE 100 MG (VIBRAMYCIN) TABLET PO SCH ×2 (06:17→17:33)
[2021-06-23 07:46] VITALS: BP 137/76
[2021-06-23] MEDS: amLODIPine 10 MG (NORVASC) TAB PO SCH (07:53)
[2021-06-23] MEDS: cloNIDine 0.1 MG (CATAPRES) TAB PO SCH ×2 (07:53→21:43)
[2021-06-23] MEDS: PANTOPRAZOLE 40 MG (PROTONIX) TAB PO SCH (07:53)
[2021-06-23] MEDS: lisINopril 40 MG (PRINIVIL) TABLET PO SCH (07:54)
[2021-06-23] MEDS: DOCUSATE SODIUM 100 MG (COLACE) CAP PO SCH ×2 (07:57→21:51)
[2021-06-23] MEDS: SENNOSIDES 8.6 MG (SENOKOT) TAB PO SCH ×2 (07:58→21:52)
[2021-06-23] MEDS: polyethylene glycoL POWDER 17 GM (MIRALAX) PACK PO SCH ×2 (07:58→21:51)
[2021-06-23] MEDS: SENNA W/DOCUSATE (SENOKOT S) TABLET PO SCH ×2 (07:58→21:51)
--- NOTE | 2021-06-23 08:44 | PM&R Progress Note ---
Subjective HPI/CC On Admission Date Seen by Provider: Jun 23, 2021 Time Seen by Provider: 10:00 Subjective/Events-last exam 06/23/21: Pt is doing a lot better Ready for discharge tomorrow Ready to go home Will go to [place] with his 06/22/2021: Patient dramatically improved No confusion Uses CPAP at night Weaned off O2 Bowels moved this weekend 06/21/2021: Patient doing well Delirium has cleared Slept better Using CPAP at night Doing much better 06/20/2021: Patient much improved Family at bedside More lucid delirium has resolved 1 L of oxygen maintained Postvoid residual is 26 cc Bowels are moving 06/19/2021: Patient doing very well Clearance of delirium noted Visitors today with his brother and his No pain reported Checked meds and labs 06/18/21: Pt off antibiotics Pt doing very well More lucid Bowels are moving 06/17/21: Pt had a midline placed Bladder scanning and doing pretty well More alert today and less confused Checked meds and labs Maintain on IV antibiotics 06/16/21: Pt doing really well MRSA was negative so we will d/c Vanc Maintain on Meropenem Fever of 101 was isolated Off CPAP a lot at night Checking Ammonia level 06/15/21: Pt is doing much better Pt is using CPAP at night Oxygen at 3.5 L Shallow breathing overall Still on broad spectrum antibiotics 06/14/2021: Patient doing well Flat affect Voiding well Labs good No more fever IV antibiotics maintained Using CPAP brought in from home Review of Systems General: Fatigue, Malaise Objective Exam Vital Signs Vital Signs Date Time Temp Pulse Resp B/P (MAP) Pulse Ox O2 Delivery O2 Flow Rate FiO2 06/23/21 21:00 Room Air 06/23/21 19:40 36.6 68 20 151/80 (103) 93 06/22/21 20:45 92 06/22/21 07:28 0.00 Capillary Refill : General Appearance: No Apparent Distress, WD/WN, Chronically ill, Obese HEENT: PERRL/EOMI, Normal ENT Inspection, Pharynx Normal Neck: Full Range of Motion, Normal Inspection, Non Tender, Supple, Carotid Bruit Respiratory: Chest Non Tender, No Accessory Muscle Use, No Respiratory Distress, Crackles, Decreased Breath Sounds Cardiovascular: No Edema, No Gallop, No JVD, No Murmur, Normal Peripheral Pulses, Irregularly Irregular Gastrointestinal: Normal Bowel Sounds, No Organomegaly, No Pulsatile Mass, Non Tender, Soft Back: Normal Inspection, No CVA Tenderness, No Vertebral Tenderness Extremity: Normal Capillary Refill, Normal Inspection, Normal Range of Motion, Non Tender, No Calf Tenderness, No Pedal Edema Neurologic/Psychiatric: Alert, Oriented x3, diamond polisher II-XII Norm as Tested, Abnormal Gait, Depressed Affect, Motor Weakness Skin: Normal Color, Warm/Dry Lymphatic: No Adenopathy Results/Procedures Lab Patient resulted labs reviewed. FIM Transfers Therapy Code Descriptions/Definitions Functional [place] Measure: 0=Not Assessed/NA 4=Minimal Assistance 1=Total Assistance 5=Supervision or Setup 2=Maximal Assistance 6=Modified [place] 3=Moderate Assistance 7=Complete IndependenceSCALE: Activities may be completed with or without assistive devices. 1-Ytibdolpvy-kwtubjm completes the activity by him/herself with no assistance from a helper. 5-Set-up or Clean-up Assistance-helper sets up or cleans up; patient completes activity. [place] assists only prior to or following the activity. 4-Supervision or Touching Assistance-helper provides verbal cues and/or touching/steadying and/or contact guard assistance as patient completes activity. Assistance may be provided throughout the activity or intermittently. 3-Partial/Moderate Assistance-helper does LESS THAN HALF the effort. [place] lifts, holds or supports trunk or limbs, but provides less than half the effort. 2-Substantial/Maximal Assistance-helper does MORE THAN HALF the effort. [place] lifts or holds trunk or limbs and provides more than half the effort. 2-Hbkuyemzx-iuzgdc does ALL the effort. Patient does none of the effort to complete the activity. Or, the assistance of 2 or more helpers is required for the patient to complete the activity. If activity was not attempted, code reason: 7-Patient Refused. 9-Not Applicable-not attempted and the patient did not perform the activity bef ore the current illness, exacerbation or injury. 10-Not Attempted due to Environmental Limitations-(lack of equipment, weather r estraints, etc.). 88-Not Attempted due to Medical Conditions or Safety Concerns. Roll Left to Right (QC): 6 Sit to Lying (QC): 6 Sit to Stand (QC): 6 Chair/Kbr-ne-Ixqjg Xfer(QC): 6 Car Transfer (QC): 6 Gait Training Does the Patient Walk?: Yes Distance: 200' x 1, 100' x 1 Walk 10 feet (QC): 6 Walk 50 ft with 2 Turns(QC): 6 Walk 150 ft (QC): 6 Walking 10ft/uneven surface-QC: 6 Gait Persons Needed: 1 Gait Assistive Device: None Wheelchair Training Does the Pt Use a Wheelchair?: Yes Wheel 50 ft with 2 turns (QC): 3 Wheel 150 ft (QC): 3 Type of Wheelchair: Manual Stair Training Stair Training: Handrails/: 2 handrails #of Steps: 8 1 Step (curb) (QC): 5 4 Steps (QC): 5 12 Steps (QC): 88 Stairs: Pattern: Reciprocal Balance Picking up an Object (QC): 88 ADL-Treatment Eating (QC): 6 Oral Hygiene (QC): 6 Shower/Bathe Self (QC): 6 Upper Body Dressing (QC): 5 Lower Body Dressing (QC): 5 On/Off Footwear (QC): 5 Toileting Hygiene (QC): 6 Toilet Transfer (QC): 6 Assessment/Plan Assessment and Plan Assess & Plan/Chief Complaint Assessment: COPD myopathy s/p severe sepsis Multifocal pneumonia on abx Acute respiratory failure with hypoxia Lactic acidosis Acute kidney injury COVID test negative x2 CT with multifocal pneumonia Continue Meropenem after failed Cefepime Added tick panel s/p Doxycycline Supplemental oxygen via nasal cannula, 2 L currently New onset AFib NSTEMI Cardiology following Eliquis maintained Stress test performed HTN HLD GERD Obesity STEPAN on CPAP Cheek cath-DC Cognitive deficit Plan: Home CPAP machine DC cheek Home meds Cardiology appreciated 06/14/2021: Use home CPAP IV antibiotics Monitor closely High risk for decompensation 06/15/21: Monitor oxygen status CPAP at night Abx DC Vanc 06/16/21: Monitor fever Aggressive PT OT 06/17/21: Complete abx tomorrow 06/18/21: Monitor closely 06/19/2021: Dramatic improvement Supportive care will continue 06/20/2021: Supportive care Dramatic improvement 06/21/2021: Doing much better Clearing delirium 06/22/2021: Dramatic improvement Delirium has resolved 06/23/21: DC tomorrow (1) Paroxysmal atrial fibrillation Assessment & Plan: His electrocardiogram from 06/10 showed sinus rhythm. He has been on apixaban for stroke prophylaxis. This will need to be followed up after discharge. As above, he tells me he plans to move to [place] and will find a cereal miller in [place] when he makes his final move after being discharged. (2) Acute on chronic heart failure with preserved ejection fraction (HFpEF) Assessment & Plan: He does appear to have some degree heart failure. His ejection fraction was normal on his stress test. His chest x-rays have shown some degree of pulmonary congestion. He received intermittent diuretic. Chest x-ray from today is pending. (3) Elevated troponin I level Status: Acute Assessment & Plan: He had borderline elevation of the troponin levels at the time of admission. However, he was not having any overt angina. I had him undergo a nuclear stress test and this was normal. As such, I do not see any indication for cardiac catheterization. He is on beta-agustín, IRAIS inhibitor, and statin medication. Since he is taking apixaban for atrial fibrillation, I do not have him on aspirin. (4) Primary hypertension Assessment & Plan: Blood pressures are intermittently elevated. His antihypertensive medication has been adjusted. (5) Mixed hyperlipidemia Assessment & Plan: Continue statin. TARI AUGUSTIN DO Jun 23, 2021 08:44
--- NOTE | 2021-06-23 08:58 | Occupational Ther Daily Note ---
OT Current Status-Daily Note Subjective Pt alert, sitting in recliner. Pt agrees to therapy. No c/o pain at this time. Mental Status/Objective Patient Orientation: Person, Place, Time, Situation Attachments: IV (midline) ADL-Treatment Ambulating with no AD, pt able to ambulate to sink with CGA for safety. Independent standing at sink to complete oral care. Independent with toileting and toilet transfer. Afterr session, pt sitting in recliner with call light/phone in reach. All needs met in room. Therapy Code Descriptions/Definitions Functional [place] Measure: 0=Not Assessed/NA 4=Minimal Assistance 1=Total Assistance 5=Supervision or Setup 2=Maximal Assistance 6=Modified [place] 3=Moderate Assistance 7=Complete IndependenceSCALE: Activities may be completed with or without assistive devices. 9-Ysfwwqglap-krdzbwl completes the activity by him/herself with no assistance from a helper. 5-Set-up or Clean-up Assistance-helper sets up or cleans up; patient completes activity. [place] assists only prior to or following the activity. 4-Supervision or Touching Assistance-helper provides verbal cues and/or touching/steadying and/or contact guard assistance as patient completes activity. Assistance may be provided throughout the activity or intermittently. 3-Partial/Moderate Assistance-helper does LESS THAN HALF the effort. [place] lifts, holds or supports trunk or limbs, but provides less than half the effort. 2-Substantial/Maximal Assistance-helper does MORE THAN HALF the effort. [place] lifts or holds trunk or limbs and provides more than half the effort. 0-Wsvanazfu-nptcuy does ALL the effort. Patient does none of the effort to complete the activity. Or, the assistance of 2 or more helpers is required for the patient to complete the activity. If activity was not attempted, code reason: 7-Patient Refused. 9-Not Applicable-not attempted and the patient did not perform the activity before the current illness, exacerbation or injury. 10-Not Attempted due to Environmental Limitations-(lack of equipment, weather restraints, etc.). 88-Not Attempted due to Medical Conditions or Safety Concerns. Eating (QC): 6 Oral Hygiene (QC): 6 Declines shower and changing clothing today. Other Treatment Pt ambulated without AD to gym with CGA for safety, no LOB. Pt completed multiple B UE strengthening and fine motor tasks to increased function for daily functional tasks. Arm bike at 20 stephens resistance without breaks for 15 min while completing trivia activity. Able to follow Pipe tree design, 1# wt on B wrists. Multi-colored clothespins activity to match all colors in specific pattern with 1# wt on wrists, 2 cues due to pt having difficult problem solving how to move on from no more matching clothespins. Medium resistance theraputty finding small beads. OT Short Term Goals Short Term Goals Time Frame: Jun 20, 2021 Eatin Oral hygiene: 5 Toileting hygiene: 4 Shower/bathe self: 4 Upper body dressin Lower body dressin Putting on/taking off footwear: 4 OT Embroidery Specialist Goals Halfway Goals Time Frame: Jul 04, 2021 Eating (QC): 6 Oral Hygiene (QC): 6 Toileting Hygiene (QC): 6 Shower/Bathe Self (QC): 5 Upper Body Dressing (QC): 6 Lower Body Dressing (QC): 6 On/Off Footwear (QC): 6 Additional Goals: 1-Demonstrate ADL Tasks, 2-Verbalize Understanding, 3- ImproveStrength/Shauna 1=Demonstrate adherence to instructed precautions during ADL tasks. 2=Patient will verbalize/demonstrate understanding of assistive devices/modifications for ADL. 3=Patient will improve strength/tolerance for activity to enable patient to perform ADL's. OT Education/Plan Problem List/Assessment Assessment: Decreased Activ Tolerance, Impaired Self-Care Skills Discharge Recommendations Plan/Recommendations: Continue POC Treatment Plan/Plan of Care Patient would benefit from OT for education, treatment and training to promote independence in ADL's, mobility, safety and/or upper extremity function for ADL's. Plan of Care: ADL Retraining, Functional Mobility, UE Funct Exercise/Act Treatment Duration: Jul 04, 2021 Frequency: At least 5 of 7 days/Wk (IRF) Estimated Hrs Per Day: 1.5 hours per day Agreement: Yes Rehab Potential: Good Time/GCodes Start Time: 07:30 Stop Time: 09:00 Total Time Billed (hr/min): 90 Billed Treatment Time 1 visit-ADL 2 (30 min) EX 4 (60 min) CAMERON ANG Jun 23, 2021 08:58
--- NOTE | 2021-06-23 11:59 | Physical Therapy Daily Note ---
PT Daily Note-Current Subjective Pt in recliner upon arrival and agrees to PT. Pt has no reports of pain this date. Mental Status Patient Orientation: Person, Place, Time, Situation, Normal For Age Transfers SCALE: Activities may be completed with or without assistive devices. 0-Lvqyusbqia-kmijziz completes the activity by him/herself with no assistance from a helper. 5-Set-up or Clean-up Assistance-helper sets up or cleans up; patient completes activity. [place] assists only prior to or following the activity. 4-Supervision or Touching Assistance-helper provides verbal cues and/or touching/steadying and/or contact guard assistance as patient completes a ctivity. Assistance may be provided throughout the activity or intermittently. 3-Partial/Moderate Assistance-helper does LESS THAN HALF the effort. [place] lifts, holds or supports trunk or limbs, but provides less than half the effort. 2-Substantial/Maximal Assistance-helper does MORE THAN HALF the effort. [place] lifts or holds trunk or limbs and provides more than half the effort. 5-Kzlfvfmom-djyvxv does ALL the effort. Patient does none of the effort to complete the activity. Or, the assistance of 2 or more helpers is required for the patient to complete the activity. If activity was not attempted, code reason: 7-Patient Refused. 9-Not Applicable-not attempted and the patient did not perform the activity before the current illness, exacerbation or injury. 10-Not Attempted due to Environmental Limitations-(lack of equipment, weather restraints, etc.). 88-Not Attempted due to Medical Conditions or Safety Concerns. Sit to Stand (QC): 5 Weight Bearing Right Lower Extremity: Right Left Lower Extremity: Left Gait Training Does the Patient Walk?: Yes Distance: 100' x 1, 500' x 1 Walk 10 feet (QC): 5 Walk 50 ft with 2 Turns(QC): 5 Walk 150 ft (QC): 5 Gait Persons Needed: 1 Pt able to amb w/o FWW this date w/ SBA. Stair Training Stair Training: Handrails/: 2 handrails #of Steps: 12 1 Step (curb) (QC): 5 4 Steps (QC): 4 12 Steps (QC): 4 Stairs: Pattern: Reciprocal Pt requires 2 handrails while descending stairs and no handrail while ascending stairs. Balance Picking up an Object (QC): 4 Exercises Seated Therapy Exercises: Ankle pumps, Sit to stand Seated Reps: 10 Standing: Heel/toe raises, 3 way Ex=Flex, Abd, Ext, Mini squats, Side steps, Step-ups Standing Reps: 20 Pt also performs dynamic balance activity w/ beanbag toss w/ and w/o airex. Perform NBOS on airex in // bars. Performs tandem stance (BLE) in // bars. NuStep Minutes: 10 NuStep Workload: 4 Neuromuscular Pt balance good this date and only has one LOB posteriorly this date while on airex but able to correct w/ assist from SHIPPING TECHNICIAN. Treatments Pt able to therapy gym and performs nustep and then amb to // bars and performs standing activities. Then amd to stairs and performs stairs and following stairs pt performs dynamic standing activity. Following exes in therapy gym pt amb 500' and back to his room and TFs to recliner. All needs met as PT departs call light nearby. Assessment Current Status: Good Progress Pt able to increase amb distance this date and able to amb w/o FWW. Pt activity tolerance continues to improve. PT Short Term Goals Short Term Goals Time Frame: Jun 20, 2021 Roll Left & Right: 5 Sit to lyin Lying to sitting on side of be: 5 Sit to stand: 5 Chair/ouy-jm-dnxho transfer: 5 Toilet transfer: 5 Car transfer: 5 Walk 10 feet: 5 Walk 50 feet with two turns: 5 Walk 150 feet: 5 Walking 10ft on uneven surface: 5 1 step (curb): 5 4 steps: 5 12 steps: 5 Picking up objects: 5 Does pt use a wc or scooter: No PT Penitentiary Goals Supervisor Corduroy Cutting Goals PT Penitentiary Goals Time Frame: Jun 27, 2021 Roll Left & Right (QC): 6 Sit to Lying (QC): 6 Lying-Sitting on Side/Bed(QC): 6 Sit to Stand (QC): 6 Chair/Swx-of-Qkzpf Xfer(QC): 6 Toilet Transfer (QC): 6 Car Transfer (QC): 6 Does the Patient Walk: Yes Walk 10 feet (QC): 6 Walk 50ft with 2 Turns (QC): 6 Walk 150 ft (QC): 6 Walking 10ft on Uneven Surface: 6 1 Step (curb) (QC): 6 4 Steps (QC): 6 12 Steps (QC): 6 Picking up an Object (QC): 6 Does the Pt use WC or Scooter?: No Wheel 50 feet with 2 turns (QC: 9 Type: N/A Wheel 150 feet: 9 Type: N/A PT Plan Problem List Problem List: Activity Tolerance, Functional Strength Treatment/Plan Treatment Plan: Continue Plan of Care Treatment Plan: Bed Mobility, Functional Activity Shauna, Functional Strength, Group Therapy, Gait, Safety, Therapeutic Exercise, Transfers Treatment Duration: Jun 27, 2021 Frequency: 11 times per week Estimated Hrs Per Day: 1.5 hours per day Patient and/or Family Agrees t: Yes Safety Risks/Education Patient Education: Correct Positioning Teaching Recipient: Patient Teaching Methods: Discussion Response to Teaching: Return Demonstration Time/GCodes Time In: 1000 Time Out: 1100 Total Billed Treatment Time: 60 Total Billed Treatment 1, EX x 2 (40 min), GT x 2 (20min) LENA VARGAS PTA Jun 23, 2021 11:59
--- NOTE | 2021-06-23 15:51 | Speech Therapy Daily Note ---
Speech Daily Progress Note Subjective Date Seen by Provider: Jun 23, 2021 Time Seen by Provider: 09:15 The patient was seated upright in his recliner, awake and alert upon entrance. The patient greeted the clinician and was agreeable to participation in the cognitive linguistic treatment session. Objective The patient participated in the MoCA, Version One on this date (cognitive linguistic assessment). The patient demonstrated a result of +24/30 correlating to a mild cognitive linguistic impairment. The patient displayed deficits in the areas of attention, word-finding, and memory. Specific results are as follows: - Executive Function: The patient was unable to copy a cube accurately (4/5) - Namin/3 - Memory: / (The patient was able to recall four of five single words following a five minute delay). - Attention: 08/09 (The patient displayed difficulty with repetition of five digits forward and serial seven subtraction). - Language: / (The patient was able to state 6 "f" words within a one minute time frame, WNL=11). - Abstraction: 2/ - Orientation: 11/09 Expression of Ideas/Wants: Expression (3) (Expresses complex messages) Understanding Verbal Content: Understands (4) (Clear comprehension without) Brief Interview-Mental Status: Yes Repetition of Three Words: Three (3) Temporal Orientation: Year: Correct (3) Temporal Orientation: Month: Accurate within 5 days(2) Temporal Orientation: Day: Correct (1) Recall : Wear to say "Sock": Yes, no cue required (2) Recall : Color: Yes, no cue required (2) Recall : Bed: Yes,after cueing (1) Memory/Recall Ability: Current season, That he or she is in a hsp/hsp unit Assessment Assessment Current Status: Good Progress Treatment Plan Continue Plan of Care Speech Short Term Goals Short Term Goals Short Term Goals 1. The patient will demonstrate 80% accy with memory exercises. 2. The patient will demonstrate 80% accy with problem solving exercises. 3. The pt will demonstrate 80% accy with attention tasks. Speech Marine Biologist Goals Marine Biologist Goals 1. The patient will demonstrate increased cognitive function for daily tasks. Speech-Plan Treatment Plan Speech Therapy Treatment Plan: Continue Plan of Care Treatment Duration: Jun 15, 2021 Frequency: 4 times per week Estimated Hrs Per Day: .5 hour per day Rehab Potential: Good Pt/Family Agrees to Plan: Yes Safety Risks/Education Teaching Recipient: Patient Teaching Methods: Discussion Response to Teaching: Verbalize Understanding Education Topics Provided: Results of MoCA, Plan of Care Time Speech Therapy Time In: 09:15 Speech Therapy Time Out: 09:45 Total Billed Time: 30 Billed Treatment Time 1, ELSA Lala Jun 23, 2021 15:51
--- NOTE | 2021-06-23 15:54 | Therapy Team Discharge Summary ---
Therapy Discharge Summary Discharge Recommendations Date of Discharge Occupational Therapy Decreased Activ Tolerance, Impaired Cognition, Impaired Self-Care Skills Speech-Language Pathology The patient has a planned discharge home with spouse on 06/24/2021. At this time, the patient continues to display minimal to mild deficits in the areas of memory and attention. PT Principal Automation Engineer Goals Principal Automation Engineer Goals PT Chcf Goals Time Frame: Jun 27, 2021 Roll Left to Right (QC): 6 Sit to Lying (QC): 6 Lying-Sitting on Side/Bed(QC): 6 Sit to Stand (QC): 6 Chair/Fgz-up-Khoyx Xfer(QC): 6 Car Transfer (QC): 6 Does the Patient Walk: Yes Walk 10 feet (QC): 6 Walk 10ft-Uneven Surface(QC): 6 Walk 50ft with 2 Turns (QC): 6 Walk 150 ft (QC): 6 Does the Pt use WC or Scooter?: No Wheel 50 feet with 2 turns (QC: 9 1 Step (curb) (QC): 6 4 Steps (QC): 6 12 Steps (QC): 6 Picking up an Object (QC): 6 OT Principal Automation Engineer Goals Principal Automation Engineer Goals Time Frame: Jul 04, 2021 Eating (FIM): 6 Eating (QC): 6 Oral Hygiene (QC): 6 Shower/Bathe Self (QC): 5 Upper Body Dressing (QC): 6 Lower Body Dressing (QC): 6 On/Off Footwear (QC): 6 Toileting(FIM): 6 Toileting Hygiene (QC): 6 Toilet/Commode Transfer (QC): 6 Additional Goals: 1-Demonstrate ADL Tasks, 2-Verbalize Understanding, 3-I mproveStrength/Shauna 1=Demonstrate adherence to instructed precautions during ADL tasks. 2=Patient will verbalize/demonstrate understanding of assistive devices/modifications for ADL. 3=Patient will improve strength/tolerance for activity to enable patient to perform ADL's. Speech Principal Automation Engineer Goals Principal Automation Engineer Goals 1. The patient will demonstrate increased cognitive function for daily tasks. NOT MET ELSA ZAMBRANO Jun 23, 2021 15:54
[2021-06-23] MEDS: TAMSULOSIN 0.4 MG (FLOMAX) CAP PO SCH (17:33)
[2021-06-23 19:40] VITALS: BP 151/80
[2021-06-23] MEDS: ROSUVASTATIN 10 MG (CRESTOR) TABLET PO SCH (21:44)
[2021-06-24] MEDS ORDERED: ROSU20TA32 PO (06:40)
[2021-06-24] MEDS ORDERED: AMLO-251 PO (06:40)
[2021-06-24] MEDS ORDERED: APIX5TAB PO (06:40)
[2021-06-24] MEDS ORDERED: LISI40TA9 PO (06:40)
[2021-06-24] MEDS ORDERED: CARV12.53 PO (06:40)
[2021-06-24] MEDS ORDERED: DOXY100T2 PO (06:40)
[2021-06-24] MEDS ORDERED: PANT40TA52 PO (06:40)
[2021-06-24] MEDS ORDERED: CLN.1T PO (06:40)
[2021-06-24] MEDS ORDERED: TMSL.4C PO (06:40)
--- NOTE | 2021-06-24 06:40 | Discharge Summary ---
Diagnosis/Chief Complaint Date of Admission Jun 13, 2021 at 10:52 Date of Discharge Discharge Date: Jun 24, 2021 Discharge Diagnosis Assessment: COPD myopathy s/p severe sepsis Multifocal pneumonia on abx Acute respiratory failure with hypoxia Lactic acidosis Acute kidney injury COVID test negative x2 CT with multifocal pneumonia Continue Meropenem after failed Cefepime Added tick panel s/p Doxycycline Supplemental oxygen via nasal cannula, 2 L currently New onset AFib NSTEMI Cardiology following Eliquis maintained Stress test performed HTN HLD GERD Obesity STEPAN on CPAP Cheek cath-DC Cognitive deficit Plan: Home CPAP machine DC cheek Home meds Cardiology appreciated 06/14/2021: Use home CPAP IV antibiotics Monitor closely High risk for decompensation 06/15/21: Monitor oxygen status CPAP at night Abx DC Vanc 06/16/21: Monitor fever Aggressive PT OT 06/17/21: Complete abx tomorrow 06/18/21: Monitor closely 06/19/2021: Dramatic improvement Supportive care will continue 06/20/2021: Supportive care Dramatic improvement 06/21/2021: Doing much better Clearing delirium 06/22/2021: Dramatic improvement Delirium has resolved 06/23/21: DC tomorrow (1) Paroxysmal atrial fibrillation Assessment & Plan: His electrocardiogram from 06/10 showed sinus rhythm. He has been on apixaban for stroke prophylaxis. This will need to be followed up after discharge. As above, he tells me he plans to move to [place] and will find a resident care technician in [place] when he makes his final move after being discharged. (2) Acute on chronic heart failure with preserved ejection fraction (HFpEF) Assessment & Plan: He does appear to have some degree heart failure. His ejection fraction was normal on his stress test. His chest x-rays have shown some degree of pulmonary congestion. He received intermittent diuretic. Chest x-ray from today is pending. (3) Elevated troponin I level Status: Acute Assessment & Plan: He had borderline elevation of the troponin levels at the time of admission. However, he was not having any overt angina. I had him und ergo a nuclear stress test and this was normal. As such, I do not see any indication for cardiac catheterization. He is on beta-agustín, IRAIS inhibitor, and statin medication. Since he is taking apixaban for atrial fibrillation, I do not have him on aspirin. (4) Primary hypertension Assessment & Plan: Blood pressures are intermittently elevated. His antihypertensive medication has been adjusted. (5) Mixed hyperlipidemia Assessment & Plan: Continue statin. Discharge Summary Discharge Physical Examination Allergies: Coded Allergies: No Known Drug Allergies (Unverified , 06/07/21) Vitals & I&Os Vital Signs Date Time Temp Pulse Resp B/P (MAP) Pulse Ox O2 Delivery O2 Flow Rate FiO2 06/24/21 15:52 36.8 65 18 130/70 96 Room Air 06/22/21 20:45 92 06/22/21 07:28 0.00 General Appearance: Alert, Oriented X3, Cooperative Respiratory: Clear to Auscultation Cardiovascular: Regular Rate Neuro: Normal Gait, Normal Speech, Strength at 5/5 X4 Ext Psych/Mental Status: Mental Status NL Hospital Course Was the Problem List Reviewed?: Yes Pt had an uneventful hospital course for 12 days after he was admitted following a critical illness with COPD exacerbation and pneumonia with encephalopathy. He overall had a dramatic improvement over the last 5 days of care. He did finish his IV antibiotics and he was back to baseline, ambulating without an assisted device and was ready for discharge. Labs (last 24 hrs) Laboratory Tests 06/13/21 20:20: White Blood Count 10.4, Red Blood Count 4.27L, Hemoglobin 12.1L, Hematocrit 36L, Mean Corpuscular Volume 84, Mean Corpuscular Hemoglobin 28, Mean Corpuscular Hemoglobin Concent 34, Red Cell Distribution Width 12.9, Platelet Count 353, Mean Platelet Volume 10.3, Immature Granulocyte % (Auto) 1, Neutrophils (%) (Auto) 62, Lymphocytes (%) (Auto) 28, Monocytes (%) (Auto) 5, Eosinophils (%) (Auto) 2, Basophils (%) (Auto) 1, Neutrophils # (Auto) 6.5, Lymphocytes # (Auto) 2.9, Monocytes # (Auto) 0.6, Eosinophils # (Auto) 0.2, Basophils # (Auto) 0.1, Immature Granulocyte # (Auto) 0.2H, Sodium Level 134L, Potassium Level 3.8, Chloride Level 105, Carbon Dioxide Level 20L, Anion Gap 9, Blood Urea Nitrogen 21H, Creatinine 1.11, Estimat Glomerular Filtration Rate 66, BUN/Creatinine Ratio 19, Glucose Level 167H, Lactic Acid Level 0.83, Calcium Level 8.0L, Corrected Calcium 8.7, Total Bilirubin 0.5, Aspartate Amino Transf (AST/SGOT) 37H, Alanine Aminotransferase (ALT/SGPT) 72H, Alkaline Phosphatase 78, Total Protein 6.1L, Albumin 3.1L, Procalcitonin 0.91H 06/13/21 21:00: Blood Gas Puncture Site LEFT RADIAL, Blood Gas Patient Temperature 36.6, Arterial Blood pH 7.45H, Arterial Blood Partial Pressure CO2 34L, Arterial Blood Partial Pressure O2 74L, Arterial Blood HCO3 23, Arterial Blood Total CO2 23.9, Arterial Blood Oxygen Saturation 95, Arterial Blood Base Excess -0.8, Tree Test YES-POS, Blood Gas Ventilator Setting NO, Blood Gas Inspired Oxygen 4L, Influenza Type A (RT-PCR) Not Detected, Influenza Type B (RT-PCR) Not Detected, SARS-CoV-2 RNA (RT-PCR) Not Detected 06/13/21 21:10: Urine Color YELLOW, Urine Clarity CLEAR, Urine pH 6.0, Urine Specific [place] 1.015L, Urine Protein TRACEH, Urine Glucose (UA) NEGATIVE, Urine Ketones NEGATIVE, Urine Nitrite NEGATIVE, Urine Bilirubin NEGATIVE, Urine Urobilinogen 0.2, Urine Leukocyte Esterase NEGATIVE, Urine RBC (Auto) NEGATIVE, Urine RBC 0- 2, Urine WBC 0-2, Urine Squamous Epithelial Cells NONE, Urine Renal Epithelial Cells NONE, Urine Crystals NONE, Urine Bacteria NEGATIVE, Urine Casts NONE, Urine Mucus NEGATIVE, Urine Culture Indicated NO 06/14/21 05:55: White Blood Count 11.0, Red Blood Count 4.50, Hemoglobin 12.7L, Hematocrit 38L, Mean Corpuscular Volume 84, Mean Corpuscular Hemoglobin 28, Mean Corpuscular Hemoglobin Concent 34, Red Cell Distribution Width 12.8, Platelet Count 366, Mean Platelet Volume 9.9, Immature Granulocyte % (Auto) 2, Neutrophils (%) (Auto) 62, Lymphocytes (%) (Auto) 27, Monocytes (%) (Auto) 6, Eosinophils (%) (Auto) 2, Basophils (%) (Auto) 1, Neutrophils # (Auto) 6.9, Lymphocytes # (Auto) 2.9, Monocytes # (Auto) 0.6, Eosinophils # (Auto) 0.3, Basophils # (Auto) 0.1, Immature Granulocyte # (Auto) 0.2H, Sodium Level 136, Potassium Level 3.9, Chloride Level 102, Carbon Dioxide Level 25, Anion Gap 9, Blood Urea Nitrogen 20H, Creatinine 1.09, Estimat Glomerular Filtration Rate 67, BUN/Creatinine Ratio 18, Glucose Level 168H, Calcium Level 8.1L, Corrected Calcium 8.9, Total Bilirubin 0.5, Aspartate Amino Transf (AST/SGOT) 31, Alanine Aminotransferase (ALT/SGPT) 66H, Alkaline Phosphatase 80, Total Protein 6.1L, Albumin 3.0L 06/15/21 06:50: White Blood Count 9.6, Red Blood Count 4.17L, Hemoglobin 11.8L, Hematocrit 35L, Mean Corpuscular Volume 83, Mean Corpuscular Hemoglobin 28, Mean Corpuscular Hemoglobin Concent 34, Red Cell Distribution Width 12.8, Platelet Count 407H, Mean Platelet Volume 9.9, Immature Granulocyte % (Auto) 2, Neutrophils (%) (Auto) 61, Lymphocytes (%) (Auto) 28, Monocytes (%) (Auto) 6, Eosinophils (%) (Auto) 3, Basophils (%) (Auto) 1, Neutrophils # (Auto) 5.8, Lymphocytes # (Auto) 2.7, Monocytes # (Auto) 0.6, Eosinophils # (Auto) 0.3, Basophils # (Auto) 0.1, Immature Granulocyte # (Auto) 0.1, Neutrophils % (Manual) 65, Lymphocytes % (Manual) 27, Monocytes % (Manual) 3, Eosinophils % (Manual) 3, Atypical Lymphocytes 2, Polychromasia SLIGHT, Microcytosis SLIGHT, Sodium Level 136, Potassium Level 4.0, Chloride Level 104, Carbon Dioxide Level 24, Anion Gap 8, Blood Urea Nitrogen 19H, Creatinine 0.92, Estimat Glomerular Filtration Rate 82, BUN/Creatinine Ratio 21, Glucose Level 160H, Calcium Level 7.9L, Corrected Calcium 8.8, Total Bilirubin 0.5, Aspartate Amino Transf (AST/SGOT) 30, Alanine Aminotransferase (ALT/SGPT) 61H, Alkaline Phosphatase 76, Total Protein 5.9L, Albumin 2.9L 06/15/21 19:25: Vancomycin Level Trough 13.0 06/16/21 05:58: White Blood Count 10.9, Red Blood Count 4.42, Hemoglobin 12.5L, Hematocrit 37L, Mean Corpuscular Volume 84, Mean Corpuscular Hemoglobin 28, Mean Corpuscular Hemoglobin Concent 34, Red Cell Distribution Width 12.7, Platelet Count 432H, Mean Platelet Volume 9.6, Immature Granulocyte % (Auto) 1, Neutrophils (%) (Auto) 61, Lymphocytes (%) (Auto) 29, Monocytes (%) (Auto) 6, Eosinophils (%) (Auto) 2, Basophils (%) (Auto) 1, Neutrophils # (Auto) 6.7, Lymphocytes # (Auto) 3.2, Monocytes # (Auto) 0.6, Eosinophils # (Auto) 0.2, Basophils # (Auto) 0.1, Immature Granulocyte # (Auto) 0.1, Sodium Level 137, Potassium Level 4.1, Chloride Level 104, Carbon Dioxide Level 25, Anion Gap 8, Blood Urea Nitrogen 18, Creatinine 0.98, Estimat Glomerular Filtration Rate 76, BUN/Creatinine Ratio 18, Glucose Level 167H, Calcium Level 8.0L, Corrected Calcium 8.8, Total Bilirubin 0.5, Aspartate Amino Transf (AST/SGOT) 34, Alanine Aminotransferase (ALT/SGPT) 56H, Alkaline Phosphatase 74, Total Protein 6.1L, Albumin 3.0L 06/16/21 09:35: Ammonia 26 06/22/21 04:15: White Blood Count 8.0, Red Blood Count 4.21L, Hemoglobin 11.8L, Hematocrit 35L, Mean Corpuscular Volume 84, Mean Corpuscular Hemoglobin 28, Mean Corpuscular Hemoglobin Concent 34, Red Cell Distribution Width 12.4, Platelet Count 410H, Mean Platelet Volume 9.1, Immature Granulocyte % (Auto) 0, Neutrophils (%) (Auto) 44, Lymphocytes (%) (Auto) 45H, Monocytes (%) (Auto) 7, Eosinophils (%) (Auto) 3, Basophils (%) (Auto) 1, Neutrophils # (Auto) 3.5, Lymphocytes # (Auto) 3.5, Monocytes # (Auto) 0.6, Eosinophils # (Auto) 0.2, Basophils # (Auto) 0.1, Immature Granulocyte # (Auto) 0.0, Sodium Level 139, Potassium Level 4.2, Chloride Level 106, Carbon Dioxide Level 22, Anion Gap 11, Blood Urea Nitrogen 22H, Creatinine 1.13, Estimat Glomerular Filtration Rate 71, BUN/Creatinine Ratio 19, Glucose Level 153H, Calcium Level 8.2L, Corrected Calcium 8.9, Total Bilirubin 0.5, Aspartate Amino Transf (AST/SGOT) 27, Alanine Aminotransferase (ALT/SGPT) 55, Alkaline Phosphatase 90, Total Protein 6.1L, Albumin 3.1L Microbiology 06/13/21 MRSA Screen - Final, Complete MRSA not isolated 06/13/21 Blood Culture - Final, Complete No growth Pending Labs Microbiology Date/Time Source Procedure Growth Status 06/13/21 21:00 Nasal MRSA Screen - Final MRSA not isolated Complete 06/13/21 20:26 Peripheral Rt Ac Blood Culture - Final No growth Complete 06/13/21 20:20 Peripheral Rt Hand Blood Culture - Final No growth Complete Laboratory Tests 06/13/21 20:20: White Blood Count 10.4, Red Blood Count 4.27, Hemoglobin 12.1, Hematocrit 36, Mean Corpuscular Volume 84, Mean Corpuscular Hemoglobin 28, Mean Corpuscular Hemoglobin Concent 34, Red Cell Distribution Width 12.9, Platelet Count 353, Mean Platelet Volume 10.3, Immature Granulocyte % (Auto) 1, Neutrophils (%) (Auto) 62, Lymphocytes (%) (Auto) 28, Monocytes (%) (Auto) 5, Eosinophils (%) (Auto) 2, Basophils (%) (Auto) 1, Neutrophils # (Auto) 6.5, Lymphocytes # (Auto) 2.9, Monocytes # (Auto) 0.6, Eosinophils # (Auto) 0.2, Basophils # (Auto) 0.1, Immature Granulocyte # (Auto) 0.2, Sodium Level 134, Potassium Level 3.8, Chloride Level 105, Carbon Dioxide Level 20, Anion Gap 9, Blood Urea Nitrogen 21, Creatinine 1.11, Estimat Glomerular Filtration Rate 66, BUN/Creatinine Ratio 19, Glucose Level 167, Lactic Acid Level 0.83, Calcium Level 8.0, Corrected Calcium 8.7, Total Bilirubin 0.5, Aspartate Amino Transf (AST/SGOT) 37, Alanine Aminotransferase (ALT/SGPT) 72, Alkaline Phosphatase 78, Total Protein 6.1, Albumin 3.1, Procalcitonin 0.91 06/13/21 21:00: Blood Gas Puncture Site LEFT RADIAL, Blood Gas Patient Temperature 36.6, Arterial Blood pH 7.45, Arterial Blood Partial Pressure CO2 34, Arterial Blood Partial Pressure O2 74, Arterial Blood HCO3 23, Arterial Blood Total CO2 23.9, Arterial Blood Oxygen Saturation 95, Arterial Blood Base Excess -0.8, Tree Test YES-POS, Blood Gas Ventilator Setting NO, Blood Gas Inspired Oxygen 4L, In fluenza Type A (RT-PCR) Not Detected, Influenza Type B (RT-PCR) Not Detected, SARS-CoV-2 RNA (RT-PCR) Not Detected 06/13/21 21:10: Urine Color YELLOW, Urine Clarity CLEAR, Urine pH 6.0, Urine Specific [place] 1.015, Urine Protein TRACE, Urine Glucose (UA) NEGATIVE, Urine Ketones NEGATIVE, Urine Nitrite NEGATIVE, Urine Bilirubin NEGATIVE, Urine Urobilinogen 0.2, Urine Leukocyte Esterase NEGATIVE, Urine RBC (Auto) NEGATIVE, Urine RBC 0-2, Urine WBC 0-2, Urine Squamous Epithelial Cells NONE, Urine Renal Epithelial Cells NONE, Urine Crystals NONE, Urine Bacteria NEGATIVE, Urine Casts NONE, Urine Mucus NEGATIVE, Urine Culture Indicated NO 06/14/21 05:55: White Blood Count 11.0, Red Blood Count 4.50, Hemoglobin 12.7, Hematocrit 38, Mean Corpuscular Volume 84, Mean Corpuscular Hemoglobin 28, Mean Corpuscular Hemoglobin Concent 34, Red Cell Distribution Width 12.8, Platelet Count 366, Mean Platelet Volume 9.9, Immature Granulocyte % (Auto) 2, Neutrophils (%) (Auto) 62, Lymphocytes (%) (Auto) 27, Monocytes (%) (Auto) 6, Eosinophils (%) (Auto) 2, Basophils (%) (Auto) 1, Neutrophils # (Auto) 6.9, Lymphocytes # (Auto) 2.9, Monocytes # (Auto) 0.6, Eosinophils # (Auto) 0.3, Basophils # (Auto) 0.1, Immature Granulocyte # (Auto) 0.2, Sodium Level 136, Potassium Level 3.9, Chloride Level 102, Carbon Dioxide Level 25, Anion Gap 9, Blood Urea Nitrogen 20, Creatinine 1.09, Estimat Glomerular Filtration Rate 67, BUN/Creatinine Ratio 18, Glucose Level 168, Calcium Level 8.1, Corrected Calcium 8.9, Total Bilirubin 0.5, Aspartate Amino Transf (AST/SGOT) 31, Alanine Aminotransferase (ALT/SGPT) 66, Alkaline Phosphatase 80, Total Protein 6.1, Albumin 3.0 06/15/21 06:50: White Blood Count 9.6, Red Blood Count 4.17, Hemoglobin 11.8, Hematocrit 35, Mean Corpuscular Volume 83, Mean Corpuscular Hemoglobin 28, Mean Corpuscular Hemoglobin Concent 34, Red Cell Distribution Width 12.8, Platelet Count 407, Mean Platelet Volume 9.9, Immature Granulocyte % (Auto) 2, Neutrophils (%) (Auto) 61, Lymphocytes (%) (Auto) 28, Monocytes (%) (Auto) 6, Eosinophils (%) (Auto) 3, Basophils (%) (Auto) 1, Neutrophils # (Auto) 5.8, Lymphocytes # (Auto) 2.7, Monocytes # (Auto) 0.6, Eosinophils # (Auto) 0.3, Basophils # (Auto) 0.1, Immature Granulocyte # (Auto) 0.1, Neutrophils % (Manual) 65, Lymphocytes % (Manual) 27, Monocytes % (Manual) 3, Eosinophils % (Manual) 3, Atypical Lymphoc ytes 2, Polychromasia SLIGHT, Microcytosis SLIGHT, Sodium Level 136, Potassium Level 4.0, Chloride Level 104, Carbon Dioxide Level 24, Anion Gap 8, Blood Urea Nitrogen 19, Creatinine 0.92, Estimat Glomerular Filtration Rate 82, BUN/Creatinine Ratio 21, Glucose Level 160, Calcium Level 7.9, Corrected Calcium 8.8, Total Bilirubin 0.5, Aspartate Amino Transf (AST/SGOT) 30, Alanine Ami notransferase (ALT/SGPT) 61, Alkaline Phosphatase 76, Total Protein 5.9, Albumin 2.9 06/15/21 19:25: Vancomycin Level Trough 13.0 06/16/21 05:58: White Blood Count 10.9, Red Blood Count 4.42, Hemoglobin 12.5, Hematocrit 37, Mean Corpuscular Volume 84, Mean Corpuscular Hemoglobin 28, Mean Corpuscular Hemoglobin Concent 34, Red Cell Distribution Width 12.7, Platelet Count 432, Mean Platelet Volume 9.6, Immature Granulocyte % (Auto) 1, Neutrophils (%) (Auto) 61, Lymphocytes (%) (Auto) 29, Monocytes (%) (Auto) 6, Eosinophils (%) (Auto) 2, Basophils (%) (Auto) 1, Neutrophils # (Auto) 6.7, Lymphocytes # (Auto) 3.2, Monocytes # (Auto) 0.6, Eosinophils # (Auto) 0.2, Basophils # (Auto) 0.1, Immature Granulocyte # (Auto) 0.1, Sodium Level 137, Potassium Level 4.1, Chloride Level 104, Carbon Dioxide Level 25, Anion Gap 8, Blood Urea Nitrogen 18, Creatinine 0.98, Estimat Glomerular Filtration Rate 76, BUN/Creatinine Ratio 18, Glucose Level 167, Calcium Level 8.0, Corrected Calcium 8.8, Total Bilirubin 0.5, Aspartate Amino Transf (AST/SGOT) 34, Alanine Aminotransferase (ALT/SGPT) 56, Alkaline Phosphatase 74, Total Protein 6.1, Albumin 3.0 06/16/21 09:35: Ammonia 26 06/22/21 04:15: White Blood Count 8.0, Red Blood Count 4.21, Hemoglobin 11.8, Hematocrit 35, Mean Corpuscular Volume 84, Mean Corpuscular Hemoglobin 28, Mean Corpuscular Hemoglobin Concent 34, Red Cell Distribution Width 12.4, Platelet Count 410, Mean Platelet Volume 9.1, Immature Granulocyte % (Auto) 0, Neutrophils (%) (Auto) 44, Lymphocytes (%) (Auto) 45, Monocytes (%) (Auto) 7, Eosinophils (%) (Auto) 3, Basophils (%) (Auto) 1, Neutrophils # (Auto) 3.5, Lymphocytes # (Auto) 3.5, Monocytes # (Auto) 0.6, Eosinophils # (Auto) 0.2, Basophils # (Auto) 0.1, Immature Granulocyte # (Auto) 0.0, Sodium Level 139, Potassium Level 4.2, Chloride Level 106, Carbon Dioxide Level 22, Anion Gap 11, Blood Urea Nitrogen 22, Creatinine 1.13, Estimat Glomerular Filtration Rate 71, BUN/Creatinine Ratio 19, Glucose Level 153, Calcium Level 8.2, Corrected Calcium 8.9, Total Bilirubin 0.5, Aspartate Amino Transf (AST/SGOT) 27, Alanine Aminotransferase (ALT/SGPT) 55, Alkaline Phosphatase 90, Total Protein 6.1, Albumin 3.1 Discharge Home Medications: Active Scripts Active Pantoprazole Sodium 40 Mg Tablet.dr 40 Mg PO DAILY Carvedilol 12.5 Mg Tablet 25 Mg PO BID Eliquis (Apixaban) 5 Mg Tablet 5 Mg PO BID@0600,1800 Flomax (Tamsulosin HCl) 0.4 Mg Cap 0.4 Mg PO DAILY@1800 Doxycycline Hyclate 100 Mg Tablet 100 Mg PO BID@07,17 Rosuvastatin Calcium 20 Mg Tablet 10 Mg PO HS Lisinopril 40 Mg Tablet 40 Mg PO DAILY Clonidine HCl 0.1 Mg Tablet 0.1 Mg PO BID Amlodipine Besylate 10 Mg Tablet 10 Mg PO DAILY Instructions to patient/family Please see electronic discharge instructions given to patient. Diagnosis/Problems Diagnosis/Problems (1) Myopathy (2) STEPAN on CPAP (3) Cognitive deficits (4) Cheek catheter in place (5) Elevated troponin I level Status: Acute (6) New onset atrial fibrillation Status: Acute (7) Multifocal pneumonia Status: Acute (8) Acute respiratory failure with hypoxia Status: Acute (9) RAMYA (acute kidney injury) Status: Acute (10) NSTEMI (non-ST elevation myocardial infarction) Status: Acute (11) HLD (hyperlipidemia) Status: Chronic (12) HTN (hypertension) Status: Chronic (13) GERD (gastroesophageal reflux disease) Status: Chronic (14) Stage 3 chronic kidney disease Status: Chronic (15) Primary hypertension Status: Chronic (16) Obesity Status: Chronic (17) Mixed hyperlipidemia Status: Chronic TARI AUGUSTIN DO Jun 24, 2021 06:40
[2021-06-24] MEDS: CATHETER FLUSH 10 ML SYR IV SCH (07:50)
[2021-06-24] MEDS: APIXABAN 5 MG (ELIQUIS) TABLET PO SCH (07:50)
[2021-06-24] MEDS: DOXYCYCLINE 100 MG (VIBRAMYCIN) TABLET PO SCH (07:50)
[2021-06-24 08:00] VITALS: BP 139/67
[2021-06-24] MEDS: amLODIPine 10 MG (NORVASC) TAB PO SCH (08:35)
[2021-06-24] MEDS: PANTOPRAZOLE 40 MG (PROTONIX) TAB PO SCH (08:35)
[2021-06-24] MEDS: lisINopril 40 MG (PRINIVIL) TABLET PO SCH (08:35)
[2021-06-24] MEDS: DOCUSATE SODIUM 100 MG (COLACE) CAP PO SCH (08:36)
[2021-06-24] MEDS: cloNIDine 0.1 MG (CATAPRES) TAB PO SCH (08:36)
[2021-06-24] MEDS: polyethylene glycoL POWDER 17 GM (MIRALAX) PACK PO SCH (08:36)
[2021-06-24] MEDS: SENNA W/DOCUSATE (SENOKOT S) TABLET PO SCH (08:37)
[2021-06-24] MEDS: SENNOSIDES 8.6 MG (SENOKOT) TAB PO SCH (08:37)
--- NOTE | 2021-06-24 08:43 | Occupational Ther Daily Note ---
OT Current Status-Daily Note Subjective Pt alert, sitting in recliner. Pt to discharge to home today. No c/o pain. Mental Status/Objective Patient Orientation: Person, Place, Time, Situation Attachments: IV (midline) ADL-Treatment Pt is independent with all ADLs. Pt ambulating without AD. Pt stated that will be at hospital around [id number]. After session, pt sitting in recliner with call light/phone in reach. Nrsg present in room. Therapy Code Descriptions/Definitions Functional [place] Measure: 0=Not Assessed/NA 4=Minimal Assistance 1=Total Assistance 5=Supervision or Setup 2=Maximal Assistance 6=Modified [place] 3=Moderate Assistance 7=Complete IndependenceSCALE: Activities may be completed with or without assistive devices. 9-Psmnzojnsr-zloasnx completes the activity by him/herself with no assistance from a helper. 5-Set-up or Clean-up Assistance-helper sets up or cleans up; patient completes activity. [place] assists only prior to or following the activity. 4-Supervision or Touching Assistance-helper provides verbal cues and/or touching/steadying and/or contact guard assistance as patient completes activity. Assistance may be provided throughout the activity or intermittently. 3-Partial/Moderate Assistance-helper does LESS THAN HALF the effort. [place] lifts, holds or supports trunk or limbs, but provides less than half the effort. 2-Substantial/Maximal Assistance-helper does MORE THAN HALF the effort. [place] lifts or holds trunk or limbs and provides more than half the effort. 3-Wqbflqjuz-hjzxjy does ALL the effort. Patient does none of the effort to complete the activity. Or, the assistance of 2 or more helpers is required for the patient to complete the activity. If activity was not attempted, code reason: 7-Patient Refused. 9-Not Applicable-not attempted and the patient did not perform the activity before the current illness, exacerbation or injury. 10-Not Attempted due to Environmental Limitations-(lack of equipment, weather restraints, etc.). 88-Not Attempted due to Medical Conditions or Safety Concerns. Eating (QC): 6 Oral Hygiene (QC): 6 Shower/Bathe Self (QC): 6 Upper Body Dressing (QC): 6 Lower Body Dressing (QC): 6 On/Off Footwear: 6 Toileting Hygiene (QC): 6 Toilet Transfer (QC): 6 OT Short Term Goals Short Term Goals Time Frame: Jun 20, 2021 Eatin Oral hygiene: 5 Toileting hygiene: 4 Shower/bathe self: 4 Upper body dressin Lower body dressin Putting on/taking off footwear: 4 OT Teletypewriter Operator Goals Fdc Goals Time Frame: Jul 04, 2021 Eating (QC): 6 (met) Oral Hygiene (QC): 6 (met) Toileting Hygiene (QC): 6 (met) Shower/Bathe Self (QC): 5 (met) Upper Body Dressing (QC): 6 (met) Lower Body Dressing (QC): 6 (met) On/Off Footwear (QC): 6 (met) Additional Goals: 1-Demonstrate ADL Tasks, 2-Verbalize Understanding, 3- ImproveStrength/Shauna 1=Demonstrate adherence to instructed precautions during ADL tasks. 2=Patient will verbalize/demonstrate understanding of assistive devices/modifications for ADL. 3=Patient will improve strength/tolerance for activity to enable patient to perform ADL's. OT Education/Plan Discharge Recommendations Plan/Recommendations: Discharge/Goals Met Treatment Plan/Plan of Care Patient would benefit from OT for education, treatment and training to promote independence in ADL's, mobility, safety and/or upper extremity function for ADL's. Plan of Care: ADL Retraining, Functional Mobility, UE Funct Exercise/Act Treatment Duration: Jul 04, 2021 Frequency: At least 5 of 7 days/Wk (IRF) Estimated Hrs Per Day: 1.5 hours per day Agreement: Yes Rehab Potential: Good Time/GCodes Start Time: 07:30 Stop Time: 08:40 Total Time Billed (hr/min): 70 Billed Treatment Time 1 visit-ADL 5 (70 min) CAMERON ANG Jun 24, 2021 08:43
--- NOTE | 2021-06-24 10:13 | Physical Therapy Daily Note ---
PT Daily Note-Current Subjective Pt denies pain, ready for DC this afternoon. Pt reports he is having no trouble with his mobility and has improved quite a bit this week. Pt says he is very pleased with his care here. Pain Numeric Pain Scale: 0-No Pain Mental Status Patient Orientation: Person, Place, Situation Transfers SCALE: Activities may be completed with or without assistive devices. 5-Gerpmutpgz-edridcn completes the activity by him/herself with no assistance from a helper. 5-Set-up or Clean-up Assistance-helper sets up or cleans up; patient completes activity. [place] assists only prior to or following the activity. 4-Supervision or Touching Assistance-helper provides verbal cues and/or touching/steadying and/or contact guard assistance as patient completes activity. Assistance may be provided throughout the activity or intermittently. 3-Partial/Moderate Assistance-helper does LESS THAN HALF the effort. [place] lifts, holds or supports trunk or limbs, but provides less than half the effort. 2-Substantial/Maximal Assistance-helper does MORE THAN HALF the effort. [place] lifts or holds trunk or limbs and provides more than half the effort. 9-Zmgujgeeu-bpyaxk does ALL the effort. Patient does none of the effort to complete the activity. Or, the assistance of 2 or more helpers is required for the patient to complete the activity. If activity was not attempted, code reason: 7-Patient Refused. 9-Not Applicable-not attempted and the patient did not perform the activity bef ore the current illness, exacerbation or injury. 10-Not Attempted due to Environmental Limitations-(lack of equipment, weather r estraints, etc.). 88-Not Attempted due to Medical Conditions or Safety Concerns. Roll Left & Right (QC): 6 Sit to Lying (QC): 6 Lying to Sitting/Side of Bed(Q: 6 Sit to Stand (QC): 6 Chair/Iiu-ao-Jftlr Xfer(QC): 6 Toilet Transfer (QC): 6 Car Transfer (QC): 6 Weight Bearing Right Lower Extremity: Right Left Lower Extremity: Left Gait Training Does the Patient Walk?: Yes Distance: Pt amb (I) x 500ft Walk 10 feet (QC): 6 Walk 50 ft with 2 Turns(QC): 6 Walk 150 ft (QC): 6 Walking 10ft/uneven surface-QC: 6 Gait Persons Needed: 0 Gait Assistive Device: None Pt gait steady throughout at good speed Stair Training Stair Training: Handrails/: 1 handrail #of Steps: 12 1 Step (curb) (QC): 6 4 Steps (QC): 6 12 Steps (QC): 6 Stairs: Pattern: Reciprocal Balance Picking up an Object (QC): 6 Assessment Current Status: Excellent Progress Pt demonstrates (I) with all functional mobility. Pt has made very good progress and did not fatigue during treatment. Pt back to room in recliner with call light and all needs met. PT Short Term Goals Short Term Goals Time Frame: Jun 20, 2021 Roll Left & Right: 5 Sit to lyin Lying to sitting on side of be: 5 Sit to stand: 5 Chair/esf-zx-fzciq transfer: 5 Toilet transfer: 5 Car transfer: 5 Walk 10 feet: 5 Walk 50 feet with two turns: 5 Walk 150 feet: 5 Walking 10ft on uneven surface: 5 1 step (curb): 5 4 steps: 5 12 steps: 5 Picking up objects: 5 Does pt use a wc or scooter: No PT Penitentiary Goals Penitentiary Goals PT Bench Worker Hollow Handle Goals Time Frame: Jun 27, 2021 Roll Left & Right (QC): 6 Sit to Lying (QC): 6 Lying-Sitting on Side/Bed(QC): 6 Sit to Stand (QC): 6 Chair/Zzm-is-Nguge Xfer(QC): 6 Toilet Transfer (QC): 6 Car Transfer (QC): 6 Does the Patient Walk: Yes Walk 10 feet (QC): 6 Walk 50ft with 2 Turns (QC): 6 Walk 150 ft (QC): 6 Walking 10ft on Uneven Surface: 6 1 Step (curb) (QC): 6 4 Steps (QC): 6 12 Steps (QC): 6 Picking up an Object (QC): 6 Does the Pt use WC or Scooter?: No Wheel 50 feet with 2 turns (QC: 9 Type: N/A Wheel 150 feet: 9 Type: N/A PT Plan Treatment/Plan Treatment Plan: Continue Plan of Care Treatment Plan: Bed Mobility, Functional Activity Shauna, Functional Strength, Group Therapy, Gait, Safety, Therapeutic Exercise, Transfers Treatment Duration: Jun 27, 2021 Frequency: 11 times per week Estimated Hrs Per Day: 1.5 hours per day Patient and/or Family Agrees t: Yes Time/GCodes Time In: 925 Time Out: 950 Total Billed Treatment Time: 25 Total Billed Treatment 1, FA 25' SILVIA JEFFERSON CPTA Jun 24, 2021 10:13
--- NOTE | 2021-06-24 11:03 | Therapy Team Discharge Summary ---
Therapy Discharge Summary Discharge Recommendations Date of Discharge Occupational Therapy Pt admitted to ARU with sepsis, renal failure, and COPD myopathy. At OF, pt was independent with all ADLs. Upon initial evaluation, pt required SBA with eating, independent oral care, mod A showering, min A upper body dressing, mod A lower body dressing, max A footwear and max A toileting. OT tx focused on increasing BUE strength and activity tolerance and increasing safety and independence with ADLs and functional mobility. At discharge, pt was independent with all ADLs, meeting all LTGs. Pt to discharge from facility, d/c from OT. Decreased Activ Tolerance, Impaired Cognition, Impaired Self-Care Skills PT Program Management Intern Goals Program Management Intern Goals PT Program Management Intern Goals Time Frame: Jun 27, 2021 Roll Left to Right (QC): 6 Sit to Lying (QC): 6 Lying-Sitting on Side/Bed(QC): 6 Sit to Stand (QC): 6 Chair/Nzj-ge-Ewnkg Xfer(QC): 6 Car Transfer (QC): 6 Does the Patient Walk: Yes Walk 10 feet (QC): 6 Walk 10ft-Uneven Surface(QC): 6 Walk 50ft with 2 Turns (QC): 6 Walk 150 ft (QC): 6 Does the Pt use WC or Scooter?: No Wheel 50 feet with 2 turns (QC: 9 1 Step (curb) (QC): 6 4 Steps (QC): 6 12 Steps (QC): 6 Picking up an Object (QC): 6 OT Longterm Goals Longterm Goals Time Frame: Jul 04, 2021 Eating (FIM): 6 Eating (QC): 6 (met) Oral Hygiene (QC): 6 (met) Shower/Bathe Self (QC): 5 (met) Upper Body Dressing (QC): 6 (met) Lower Body Dressing (QC): 6 (met) On/Off Footwear (QC): 6 (met) Toileting(FIM): 6 Toileting Hygiene (QC): 6 (met) Toilet/Commode Transfer (QC): 6 Additional Goals: 1-Demonstrate ADL Tasks, 2-Verbalize Understanding, 3- ImproveStrength/Shauna 1=Demonstrate adherence to instructed precautions during ADL tasks. 2=Patient will verbalize/demonstrate understanding of assistive d evices/modifications for ADL. 3=Patient will improve strength/tolerance for activity to enable patient to perform ADL's. Speech Longterm Goals Program Management Intern Goals 1. The patient will demonstrate increased cognitive function for daily tasks. NOT MET TUTU PRESSLEY OT Jun 24, 2021 11:03
--- NOTE | 2021-06-24 14:43 | Therapy Team Discharge Summary ---
Therapy Discharge Summary Discharge Recommendations Date of Discharge Physical Therapy Patient came to rehab with sepsis/resp failure. Upon evaluation patient performed rolling and supine <-> sit with SBA, sit <-> stand setup, transfers CGA/SBA, ambulated 10' with a rolling walker with setup. Patient has been perf orming bed mobility and transfer training, balance and endurance training, functional strengthening, stair training, gait training, and education. 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 Now, patient performs bed mobility and transfers with independence, car transfer independent, ambulates 500' without an assistive device with independence (including 50' with at least 2 turns of 90 degrees and 10' over an uneven surface), can go up and down 12 steps using 1 handrail with independence, and can crop picker an object from the floor with independence. Patient is being discharged from this facility today and will be discharged from PT at this time. Occupational Therapy Decreased Activ Tolerance, Impaired Cognition, Impaired Self-Care Skills PT Half-Way Goals Half-Way Goals PT Half-Way Goals Time Frame: Jun 27, 2021 Roll Left to Right (QC): 6 Sit to Lying (QC): 6 Lying-Sitting on Side/Bed(QC): 6 Sit to Stand (QC): 6 Chair/Wvo-wc-Buhyr Xfer(QC): 6 Car Transfer (QC): 6 Does the Patient Walk: Yes Walk 10 feet (QC): 6 Walk 10ft-Uneven Surface(QC): 6 Walk 50ft with 2 Turns (QC): 6 Walk 150 ft (QC): 6 Does the Pt use WC or Scooter?: No Wheel 50 feet with 2 turns (QC: 9 1 Step (curb) (QC): 6 4 Steps (QC): 6 12 Steps (QC): 6 Picking up an Object (QC): 6 OT Half-Way Goals Dial Mounter Goals Time Frame: Jul 04, 2021 Eating (FIM): 6 Eating (QC): 6 (met) Oral Hygiene (QC): 6 (met) Shower/Bathe Self (QC): 5 (met) Upper Body Dressing (QC): 6 (met) Lower Body Dressing (QC): 6 (met) On/Off Footwear (QC): 6 (met) Toileting(FIM): 6 Toileting Hygiene (QC): 6 (met) Toilet/Commode Transfer (QC): 6 Additional Goals: 1-Demonstrate ADL Tasks, 2-Verbalize Understanding, 3-I mproveStrength/Shauna 1=Demonstrate adherence to instructed precautions during ADL tasks. 2=Patient will verbalize/demonstrate understanding of assistive devices/modifications for ADL. 3=Patient will improve strength/tolerance for activity to enable patient to perform ADL's. Speech Half-Way Goals Half-Way Goals 1. The patient will demonstrate increased cognitive function for daily tasks. NOT MET HARVEY CLEMENTS PT Jun 24, 2021 14:42
[2021-06-24 15:52] VITALS: BP 130/70
--- NOTE | 2021-06-25 13:22 | Physician Query Clarification ---
PQ-Further Specificity Admission/Discharge Admission Date: Jun 13, 2021 at 10:52 Discharge Date: Jun 24, 2021 at 15:30 Dr. Mackey, The medical record reflects the following clinical scenario: History/Risk Factors: acute on chronic respiratory failure, Sepsis, pneumonia, STEPAN, admitted following a critical illness with COPD exacerbation and pneumonia with encephalopathy. Clinical Findings: abnormal gait, motor weakness Treatment: Rehab Question: Can you further specify the type of myopathy per the clinical indicators above? Please document a response in the Progress Notes or Discharge Summary. 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 Other, with explanation of the clinical findings. 4. Clinically undetermined, no explanation for the clinical findings. PHYSICIAN RESPONSE Can you specify per above: 1 Please remember a lack of response to the above will prompt a phone page by CDI/Coding staff. In responding to this query, please exercise your independent professional ju dgment. The purpose of this communication is to more accurately reflect the complexity of your patients condition. The fact that a question is asked does not imply that any particular answer is desired or expected. Thank you for your timely response to this clarification. Requestors name: Carlos THIS PHYSICIAN QUERY FORM IS A PERMANENT PART OF THE MEDICAL RECORD CARLOS BENNETT Jun 25, 2021 13:22 TARI MACKEY DO Jun 25, 2021 18:11
== END 2021-06-24 15:30 | disposition home or self-care (01) | DRG 91 ==
PROVIDERS: ADMIT Internal Medicine; ATTEND Internal Medicine
DX: G72.81 Critical illness myopathy (principal); I21.4 Non-ST elevation (NSTEMI) myocardial infarction; I50.33 Acute on chronic diastolic (congestive) heart failure; I13.0 Hypertensive heart and chronic kidney disease with heart failure and stage 1 through stage 4 chronic kidney disease, or unspecified chronic kidney disease; N18.30 Chronic kidney disease, stage 3 unspecified; E78.2 Mixed hyperlipidemia; E78.00 Pure hypercholesterolemia, unspecified; K21.9 Gastro-esophageal reflux disease without esophagitis; E66.9 Obesity, unspecified; G47.33 Obstructive sleep apnea (adult) (pediatric); I25.10 Atherosclerotic heart disease of native coronary artery without angina pectoris; F03.90 Unspecified dementia, unspecified severity, without behavioral disturbance, psychotic disturbance, mood disturbance, and anxiety; G62.9 Polyneuropathy, unspecified; N40.0 Benign prostatic hyperplasia without lower urinary tract symptoms; Z68.38 Body mass index [BMI] 38.0-38.9, adult; N40.1 Benign prostatic hyperplasia with lower urinary tract symptoms; R33.8 Other retention of urine; I48.0 Paroxysmal atrial fibrillation
CPT/HCPCS: 36410; 36415; 71045; 71046; 76937; 80053; 80202; 81000; 82140; 82805; 83605; 84145; 85007; 85025; 85027; 87040; 87081; 87636; 94640; 94664; 94760